=== PATIENT | male | born 1945 | race Caucasian/White ===

== ENCOUNTER 2020-02-19 07:39 | Outpatient (REF) | payer OTHER, SELFPAY ==
[2020-02-19 09:57] LABS: Estimated Average Glucose 146 mg/dL; Hemoglobin A1c % 6.7 %
[2020-02-19 10:22] LABS: Cholesterol 200 mg/dL; Glucose Fasting 146 mg/dL (60-99); HDL Cholesterol 46 mg/dL; LDL Cholesterol Calculated 115 mg/dl; Triglycerides 199 mg/dL
== END 2020-02-19 07:40 | disposition home or self-care (01) ==
LOC: HO.LAB 07:39
PROVIDERS: PCP Internal Medicine; Visit Provider Internal Medicine
DX: E11.9 Type 2 diabetes mellitus without complications (principal)
CPT/HCPCS: 80061; 82947; 83036

== ENCOUNTER 2020-05-10 13:40 | Outpatient (REF) | payer OTHER, SELFPAY ==
--- NOTE | 2020-05-10 | US_ITS ---
EXAMINATION: US EXTRACRANIAL CAROTID DUPLEX, BILATERAL CLINICAL INFORMATION: Carotid artery stenosis. COMPARISON: April 26, 2019, 04/20/2018 and 05/28/2016 TECHNIQUE: Real-time ultrasound and Doppler techniques (integrating B-mode 2-D vascular images, Doppler spectral analysis and color-flow Doppler imaging) were utilized to interrogate the extracranial carotid arteries, the vertebral arteries and proximal subclavian arteries bilaterally. The degree of stenosis is determined by criteria similar to NASCET. FINDINGS: Right Side: 1. There is mild atherosclerotic plaque seen in the bifurcation/proximal ICA region. 2. The common carotid artery PSV proximally is 78.6 cm/s and distally 80.1 cm/s. 3. The proximal internal carotid artery velocities are 117 cm/s systolic and 37 cm/s diastolic. 4. The proximal external carotid artery PSV is 150 cm/s. 5. The vertebral artery shows antegrade flow. 6. The subclavian artery waveforms are normal. Left Side: 1. There is mild atherosclerotic plaque seen in the bifurcation/proximal ICA region. 2. The common carotid artery PSV proximally is 85 cm/s and distally 103 cm/s. 3. The proximal internal carotid artery velocities are 92 cm/s systolic and 25 cm/s diastolic. 4. The proximal external carotid artery PSV is 145 cm/s. 5. The vertebral artery shows antegrade flow. 6. The subclavian artery waveforms are normal. US/US carotid duplex BI IMPRESSION: 1. RIGHT: Minimal, non-hemodynamically significant stenosis of the proximal right internal carotid artery corresponding to a 0-49% stenosis by velocity criteria. 2. LEFT: Minimal, non-hemodynamically significant stenosis of the proximal left internal carotid artery corresponding to a 0-49% stenosis by velocity criteria. 3. There is no change in the category severity of disease when compared to the previous study dated 04/26/2019.
== END 2020-05-10 13:41 | disposition home or self-care (01) ==
LOC: HO.US 13:40
PROVIDERS: Visit Provider Surgery Vascular Surgery
DX: I63.233 Cerebral infarction due to unspecified occlusion or stenosis of bilateral carotid arteries (principal)
CPT/HCPCS: 93880

== ENCOUNTER 2020-05-18 07:38 | Outpatient (REF) | payer OTHER, SELFPAY ==
[2020-05-18 11:58] LABS: Cholesterol 240 mg/dL; HDL Cholesterol 49 mg/dL; LDL Cholesterol Calculated 149 mg/dl; Triglycerides 214 mg/dL
[2020-05-18 12:15] LABS: Estimated Average Glucose 148 mg/dL; Hemoglobin A1c % 6.8 %
== END 2020-05-18 07:39 | disposition home or self-care (01) ==
LOC: HO.WFDLDS 07:38
PROVIDERS: Visit Provider Internal Medicine
DX: E11.9 Type 2 diabetes mellitus without complications (principal)
CPT/HCPCS: 36415; 80061; 83036

== ENCOUNTER → 2020-05-25 13:24 | Outpatient (BNVA) | payer OTHER, SELFPAY | PROVIDERS: PCP Internal Medicine; Visit Provider Surgery Vascular Surgery ==

== ENCOUNTER 2020-07-13 08:30 | Outpatient (REF) | payer OTHER, SELFPAY ==
[2020-07-13 11:31] LABS: MANUAL DIFF FLAG NO
[2020-07-13 11:42] LABS: Basophils Percent Auto 0.5 % (0-2); Eosinophils Absolute Auto 0.3 X10*3/uL (0.0-0.4); Eosinophils Percent Auto 5.1 % (0-4); Hematocrit 43.1 % (42-52); Hemoglobin 13.7 g/dl (14.0-18.0); Imm Gran Abs Auto 0.03 X10*3/uL (0.00-0.03); Imm Gran Pct Auto 0.5 % (0.0-0.4); Lymphocytes Percent Auto 15.9 % (20-40); Mean Corpuscular HGB Conc 31.8 g/dl (31.0-36.0); Mean Corpuscular Hemoglobin 29.5 pg (27.0-33.0); Mean Corpuscular Volume 92.9 fL (80-98); Mean Platelet Volume 10.2 fL (9.4-12.4); Monocytes Absolute Auto 0.7 X10*3/uL (0.1-1.2); Monocytes Percent Auto 11.5 % (2-11); Neutrophils Percent Auto 66.5 % (45-73); Platelet Count 229 X10*3/uL (160-400); Red Blood Count 4.64 X10*6/uL (4.60-5.80); Red Cell Distribution Width 14.5 % (11.0-16.0)
[2020-07-13 11:44] LABS: Estimated Average Glucose 146 mg/dL; Hemoglobin A1c % 6.7 %
[2020-07-13 12:18] LABS: Vitamin D 25-OH Total 35.1 ng/mL (>30)
[2020-07-13 12:22] LABS: Albumin Level 4.4 g/dL (3.5-5.0); Anion Gap 12 (12-20); Blood Urea Nitrogen 53 mg/dL (9-16); Calcium 8.9 mg/dL (8.4-10.2); Carbon Dioxide 28 mmol/L (22-29); Chloride 106 mmol/L (96-108); Estimated Glomerular Filt Rate 23; Magnesium 2.7 mg/dL (1.6-2.6); Potassium 5.1 mmol/L (3.3-5.1); Sodium 141 mmol/L (135-145)
[2020-07-13 12:25] LABS: Cholesterol 258 mg/dL; HDL Cholesterol 44 mg/dL; LDL Cholesterol Calculated 177 mg/dl; Triglycerides 187 mg/dL
[2020-07-13 14:26] LABS: Renal w Reflex Lab Use Only Order verified
[2020-07-15 15:01] LABS: Calcium (PTHI) 9.1 mg/dL (8.6-10.3); PTHI 69 pg/mL (14-64)
== END 2020-07-13 08:31 | disposition home or self-care (01) ==
LOC: HO.WFDLDS 08:30
PROVIDERS: Internal Medicine; Visit Provider Internal Medicine Nephrology
DX: E11.22 Type 2 diabetes mellitus with diabetic chronic kidney disease (principal); E11.21 Type 2 diabetes mellitus with diabetic nephropathy; I12.9 Hypertensive chronic kidney disease with stage 1 through stage 4 chronic kidney disease, or unspecified chronic kidney disease; N18.4 Chronic kidney disease, stage 4 (severe); I70.1 Atherosclerosis of renal artery
CPT/HCPCS: 36415; 80051; 80061; 82040; 82306; 82310; 82565; 83036; 83735; 83970; 84100; 84520; 85025

== ENCOUNTER 2020-09-18 12:35 | Outpatient (REF) | payer OTHER, SELFPAY ==
--- NOTE | ~2020-09-18 | XR_ITS ---
EXAMINATION: XR HIP, RIGHT CLINICAL INFORMATION: Right hip pain COMPARISON: There are no prior studies for comparison. TECHNIQUE: An AP view of the pelvis and AP and frog lateral views of the right hip. FINDINGS: Mineralization is normal. There is no fracture or dislocation. The joint space is preserved. There is subchondral sclerosis in the superior acetabulum with irregularity of the acetabular margin with a small adjacent ossicle. No other findings of significance are seen. XR/XR hip RT w PEL1V IMPRESSION: Irregularity of the lateral margin of the acetabulum with small adjacent ossicle suggested possible posttraumatic changes to the labrum. The hip appears otherwise unremarkable.
== END 2020-09-18 12:36 | disposition home or self-care (01) ==
LOC: HO.XRAY 12:35
PROVIDERS: PCP Internal Medicine; Visit Provider Family Medicine
DX: M25.551 Pain in right hip (principal)
CPT/HCPCS: 73502

== ENCOUNTER 2020-10-10 10:46 | Outpatient (REF) | payer OTHER, SELFPAY ==
--- NOTE | ~2020-10-10 | XR_ITS ---
EXAMINATION: XR FOOT, RIGHT XR FOOT, LEFT CLINICAL INFORMATION: Pain in feet. COMPARISON: None pertinent. TECHNIQUE: 3 views of the right foot. 3 views of the left foot. FINDINGS: RIGHT FOOT: There is no evidence of fracture or focal osseous lesion. Alignment is anatomic. The joint spaces are relatively well maintained. There is a prominent bony spur at the medial aspect of the distal phalanx of the great toe. There is also a small bony spur at the dorsal aspect of the navicular, and small calcaneal Achilles insertion and plantar enthesophytes. The soft tissues are unremarkable. LEFT FOOT: There is no evidence of fracture or focal osseous lesion. Alignment is anatomic. There is some irregularity at the 5th MTP joint with mild osteophyte formation and irregularity of the 5th metatarsal head. Joint spaces are otherwise relatively well maintained. Also noted is a bony spur at the medial aspect of the great toe distal phalanx, and small calcaneal Achilles insertion and plantar enthesophytes. The soft tissues are unremarkable. XR/XR foot LT 2V IMPRESSION: Right Foot: No acute osseous abnormality. Mild osseous spurring as noted above. Left Foot: No acute osseous abnormality. Degenerative change at the 5th MTP joint. Mild osseous spurring.
--- NOTE | ~2020-10-10 | XR_ITS ---
EXAMINATION: XR FOOT, RIGHT XR FOOT, LEFT CLINICAL INFORMATION: Pain in feet. COMPARISON: None pertinent. TECHNIQUE: 3 views of the right foot. 3 views of the left foot. FINDINGS: RIGHT FOOT: There is no evidence of fracture or focal osseous lesion. Alignment is anatomic. The joint spaces are relatively well maintained. There is a prominent bony spur at the medial aspect of the distal phalanx of the great toe. There is also a small bony spur at the dorsal aspect of the navicular, and small calcaneal Achilles insertion and plantar enthesophytes. The soft tissues are unremarkable. LEFT FOOT: There is no evidence of fracture or focal osseous lesion. Alignment is anatomic. There is some irregularity at the 5th MTP joint with mild osteophyte formation and irregularity of the 5th metatarsal head. Joint spaces are otherwise relatively well maintained. Also noted is a bony spur at the medial aspect of the great toe distal phalanx, and small calcaneal Achilles insertion and plantar enthesophytes. The soft tissues are unremarkable. XR/XR foot RT 2V IMPRESSION: Right Foot: No acute osseous abnormality. Mild osseous spurring as noted above. Left Foot: No acute osseous abnormality. Degenerative change at the 5th MTP joint. Mild osseous spurring.
--- NOTE | ~2020-10-10 | XR_ITS ---
EXAMINATION: XR PELVIS CLINICAL INFORMATION: Pain in right hip. COMPARISON: Right hip radiographs 09/18/2020. TECHNIQUE: AP view of the pelvis. FINDINGS: Unchanged appearance of the right hip with irregularity of the superior acetabulum and adjacent small ossicle. There is slight asymmetric prominence of the right femoral head-neck junction which can be seen with femoral acetabular impingement. The hip joint spaces are relatively well maintained. Both femoral heads appropriately project over the acetabula. The bony pelvis is intact. There are no acute osseous findings. XR/XR pelvis 1-2V IMPRESSION: Again noted is irregularity of the superior right acetabulum and adjacent small ossicle. There is slight asymmetric prominence of the right femoral head-neck junction which can be seen with femoral acetabular impingement. No significant interval change.
[2020-10-10 11:22] LABS: MANUAL DIFF FLAG NO
[2020-10-10 11:51] LABS: Basophils Percent Auto 0.2 % (0-2); Eosinophils Absolute Auto 0.1 X10*3/uL (0.0-0.4); Eosinophils Percent Auto 0.5 % (0-4); Hematocrit 38.8 % (42-52); Hemoglobin 12.4 g/dl (14.0-18.0); Imm Gran Abs Auto 0.05 X10*3/uL (0.00-0.03); Imm Gran Pct Auto 0.5 % (0.0-0.4); Lymphocytes Absolute Auto 0.6 X10*3/uL (1.2-4.9); Lymphocytes Percent Auto 5.3 % (20-40); Mean Corpuscular Hemoglobin 29.9 pg (27.0-33.0); Mean Corpuscular Volume 93.5 fL (80-98); Mean Platelet Volume 10.9 fL (9.4-12.4); Monocytes Absolute Auto 0.9 X10*3/uL (0.1-1.2); Monocytes Percent Auto 8.3 % (2-11); Neutrophils Absolute Auto 8.9 X10*3/uL (2.0-8.3); Neutrophils Percent Auto 85.2 % (45-73); Platelet Count 232 X10*3/uL (160-400); Red Blood Count 4.15 X10*6/uL (4.60-5.80); Red Cell Distribution Width 15.4 % (11.0-16.0); White Blood Count 10.5 X10*3/uL (4.8-10.8)
[2020-10-10 12:07] LABS: Alanine Aminotransferase 12 U/L (0-40); Albumin Level 3.8 g/dL (3.5-5.0); Alkaline Phosphatase 129 U/L (39-117); Anion Gap 17 (12-20); Aspartate Amino Transferase 14 U/L (5-37); Bilirubin Total 0.5 mg/dL (0.0-1.0); Blood Urea Nitrogen 84 mg/dL (9-16); Calcium 8.7 mg/dL (8.4-10.2); Carbon Dioxide 16 mmol/L (22-29); Chloride 110 mmol/L (96-108); Cholesterol 185 mg/dL; Estimated Glomerular Filt Rate 20; Glucose Fasting 185 mg/dL (60-99); HDL Cholesterol 53 mg/dL; LDL Cholesterol Calculated 116 mg/dl; Sodium 139 mmol/L (135-145); Thyroid Stimulating Hormone 1.66 uIU/mL (0.32-4.0); Total Protein 6.6 g/dL (6.5-8.0); Triglycerides 82 mg/dL
[2020-10-10 14:31] LABS: Creatinine Urine 114.95 mg/dL; Microalbum/Creatinine Ratio Ur 97.4 ug/mg cr
== END 2020-10-10 10:47 | disposition home or self-care (01) ==
LOC: HO.XRAY 10:46
PROVIDERS: PCP Internal Medicine; Visit Provider Internal Medicine
DX: Z00.00 Encounter for general adult medical examination without abnormal findings (principal); E11.9 Type 2 diabetes mellitus without complications; E03.9 Hypothyroidism, unspecified; R51.9 Headache, unspecified; M10.9 Gout, unspecified; M79.672 Pain in left foot; M25.551 Pain in right hip; M79.671 Pain in right foot
CPT/HCPCS: 36415; 72170; 73620; 80048; 80053; 80061; 82043; 84443; 84550; 85025

== ENCOUNTER 2020-10-25 11:35 | Outpatient (REF) | payer OTHER, SELFPAY ==
[2020-10-25 14:26] LABS: Anion Gap 17 (12-20); Blood Urea Nitrogen 55 mg/dL (9-16); Calcium 8.8 mg/dL (8.4-10.2); Carbon Dioxide 21 mmol/L (22-29); Chloride 106 mmol/L (96-108); Estimated Glomerular Filt Rate 29; Glucose Random 113 mg/dL (60-115); Potassium 5.3 mmol/L (3.3-5.1); Sodium 139 mmol/L (135-145)
== END 2020-10-25 11:36 | disposition home or self-care (01) ==
LOC: HO.LAB 11:35
PROVIDERS: PCP Internal Medicine; Visit Provider Internal Medicine
DX: R51.9 Headache, unspecified (principal)
CPT/HCPCS: 36415; 80048

== ENCOUNTER 2020-11-28 15:15 | Outpatient (REF) | payer OTHER, SELFPAY ==
[2020-11-28 15:47] LABS: MANUAL DIFF FLAG NO
[2020-11-28 15:51] LABS: Basophils Percent Auto 0.2 % (0-2); Eosinophils Percent Auto 0.2 % (0-4); Hematocrit 42.6 % (42-52); Hemoglobin 13.6 g/dl (14.0-18.0); Imm Gran Abs Auto 0.25 X10*3/uL (0.00-0.03); Imm Gran Pct Auto 1.9 % (0.0-0.4); Lymphocytes Absolute Auto 0.7 X10*3/uL (1.2-4.9); Mean Corpuscular HGB Conc 31.9 g/dl (31.0-36.0); Mean Corpuscular Hemoglobin 29.8 pg (27.0-33.0); Mean Corpuscular Volume 93.4 fL (80-98); Mean Platelet Volume 11.1 fL (9.4-12.4); Monocytes Absolute Auto 1.2 X10*3/uL (0.1-1.2); Monocytes Percent Auto 9.1 % (2-11); Neutrophils Absolute Auto 11.1 X10*3/uL (2.0-8.3); Neutrophils Percent Auto 83.6 % (45-73); Platelet Count 218 X10*3/uL (160-400); Red Blood Count 4.56 X10*6/uL (4.60-5.80); Red Cell Distribution Width 16.1 % (11.0-16.0); White Blood Count 13.2 X10*3/uL (4.8-10.8)
[2020-11-28 16:18] LABS: Anion Gap 16 (12-20); Blood Urea Nitrogen 73 mg/dL (9-16); Carbon Dioxide 21 mmol/L (22-29); Chloride 107 mmol/L (96-108); Estimated Glomerular Filt Rate 22; Glucose Random 127 mg/dL (60-115); Potassium 4.8 mmol/L (3.3-5.1); Sodium 139 mmol/L (135-145)
== END 2020-11-28 15:16 | disposition home or self-care (01) ==
LOC: HO.LAB 15:15
PROVIDERS: PCP Internal Medicine; Visit Provider Internal Medicine
DX: Z00.00 Encounter for general adult medical examination without abnormal findings (principal); R51.9 Headache, unspecified
CPT/HCPCS: 36415; 80048; 85025

== ENCOUNTER 2020-11-29 09:48 | Inpatient (IN) | payer OTHER, SELFPAY ==
[2020-11-29] VITALS (12 sets, daily range): BP systolic 136–160; BP diastolic 62–75; PULSE 61–76; RESP 12–19; TEMP 36.2–37.1; O2SAT 96–99; BMI 31.5
--- NOTE | 2020-11-29 | ECG_ITS ---
Test Reason : ABDOMINAL PAIN Blood Pressure : / mmHG Vent. Rate : 065 BPM Atrial Rate : 065 BPM P-R Int : 162 ms QRS Dur : 098 ms QT Int : 406 ms P-R-T Axes : 046 060 051 degrees QTc Int : 422 ms Normal sinus rhythm Normal ECG When compared with ECG of 29-NOV-2015 10:05, No significant change was found Referred By: Rohan Ambrosio Electronically Signed By:Tomas Morales
--- NOTE | ~2020-11-29 | XR_ITS ---
EXAMINATION: XR CHEST CLINICAL INFORMATION: Rule out mass COMPARISON: Previous chest x-ray September 2016 TECHNIQUE: 2 views of the chest were obtained. FINDINGS: The cardiac and mediastinal contours are normal. There is slight elevation of the right hemidiaphragm. The lungs are clear. There is no pleural effusion or thorax. There may be an 8 anterior rib fracture. Bony structures are otherwise unremarkable. XR/XR chest 2V IMPRESSION: No mass seen. Slight elevation of the right hemidiaphragm. Question right anterior eighth fracture.
--- NOTE | ~2020-11-29 | CT_ITS ---
EXAMINATION: CT ABDOMEN AND PELVIS WITHOUT CONTRAST CLINICAL INFORMATION: Status post right colectomy. Increased pain and nausea. COMPARISON: 11/29/2020 TECHNIQUE: Multidetector volumetric imaging was performed from the superior aspect of the liver through the pubic symphysis. Sagittal and coronal reformatted images were obtained on the technologist's workstation. This CT examination was performed using dose optimization techniques as appropriate, variously including the following: *Automated exposure control *Adjustment of mA and/or kV according to patient size (this includes techniques or standardized protocols for targeted exams where dose is matched to indication/reason for exam; i.e. extremities or head) *Use of iterative reconstruction technique DLP: 785 mGy-cm FINDINGS: LUNG BASES: There is bibasilar dependent prominent coronary artery calcifications seen. Atelectasis is present. LIVER, GALLBLADDER, AND BILIARY TREE: The liver is enlarged at 23 cm in vertical span. There are numerous low-density lesions present suspicious for metastases. One mass in segment 7 measures approximately 4 cm diameter and another low-density lesion bridging segments 2 and 4 measures approximately 5 cm in diameter. No intrahepatic bile duct dilatation. The gallbladder is unremarkable with no evidence of radiopaque gallstones, gallbladder wall thickening, or obvious pericholecystic inflammatory changes. There is layering of some increased density material likely related to vicarious excretion of contrast versus echogenic bile. PANCREAS: Unremarkable. There are a few calculi seen within the tail which may be related to previous inflammatory change of the pancreas. SPLEEN: Unremarkable. ADRENAL GLANDS: Unremarkable. KIDNEYS AND URETERS: The kidneys are normal in size, shape, and attenuation. No hydronephrosis or hydroureter. There is bilateral perinephric stranding present. There is a 2 mm nonobstructing calculus seen within the interpolar region of the left kidney. BLADDER: Unremarkable. GASTROINTESTINAL TRACT: There is a small amount of free intra-abdominal gas present. There is a moderate amount of ascites seen. Both may be postoperative in nature. There are numerous dilated loops of small bowel measuring up to 5.5 cm in diameter. Patient is status post right colectomy with the distal ileum not being dilated. Transition appears to lie within the right lower abdomen in a region of narrowed small bowel in the appearance of a V which may be related to internal hernia or band. This can be seen on image 559 [id number] in series #6 and sagittal view of 147 of 231 in series #5. I do not definitely see an intussusception. The above finding may be related to postoperative ileus. ABDOMINAL WALL: No significant hernia is appreciated. LYMPH NODES: Periportal lymphadenopathy is present. VASCULAR: There is moderate aortoiliac calcified plaque present. There is a 4.1 cm infrarenal abdominal aortic aneurysm which extends to the bifurcation. PELVIC VISCERA: The prostate gland is enlarged measuring approximately 5.9 x 5.8 x 6.2 cm in size. OSSEOUS STRUCTURES: No destructive bony lesion identified. There is multilevel degenerative disc disease seen. CT/CT abdomen pelvis wo con IMPRESSION: Small bowel dilatation down to level in the ileum, as described. This appears to be a region of transition, however, the small bowel dilatation could also be related to ileus. There remains some free air and moderate free fluid which may be postoperative in nature. Numerous hepatic lesions with the appearance of metastatic disease. Hepatomegaly. Periportal lymphadenopathy. 4.1 cm infrarenal abdominal aortic aneurysm.
--- NOTE | ~2020-11-29 | CT_ITS ---
EXAMINATION: CT ABDOMEN AND PELVIS WITHOUT CONTRAST CLINICAL INFORMATION: Right lower quadrant pain. Diarrhea. COMPARISON: Previous renal ultrasound December [address] of the abdomen October 2006 TECHNIQUE: Multidetector volumetric imaging was performed from the superior aspect of the liver through the pubic symphysis. Sagittal and coronal reformatted images were obtained on the technologist's workstation. This CT examination was performed using dose optimization techniques as appropriate, variously including the following: *Automated exposure control *Adjustment of mA and/or kV according to patient size (this includes techniques or standardized protocols for targeted exams where dose is matched to indication/reason for exam; i.e. extremities or head) *Use of iterative reconstruction technique DLP: 8-9 mGy-cm FINDINGS: LUNG BASES: The visualized lung bases are unremarkable. LIVER, GALLBLADDER, AND BILIARY TREE: The liver is enlarged. There are multiple low-attenuation liver lesions seen suggestive of metastatic disease. The largest measures 5 cm and the left lobe of liver. Gallbladder appears contracted. There is no biliary duct dilatation. PANCREAS: There are small calcifications in the pancreas suggestive of chronic pancreatitis. SPLEEN: Unremarkable. ADRENAL GLANDS: Unremarkable. KIDNEYS AND URETERS: There are tiny 1 mm stones in the lower pole of each kidney. BLADDER: Unremarkable. GASTROINTESTINAL TRACT: There is a mass in the cecum strongly suspicious for neoplasm. This measures 5.5 x 7 cm. There is infiltration of the fat and adjacent enlarged pericolic lymph nodes. There is mild diverticulosis of the colon. There is no evidence of diverticulitis. Small and large bowel is otherwise unremarkable. The appendix is unremarkable. ABDOMINAL WALL: No significant hernia is appreciated. LYMPH NODES: There are enlarged right lower quadrant pericolic lymph nodes. Largest lymph node measures 1 x 1.3 cm. There are prominent periportal lymph nodes as well. VASCULAR: There is an aneurysm of the lower abdominal aorta measuring 3 x 4.2 cm in transverse and AP dimension. PELVIC VISCERA: Prostate gland is enlarged and protrudes into the base of the bladder. The prostate gland measures 5.7 x 6 cm in AP and transverse dimension. OSSEOUS STRUCTURES: There are degenerative changes of the spine and hip joints. CT/CT abdomen pelvis wo con IMPRESSION: Large mass in the cecum strongly suspicious for neoplasm. Infiltration of the adjacent fat and enlarged pericolic lymph nodes. Enlarged liver with multiple low-attenuation liver lesions suggestive of metastatic disease. Enlarged prostate gland. Small bilateral renal stones. Evidence of chronic pancreatitis. 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
[2020-11-29 11:42] LABS: MANUAL DIFF FLAG NO
[2020-11-29] MEDS: 0.9 % Sodium Chloride 1,000 ML 999 ML IVCONT (11:44)
--- NOTE | 2020-11-29 11:45 | PC.NURSE ---
patient a&ox3, vss, pt c/o rt groin pain 01/05- pt refusing morphine/zofran- pt states he can tolerate it and doesnt want pain meds- will notify provider, iv inserted, labs drawn, urine obtained, pt had ct scan, will continue to monitor.
[2020-11-29 11:46] LABS: Glucose Urine UA NEG (NEG); Leukocyte Esterase Urine NEG (NEG); Nitrite Urine NEG (NEG); Urine Blood NEG (NEG); Urine Ketones NEG (NEG); Urine Protein TRACE MG/DL (NEG-TRACE)
[2020-11-29 11:47] LABS: Appearance Urine CLEAR; Basophils Percent Auto 0.2 % (0-2); Color Urine YELLOW; Eosinophils Absolute Auto 0.1 X10*3/uL (0.0-0.4); Eosinophils Percent Auto 0.4 % (0-4); Hematocrit 40.7 % (42-52); Hemoglobin 13.1 g/dl (14.0-18.0); Imm Gran Abs Auto 0.21 X10*3/uL (0.00-0.03); Imm Gran Pct Auto 1.6 % (0.0-0.4); Lymphocytes Absolute Auto 0.7 X10*3/uL (1.2-4.9); Lymphocytes Percent Auto 5.1 % (20-40); Mean Corpuscular HGB Conc 32.2 g/dl (31.0-36.0); Mean Corpuscular Volume 93.1 fL (80-98); Mean Platelet Volume 11.3 fL (9.4-12.4); Monocytes Absolute Auto 1.1 X10*3/uL (0.1-1.2); Monocytes Percent Auto 8.7 % (2-11); Neutrophils Absolute Auto 10.9 X10*3/uL (2.0-8.3); Platelet Count 199 X10*3/uL (160-400); Red Blood Count 4.37 X10*6/uL (4.60-5.80)
[2020-11-29 12:07] LABS: Lactic Acid 1.9 mmol/L (0.5-2.0)
--- NOTE | 2020-11-29 12:37 | ED_ITS ---
HPI - Abdominal Pain General Chief Complaint: Abdominal Pain Stated Complaint: abnormal labs Time Seen by Provider: 11/29/20 10:45 Source: patient Mode of arrival: ambulatory History of Present Illness HPI narrative: 75-year-old male with a past medical history of diabetes, gout, hypertension, presenting to the ED sent in by PCP for abnormal labs. Reports lower abdominal pain, loose/watery nonbloody diarrhea, & urinary frequency worsening x days. Also reports fatigue and 60lb weight loss over the past few months. Denies fever, chills, CP/SOB, vomiting, constipation, bloody BM/melena MD elicited complaint: abdominal pain Related Data Home Medications Medication Instructions Recorded Confirmed eplerenone 25 mg tablet 25 mg PO DAILY 02/23/20 11/28/20 losartan 50 mg tablet 50 mg PO DAILY 02/23/20 11/28/20 Previous Rx's Medication Instructions Recorded pioglitazone 30 mg tablet 30 mg PO DAILY #90 tab 02/16/20 amlodipine 10 mg tablet 10 mg PO DAILY #90 tab 03/13/20 furosemide 20 mg tablet 40 mg PO DAILY #90 tab 03/13/20 simvastatin 20 mg tablet 20 mg PO BEDTIME #90 tab 03/13/20 ibuprofen 800 mg tablet 800 mg PO Q8H 30 Days #90 tab 09/18/20 allopurinol 300 mg tablet 300 mg PO DAILY #90 tab 10/25/20 famotidine 40 mg tablet (Pepcid) 40 mg PO BEDTIME #30 tab 11/16/20 omeprazole 40 mg capsule,delayed 40 mg PO DAILY #30 cap 11/16/20 release Allergies Allergy/AdvReac Type Severity Reaction Status Date / Time atenolol Allergy Unknown dizziness Verified 11/29/20 09:51 penicillin V Allergy Unknown Unknown Verified 11/29/20 09:51 Review of Systems Review of Systems Constitutional: No Fever, No Chills, + Fatigue, No Malaise, +weight loss Cardiovascular: No Chest Pain, No SOB, No Edema, No Palpitations Respiratory: No Cough, No Dyspnea Gastrointestinal: No Nausea, No Vomiting, + Diarrhea, No Constipation, + Abdominal pain, No Hematochezia, No Melena Genitourinary: + Dysuria, + Urinary Frequency, No Hematuria, No Flank Pain Musculoskeletal: No joint pain, No Myalgias, No Joint Swelling Skin: No Skin Lesions, No rash Neuro: + Weakness, No Numbness, No Headache Yes all other systems are reviewed and are negative Physical Exam Vital Signs: Vital Signs: Last Vital Signs Temp 98.0 F 11/29/20 14:15 Pulse 66 11/29/20 14:15 Resp 18 11/29/20 14:15 BP 144/72 H 11/29/20 14:15 Pulse Ox 98 11/29/20 14:15 Body Mass Index 31.5 Const: General: cooperative and no acute distress Orientation/consciousness: patient oriented x3 Limitations: no limitations HENMT: Head: Yes normal to inspection Ears: hearing grossly normal bilatera lly General nose exam: Normal external nose present Face and sinus: Yes normal facial exam Eyes: General: appearance normal, both eyes and all related structures EOM: EOMs intact bilaterally Neck: Neck: Yes normal visual inspection Resp: Effort & Inspection: normal respiratory effort Auscultation: clear to auscultation bilaterally, no rales and no wheezes Cardio: Rate: regular rate Heart sounds: S1 normal heart sound present and S2 normal heart sound present GI: Inspection: Yes normal to inspection Palpation (GI): Soft to palpation, Tenderness to palpation present (GI) in the RLQ, no guarding and not rigid : General: Yes no CVA tenderness Scrotum: scrotum normal Testes: Testes normal Back/Spine/Pelvis: Back: no CVA tenderness Skin: Rashes: no rashes Wounds: no wounds Neuro: General: patient oriented x3, tone normal and moves all extremities Gait exam (Neuro): Normal gait present Extrem: General: Yes normal to inspection and Yes no pedal edema Course Course Course Narrative: -mild leukocytosis of 13, H&H at patient's baseline 1245-- CT abdomen pelvis wo con IMPRESSION: Large mass in the cecum strongly suspicious for neoplasm. Infiltration of the adjacent fat and enlarged pericolic lymph nodes. Enlarged liver with multiple low-attenuation liver lesions suggestive of metastatic disease. Enlarged prostate gland. Small bilateral renal stones. Evidence of chronic pancreatitis. 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 >> Heme-Onc consulted -lactic acid 1.9 -Dr. Franklin recommended admission with GI and Surgical consult XR chest 2V IMPRESSION: No mass seen. Slight elevation of the right hemidiaphragm. Question right anterior eighth fracture. -case discussed with surgery, patient will be admitted to surgical service MDM - Abdominal Pain MDM Narrative Medical decision making narrative: 75-year-old male with a past medical history of diabetes, gout, hypertension, presenting to the ED sent in by PCP for abnormal labs. Reports lower abdominal pain, loose/watery nonbloody diarrhea, & urinary frequency worsening x days. On exam VSS, NAD, abdomen soft with RLQ ttp, no rebound, no CVAT, exam WNL. Concern for appendicitis vs colitis vs diverticulitis vs neoplasm. Rule out metabolic abnormalities Plan: Labs, UA, CT AP, IVF, reassess Medical Records Attestation: I reviewed the patient's medical records. Lab Data Attestation: I reviewed the patient's lab results. Result diagrams: 11/29/20 11:38 11/29/20 12:40 Labs: Lab Results 11/29/20 11/29/20 11/29/20 Range/Units 11:38 11:38 11:38 WBC 13.0 H (4.8-10.8) X10*3/uL RBC 4.37 L (4.60-5.80) X10*6/uL Hgb 13.1 L (14.0-18.0) g/dl Hct 40.7 L (42-52) % MCV 93.1 (80-98) fL MCH 30.0 (27.0-33.0) pg MCHC 32.2 (31.0-36.0) g/dl RDW 16.0 (11.0-16.0) % Plt Count 199 (160-400) X10*3/uL MPV 11.3 (9.4-12.4) fL Immature Gran % (Auto) 1.6 H (0.0-0.4) % Neut % (Auto) 84.0 H (45-73) % Lymph % (Auto) 5.1 L (20-40) % [place] % (Auto) 8.7 (2-11) % Eos % (Auto) 0.4 (0-4) % Baso % (Auto) 0.2 (0-2) % Lymph # (Auto) 0.7 L (1.2-4.9) X10*3/uL [place] # (Auto) 1.1 (0.1-1.2) X10*3/uL Eos # (Auto) 0.1 (0.0-0.4) X10*3/uL Baso # (Auto) 0.0 (0.0-0.2) X10*3/uL Abs Immat Gran (auto) 0.21 H (0.00-0.03) X10*3/uL Absolute Neuts (auto) 10.9 H (2.0-8.3) X10*3/uL Absolute Nucleated RBC 0.000 (0.0-0.012) X10*3/uL Nucleated RBC % (auto) 0.0 (0.0-0.2) /100WBC Sodium (135-145) mmol/L Potassium (3.3-5.1) mmol/L Chloride (96-108) mmol/L Carbon Dioxide (22-29) mmol/L Anion Gap (12-20) BUN (9-16) mg/dL Creatinine (0.5-1.4) mg/dL Estim Creat Clear Calc Estimated GFR Random Glucose (60-115) mg/dL Lactic Acid 1.9 (0.5-2.0) mmol/L Calcium (8.4-10.2) mg/dL Magnesium (1.6-2.6) mg/dL Total Bilirubin (0.0-1.0) mg/dL Direct Bilirubin (0.0-0.5) mg/dL AST (5-37) U/L ALT (0-40) U/L Alkaline Phosphatase (39-117) U/L Total Protein (6.5-8.0) g/dL Albumin (3.5-5.0) g/dL Lipase (8-78) U/L Urine Color YELLOW Urine Appearance CLEAR Urine pH 6.0 (5.0-8.0) Ur Specific [place] 1.020 (1.005-1.025) Urine Protein TRACE (NEG-TRACE) MG/DL Urine Glucose (UA) NEG (NEG) MG/DL Urine Ketones NEG (NEG) MG/DL Urine Blood NEG (NEG) Urine Nitrite NEG (NEG) Ur Leukocyte Esterase NEG (NEG) 11/29/20 Range/Units 12:40 WBC (4.8-10.8) X10*3/uL RBC (4.60-5.80) X10*6/uL Hgb (14.0-18.0) g/dl Hct (42-52) % MCV (80-98) fL MCH (27.0-33.0) pg MCHC (31.0-36.0) g/dl RDW (11.0-16.0) % Plt Count (160-400) X10*3/uL MPV (9.4-12.4) fL Immature Gran % (Auto) (0.0-0.4) % Neut % (Auto) (45-73) % Lymph % (Auto) (20-40) % [place] % (Auto) (2-11) % Eos % (Auto) (0-4) % Baso % (Auto) (0-2) % Lymph # (Auto) (1.2-4.9) X10*3/uL [place] # (Auto) (0.1-1.2) X10*3/uL Eos # (Auto) (0.0-0.4) X10*3/uL Baso # (Auto) (0.0-0.2) X10*3/uL Abs Immat Gran (auto) (0.00-0.03) X10*3/uL Absolute Neuts (auto) (2.0-8.3) X10*3/uL Absolute Nucleated RBC (0.0-0.012) X10*3/uL Nucleated RBC % (auto) (0.0-0.2) /100WBC Sodium 139 (135-145) mmol/L Potassium 5.0 (3.3-5.1) mmol/L Chloride 109 H (96-108) mmol/L Carbon Dioxide 22 (22-29) mmol/L Anion Gap 13 (12-20) BUN 66 H (9-16) mg/dL Creatinine 2.39 H (0.5-1.4) mg/dL Estim Creat Clear Calc 33.0 Estimated GFR 27 Random Glucose 160 H (60-115) mg/dL Lactic Acid (0.5-2.0) mmol/L Calcium 8.1 L D (8.4-10.2) mg/dL Magnesium 2.4 (1.6-2.6) mg/dL Total Bilirubin 0.5 (0.0-1.0) mg/dL Direct Bilirubin 0.3 (0.0-0.5) mg/dL AST 28 D (5-37) U/L ALT 23 (0-40) U/L Alkaline Phosphatase 200 H D (39-117) U/L Total Protein 6.0 L (6.5-8.0) g/dL Albumin 3.6 (3.5-5.0) g/dL Lipase 36 (8-78) U/L Urine Color Urine Appearance Urine pH (5.0-8.0) Ur Specific [place] (1.005-1.025) Urine Protein (NEG-TRACE) MG/DL Urine Glucose (UA) (NEG) MG/DL Urine Ketones (NEG) MG/DL Urine Blood (NEG) Urine Nitrite (NEG) Ur Leukocyte Esterase (NEG) Discharge Plan Discharge Clinical Impression: Cecum mass, Liver lesion Patient Disposition: Admitted As Inpatient Prescriptions: No Action pioglitazone 30 mg tablet 30 mg PO DAILY Qty: 90 RF: 8 simvastatin 20 mg tablet 20 mg PO BEDTIME Qty: 90 RF: 8 furosemide 20 mg tablet 40 mg PO DAILY Qty: 90 RF: 8 amlodipine 10 mg tablet 10 mg PO DAILY Qty: 90 RF: 8 famotidine [Pepcid] 40 mg tablet 40 mg PO BEDTIME Qty: 30 RF: 2 omeprazole 40 mg capsule,delayed release(DR/EC) 40 mg PO DAILY Qty: 30 RF: 2 eplerenone 25 mg tablet 25 mg PO DAILY RF: 0 losartan 50 mg tablet 50 mg PO DAILY RF: 0 ibuprofen 800 mg tablet 800 mg PO Q8H 30 Days Qty: 90 RF: 0 allopurinol 300 mg tablet 300 mg PO DAILY Qty: 90 RF: 8 PMFSH Past Medical History Attestation statement: The following information was validated with the patient. Medical History (Updated 11/29/20 @ 15:22 by SILVIA Cat) Diabetes mellitus Gout Hypertension Surgical History History of removal of cyst Family History Family History Father Past heart attack Mother Past heart attack Social History Social History Housing: House Alcohol intake: current Alcohol intake frequency: holidays/special occasions only Patient Tobacco Use Status: Current everyday Tobacco user Tobacco use type: Cigarette Cigarettes Per Day: 10 e-Cigarette/Vaping Use: Never Used Second Hand Smoke Exposure: No Use of substances other than those prescribed or required for medical reasons: No Advance Directives: No Advance Directives Information Provided: No service: No Current occupational status: employed and retired
[2020-11-29 13:15] LABS: Alanine Aminotransferase 23 U/L (0-40); Albumin Level 3.6 g/dL (3.5-5.0); Alkaline Phosphatase 200 U/L (39-117); Anion Gap 13 (12-20); Aspartate Amino Transferase 28 U/L (5-37); Bilirubin Direct 0.3 mg/dL (0.0-0.5); Bilirubin Total 0.5 mg/dL (0.0-1.0); Blood Urea Nitrogen 66 mg/dL (9-16); Calcium 8.1 mg/dL (8.4-10.2); Carbon Dioxide 22 mmol/L (22-29); Chloride 109 mmol/L (96-108); Estimated Glomerular Filt Rate 27; Glucose Random 160 mg/dL (60-115); Lipase 36 U/L (8-78); Magnesium 2.4 mg/dL (1.6-2.6); Sodium 139 mmol/L (135-145)
--- NOTE | 2020-11-29 14:16 | PC.NURSE ---
pt oob with 2 assist stand/pivot to commode to urinate, pt back to bed, vitals obtained, pt states pain 4/10, pt has + csm/pulse felt under cast, pt states hes unable to moves his toes well on the left, will continue to monitor.
--- NOTE | 2020-11-29 15:37 | P.HPGS_ITS ---
History of Present Illness History of Present Illness Date of Service: 11/29/20 Chief complaint: Obstructing Cecal Cancer Narrative: Cade Sanchez is a 75 year old male presenting with complaints of right lower quadrant extending into the right flank and right hip pain which has progressed over the past year. Patient reports frequent loose/watery bowels, 60 lb weight loss despite normal appetite. He denies fever, chills, nausea, or vomiting. He denies a previous history of abdominal surgeries. The pain appears to be increasing in severity and he was evaluated by his medical doctor today, and was subsequently sent to the emergency department for further evaluation. He was found to be slightly anemic in the emergency department. A CT of the abdomen and pelvis revealed: Large mass in the cecum strongly suspicious for neoplasm. Infiltration of the adjacent fat and enlarged pericolic lymph nodes. Enlarged liver with multiple low-attenuation liver lesions suggestive of metastatic disease. Enlarged prostate gland. Small bilateral renal stones. Evidence of chronic pancreatitis. 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 He is admitted to the surgical service for further management of this obstructing cecal lesion with apparent liver metastases. Review of Systems Review of Systems: Yes all other systems are reviewed and are negative Constitutional: Constitutional: Denies chills, Reports fatigue, Denies fever(s), Denies poor appetite and Reports weight loss Cardiovascular: Cardiovascular: Denies chest pain, Denies rapid heart rate and Denies irregular heart rhythm Respiratory: Respiratory: Denies chest congestion, Denies cough and Denies pain with cough Gastrointestinal: Gastrointestinal: Reports as per HPI Endocrine: Endocrine: Reports fatigue PMFSH Past Medical History Medical History Diabetes mellitus Gout Hypertension Family History Family History Father Past heart attack Mother Past heart attack Surgical History Surgical History History of removal of cyst Social History Social History Housing: House Alcohol intake: current Alcohol intake frequency: holidays/special occasions only Patient Tobacco Use Status: Current everyday Tobacco user Tobacco use type: Cigarette Cigarettes Per Day: 10 e-Cigarette/Vaping Use: Never Used Second Hand Smoke Exposure: No Use of substances other than those prescribed or required for medical reasons: No Advance Directives: No Advance Directives Information Provided: No service: No Current occupational status: employed and retired Meds Allergies Allergy/AdvReac Type Severity Reaction Status Date / Time atenolol Allergy Unknown dizziness Verified 11/29/20 09:51 penicillin V Allergy Unknown Unknown Verified 11/29/20 09:51 Active Medications: Current Medications Generic Name Dose Route Start Last Admin Trade Name Shahbaz PRN Reason Stop Dose Admin Pharmacy Consult 1 each 11/29/20 15:04 Consult Rx Perform Med Rec MISCELLANE ONCE PRN Consult order Home Medications Medication Instructions Recorded Confirmed Last Taken Type eplerenone 25 mg tablet 25 mg PO DAILY 02/23/20 11/28/20 Unknown History losartan 50 mg tablet 50 mg PO DAILY 02/23/20 11/28/20 Unknown History amlodipine 10 mg tablet 10 mg PO BEDTIME 11/29/20 11/29/20 11/28/20 History furosemide 20 mg tablet 20 mg PO DAILY 11/29/20 11/29/20 11/28/20 History Physical Exam Vital Signs: Vital Signs: Last Vital Signs Temp 98.0 F 11/29/20 14:15 Pulse 66 11/29/20 14:15 Resp 18 11/29/20 14:15 BP 144/72 H 11/29/20 14:15 Pulse Ox 98 11/29/20 14:15 Body Mass Index 31.5 Const: Other: Well-nourished, well-developed male no acute distress HENMT: Other: Normocephalic, atraumatic, extraocular muscles intact, no scleral icterus Neck: Other: Supple midline trachea, no JVD Resp: Other: No short of breath, breathing comfortably on room air GI: Other: Soft, nondistended, nontender to deep palpation, no rebound, no guarding, no rigidity, no scars, no hernias. Skin: General skin exam: no rashes or lesions noted Extrem: General: Yes normal to inspection and Yes no clubbing, cyanosis or edema Results Results Labs: Short CBC 11/29/20 Range/Units 11:38 WBC 13.0 H (4.8-10.8) X10*3/uL Hgb 13.1 L (14.0-18.0) g/dl Hct 40.7 L (42-52) % Plt Count 199 (160-400) X10*3/uL BMP 11/29/20 12:40 Sodium 139 Potassium 5.0 Chloride 109 H Carbon Dioxide 22 BUN 66 H Creatinine 2.39 H Calcium 8.1 L D Liver Function 11/29/20 Range/Units 12:40 Total Bilirubin 0.5 (0.0-1.0) mg/dL Direct Bilirubin 0.3 (0.0-0.5) mg/dL AST 28 D (5-37) U/L ALT 23 (0-40) U/L Alkaline Phosphatase 200 H D (39-117) U/L Albumin 3.6 (3.5-5.0) g/dL Urine 11/29/20 Range/Units 11:38 Urine Color YELLOW Urine Appearance CLEAR Urine pH 6.0 (5.0-8.0) Ur Specific [place] 1.020 (1.005-1.025) Urine Protein TRACE (NEG-TRACE) MG/DL Urine Glucose (UA) NEG (NEG) MG/DL Abdomen CT scan report/results: image reviewed Assessment and Plan (1) Cecum mass: Status: Acute (2) Liver lesion: Status: Acute 75-year-old male patient with history of diabetes, gout, hypercholesterol, hypertension with complaints of abdominal pain on the right side extending into the right flank and hip, with frequent diarrhea and 60 lb weight loss found on CT today to have a large cecal mass, enlarged mesenteric lymph nodes and multiple bilateral liver lesions suggestive of metastatic disease. Patient appears to have nearly obstructing disease in the cecum although there is no evidence of obstruction at this time. We discussed the management of obstructing metastatic colon cancer which primarily would be chemotherapy. Unfortunately with a nearly obstructing lesion, the options are limited. I recommended a hand assisted laparoscopic right colectomy with ileostomy. He understands that this is not a curative procedure but a palliative procedure due to the multiple liver metastases. An attempt will be made to biopsy the liver lesions intraoperatively. After discussion of the procedure, risks, and alterna tives, he consents to a hand assisted laparoscopic right hemicolectomy with ileostomy, liver biopsy. Hospitalist consultation for management of medical issues Quality Stroke Does the patient have a stroke diagnosis?: No VTE Prior VTE?: No VTE Risk Level:: Surgical - high VTE Device Contraindication: N/A - Device Ordered VTE Drug Contraindication: N/A - Med Ordered Procedures Date of Service Date of Service: 11/29/20
[2020-11-29 15:51] LABS: IDNOW Serial# 9DD0AD1C
--- NOTE | 2020-11-29 15:51 | PHA.MEDREC ---
Pharmacy Consult ? Medication Reconciliation Pharmacy has completed the medication reconciliation based on list obtained from patient portal.
[2020-11-29 15:52] LABS: COVID-19 Test Negative (Negative)
--- NOTE | 2020-11-29 16:21 | PC.NURSE ---
patient a&ox3, pt aware he is being admitted and that he is npo except ice chips/clear liquids until tomm am. vitals remain stable, pt continues to refused pain meds, will continue to monitor.
--- NOTE | 2020-11-29 16:29 | P.CONIM_ITS ---
History of Present Illness Data of Consult Service Date: 11/29/20 Primary Care Provider: Armin Zaragoza MD HPI Reason for consult: dm, ckd 75M has been complaining of right sided pain and weight loss for several months. in ED found to have cecal mass with liver masses suspicious for metastatic colon ca. at risk for obstruction, therefore, plan for surgery. patient has history of DM, controlled with actos, htn well controlled on amlodipnie, losartan, eplerenone. hld on zocor, CKD IV, creatinine around 2.5. at baseline prior to last couple of months, patient is very active, able to tolerate 4 mets. Review of Systems Review of Systems: Constitutional: Denies fever, denies Chills, positive weight loss Eyes: denies blurry vision ENT: denies sore throat CVS: denies chest pain Respiratory: Denies dyspnea GI: abdominal pain : denies dysuria MSK: denies neck pain Skin: denies rash Neuro: denies specific motor weakness Psych: denies suicidal ideation Endocrine: denies heat/cold intolerance Hematologic: denies easy bleeding Allergy: denies hives PMFSH Medical History CKD (chronic kidney disease), stage IV Diabetes mellitus Gout HLD (hyperlipidemia) Hypertension Family History Father Past heart attack Mother Past heart attack Family history: reviewed and not pertinent Surgical History History of removal of cyst Social History Housing: House Alcohol intake: current Alcohol intake frequency: holidays/special occasions only Patient Tobacco Use Status: Current everyday Tobacco user Tobacco use type: Cigarette Cigarettes Per Day: 10 e-Cigarette/Vaping Use: Never Used Second Hand Smoke Exposure: No Use of substances other than those prescribed or required for medical reasons: No Advance Directives: No Advance Directives Information Provided: No service: No Current occupational status: employed and retired Meds Allergies Allergy/AdvReac Type Severity Reaction Status Date / Time atenolol Allergy Unknown dizziness Verified 11/29/20 09:51 penicillin V Allergy Unknown Unknown Verified 11/29/20 09:51 Active Medications: Current Medications Generic Name Dose Route Start Last Admin Trade Name Freq PRN Reason Stop Dose Admin Acetaminophen 650 mg 11/29/20 15:37 Acetaminophen 325 Mg Tablet PO Q6H PRN Pain, Mild (Pain Scale 1-3) Allopurinol 300 mg 11/30/20 09:00 Allopurinol 300 Mg Tablet PO DAILY [facility] Amlodipine Besylate 10 mg 11/29/20 21:00 Amlodipine Besylate 10 Mg Tablet PO BEDTIME [facility] Protocol Atorvastatin Calcium 10 mg 11/29/20 21:00 Atorvastatin Calcium 10 Mg Tablet PO BEDTIME [facility] Dextrose 25 gm 11/29/20 16:25 Dextrose 50 % 25 Gm/50 Ml Vial IVPUSH Q15M PRN per Hypoglycemia Standing Ord. Protocol Famotidine 40 mg 11/29/20 21:00 Famotidine 20 Mg Tablet PO BEDTIME [facility] Glucose 15 gm 11/29/20 16:25 Glucose Gel 15 Gm Gel..Gram. PO Q15M PRN per Hypoglycemia Standing Ord. Protocol Heparin Sodium (Porcine) 5,000 unit 11/29/20 18:00 Heparin Sodium,Porcine 5,000 Unit/Ml Vial SUBCUT Q12H [facility] Dextrose/Lactated Ringer's 1,000 mls @ 125 mls/hr 11/29/20 15:45 D5lr IVCONT .Q8H [facility] Gentamicin Sulfate 460 mg/ 111.5 mls @ 100 mls/hr 11/30/20 07:00 Sodium Chloride IV 11/30/20 08:06 PREOP ONE Metronidazole 500 mg in 100 mls @ 100 mls/hr 11/30/20 07:00 Flagyl IV 11/30/20 07:59 PREOP ONE Insulin Human Lispro 0 unit 11/29/20 16:30 Insulin Lispro 100 Unit/Ml 3 Ml Vial SUBCUT QIDACHS [facility] Protocol Losartan Potassium 50 mg 11/30/20 09:00 Losartan Potassium 50 Mg Tablet PO DAILY [facility] Protocol Morphine Sulfate 4 mg 11/29/20 15:37 Morphine Sulfate 4 Mg/Ml Cartridge IVPUSH Q3H PRN Pain, Severe (Pain Scale 7-10) Non-Formulary Medication 25 mg 11/30/20 09:00 Eplerenone PO DAILY [facility] Ondansetron HCl 4 mg 11/29/20 15:37 Ondansetron Hcl 4 Mg/2 Ml Vial IVPUSH Q8H PRN Nausea and Vomiting Pharmacy Consult 1 each 11/29/20 15:04 Consult Rx Perform Med Rec MISCELLANE ONCE PRN Consult order Sodium Chloride 3 ml 11/29/20 16:00 0.9 % Sodium Chloride Flush 3 Ml Syringe [facility] Temazepam 15 mg 11/29/20 15:37 Temazepam 15 Mg Capsule PO BEDTIME PRN Insomnia Home Medications Medication Instructions Recorded Confirmed Last Taken Type eplerenone 25 mg tablet 25 mg PO DAILY 02/23/20 11/29/20 11/28/20 History losartan 50 mg tablet 50 mg PO DAILY 02/23/20 11/29/20 11/28/20 History amlodipine 10 mg tablet 10 mg PO BEDTIME 11/29/20 11/29/20 11/28/20 History furosemide 20 mg tablet 20 mg PO DAILY 11/29/20 11/29/20 11/28/20 History Physical Exam Vital Signs and Narrative: Vital Signs: Last Vital Signs Temp 97.9 F 11/29/20 15:51 Pulse 68 11/29/20 15:51 Resp 18 11/29/20 15:51 BP 136/68 11/29/20 15:51 Pulse Ox 99 11/29/20 15:51 Body Mass Index 31.5 General: no acute distress HEENT: atraumatic Neck: normal to visual inspection CVS: S1, S2, RRR Resp: CTA bilateral Chest: non tender GI: soft, non tender, non distended : no CVA tenderness Skin: no rashes Extremities: no edema Neuro: Oriented X3, grossly intact Psych: cooperative Results Labs CBC and Chem 7: 11/29/20 11:38 11/29/20 12:40 Labs: Laboratory Results - last 24 hr 11/29/20 11/29/20 11/29/20 11:38 11:38 11:38 MCV 93.1 MCH 30.0 MCHC 32.2 RDW 16.0 Plt Count 199 MPV 11.3 Immature Gran % (Auto) 1.6 H Neut % (Auto) 84.0 H Lymph % (Auto) 5.1 L [place] % (Auto) 8.7 Eos % (Auto) 0.4 Baso % (Auto) 0.2 Lymph # (Auto) 0.7 L [place] # (Auto) 1.1 Eos # (Auto) 0.1 Baso # (Auto) 0.0 Abs Immat Gran (auto) 0.21 H Absolute Neuts (auto) 10.9 H Absolute Nucleated RBC 0.000 Nucleated RBC % (auto) 0.0 Anion Gap Estim Creat Clear Calc Estimated GFR Random Glucose Lactic Acid 1.9 Calcium Magnesium Total Bilirubin Direct Bilirubin AST ALT Alkaline Phosphatase Total Protein Albumin Lipase Urine Color YELLOW Urine Appearance CLEAR Urine pH 6.0 Ur Specific [place] 1.020 Urine Protein TRACE Urine Glucose (UA) NEG Urine Ketones NEG Urine Blood NEG Urine Nitrite NEG Ur Leukocyte Esterase NEG COVID-19 ([facility]) COVID-19 Clin Com 11/29/20 11/29/20 12:40 15:26 MCV MCH MCHC RDW Plt Count MPV Immature Gran % (Auto) Neut % (Auto) Lymph % (Auto) [place] % (Auto) Eos % (Auto) Baso % (Auto) Lymph # (Auto) [place] # (Auto) Eos # (Auto) Baso # (Auto) Abs Immat Gran (auto) Absolute Neuts (auto) Absolute Nucleated RBC Nucleated RBC % (auto) Anion Gap 13 Estim Creat Clear Calc 33.0 Estimated GFR 27 Random Glucose 160 H Lactic Acid Calcium 8.1 L D Magnesium 2.4 Total Bilirubin 0.5 Direct Bilirubin 0.3 AST 28 D ALT 23 Alkaline Phosphatase 200 H D Total Protein 6.0 L Albumin 3.6 Lipase 36 Urine Color Urine Appearance Urine pH Ur Specific [place] Urine Protein Urine Glucose (UA) Urine Ketones Urine Blood Urine Nitrite Ur Leukocyte Esterase COVID-19 ([place]) Negative COVID-19 Clin Com See Note Imaging Radiologist's Impressions: Impressions Abdomen/Pelvis CT 11/29/20 11:03 IMPRESSION: Large mass in the cecum strongly suspicious for neoplasm. Infiltration of the adjacent fat and enlarged pericolic lymph nodes. Enlarged liver with multiple low-attenuation liver lesions suggestive of metastatic disease. Enlarged prostate gland. Small bilateral renal stones. Evidence of chronic pancreatitis. 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 Chest X-Ray 11/29/20 12:47 IMPRESSION: No mass seen. Slight elevation of the right hemidiaphragm. Question right anterior eighth fracture. Assessment and Plan (1) Diabetes mellitus: Status: Acute 75M found to have cecal mass. cecal mass with suspected liver mets moderate risk for moderate risk surgery, benefits outweight risks. HTN losartan, eplerenone, amlodinpine CKD IV at baseline, monitor closely perioperatively DM hold actos insulin hld statin
[2020-11-29] MEDS: Dextrose 5 % and Lactated Ring 1,000 ML 125 ML IVCONT (16:31)
[2020-11-29] MEDS: 0.9 % Sodium Chloride Flush 3 ML SYRINGE IVFLUSH (16:32)
--- NOTE | 2020-11-29 16:32 | PC.NURSE ---
ivf started per order
[2020-11-29 16:40] LABS: Glucose, Whole Blood 191 mg/dL (60-115)
[2020-11-29] MEDS: Insulin Lispro 100 UNIT/ML 3 ML VIAL SUBCUT (16:46)
--- NOTE | 2020-11-29 18:01 | PC.NURSE ---
nurse on [facility] will call the ed back to get report
--- NOTE | 2020-11-29 18:31 | PC.NURSE ---
report called to floor
[2020-11-29] MEDS: amLODIPine Besylate 10 MG TABLET PO (20:00)
[2020-11-29] MEDS: Famotidine 20 MG TABLET 40 MG PO (20:03)
[2020-11-29] MEDS: Atorvastatin Calcium 10 MG TABLET PO (20:03)
[2020-11-29 20:04] LABS: Glucose, Whole Blood 102 mg/dL (60-115)
[2020-11-29] MEDS: Heparin Sodium,Porcine 5,000 UNIT/ML VIAL 5000 UNIT SUBCUT (20:11)
[2020-11-30] VITALS (17 sets, daily range): BP systolic 93–154; BP diastolic 45–82; PULSE 65–81; RESP 12–20; TEMP 36.1–37.3; O2SAT 94–99; BMI 31.5
[2020-11-30] MEDS: Dextrose 5 % and Lactated Ring 1,000 ML 125 ML IVCONT ×3 (00:04→22:40)
[2020-11-30 07:26] LABS: Glucose, Whole Blood 93 mg/dL (60-115)
--- NOTE | 2020-11-30 07:27 | HO.ANESPROP2 ---
[facility] Active Problems Active Problems: All Active Problems (Updated 11/29/20 @ 16:29 by Rohan Ambrosio MD) HLD (hyperlipidemia) (Acute) CKD (chronic kidney disease), stage IV (Acute) Cecum mass (Acute) Liver lesion (Acute) Gout (Acute) Hypertension (Acute) Diabetes mellitus (Acute) Past Medical History Medical History CKD (chronic kidney disease), stage IV Diabetes mellitus Gout HLD (hyperlipidemia) Hypertension Functional capacity: independent ambulation Family History Family History Father Past heart attack Mother Past heart attack Family history of problems with anesthesia: No Surgical History Surgical History History of removal of cyst History of Problems with Anesthesia: No Social History Social History Household Members: Family Housing: House Do you presently have visiting nurse or other home services: No Alcohol intake: current Alcohol intake frequency: holidays/special occasions only Patient Tobacco Use Status: Current everyday Tobacco user Tobacco use type: Cigarette Cigarette Packs Per Day: 0.5 Cigarettes Per Day: 10.0 Years Smoked: 42 e-Cigarette/Vaping Use: Never Used Second Hand Smoke Exposure: Yes service: No Current occupational status: employed and retired Meds Allergies Allergy/AdvReac Type Severity Reaction Status Date / Time atenolol Allergy Unknown dizziness Verified 11/29/20 09:51 penicillin V Allergy Unknown Unknown Verified 11/29/20 09:51 Active Medications: Current Medications Generic Name Dose Route Start Last Admin Trade Name Freq PRN Reason Stop Dose Admin Acetaminophen 650 mg 11/29/20 15:37 Acetaminophen 325 Mg Tablet PO Q6H PRN Pain, Mild (Pain Scale 1-3) Allopurinol 300 mg 11/30/20 09:00 Allopurinol 300 Mg Tablet PO DAILY [facility] Amlodipine Besylate 10 mg 11/29/20 21:00 11/29/20 20:00 Amlodipine Besylate 10 Mg Tablet PO 10 mg BEDTIME [facility] Administration Protocol Atorvastatin Calcium 10 mg 11/29/20 21:00 11/29/20 20:03 Atorvastatin Calcium 10 Mg Tablet PO 10 mg BEDTIME [facility] Administration Dextrose 25 gm 08/04/21 16:25 Dextrose 50 % 25 Gm/50 Ml Vial IVPUSH Q15M PRN per Hypoglycemia Standing Ord. Protocol Famotidine 40 mg 11/29/20 21:00 11/29/20 20:03 Famotidine 20 Mg Tablet PO 40 mg BEDTIME [facility] Administration Glucose 15 gm 11/29/20 16:25 Glucose Gel 15 Gm Gel..Gram. PO Q15M PRN per Hypoglycemia Standing Ord. Protocol Heparin Sodium (Porcine) 5,000 unit 11/29/20 18:00 11/30/20 05:37 Heparin Sodium,Porcine 5,000 Unit/Ml Vial SUBCUT Not Given Q12H [facility] Dextrose/Lactated Ringer's 1,000 mls @ 125 mls/hr 11/29/20 15:45 11/30/20 00:04 D5lr IVCONT 125 mls/hr .Q8H [facility] Administration Gentamicin Sulfate 460 mg/ 111.5 mls @ 100 mls/hr 11/30/20 07:00 Sodium Chloride IV 11/30/20 08:06 PREOP ONE Metronidazole 500 mg in 100 mls @ 100 mls/hr 11/30/20 07:00 Flagyl IV 11/30/20 07:59 PREOP ONE Insulin Human Lispro 0 unit 11/29/20 16:30 11/29/20 20:12 Insulin Lispro 100 Unit/Ml 3 Ml Vial SUBCUT Not Given QIDACHS [facility] Protocol Losartan Potassium 50 mg 11/30/20 09:00 Losartan Potassium 50 Mg Tablet PO DAILY [facility] Protocol Morphine Sulfate 4 mg 11/29/20 15:37 Morphine Sulfate 4 Mg/Ml Cartridge IVPUSH Q3H PRN Pain, Severe (Pain Scale 7-10) Non-Formulary Medication 25 mg 11/30/20 09:00 Eplerenone PO DAILY [facility] Ondansetron HCl 4 mg 11/29/20 15:37 Ondansetron Hcl 4 Mg/2 Ml Vial IVPUSH Q8H PRN Nausea and Vomiting Pharmacy Consult 1 each 11/29/20 15:04 Consult Rx Perform Med Rec MISCELLANE ONCE PRN Consult order Sodium Chloride 3 ml 11/29/20 16:00 11/30/20 00:27 0.9 % Sodium Chloride Flush 3 Ml Syringe IVFLUSH Not Given QSHIFT [facility] Temazepam 15 mg 11/29/20 15:37 Temazepam 15 Mg Capsule PO BEDTIME PRN Insomnia Home Medications Medication Instructions Recorded Confirmed Last Taken Type eplerenone 25 mg tablet 25 mg PO DAILY 02/23/20 11/29/20 11/28/20 History losartan 50 mg tablet 50 mg PO DAILY 02/23/20 11/29/20 11/28/20 History amlodipine 10 mg tablet 10 mg PO BEDTIME 11/29/20 11/29/20 11/28/20 History furosemide 20 mg tablet 20 mg PO DAILY 11/29/20 11/29/20 11/28/20 History Exam Exam Date and Time: November 30, 2020 0727 Height,Weight and Vital Signs: Height 5 ft 11 in Weight 102.512 kg Last Vital Signs Temp 98.6 F 11/30/20 03:24 Pulse 65 11/30/20 03:24 Resp 20 11/30/20 03:24 BP 146/69 H 11/30/20 03:24 Pulse Ox 97 11/30/20 03:24 Pertinent Lab Results Pertinent Lab Results: Laboratory Tests 11/29/20 11/29/20 11/29/20 11:38 11:38 11:38 WBC 13.0 H RBC 4.37 L Hgb 13.1 L Hct 40.7 L MCV 93.1 MCH 30.0 MCHC 32.2 RDW 16.0 Plt Count 199 MPV 11.3 Immature Gran % (Auto) 1.6 H Neut % (Auto) 84.0 H Lymph % (Auto) 5.1 L [place] % (Auto) 8.7 Eos % (Auto) 0.4 Baso % (Auto) 0.2 Lymph # (Auto) 0.7 L [place] # (Auto) 1.1 Eos # (Auto) 0.1 Baso # (Auto) 0.0 Abs Immat Gran (auto) 0.21 H Absolute Neuts (auto) 10.9 H Absolute Nucleated RBC 0.000 Nucleated RBC % (auto) 0.0 Sodium Potassium Chloride Carbon Dioxide Anion Gap BUN Creatinine Estim Creat Clear Calc Estimated GFR POC Glucose Random Glucose Lactic Acid 1.9 Calcium Magnesium Total Bilirubin Direct Bilirubin AST ALT Alkaline Phosphatase Total Protein Albumin Lipase Urine Color YELLOW Urine Appearance CLEAR Urine pH 6.0 Ur Specific [place] 1.020 Urine Protein TRACE Urine Glucose (UA) NEG Urine Ketones NEG Urine Blood NEG Urine Nitrite NEG Ur Leukocyte Esterase NEG COVID-19 ([facility]) COVID-19 Clin Com 11/29/20 11/29/20 11/29/20 12:40 15:26 16:37 WBC RBC Hgb Hct MCV MCH MCHC RDW Plt Count MPV Immature Gran % (Auto) Neut % (Auto) Lymph % (Auto) [place] % (Auto) Eos % (Auto) Baso % (Auto) Lymph # (Auto) [place] # (Auto) Eos # (Auto) Baso # (Auto) Abs Immat Gran (auto) Absolute Neuts (auto) Absolute Nucleated RBC Nucleated RBC % (auto) Sodium 139 Potassium 5.0 Chloride 109 H Carbon Dioxide 22 Anion Gap 13 BUN 66 H Creatinine 2.39 H Estim Creat Clear Calc 33.0 Estimated GFR 27 POC Glucose 191 H Random Glucose 160 H Lactic Acid Calcium 8.1 L D Magnesium 2.4 Total Bilirubin 0.5 Direct Bilirubin 0.3 AST 28 D ALT 23 Alkaline Phosphatase 200 H D Total Protein 6.0 L Albumin 3.6 Lipase 36 Urine Color Urine Appearance Urine pH Ur Specific [place] Urine Protein Urine Glucose (UA) Urine Ketones Urine Blood Urine Nitrite Ur Leukocyte Esterase COVID-19 ([facility]) Negative COVID-19 Clin Com See Note 11/29/20 11/30/20 19:58 07:19 WBC RBC Hgb Hct MCV MCH MCHC RDW Plt Count MPV Immature Gran % (Auto) Neut % (Auto) Lymph % (Auto) [place] % (Auto) Eos % (Auto) Baso % (Auto) Lymph # (Auto) [place] # (Auto) Eos # (Auto) Baso # (Auto) Abs Immat Gran (auto) Absolute Neuts (auto) Absolute Nucleated RBC Nucleated RBC % (auto) Sodium Potassium Chloride Carbon Dioxide Anion Gap BUN Creatinine Estim Creat Clear Calc Estimated GFR POC Glucose 102 93 Random Glucose Lactic Acid Calcium Magnesium Total Bilirubin Direct Bilirubin AST ALT Alkaline Phosphatase Total Protein Albumin Lipase Urine Color Urine Appearance Urine pH Ur Specific [place] Urine Protein Urine Glucose (UA) Urine Ketones Urine Blood Urine Nitrite Ur Leukocyte Esterase COVID-19 ([facility]) COVID-19 Clin Com Assessment and Plan Final Anesthetic Review Family History of Problems with Anesthesia: No History of Problems with Anesthesia: No
[2020-11-30] MEDS: Losartan Potassium 50 MG TABLET PO (07:33)
[2020-11-30] MEDS: allopurinoL 300 MG TABLET PO (07:33)
[2020-11-30] MEDS: 0.9 % Sodium Chloride Flush 3 ML SYRINGE IVFLUSH ×2 (07:35→21:29)
--- NOTE | 2020-11-30 08:29 | MHC.SHP ---
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 No changes have occurred unless specified.
--- NOTE | 2020-11-30 08:30 | PC.NURSE ---
Gentamicin IV and Flagyl IV both ordered to be administered in Preop. Gentamicin currently running via IV pump. Flagyl not started yet. Dr. Wilson okay with patient going into OR with Gentamicin still running and Flagyl to run after that. Tammie pulled from [facility] for anesthesiologist Dr. Garcia.
--- NOTE | 2020-11-30 11:42 | W.PM.OPN ---
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 Patient reports persistent diarrhea but denies nausea, vomiting, bleeding per rectum, fever or chills. 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 Findings are suggestive of metastatic colon cancer. Patient presents today for a palliative resection with possible liver biopsy Operative findings: Large cecal mass without evidence of local invasion grossly. Numerous bilateral liver lobe lesions throughout the liver. Specimen: Right colon Estimated blood loss: 30 mL Complications: None Procedure details: Patient was brought to the OR and placed in a supine position. After administering general anesthesia the patient's abdomen was prepped with ChloraPrep and draped in a sterile fashion. A surgical time-out was called the consent confirmed. Patient received preoperative antibiotics and Venodyne boots were in place. Local anesthesia consisting of 0 point 2 5% Sensorcaine was infiltrated in the infraumbilical skin. A 5 mm incision was then made below the umbilicus in a midline fashion. A Veress needle was then inserted while elevating abdominal cavity with towel clips. After a positive drop test the abdomen was insufflated to a pressure of 15 mm of mercury. The Veress needle was removed and a 5 mm trocar inserted. Camera was then inserted in the abdomen explored. 212 mm trocars were placed in the epigastrium and lower abdomen in the midline. The patient was then placed in a Trendelenburg position rotated to left. The cecal mass was identified. The right colon was then mobilized along the white line of Toldt beginning proximally and extending up towards the hepatic flexure. Dissection was then continued from the mid transverse colon mobilizing the omentum off the transverse colon and entering into the lesser sac. This was dissected from distal to proximal towards the hepatic flexure. When the hepatic flexure was completely mobilized a hand port was placed adjacent to the umbilicus. The right colon was then further mobilized hepatic flexure. When the right colon was completely mobilized the colon terminal ileum and transverse colon was brought up through the midline incision. A MATT stapler was then used to divide the distal terminal ileum. The LigaSure was then used to divide mesentery up to the ileocolonic vessel. Ileocolic artery and vein were then individually ligated using 2-0 silk ties. Dissection was continued along the mesentery of the right colon. The proximal vessel of the transverse mesocolon was then divided again using 2 0 silk ties. The transverse colon was then divided again using the MATT stapler. Specimen was removed and sent to pathology for further examination. Gross examination confirmed tumor within the cecum. The distal ileum and transverse colon were brought together using 3-0 Nurolon sutures. Is is enterotomies were made at the staple line at the ileum and transverse colon and a MATT stapler fired between the 2 to create a functional end-to-end anastomosis. TA stapler was then used to close the enterotomy. The staple line was then reinforced using Lembert interrupted 3-0 Nurolon sutures. The anastomosis was checked for patency. Mesentery was closed using interrupted 3-0 Nurolon sutures. The crotch of the anastomosis was also closed using interrupted 3-0 Nurolon sutures. This was then returned to the abdominal cavity. A attention was then directed to the liver. An attempt at a needle core biopsy was made however the positioning of the tumor made core biopsy difficult. A single attempt at a core biopsy was unsuccessful and some bleeding developed from the needle stick. Pressure was held to maintain hemostasis. This was assisted using a small piece of Surgicel. Liver biopsy was aborted following this. The abdomen was again checked for hemostasis. The wounds were irrigated and suctioned dry. All ports and trocars were removed. Fascia was closed at the midline using a running 1 Maxon suture. Skin was then closed with skin tawanna. Sterile dressings were applied. The patient tolerated the procedure well. Sponge, instrument, needle counts were reported as correct. Patient was transferred to PACU in stable condition. Colon Resection Tumor location: Right colon Extent of lymphovascular resection Right colon (cecum and ascending colon): Terminal ileum, right colon and proximal 3rd of transverse colon mesentery If anatomic guidance other than listed, document why: Not applicable If patient is excluded, please document why: Palliative resection; Patient with a near obstructing lesion General Surg. - Synoptic Notes Colon Resection Tumor location: Right colon Extent of Lymphovascular Resection: Right colon (cecum and ascending colon): Terminal ileum, right colon and proximal 3rd of transverse colon mesentery If anatomic guidance other than listed, document why: Not applicable If patient is excluded, please document why: Palliative resection; Patient with a near obstructing lesion
[2020-11-30] MEDS: HYDROmorphone HCl 0.5 MG/0.5 ML SYRINGE 0.25 MG IVPUSH ×4 (11:49→12:18)
[2020-11-30] MEDS: Morphine Sulfate 4 MG/ML CARTRIDGE IVPUSH ×2 (14:25→22:43)
--- NOTE | 2020-11-30 14:39 | P.PNIM_ITS ---
Subjective Subjective Date of Service: 11/30/20 Interval History: comfortably sleeping after morphine Constitutional Constitutional: Reports no additional constitutional complaints Eyes Eyes: Reports no additional eye complaints Physical Exam Vital Signs: Vital Signs: Last Vital Signs Temp 97.6 F 11/30/20 14:00 Pulse 68 11/30/20 14:00 Resp 20 11/30/20 14:00 BP 133/52 L 11/30/20 14:00 Pulse Ox 94 11/30/20 14:00 Body Mass Index 31.5 General: sleeping comforatbly Resp: CTA bilateral CVS: S1,S2,RRR GI: deferred Neuro: motor grossly intact Psych: appropriate affect Objective Data Current Medications Generic Name Dose Route Start Last Admin Trade Name Freq PRN Reason Stop Dose Admin Acetaminophen 650 mg 11/29/20 15:37 Acetaminophen 325 Mg Tablet PO Q6H PRN Pain, Mild (Pain Scale 1-3) Allopurinol 300 mg 11/30/20 09:00 11/30/20 07:33 Allopurinol 300 Mg Tablet PO 300 mg DAILY [facility] Administration Amlodipine Besylate 10 mg 11/29/20 21:00 11/29/20 20:00 Amlodipine Besylate 10 Mg Tablet PO 10 mg BEDTIME [facility] Administration Protocol Atorvastatin Calcium 10 mg 11/29/20 21:00 11/29/20 20:03 Atorvastatin Calcium 10 Mg Tablet PO 10 mg BEDTIME [facility] Administration Dextrose 25 gm 11/29/20 16:25 Dextrose 50 % 25 Gm/50 Ml Vial IVPUSH Q15M PRN per Hypoglycemia Standing Ord. Protocol Famotidine 40 mg 11/29/20 21:00 11/29/20 20:03 Famotidine 20 Mg Tablet PO 40 mg BEDTIME [facility] Administration Glucose 15 gm 11/29/20 16:25 Glucose Gel 15 Gm Gel..Gram. PO Q15M PRN per Hypoglycemia Standing Ord. Protocol Heparin Sodium (Porcine) 5,000 unit 11/29/20 18:00 11/30/20 05:37 Heparin Sodium,Porcine 5,000 Unit/Ml Vial SUBCUT Not Given Q12H [facility] Dextrose/Lactated Ringer's 1,000 mls @ 125 mls/hr 11/29/20 15:45 11/30/20 14:33 D5lr IVCONT 125 mls/hr .Q8H [facility] Administration Sodium Chloride 500 mls @ 20 mls/hr 11/30/20 08:00 Ns IVCONT .Q24H [facility] Insulin Human Lispro 0 unit 11/29/20 16:30 11/30/20 14:09 Insulin Lispro 100 Unit/Ml 3 Ml Vial SUBCUT Not Given QIDACHS [facility] Protocol Losartan Potassium 50 mg 11/30/20 09:00 11/30/20 07:33 Losartan Potassium 50 Mg Tablet PO 50 mg DAILY [facility] Administration Protocol Morphine Sulfate 4 mg 11/29/20 15:37 11/30/20 14:25 Morphine Sulfate 4 Mg/Ml Cartridge IVPUSH 4 mg Q3H PRN Administration Pain, Severe (Pain Scale 7-10) Non-Formulary Medication 25 mg 11/30/20 09:00 Eplerenone PO DAILY [facility] Ondansetron HCl 4 mg 11/29/20 15:37 Ondansetron Hcl 4 Mg/2 Ml Vial IVPUSH Q8H PRN Nausea and Vomiting Pharmacy Consult 1 each 11/29/20 15:04 Consult Rx Perform Med Rec MISCELLANE ONCE PRN Consult order Sodium Chloride 3 ml 11/29/20 16:00 11/30/20 07:35 0.9 % Sodium Chloride Flush 3 Ml Syringe IVFLUSH 3 ml QSHIFT [facility] Administration Temazepam 15 mg 11/29/20 15:37 Temazepam 15 Mg Capsule PO BEDTIME PRN Insomnia Labs CBC & Chem 7: 11/29/20 11:38 11/29/20 12:40 Labs: Laboratory Results - last 24 hr 11/29/20 11/29/20 11/29/20 15:26 16:37 19:58 POC Glucose 191 H 102 COVID-19 ([facility]) Negative COVID-19 Clin Com See Note 11/30/20 07:19 POC Glucose 93 COVID-19 ([facility]) COVID-19 Clin Com Microbiology Microbiology Results: Microbiology 11/29/20 12:11 Blood Culture - Preliminary Blood - Venous No growth after 24 hours. 11/29/20 11:38 Blood Culture - Preliminary Blood - Venous No growth after 24 hours. Assessment and Plan (1) Cecum mass: Status: Acute Assessment and Plan: ?75M found to have cecal mass. 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
[2020-11-30 16:14] LABS: Glucose, Whole Blood 150 mg/dL (60-115)
[2020-11-30 20:17] LABS: Glucose, Whole Blood 177 mg/dL (60-115)
[2020-11-30] MEDS: Famotidine 20 MG TABLET 40 MG PO (21:29)
[2020-11-30] MEDS: Atorvastatin Calcium 10 MG TABLET PO (21:29)
[2020-11-30] MEDS: amLODIPine Besylate 10 MG TABLET PO (21:29)
[2020-12-01] VITALS (9 sets, daily range): BP systolic 125–194; BP diastolic 64–87; PULSE 73–81; RESP 18–20; TEMP 36.2–37; O2SAT 94–96
[2020-12-01] MEDS: Morphine Sulfate 4 MG/ML CARTRIDGE IVPUSH (05:00)
[2020-12-01] MEDS: Heparin Sodium,Porcine 5,000 UNIT/ML VIAL 5000 UNIT SUBCUT ×2 (05:00→17:32)
[2020-12-01] MEDS: Dextrose 5 % and Lactated Ring 1,000 ML 125 ML IVCONT (06:41)
[2020-12-01 07:04] LABS: Hematocrit 39.8 % (42-52); Hemoglobin 12.5 g/dl (14.0-18.0); Mean Corpuscular HGB Conc 31.4 g/dl (31.0-36.0); Mean Corpuscular Hemoglobin 29.7 pg (27.0-33.0); Mean Corpuscular Volume 94.5 fL (80-98); Mean Platelet Volume 11.7 fL (9.4-12.4); Platelet Count 185 X10*3/uL (160-400); Red Blood Count 4.21 X10*6/uL (4.60-5.80); Red Cell Distribution Width 15.9 % (11.0-16.0); White Blood Count 13.7 X10*3/uL (4.8-10.8)
[2020-12-01 07:33] LABS: Glucose, Whole Blood 137 mg/dL (60-115)
[2020-12-01 07:38] LABS: Anion Gap 15 (12-20); Blood Urea Nitrogen 39 mg/dL (9-16); Calcium 8.5 mg/dL (8.4-10.2); Carbon Dioxide 21 mmol/L (22-29); Chloride 109 mmol/L (96-108); Creatinine Clr Calc Pharmacy 41.1; Estimated Glomerular Filt Rate 34; Glucose Fasting 135 mg/dL (60-99); Potassium 4.9 mmol/L (3.3-5.1); Sodium 140 mmol/L (135-145)
--- NOTE | 2020-12-01 08:11 | P.PNGS_ITS ---
Subjective Subjective Date of Service: 12/01/20 <Oxana Zheng PA-C - Last Filed: 12/01/20 08:15> 12/01/20 <Je Wilson MD - Last Filed: 12/01/20 08:34> Interval history: Feels sore this morning. Has only had sips of water. Denies flatus but is belching. Denies nausea. Has not been OOB. <Oxana Zheng PA-C - Last Filed: 12/01/20 08:15> Physical Exam Vital Signs: Vital Signs: Last Vital Signs Temp 97.4 F 12/01/20 07:16 Pulse 73 12/01/20 07:16 Resp 20 12/01/20 07:16 BP 174/87 H 12/01/20 07:16 Pulse Ox 96 12/01/20 07:16 Body Mass Index 31.5 <Oxana Zheng PA-C - Last Filed: 12/01/20 08:15> Const: General: comfortable, no acute distress and alert <Oxana Zheng PA-C - Last Filed: 12/01/20 08:15> Orientation/consciousness: patient oriented x3 <ROXANA Bowen Last Filed: 12/01/20 08:15> Resp: Effort & Inspection: normal respiratory effort <ROXANA Bowen Last Filed: 12/01/20 08:15> Cardio: Rate: regular rate <Oxana Zheng PA-C - Last Filed: 12/01/20 08:15> GI: Inspection: Yes incision (dressing clean) <Oxana Zheng PA-C - Last Filed: 12/01/20 08:15> Palpation (GI): Soft to palpation, Tenderness to palpation present (GI) (mild, incisional), no guarding and not rigid <ROXANA Bowen Last Filed: 12/01/20 08:15> Percussion: Yes normal to percussion <ROXANA Bowen Last Filed: 12/01/20 08:15> Skin: General skin exam: no rashes or lesions noted <ROXANA Bowen Last Filed: 12/01/20 08:15> Neuro: General: patient oriented x3 <Oxana Zheng PA-C Freddy Last Filed: 12/01/20 08:15> Extrem: General: Yes no clubbing, cyanosis or edema <ROXANA Bowen Last Filed: 12/01/20 08:15> Procedures Date of Service Date of Service: 12/01/20 <Oxana Zheng PA-C Freddy Last Filed: 12/01/20 08:15> Progress Note: A&P Assessment and plan (1) Cecum mass: Status: Acute <Oxana Zheng PA-C Freddy Last Filed: 12/01/20 08:15> (2) Liver lesion: Status: Acute <Oxana Zheng PA-C Freddy Last Filed: 12/01/20 08:15> (3) S/P right colectomy: Status: Acute <Oxana Zheng PA-C Freddy Last Filed: 12/01/20 08:15> Assessment and Plan: 75-year-old male presenting to the emergency department with complaints of right lower quadrant and right flank abdominal pain for approximately 1 year duration associated with approximately 60 [address] weight loss [address] of the abdomen and pelvis revealed a 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 He is now POD #1 s/p MICK right colectomy. He is doing fairly well post operatively. Will advance to clear liquids as tolerated. Continue pain control as needed. D/c salgado, decrease IVF. Strongly encouraged OOB, ambulation and IS use. Await return of GI fxn. Await pathology. 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 He is now POD #1 s/p MICK right colectomy. He is doing fairly well post operatively. Will advance to clear liquids as tolerated. Continue pain control as needed. D/c salgado, decrease IVF. Strongly encouraged OOB, ambulation and IS use. Await return of GI fxn. Await pathology. POD #1 s/p MICK Right colectomy. Passing some flatus, no BM. Reports incisional pain. Wounds clean and intact. Agree with the above assessment and plan. <Je Wilson MD - Last Filed: 12/01/20 08:34> Fall Risk Details Current Medications: Current Medications Generic Name Dose Route Start Last Admin Trade Name Freq PRN Reason Stop Dose Admin Acetaminophen 650 mg 11/29/20 15:37 Acetaminophen 325 Mg Tablet PO Q6H PRN Pain, Mild (Pain Scale 1-3) Allopurinol 300 mg 11/30/20 09:00 11/30/20 07:33 Allopurinol 300 Mg Tablet PO 300 mg DAILY [facility] Administration Amlodipine Besylate 10 mg 11/29/20 21:00 11/30/20 21:29 Amlodipine Besylate 10 Mg Tablet PO 10 mg BEDTIME [facility] Administration Protocol Atorvastatin Calcium 10 mg 11/29/20 21:00 11/30/20 21:29 Atorvastatin Calcium 10 Mg Tablet PO 10 mg BEDTIME [facility] Administration Dextrose 25 gm 11/29/20 16:25 Dextrose 50 % 25 Gm/50 Ml Vial IVPUSH Q15M PRN per Hypoglycemia Standing Ord. Protocol Famotidine 40 mg 11/29/20 21:00 11/30/20 21:29 Famotidine 20 Mg Tablet PO 40 mg BEDTIME [facility] Administration Glucose 15 gm 11/29/20 16:25 Glucose Gel 15 Gm Gel..Gram. PO Q15M PRN per Hypoglycemia Standing Ord. Protocol Heparin Sodium (Porcine) 5,000 unit 11/29/20 18:00 12/01/20 05:00 Heparin Sodium,Porcine 5,000 Unit/Ml Vial SUBCUT 5,000 unit Q12H [facility] Administration Dextrose/Lactated Ringer's 1,000 mls @ 125 mls/hr 11/29/20 15:45 12/01/20 06:41 D5lr IVCONT 125 mls/hr .Q8H [facility] Administration Sodium Chloride 500 mls @ 20 mls/hr 11/30/20 08:00 11/30/20 19:29 Ns IVCONT Not Given .Q24H [facility] Insulin Human Lispro 0 unit 11/29/20 16:30 12/01/20 07:42 Insulin Lispro 100 Unit/Ml 3 Ml Vial SUBCUT Not Given QIDACHS [facility] Protocol Losartan Potassium 50 mg 11/30/20 09:00 11/30/20 07:33 Losartan Potassium 50 Mg Tablet PO 50 mg DAILY [facility] Administration Protocol Morphine Sulfate 4 mg 11/29/20 15:37 12/01/20 05:00 Morphine Sulfate 4 Mg/Ml Cartridge IVPUSH 4 mg Q3H PRN Administration Pain, Severe (Pain Scale 7-10) Non-Formulary Medication 25 mg 11/30/20 09:00 Eplerenone PO DAILY [facility] Ondansetron HCl 4 mg 11/29/20 15:37 Ondansetron Hcl 4 Mg/2 Ml Vial IVPUSH Q8H PRN Nausea and Vomiting Oxycodone HCl 5 mg 12/01/20 08:09 Oxycodone Hcl Immed Release 5 Mg Tablet PO Q4H PRN Pain, Moderate (Pain Scale 4-6 Oxycodone HCl 10 mg 12/01/20 08:09 Oxycodone Hcl Immed Release 5 Mg Tablet PO Q4H PRN Pain, Severe (Pain Scale 7-10) Pharmacy Consult 1 each 11/29/20 15:04 Consult Rx Perform Med Rec MISCELLANE ONCE PRN Consult order Sodium Chloride 3 ml 11/29/20 16:00 11/30/20 21:29 0.9 % Sodium Chloride Flush 3 Ml Syringe IVFLUSH 3 ml QSHIFT [facility] Administration Temazepam 15 mg 11/29/20 15:37 Temazepam 15 Mg Capsule PO BEDTIME PRN Insomnia <Oxana Zheng PA-C - Last Filed: 12/01/20 08:15> Time Spent With Patient Time: Total time spent is greater than 50% in coordination of care (as documented) at patient's floor/unit and/or counseling patient: <ROXANA Bowen Last Filed: 12/01/20 08:15> Time with patient: 15 - 24 minutes <ROXANA Bowen Last Filed: 12/01/20 08:15> Quality Stroke Does the patient have a stroke diagnosis?: No <ROXANA Bowen Last Filed: 12/01/20 08:15> VTE Prior VTE?: No <Oxana Zheng PA-C - Last Filed: 12/01/20 08:15> VTE Risk Level:: Surgical - high <ROXANA Bowen Last Filed: 12/01/20 08:15> VTE Device Contraindication: N/A - Device Ordered <ROXANA Bowen Last Filed: 12/01/20 08:15> VTE Drug Contraindication: N/A - Med Ordered <Oxana Zheng PA-C - Last Filed: 12/01/20 08:15>
[2020-12-01] MEDS: Losartan Potassium 50 MG TABLET PO (08:48)
[2020-12-01] MEDS: allopurinoL 300 MG TABLET PO (08:48)
--- NOTE | 2020-12-01 09:39 | MHC.CM.PN ---
pt lives c his in their home. he reports that he is independent in his care. 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 pt's can help him if he has any needs, this will include a ride home at dc. pt denies the need for vna at dc. dc plan is home no svcs. cm to cont. to follow.
--- NOTE | 2020-12-01 10:08 | HO.POSTANES ---
Post Anesthesia Evaluation Post Anesthesia Evaluation Vital Signs: Vital Signs Temp Pulse Resp BP Pulse Ox 12/01/20 08:48 73 174/87 H 12/01/20 07:16 97.4 F 73 20 174/87 H 96 12/01/20 04:00 98.6 F 81 20 175/81 H 94 11/30/20 23:42 98.2 F 76 18 138/82 96 Anesthesia: General Endotracheal-GETA Mental Status: Awake Pain Control: Satisfactory Nausea/Vomiting: None Hydration: Adequate Anesthesia-Related Issues: No Anes. Related Issues
--- NOTE | 2020-12-01 11:08 | MHC.CLN ---
F/U PT WITH SIGNIFICANT UNINTENTIONAL WT LOSS WITH NO CHANGE IN APPETITE R/T NEWLY DX CECAL CA DIET RX: C/L-APPROPRIATE RECOMMEND ADDING ENSURE CLEAR TO INCREASE KCALS PT WITH INCREASED NUTRITION NEEDS R/T CA MONITOR PO INTAKE CLOSELY
[2020-12-01 11:09] LABS: Glucose, Whole Blood 113 mg/dL (60-115)
--- NOTE | 2020-12-01 11:40 | HO.PM.IMPN ---
Subjective Subjective Date of Service: 12/01/20 Interval History: abd pain Constitutional Constitutional: Reports no additional constitutional complaints Eyes Eyes: Reports no additional eye complaints Physical Exam Vital Signs: Vital Signs: Last Vital Signs Temp 97.9 F 12/01/20 11:15 Pulse 73 12/01/20 11:15 Resp 20 12/01/20 11:15 BP 188/82 H 12/01/20 11:15 Pulse Ox 95 12/01/20 11:15 Body Mass Index 31.5 General: sleeping comforatbly Resp:? CTA bilateral CVS: S1,S2,RRR GI: deferred Neuro:? motor grossly intact Psych: appropriate affect Objective Data Current Medications Generic Name Dose Route Start Last Admin Trade Name Freq PRN Reason Stop Dose Admin Allopurinol 300 mg 11/30/20 09:00 12/01/20 08:48 Allopurinol 300 Mg Tablet PO 300 mg DAILY [facility] Administration Amlodipine Besylate 10 mg 11/29/20 21:00 11/30/20 21:29 Amlodipine Besylate 10 Mg Tablet PO 10 mg BEDTIME [facility] Administration Protocol Atorvastatin Calcium 10 mg 11/29/20 21:00 11/30/20 21:29 Atorvastatin Calcium 10 Mg Tablet PO 10 mg BEDTIME [facility] Administration Dextrose 25 gm 11/29/20 16:25 Dextrose 50 % 25 Gm/50 Ml Vial IVPUSH Q15M PRN per Hypoglycemia Standing Ord. Protocol Famotidine 40 mg 11/29/20 21:00 11/30/20 21:29 Famotidine 20 Mg Tablet PO 40 mg BEDTIME [facility] Administration Glucose 15 gm 11/29/20 16:25 Glucose Gel 15 Gm Gel..Gram. PO Q15M PRN per Hypoglycemia Standing Ord. Protocol Heparin Sodium (Porcine) 5,000 unit 11/29/20 18:00 12/01/20 05:00 Heparin Sodium,Porcine 5,000 Unit/Ml Vial SUBCUT 5,000 unit Q12H [facility] Administration Dextrose/Lactated Ringer's 1,000 mls @ 80 mls/hr 11/29/20 15:45 12/01/20 08:49 D5lr IVCONT 80 mls/hr .[id number] [facility] Infusion Acetaminophen 1,000 mg in 100 mls @ 400 mls/hr 12/01/20 08:15 12/01/20 09:25 Ofirmev IV 12/02/20 02:29 Infused Q6H [facility] Infusion Insulin Human Lispro 0 unit 11/29/20 16:30 12/01/20 11:15 Insulin Lispro 100 Unit/Ml 3 Ml Vial SUBCUT Not Given QIDACHS [facility] Protocol Losartan Potassium 50 mg 11/30/20 09:00 12/01/20 08:48 Losartan Potassium 50 Mg Tablet PO 50 mg DAILY [facility] Administration Protocol Morphine Sulfate 4 mg 11/29/20 15:37 12/01/20 05:00 Morphine Sulfate 4 Mg/Ml Cartridge IVPUSH 4 mg Q3H PRN Administration Pain, Severe (Pain Scale 7-10) Non-Formulary Medication 25 mg 11/30/20 09:00 Eplerenone PO DAILY [facility] Ondansetron HCl 4 mg 11/29/20 15:37 Ondansetron Hcl 4 Mg/2 Ml Vial IVPUSH Q8H PRN Nausea and Vomiting Oxycodone HCl 5 mg 12/01/20 08:09 Oxycodone Hcl Immed Release 5 Mg Tablet PO Q4H PRN Pain, Moderate (Pain Scale 4-6 Oxycodone HCl 10 mg 12/01/20 08:09 Oxycodone Hcl Immed Release 5 Mg Tablet PO Q4H PRN Pain, Severe (Pain Scale 7-10) Pharmacy Consult 1 each 11/29/20 15:04 Consult Rx Perform Med Rec MISCELLANE ONCE PRN Consult order Sodium Chloride 3 ml 11/29/20 16:00 12/01/20 08:48 0.9 % Sodium Chloride Flush 3 Ml Syringe IVFLUSH Not Given QSHIFT [facility] Temazepam 15 mg 11/29/20 15:37 Temazepam 15 Mg Capsule PO BEDTIME PRN Insomnia Labs CBC & Chem 7: 12/01/20 05:38 12/01/20 05:38 Labs: Laboratory Results - last 24 hr 11/29/20 11/30/20 11/30/20 12:40 16:05 20:09 MCV MCH MCHC RDW Plt Count MPV Absolute Nucleated RBC Nucleated RBC % (auto) Anion Gap Creatinine 2.39 H Estim Creat Clear Calc Estimated GFR POC Glucose 150 H 177 H Fasting Glucose Calcium 12/01/20 12/01/20 12/01/20 05:38 05:38 07:13 MCV 94.5 MCH 29.7 MCHC 31.4 RDW 15.9 Plt Count 185 MPV 11.7 Absolute Nucleated RBC 0.000 Nucleated RBC % (auto) 0.0 Anion Gap 15 Creatinine 1.92 H Estim Creat Clear Calc 41.1 Estimated GFR 34 POC Glucose 137 H Fasting Glucose 135 H Calcium 8.5 12/01/20 10:58 MCV MCH MCHC RDW Plt Count MPV Absolute Nucleated RBC Nucleated RBC % (auto) Anion Gap Creatinine Estim Creat Clear Calc Estimated GFR POC Glucose 113 Fasting Glucose Calcium Microbiology Microbiology Results: Microbiology 11/29/20 12:11 Blood Culture - Preliminary Blood - Venous No growth after 24 hours. 11/29/20 11:38 Blood Culture - Preliminary Blood - Venous No growth after 24 hours. Assessment and Plan (1) Cecum mass: Status: Acute Assessment and Plan: ?75M found to have cecal mass. 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
--- NOTE | 2020-12-01 13:08 | PC.NURSE ---
Addendum entered by Susana Urbina RN 12/01/20 15:14: Patient voided 250cc of clear yellow urine at 1430 with no difficulty Original Note: Mendez Catheter removed per Surgical SILVIA Daigle verbal order at 1030am. Patient DTV at 1830.
[2020-12-01 15:57] LABS: Glucose, Whole Blood 133 mg/dL (60-115)
[2020-12-01] MEDS: Dextrose 5 % and Lactated Ring 1,000 ML 80 ML IVCONT (17:33)
[2020-12-01 20:27] LABS: Glucose, Whole Blood 152 mg/dL (60-115)
[2020-12-01] MEDS: Atorvastatin Calcium 10 MG TABLET PO (20:53)
[2020-12-01] MEDS: Famotidine 20 MG TABLET 40 MG PO (20:53)
[2020-12-01] MEDS: amLODIPine Besylate 10 MG TABLET PO (20:53)
[2020-12-01] MEDS: 0.9 % Sodium Chloride Flush 3 ML SYRINGE IVFLUSH (20:53)
[2020-12-02] VITALS (9 sets, daily range): BP systolic 144–185; BP diastolic 70–88; PULSE 72–86; RESP 15–20; TEMP 36.3–36.9; O2SAT 94–96
[2020-12-02] MEDS: Heparin Sodium,Porcine 5,000 UNIT/ML VIAL 5000 UNIT SUBCUT ×2 (06:21→17:52)
[2020-12-02] MEDS: Dextrose 5 % and Lactated Ring 1,000 ML 80 ML IVCONT (06:22)
[2020-12-02] MEDS: Morphine Sulfate 4 MG/ML CARTRIDGE IVPUSH (06:25)
[2020-12-02 07:26] LABS: Glucose, Whole Blood 111 mg/dL (60-115)
[2020-12-02] MEDS: Losartan Potassium 50 MG TABLET PO (08:01)
[2020-12-02] MEDS: allopurinoL 300 MG TABLET PO (08:01)
--- NOTE | 2020-12-02 10:19 | HO.PM.IMPN ---
Subjective Subjective Date of Service: 12/02/20 Interval History: no bm or gas Constitutional Constitutional: Reports no additional constitutional complaints Eyes Eyes: Reports no additional eye complaints Physical Exam Vital Signs: Vital Signs: Last Vital Signs Temp 98.4 F 12/02/20 08:00 Pulse 72 12/02/20 08:01 Resp 18 12/02/20 08:00 BP 162/78 H 12/02/20 08:01 Pulse Ox 95 12/02/20 08:00 Body Mass Index 31.5 General: AO times 3, in pain Resp:? CTA bilateral CVS: S1,S2,RRR GI: deferred Neuro:? motor grossly intact Psych: appropriate affect Objective Data Current Medications Generic Name Dose Route Start Last Admin Trade Name Freq PRN Reason Stop Dose Admin Allopurinol 300 mg 11/30/20 09:00 12/02/20 08:01 Allopurinol 300 Mg Tablet PO 300 mg DAILY [facility] Administration Amlodipine Besylate 10 mg 11/29/20 21:00 12/01/20 20:53 Amlodipine Besylate 10 Mg Tablet PO 10 mg BEDTIME [facility] Administration Protocol Atorvastatin Calcium 10 mg 11/29/20 21:00 12/01/20 20:53 Atorvastatin Calcium 10 Mg Tablet PO 10 mg BEDTIME [facility] Administration Dextrose 25 gm 11/29/20 16:25 Dextrose 50 % 25 Gm/50 Ml Vial IVPUSH Q15M PRN per Hypoglycemia Standing Ord. Protocol Famotidine 40 mg 11/29/20 21:00 12/01/20 20:53 Famotidine 20 Mg Tablet PO 40 mg BEDTIME [facility] Administration Glucose 15 gm 11/29/20 16:25 Glucose Gel 15 Gm Gel..Gram. PO Q15M PRN per Hypoglycemia Standing Ord. Protocol Heparin Sodium (Porcine) 5,000 unit 11/29/20 18:00 12/02/20 06:21 Heparin Sodium,Porcine 5,000 Unit/Ml Vial SUBCUT 5,000 unit Q12H [facility] Administration Dextrose/Lactated Ringer's 1,000 mls @ 80 mls/hr 11/29/20 15:45 12/02/20 08:01 D5lr IVCONT Not Given .[id number] [facility] Insulin Human Lispro 0 unit 11/29/20 16:30 12/02/20 07:27 Insulin Lispro 100 Unit/Ml 3 Ml Vial SUBCUT Not Given QIDACHS [facility] Protocol Losartan Potassium 50 mg 11/30/20 09:00 12/02/20 08:01 Losartan Potassium 50 Mg Tablet PO 50 mg DAILY [facility] Administration Protocol Morphine Sulfate 4 mg 11/29/20 15:37 12/02/20 06:25 Morphine Sulfate 4 Mg/Ml Cartridge IVPUSH 4 mg Q3H PRN Administration Pain, Severe (Pain Scale 7-10) Non-Formulary Medication 25 mg 11/30/20 09:00 Eplerenone PO DAILY [facility] Ondansetron HCl 4 mg 11/29/20 15:37 Ondansetron Hcl 4 Mg/2 Ml Vial IVPUSH Q8H PRN Nausea and Vomiting Oxycodone HCl 5 mg 12/01/20 08:09 Oxycodone Hcl Immed Release 5 Mg Tablet PO Q4H PRN Pain, Moderate (Pain Scale 4-6 Oxycodone HCl 10 mg 12/01/20 08:09 Oxycodone Hcl Immed Release 5 Mg Tablet PO Q4H PRN Pain, Severe (Pain Scale 7-10) Pharmacy Consult 1 each 11/29/20 15:04 Consult Rx Perform Med Rec MISCELLANE ONCE PRN Consult order Sodium Chloride 3 ml 11/29/20 16:00 12/02/20 07:27 0.9 % Sodium Chloride Flush 3 M[facility]ep[facility] 15 mg 11/29/20 15:37 Temazepam 15 Mg Capsule PO BEDTIME PRN Insomnia Labs CBC & Chem 7: 12/01/20 05:38 12/01/20 05:38 Labs: Laboratory Results - last 24 hr 12/01/20 12/01/20 12/01/20 10:58 15:54 20:24 POC Glucose 113 133 H 152 H 12/02/20 07:23 POC Glucose 111 Microbiology Microbiology Results: Microbiology 11/29/20 12:11 Blood Culture - Preliminary Blood - Venous No growth after 48 hours. 11/29/20 11:38 Blood Culture - Preliminary Blood - Venous No growth after 48 hours. Assessment and Plan (1) Cecum mass: Status: Acute Assessment and Plan: ?75M found to have cecal mass. 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
[2020-12-02 11:08] LABS: Glucose, Whole Blood 179 mg/dL (60-115)
[2020-12-02 16:33] LABS: Glucose, Whole Blood 120 mg/dL (60-115)
[2020-12-02] MEDS: Dextrose 5 % and Lactated Ring 1,000 ML 100 ML IVCONT (19:05)
[2020-12-02 20:42] LABS: Glucose, Whole Blood 131 mg/dL (60-115)
--- NOTE | 2020-12-02 20:49 | PM.PNGS ---
Subjective Subjective Date of Service: 12/02/20 Interval history: no flatus or bowel movement yet, not nauseated, drinking some liquids but limited, burping a bit, says painful to walk Physical Exam Vital Signs: Vital Signs: Last Vital Signs Temp 97.8 F 12/02/20 19:36 Pulse 82 12/02/20 19:36 Resp 18 12/02/20 19:36 BP 185/86 H 12/02/20 19:36 Pulse Ox 95 12/02/20 19:36 Body Mass Index 31.5 Resp: Other: cta Cardio: Other: rrr GI: Other: soft distended, quiet rare bowel sounds, nondistended, incisions ok Skin: Other: no rash Extrem: Other: lower extrem no edema Procedures Date of Service Date of Service: 12/02/20 Progress Note: A&P Assessment and plan (1) S/P right colectomy: Status: Acute Assessment and Plan: doing ok pod#2 - no passing gas as yet - cont with ivf, go slow with po diet liquids, ambulate tomorrow and po pain meds before walking. labs ok. pt with metastatic disease s/p right colectomy. he understands and agrees with the plan Fall Risk Details Current Medications: Current Medications Generic Name Dose Route Start Last Admin Trade Name Freq PRN Reason Stop Dose Admin Allopurinol 300 mg 11/30/20 09:00 12/02/20 08:01 Allopurinol 300 Mg Tablet PO 300 mg DAILY [facility] Administration Amlodipine Besylate 10 mg 11/29/20 21:00 12/01/20 20:53 Amlodipine Besylate 10 Mg Tablet PO 10 mg BEDTIME [facility] Administration Protocol Atorvastatin Calcium 10 mg 11/29/20 21:00 12/01/20 20:53 Atorvastatin Calcium 10 Mg Tablet PO 10 mg BEDTIME [facility] Administration Dextrose 25 gm 11/29/20 16:25 Dextrose 50 % 25 Gm/50 Ml Vial IVPUSH Q15M PRN per Hypoglycemia Standing Ord. Protocol Famotidine 40 mg 11/29/20 21:00 12/01/20 20:53 Famotidine 20 Mg Tablet PO 40 mg BEDTIME [facility] Administration Glucose 15 gm 11/29/20 16:25 Glucose Gel 15 Gm Gel..Gram. PO Q15M PRN per Hypoglycemia Standing Ord. Protocol Heparin Sodium (Porcine) 5,000 unit 11/29/20 18:00 12/02/20 17:52 Heparin Sodium,Porcine 5,000 Unit/Ml Vial SUBCUT 5,000 unit Q12H ON LICENSE OF [facility] Administration Dextrose/Lactated Ringer's 1,000 mls @ 100 mls/hr 12/02/20 19:00 12/02/20 19:05 D5lr IVCONT 100 mls/hr .Q10H [facility] Administration Insulin Human Lispro 0 unit 11/29/20 16:30 12/02/20 16:41 Insulin Lispro 100 Unit/Ml 3 Ml Vial SUBCUT Not Given QIDACHS ON LICENSE OF [facility] Protocol Losartan Potassium 50 mg 11/30/20 09:00 12/02/20 08:01 Losartan Potassium 50 Mg Tablet PO 50 mg DAILY ON LICENSE OF [facility] Administration Protocol Morphine Sulfate 4 mg 11/29/20 15:37 12/02/20 06:25 Morphine Sulfate 4 Mg/Ml Cartridge IVPUSH 4 mg Q3H PRN Administration Pain, Severe (Pain Scale 7-10) Non-Formulary Medication 25 mg 11/30/20 09:00 Eplerenone PO DAILY ON LICENSE OF [facility] Ondansetron HCl 4 mg 11/29/20 15:37 Ondansetron Hcl 4 Mg/2 Ml Vial IVPUSH Q8H PRN Nausea and Vomiting Oxycodone HCl 5 mg 12/01/20 08:09 Oxycodone Hcl Immed Release 5 Mg Tablet PO Q4H PRN Pain, Moderate (Pain Scale 4-6 Oxycodone HCl 10 mg 12/01/20 08:09 Oxycodone Hcl Immed Release 5 Mg Tablet PO Q4H PRN Pain, Severe (Pain Scale 7-10) Pharmacy Consult 1 each 11/29/20 15:04 Consult Rx Perform Med Rec MISCELLANE ONCE PRN Consult order Sodium Chloride 3 ml 11/29/20 16:00 12/02/20 16:08 0.9 % Sodium Chloride Flush 3 Ml Syringe IVFLUSH Not Given QSHIFT ON LICENSE OF [facility] Temazepam 15 mg 11/29/20 15:37 Temazepam 15 Mg Capsule PO BEDTIME PRN Insomnia Time Spent With Patient Time: Total time spent is greater than 50% in coordination of care (as documented) at patient's floor/unit and/or counseling patient: Time with patient: 25 - 35 minutes Quality Stroke Does the patient have a stroke diagnosis?: No VTE Prior VTE?: No VTE Risk Level:: Surgical - high VTE Device Contraindication: N/A - Device Ordered VTE Drug Contraindication: N/A - Med Ordered
[2020-12-02] MEDS: amLODIPine Besylate 10 MG TABLET PO (20:59)
[2020-12-02] MEDS: Atorvastatin Calcium 10 MG TABLET PO (20:59)
[2020-12-02] MEDS: 0.9 % Sodium Chloride Flush 3 ML SYRINGE IVFLUSH (21:00)
[2020-12-02] MEDS: Famotidine 20 MG TABLET 40 MG PO (21:00)
[2020-12-03] VITALS (7 sets, daily range): BP systolic 135–170; BP diastolic 60–83; PULSE 68–86; RESP 17–20; TEMP 36.3–37.1; O2SAT 95–96
[2020-12-03] MEDS: Heparin Sodium,Porcine 5,000 UNIT/ML VIAL 5000 UNIT SUBCUT ×2 (05:52→17:20)
[2020-12-03] MEDS: Dextrose 5 % and Lactated Ring 1,000 ML 100 ML IVCONT ×2 (05:52→15:32)
[2020-12-03 07:26] LABS: Glucose, Whole Blood 108 mg/dL (60-115)
[2020-12-03] MEDS: Losartan Potassium 50 MG TABLET PO (08:23)
[2020-12-03] MEDS: allopurinoL 300 MG TABLET PO (08:23)
[2020-12-03] MEDS: 0.9 % Sodium Chloride Flush 3 ML SYRINGE IVFLUSH ×2 (08:25→21:41)
--- NOTE | 2020-12-03 09:45 | P.PNIM_ITS ---
Subjective Subjective Date of Service: 12/03/20 Interval History: no bm abd pain is better Constitutional Constitutional: Reports no additional constitutional complaints Eyes Eyes: Reports no additional eye complaints Physical Exam Vital Signs: Vital Signs: Last Vital Signs Temp 98.3 F 12/03/20 08:00 Pulse 68 12/03/20 08:23 Resp 18 12/03/20 08:00 BP 150/77 H 12/03/20 08:23 Pulse Ox 96 12/03/20 08:00 Body Mass Index 31.5 General: AO X 3, no acute distress Resp: CTA bilateral CVS: S1,S2,RRR GI: soft, distended Neuro: motor grossly intact Psych: appropriate affect Objective Data Current Medications Generic Name Dose Route Start Last Admin Trade Name Freq PRN Reason Stop Dose Admin Allopurinol 300 mg 11/30/20 09:00 12/03/20 08:23 Allopurinol 300 Mg Tablet PO 300 mg DAILY [facility] Administration Amlodipine Besylate 10 mg 11/29/20 21:00 12/02/20 20:59 Amlodipine Besylate 10 Mg Tablet PO 10 mg BEDTIME [facility] Administration Protocol Atorvastatin Calcium 10 mg 11/29/20 21:00 12/02/20 20:59 Atorvastatin Calcium 10 Mg Tablet PO 10 mg BEDTIME [facility] Administration Dextrose 25 gm 11/29/20 16:25 Dextrose 50 % 25 Gm/50 Ml Vial IVPUSH Q15M PRN per Hypoglycemia Standing Ord. Protocol Famotidine 40 mg 11/29/20 21:00 12/02/20 21:00 Famotidine 20 Mg Tablet PO 40 mg BEDTIME [facility] Administration Glucose 15 gm 11/29/20 16:25 Glucose Gel 15 Gm Gel..Gram. PO Q15M PRN per Hypoglycemia Standing Ord. Protocol Heparin Sodium (Porcine) 5,000 unit 11/29/20 18:00 12/03/20 05:52 Heparin Sodium,Porcine 5,000 Unit/Ml Vial SUBCUT 5,000 unit Q12H [facility] Administration Dextrose/Lactated Ringer's 1,000 mls @ 100 mls/hr 12/02/20 19:00 12/03/20 05:52 D5lr IVCONT 100 mls/hr .Q10H [facility] Administration Insulin Human Lispro 0 unit 11/29/20 16:30 12/03/20 07:27 Insulin Lispro 100 Unit/Ml 3 Ml Vial SUBCUT Not Given QIDACHS [facility] Protocol Losartan Potassium 50 mg 11/30/20 09:00 12/03/20 08:23 Losartan Potassium 50 Mg Tablet PO 50 mg DAILY [facility] Administration Protocol Morphine Sulfate 4 mg 11/29/20 15:37 12/02/20 06:25 Morphine Sulfate 4 Mg/Ml Cartridge IVPUSH 4 mg Q3H PRN Administration Pain, Severe (Pain Scale 7-10) Non-Formulary Medication 25 mg 11/30/20 09:00 Eplerenone PO DAILY [facility] Ondansetron HCl 4 mg 11/29/20 15:37 Ondansetron Hcl 4 Mg/2 Ml Vial IVPUSH Q8H PRN Nausea and Vomiting Oxycodone HCl 5 mg 12/01/20 08:09 Oxycodone Hcl Immed Release 5 Mg Tablet PO Q4H PRN Pain, Moderate (Pain Scale 4-6 Oxycodone HCl 10 mg 12/01/20 08:09 Oxycodone Hcl Immed Release 5 Mg Tablet PO Q4H PRN Pain, Severe (Pain Scale 7-10) Pharmacy Consult 1 each 11/29/20 15:04 Consult Rx Perform Med Rec MISCELLANE ONCE PRN Consult order Sodium Chloride 3 ml 11/29/20 16:00 12/03/20 08:25 0.9 % Sodium Chloride Flush 3 Ml Syringe IVFLUSH 3 ml QSHIFT [facility] Administration Temazepam 15 mg 11/29/20 15:37 Temazepam 15 Mg Capsule PO BEDTIME PRN Insomnia Labs CBC & Chem 7: 12/01/20 05:38 12/01/20 05:38 Labs: Laboratory Results - last 24 hr 11/29/20 12/01/20 12/02/20 12:40 05:38 10:59 Creatinine 2.39 H 1.92 H POC Glucose 179 H 12/02/20 12/02/20 12/03/20 16:27 20:05 07:16 Creatinine POC Glucose 120 H 131 H 108 Assessment and Plan (1) Cecum mass: Status: Acute Assessment and Plan: ?75M found to have cecal mass. 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
[2020-12-03 11:23] LABS: Glucose, Whole Blood 140 mg/dL (60-115)
--- NOTE | 2020-12-03 12:23 | PM.PNGS ---
Subjective Subjective Date of Service: 12/03/20 Interval history: still no gas, pain better, some burping but no nausea Physical Exam Vital Signs: Vital Signs: Last Vital Signs Temp 98.3 F 12/03/20 08:00 Pulse 68 12/03/20 08:23 Resp 18 12/03/20 08:00 BP 150/77 H 12/03/20 08:23 Pulse Ox 96 12/03/20 08:00 Body Mass Index 31.5 Resp: Other: cta Cardio: Other: rrr GI: Other: soft, distended, rare hypo bowel sounds incision ok mild tenderness to palpation Extrem: Other: no significant edema Procedures Date of Service Date of Service: 12/03/20 Progress Note: A&P Assessment and plan (1) S/P right colectomy: Status: Acute Assessment and Plan: pod#3 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 - doing ok, ileus continues but pt stable decrease some po until passing gas, cont ivf, check lytes, ambulate with PT and in room with assist, incentive spirometer appreciate med team help pt and understand and agree with the plan Fall Risk Details Current Medications: Current Medications Generic Name Dose Route Start Last Admin Trade Name Freq PRN Reason Stop Dose Admin Allopurinol 300 mg 11/30/20 09:00 12/03/20 08:23 Allopurinol 300 Mg Tablet PO 300 mg DAILY [facility] Administration Amlodipine Besylate 10 mg 11/29/20 21:00 12/02/20 20:59 Amlodipine Besylate 10 Mg Tablet PO 10 mg BEDTIME [facility] Administration Protocol Atorvastatin Calcium 10 mg 11/29/20 21:00 12/02/20 20:59 Atorvastatin Calcium 10 Mg Tablet PO 10 mg BEDTIME [facility] Administration Dextrose 25 gm 11/29/20 16:25 Dextrose 50 % 25 Gm/50 Ml Vial IVPUSH Q15M PRN per Hypoglycemia Standing Ord. Protocol Famotidine 40 mg 11/29/20 21:00 12/02/20 21:00 Famotidine 20 Mg Tablet PO 40 mg BEDTIME [facility] Administration Glucose 15 gm 11/29/20 16:25 Glucose Gel 15 Gm Gel..Gram. PO Q15M PRN per Hypoglycemia Standing Ord. Protocol Heparin Sodium (Porcine) 5,000 unit 11/29/20 18:00 12/03/20 05:52 Heparin Sodium,Porcine 5,000 Unit/Ml Vial SUBCUT 5,000 unit Q12H [facility] Administration Dextrose/Lactated Ringer's 1,000 mls @ 100 mls/hr 12/02/20 19:00 12/03/20 05:52 D5lr IVCONT 100 mls/hr .Q10H [facility] Administration Insulin Human Lispro 0 unit 11/29/20 16:30 12/03/20 11:38 Insulin Lispro 100 Unit/Ml 3 Ml Vial SUBCUT Not Given QIDACHS [facility] Protocol Losartan Potassium 50 mg 11/30/20 09:00 12/03/20 08:23 Losartan Potassium 50 Mg Tablet PO 50 mg DAILY [facility] Administration Protocol Morphine Sulfate 4 mg 11/29/20 15:37 12/02/20 06:25 Morphine Sulfate 4 Mg/Ml Cartridge IVPUSH 4 mg Q3H PRN Administration Pain, Severe (Pain Scale 7-10) Non-Formulary Medication 25 mg 11/30/20 09:00 Eplerenone PO DAILY [facility] Ondansetron HCl 4 mg 11/29/20 15:37 Ondansetron Hcl 4 Mg/2 Ml Vial IVPUSH Q8H PRN Nausea and Vomiting Oxycodone HCl 5 mg 12/01/20 08:09 Oxycodone Hcl Immed Release 5 Mg Tablet PO Q4H PRN Pain, Moderate (Pain Scale 4-6 Oxycodone HCl 10 mg 12/01/20 08:09 Oxycodone Hcl Immed Release 5 Mg Tablet PO Q4H PRN Pain, Severe (Pain Scale 7-10) Pharmacy Consult 1 each 11/29/20 15:04 Consult Rx Perform Med Rec MISCELLANE ONCE PRN Consult order Sodium Chloride 3 ml 11/29/20 16:00 12/03/20 08:25 0.9 % Sodium Chloride Flush 3 Ml Syringe IVFLUSH 3 ml QSHIFT [facility] Administration Temazepam 15 mg 11/29/20 15:37 Temazepam 15 Mg Capsule PO BEDTIME PRN Insomnia Time Spent With Patient Time: Total time spent is greater than 50% in coordination of care (as documented) at patient's floor/unit and/or counseling patient: Time with patient: 15 - 24 minutes Quality Stroke Does the patient have a stroke diagnosis?: No VTE Prior VTE?: No VTE Risk Level:: Surgical - high VTE Device Contraindication: N/A - Device Ordered VTE Drug Contraindication: N/A - Med Ordered
[2020-12-03 13:55] LABS: Anion Gap 13 (12-20); Blood Urea Nitrogen 28 mg/dL (9-16); Calcium 8.4 mg/dL (8.4-10.2); Carbon Dioxide 23 mmol/L (22-29); Chloride 105 mmol/L (96-108); Creatinine Clr Calc Pharmacy 38.5; Estimated Glomerular Filt Rate 32; Glucose Random 121 mg/dL (60-115); Magnesium 1.7 mg/dL (1.6-2.6); Phosphorus 2.3 mg/dL (2.7-4.5); Potassium 5.1 mmol/L (3.3-5.1); Sodium 136 mmol/L (135-145)
[2020-12-03 16:23] LABS: Glucose, Whole Blood 133 mg/dL (60-115)
[2020-12-03 20:08] LABS: Glucose, Whole Blood 128 mg/dL (60-115)
[2020-12-03] MEDS: amLODIPine Besylate 10 MG TABLET PO (21:40)
[2020-12-03] MEDS: Famotidine 20 MG TABLET 40 MG PO (21:40)
[2020-12-03] MEDS: Atorvastatin Calcium 10 MG TABLET PO (21:40)
[2020-12-04] VITALS (8 sets, daily range): BP systolic 134–160; BP diastolic 60–82; PULSE 66–82; RESP 18–20; TEMP 36.2–37.1; O2SAT 95–98
[2020-12-04] MEDS: Dextrose 5 % and Lactated Ring 1,000 ML 100 ML IVCONT ×3 (01:39→21:54)
[2020-12-04] MEDS: Heparin Sodium,Porcine 5,000 UNIT/ML VIAL 5000 UNIT SUBCUT ×2 (05:54→18:40)
[2020-12-04 05:56] LABS: Hematocrit 37.7 % (42-52); Hemoglobin 12.1 g/dl (14.0-18.0); Mean Corpuscular HGB Conc 32.1 g/dl (31.0-36.0); Mean Corpuscular Hemoglobin 29.8 pg (27.0-33.0); Mean Corpuscular Volume 92.9 fL (80-98); Mean Platelet Volume 11.3 fL (9.4-12.4); Platelet Count 191 X10*3/uL (160-400); Red Blood Count 4.06 X10*6/uL (4.60-5.80); Red Cell Distribution Width 15.4 % (11.0-16.0); White Blood Count 10.3 X10*3/uL (4.8-10.8)
[2020-12-04 06:09] LABS: Anion Gap 17 (12-20); Blood Urea Nitrogen 27 mg/dL (9-16); Calcium 8.5 mg/dL (8.4-10.2); Carbon Dioxide 21 mmol/L (22-29); Chloride 103 mmol/L (96-108); Creatinine Clr Calc Pharmacy 39.3; Estimated Glomerular Filt Rate 33; Glucose Fasting 104 mg/dL (60-99); Potassium 4.9 mmol/L (3.3-5.1); Sodium 136 mmol/L (135-145)
[2020-12-04 07:30] LABS: Glucose, Whole Blood 110 mg/dL (60-115)
[2020-12-04] MEDS: Losartan Potassium 50 MG TABLET PO (08:07)
[2020-12-04] MEDS: allopurinoL 300 MG TABLET PO (08:07)
[2020-12-04] MEDS: 0.9 % Sodium Chloride Flush 3 ML SYRINGE IVFLUSH ×2 (08:07→19:52)
--- NOTE | 2020-12-04 08:29 | PM.PNGS ---
Subjective Subjective Date of Service: 12/04/20 <Oxana Zheng PA-C - Last Filed: 12/04/20 08:33> 12/04/20 <Jakub Mei MD - Last Filed: 12/04/20 09:44> Interval history: Some mild, crampy pains. Has not taken narcotics since Friday. Denies flatus since Friday morning. On clear liquids, reports some belching and nausea. Denies flatus or BM. OOB to chair over weekend. <Oxana Zheng PA-C - Last Filed: 12/04/20 08:33> Physical Exam Vital Signs: Vital Signs: Last Vital Signs Temp 98.2 F 12/04/20 07:28 Pulse 79 12/04/20 08:07 Resp 18 12/04/20 07:28 BP 150/79 H 12/04/20 08:07 Pulse Ox 95 12/04/20 07:28 Body Mass Index 31.5 <Oxana Zheng PA-C - Last Filed: 12/04/20 08:33> Const: General: comfortable, no acute distress and alert <Oxana Zheng PA-C - Last Filed: 12/04/20 08:33> Orientation/consciousness: patient oriented x3 <Oxana Zheng PA-C - Last Filed: 12/04/20 08:33> Resp: Effort & Inspection: normal respiratory effort <Oxana Zheng PA-C - Last Filed: 12/04/20 08:33> Cardio: Rate: regular rate <Oxana Zhegn PA-C - Last Filed: 12/04/20 08:33> GI: Inspection: Yes distended and Yes incision (clean, mild surrounding ecchymosis) <Oxana Zheng PA-C - Last Filed: 12/04/20 08:33> Palpation (GI): Soft to palpation, Tenderness to palpation present (GI) (incisional), no guarding and not rigid <ROXANA Bowen Last Filed: 12/04/20 08:33> Percussion: Yes tympanic to percussion (mild) <ROXANA Bowen Last Filed: 12/04/20 08:33> Skin: General skin exam: no rashes or lesions noted <Oxana Zheng PA-C - Last Filed: 12/04/20 08:33> Neuro: General: patient oriented x3 <Oxana Zheng PA-C - Last Filed: 12/04/20 08:33> Extrem: General: Yes no clubbing, cyanosis or edema <Oxana Zheng PA-C - Last Filed: 12/04/20 08:33> Procedures Date of Service Date of Service: 12/04/20 <ROXANA Bowen Last Filed: 12/04/20 08:33> Progress Note: A&P Assessment and plan (1) S/P right colectomy: Status: Acute <Oxana Zheng PA-C - Last Filed: 12/04/20 08:33> Assessment and Plan: Denies flatus Abdomen soft but mildly distended Clinically having some postop ileus Keep on clear liquids Ambulate, encouraged to get out of bed more Otherwise with benign exam Seen and examined - agree with SILVIA Zheng <Jakub Mei MD - Last Filed: 12/04/20 09:44> Assessment and Plan: 75-year-old male presenting to the emergency department with complaints of right lower quadrant and right flank abdominal pain for approximately 1 year duration associated with approximately 60 lb weight loss with [address] of the abdomen and pelvis revealed a 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 He is now POD #4 s/p MICK right colectomy. Developed ileus over weekend- no evidence of GI function yet. Strongly encouraged OOB, ambulation of alcantara and IS use. Await return of GI fxn. Continue clear liquids as tolerated, IVF. Await pathology. <ROXANA Bowen Last Filed: 12/04/20 08:33> Fall Risk Details Current Medications: Current Medications Generic Name Dose Route Start Last Admin Trade Name Freq PRN Reason Stop Dose Admin Allopurinol 300 mg 11/30/20 09:00 12/04/20 08:07 Allopurinol 300 Mg Tablet PO 300 mg DAILY [facility] Administration Amlodipine Besylate 10 mg 11/29/20 21:00 12/03/20 21:40 Amlodipine Besylate 10 Mg Tablet PO 10 mg BEDTIME [facility] Administration Protocol Atorvastatin Calcium 10 mg 11/29/20 21:00 12/03/20 21:40 Atorvastatin Calcium 10 Mg Tablet PO 10 mg BEDTIME [facility] Administration Dextrose 25 gm 11/29/20 16:25 Dextrose 50 % 25 Gm/50 Ml Vial IVPUSH Q15M PRN per Hypoglycemia Standing Ord. Protocol Famotidine 40 mg 11/29/20 21:00 12/03/20 21:40 Famotidine 20 Mg Tablet PO 40 mg BEDTIME [facility] Administration Glucose 15 gm 11/29/20 16:25 Glucose Gel 15 Gm Gel..Gram. PO Q15M PRN per Hypoglycemia Standing Ord. Protocol Heparin Sodium (Porcine) 5,000 unit 11/29/20 18:00 12/04/20 05:54 Heparin Sodium,Porcine 5,000 Unit/Ml Vial SUBCUT 5,000 unit Q12H [facility] Administration Dextrose/Lactated Ringer's 1,000 mls @ 100 mls/hr 12/02/20 19:00 12/04/20 01:39 D5lr IVCONT 100 mls/hr .Q10H [facility] Administration Insulin Human Lispro 0 unit 11/29/20 16:30 12/04/20 08:01 Insulin Lispro 100 Unit/Ml 3 Ml Vial SUBCUT Not Given QIDACHS [facility] Protocol Losartan Potassium 50 mg 11/30/20 09:00 12/04/20 08:07 Losartan Potassium 50 Mg Tablet PO 50 mg DAILY [facility] Administration Protocol Morphine Sulfate 4 mg 11/29/20 15:37 12/02/20 06:25 Morphine Sulfate 4 Mg/Ml Cartridge IVPUSH 4 mg Q3H PRN Administration Pain, Severe (Pain Scale 7-10) Patient Own 1 each 12/04/20 09:00 12/04/20 08:07 Medication ( PO 1 each Eplerenone 25 Mg DAILY [facility] Administration Tablet) Ondansetron HCl 4 mg 11/29/20 15:37 Ondansetron Hcl 4 Mg/2 Ml Vial IVPUSH Q8H PRN Nausea and Vomiting Oxycodone HCl 5 mg 12/01/20 08:09 Oxycodone Hcl Immed Release 5 Mg Tablet PO Q4H PRN Pain, Moderate (Pain Scale 4-6 Oxycodone HCl 10 mg 12/01/20 08:09 Oxycodone Hcl Immed Release 5 Mg Tablet PO Q4H PRN Pain, Severe (Pain Scale 7-10) Pharmacy Consult 1 each 11/29/20 15:04 Consult Rx Perform Med Rec MISCELLANE ONCE PRN Consult order Sodium Chloride 3 ml 11/29/20 16:00 12/04/20 08:07 0.9 % Sodium Chloride Flush 3 Ml Syringe IVFLUSH 3 ml QSHIFT [facility] Administration Temazepam 15 mg 11/29/20 15:37 Temazepam 15 Mg Capsule PO BEDTIME PRN Insomnia <Oxana Zheng PA-C - Last Filed: 12/04/20 08:33> Time Spent With Patient Time: Total time spent is greater than 50% in coordination of care (as documented) at patient's floor/unit and/or counseling patient: <Oxana Zheng PA-C - Last Filed: 12/04/20 08:33> Time with patient: 15 - 24 minutes <Oxana Zheng PA-C - Last Filed: 12/04/20 08:33> Quality Stroke Does the patient have a stroke diagnosis?: No <Oxana Zheng PA-C - Last Filed: 12/04/20 08:33> VTE Prior VTE?: No <Oxana Zheng PA-C - Last Filed: 12/04/20 08:33> VTE Risk Level:: Surgical - high <Oxana Zheng PA-C - Last Filed: 12/04/20 08:33> VTE Device Contraindication: N/A - Device Ordered <ROXANA Bowen Last Filed: 12/04/20 08:33> VTE Drug Contraindication: N/A - Med Ordered <ROXANA Bowen Last Filed: 12/04/20 08:33>
[2020-12-04] MEDS: oxyCODONE HCl Immed Release 5 MG TABLET 10 MG PO ×2 (09:39→18:42)
[2020-12-04 11:20] LABS: Glucose, Whole Blood 127 mg/dL (60-115)
--- NOTE | 2020-12-04 11:23 | MHC.CLN ---
F/U PT REMAINS ON CLEAR LIQUID DIET DAY 5 WITH POOR PO PT RECEIVING ENSURE CLEAR TO INCREASE KCALS PT WITH INCREASED NUTRITION NEEDS R/T CA MONITOR PO INTAKE CLOSELY CONSULT RD IF PPN NEEDED FOLLOWING
--- NOTE | 2020-12-04 11:41 | MHC.CM.PN ---
pts dc remains home no servceis
--- NOTE | 2020-12-04 13:02 | HO.PM.IMPN ---
Subjective Subjective Date of Service: 12/04/20 Interval History: still no bm or flatus Constitutional Constitutional: Reports no additional constitutional complaints Eyes Eyes: Reports no additional eye complaints Physical Exam Vital Signs: Vital Signs: Last Vital Signs Temp 98.7 F 12/04/20 11:27 Pulse 77 12/04/20 11:27 Resp 18 12/04/20 11:27 BP 160/72 H 12/04/20 11:27 Pulse Ox 96 12/04/20 11:27 Body Mass Index 31.5 General: AO X 3, no acute distress Resp:? CTA bilateral CVS: S1,S2,RRR GI: soft, ? distended Neuro:? motor grossly intact Psych: appropriate affect Objective Data Current Medications Generic Name Dose Route Start Last Admin Trade Name Freq PRN Reason Stop Dose Admin Allopurinol 300 mg 11/30/20 09:00 12/04/20 08:07 Allopurinol 300 Mg Tablet PO 300 mg DAILY [facility] Administration Amlodipine Besylate 10 mg 11/29/20 21:00 12/03/20 21:40 Amlodipine Besylate 10 Mg Tablet PO 10 mg BEDTIME [facility] Administration Protocol Atorvastatin Calcium 10 mg 11/29/20 21:00 12/03/20 21:40 Atorvastatin Calcium 10 Mg Tablet PO 10 mg BEDTIME [facility] Administration Dextrose 25 gm 11/29/20 16:25 Dextrose 50 % 25 Gm/50 Ml Vial IVPUSH Q15M PRN per Hypoglycemia Standing Ord. Protocol Famotidine 40 mg 11/29/20 21:00 12/03/20 21:40 Famotidine 20 Mg Tablet PO 40 mg BEDTIME [facility] Administration Glucose 15 gm 11/29/20 16:25 Glucose Gel 15 Gm Gel..Gram. PO Q15M PRN per Hypoglycemia Standing Ord. Protocol Heparin Sodium (Porcine) 5,000 unit 11/29/20 18:00 12/04/20 05:54 Heparin Sodium,Porcine 5,000 Unit/Ml Vial SUBCUT 5,000 unit Q12H [facility] Administration Dextrose/Lactated Ringer's 1,000 mls @ 100 mls/hr 12/02/20 19:00 12/04/20 12:22 D5lr IVCONT 100 mls/hr .Q10H [facility] Administration Insulin Human Lispro 0 unit 11/29/20 16:30 12/04/20 12:19 Insulin Lispro 100 Unit/Ml 3 Ml Vial SUBCUT Not Given QIDACHS [facility] Protocol Losartan Potassium 50 mg 11/30/20 09:00 12/04/20 08:07 Losartan Potassium 50 Mg Tablet PO 50 mg DAILY [facility] Administration Protocol Morphine Sulfate 4 mg 11/29/20 15:37 12/02/20 06:25 Morphine Sulfate 4 Mg/Ml Cartridge IVPUSH 4 mg Q3H PRN Administration Pain, Severe (Pain Scale 7-10) Patient Own 1 each 12/04/20 09:00 12/04/20 08:07 Medication ( PO 1 each Eplerenone 25 Mg DAILY [facility] Administration Tablet) Ondansetron HCl 4 mg 11/29/20 15:37 Ondansetron Hcl 4 Mg/2 Ml Vial IVPUSH Q8H PRN Nausea and Vomiting Oxycodone HCl 5 mg 12/01/20 08:09 Oxycodone Hcl Immed Release 5 Mg Tablet PO Q4H PRN Pain, Moderate (Pain Scale 4-6 Oxycodone HCl 10 mg 12/01/20 08:09 12/04/20 09:39 Oxycodone Hcl Immed Release 5 Mg Tablet PO 10 mg Q4H PRN Administration Pain, Severe (Pain Scale 7-10) Pharmacy Consult 1 each 11/29/20 15:04 Consult Rx Perform Med Rec MISCELLANE ONCE PRN Consult order Sodium Chloride 3 ml 11/29/20 16:00 12/04/20 08:07 0.9 % Sodium Chloride Flush 3 Ml Syringe IVFLUSH 3 ml QSHIFT [facility] Administration Temazepam 15 mg 11/29/20 15:37 Temazepam 15 Mg Capsule PO BEDTIME PRN Insomnia Labs CBC & Chem 7: 12/04/20 05:05 12/04/20 05:05 Labs: Laboratory Results - last 24 hr 12/03/20 12/03/20 12/03/20 12:55 16:14 20:01 MCV MCH MCHC RDW Plt Count MPV Absolute Nucleated RBC Nucleated RBC % (auto) Anion Gap 13 Estim Creat Clear Calc 38.5 Estimated GFR 32 POC Glucose 133 H 128 H Random Glucose 121 H Fasting Glucose Calcium 8.4 Phosphorus 2.3 L Magnesium 1.7 12/04/20 12/04/20 12/04/20 05:05 05:05 07:26 MCV 92.9 MCH 29.8 MCHC 32.1 RDW 15.4 Plt Count 191 MPV 11.3 Absolute Nucleated RBC 0.000 Nucleated RBC % (auto) 0.0 Anion Gap 17 Estim Creat Clear Calc 39.3 Estimated GFR 33 POC Glucose 110 Random Glucose Fasting Glucose 104 H Calcium 8.5 Phosphorus Magnesium 12/04/20 11:09 MCV MCH MCHC RDW Plt Count MPV Absolute Nucleated RBC Nucleated RBC % (auto) Anion Gap Estim Creat Clear Calc Estimated GFR POC Glucose 127 H Random Glucose Fasting Glucose Calcium Phosphorus Magnesium Assessment and Plan (1) Cecum mass: Status: Acute Assessment and Plan: ?75M found to have cecal mass. 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
[2020-12-04 16:08] LABS: Glucose, Whole Blood 112 mg/dL (60-115)
[2020-12-04] MEDS: Famotidine 20 MG TABLET 40 MG PO (19:51)
[2020-12-04] MEDS: Atorvastatin Calcium 10 MG TABLET PO (19:51)
[2020-12-04] MEDS: amLODIPine Besylate 10 MG TABLET PO (19:51)
[2020-12-04 19:53] LABS: Glucose, Whole Blood 127 mg/dL (60-115)
[2020-12-05] VITALS (9 sets, daily range): BP systolic 113–159; BP diastolic 58–81; PULSE 68–88; RESP 14–20; TEMP 36–36.9; O2SAT 95–98
[2020-12-05] MEDS: Heparin Sodium,Porcine 5,000 UNIT/ML VIAL 5000 UNIT SUBCUT ×2 (04:06→17:28)
[2020-12-05 07:23] LABS: Glucose, Whole Blood 128 mg/dL (60-115)
[2020-12-05] MEDS: allopurinoL 300 MG TABLET PO (08:43)
[2020-12-05] MEDS: Losartan Potassium 50 MG TABLET PO (08:43)
[2020-12-05] MEDS: 0.9 % Sodium Chloride Flush 3 ML SYRINGE IVFLUSH (08:44)
[2020-12-05] MEDS: Dextrose 5 % and Lactated Ring 1,000 ML 100 ML IVCONT ×2 (08:44→17:29)
--- NOTE | 2020-12-05 10:07 | HO.PM.IMPN ---
Subjective Subjective Date of Service: 12/05/20 Interval History: stil no BM or flatulence Review of Systems cardiac: no chest pain respiratory: no sob Physical Exam Vital Signs: Vital Signs: Last Vital Signs Temp 97.0 F 12/05/20 08:00 Pulse 68 12/05/20 08:43 Resp 18 12/05/20 08:00 BP 113/58 L 12/05/20 08:43 Pulse Ox 97 12/05/20 08:00 Body Mass Index 31.5 General: AO X 3, no acute distress Resp:? CTA bilateral CVS: S1,S2,RRR GI: soft, ? distended Neuro:? motor grossly intact Psych: appropriate affect Objective Data Current Medications Generic Name Dose Route Start Last Admin Trade Name Freq PRN Reason Stop Dose Admin Allopurinol 300 mg 11/30/20 09:00 12/05/20 08:43 Allopurinol 300 Mg Tablet PO 300 mg DAILY [facility] Administration Amlodipine Besylate 10 mg 11/29/20 21:00 12/04/20 19:51 Amlodipine Besylate 10 Mg Tablet PO 10 mg BEDTIME [facility] Administration Protocol Atorvastatin Calcium 10 mg 11/29/20 21:00 12/04/20 19:51 Atorvastatin Calcium 10 Mg Tablet PO 10 mg BEDTIME [facility] Administration Dextrose 25 gm 11/29/20 16:25 Dextrose 50 % 25 Gm/50 Ml Vial IVPUSH Q15M PRN per Hypoglycemia Standing Ord. Protocol Famotidine 40 mg 11/29/20 21:00 12/04/20 19:51 Famotidine 20 Mg Tablet PO 40 mg BEDTIME [facility] Administration Glucose 15 gm 11/29/20 16:25 Glucose Gel 15 Gm Gel..Gram. PO Q15M PRN per Hypoglycemia Standing Ord. Protocol Heparin Sodium (Porcine) 5,000 unit 11/29/20 18:00 12/05/20 04:06 Heparin Sodium,Porcine 5,000 Unit/Ml Vial SUBCUT 5,000 unit Q12H [facility] Administration Dextrose/Lactated Ringer's 1,000 mls @ 100 mls/hr 12/02/20 19:00 12/05/20 08:44 D5lr IVCONT 100 mls/hr .Q10H [facility] Administration Insulin Human Lispro 0 unit 11/29/20 16:30 12/05/20 07:42 Insulin Lispro 100 Unit/Ml 3 Ml Vial SUBCUT Not Given QIDACHS [facility] Protocol Losartan Potassium 50 mg 11/30/20 09:00 12/05/20 08:43 Losartan Potassium 50 Mg Tablet PO 50 mg DAILY [facility] Administration Protocol Patient Own 1 each 12/04/20 09:00 12/05/20 08:43 Medication ( PO 1 each Eplerenone 25 Mg DAILY [facility] Administration Tablet) Ondansetron HCl 4 mg 11/29/20 15:37 Ondansetron Hcl 4 Mg/2 Ml Vial IVPUSH Q8H PRN Nausea and Vomiting Oxycodone HCl 5 mg 12/01/20 08:09 Oxycodone Hcl Immed Release 5 Mg Tablet PO Q4H PRN Pain, Moderate (Pain Scale 4-6 Oxycodone HCl 10 mg 12/01/20 08:09 12/04/20 18:42 Oxycodone Hcl Immed Release 5 Mg Tablet PO 10 mg Q4H PRN Administration Pain, Severe (Pain Scale 7-10) Pharmacy Consult 1 each 11/29/20 15:04 Consult Rx Perform Med Rec MISCELLANE ONCE PRN Consult order Sodium Chloride 3 ml 11/29/20 16:00 12/05/20 08:44 0.9 % Sodium Chloride Flush 3 Ml Syringe IVFLUSH 3 ml QSHIFT [facility] Administration Labs CBC & Chem 7: 12/04/20 05:05 12/04/20 05:05 Labs: Laboratory Results - last 24 hr 12/04/20 12/04/20 12/04/20 11:09 16:03 19:43 POC Glucose 127 H 112 127 H 12/05/20 07:16 POC Glucose 128 H Microbiology Microbiology Results: Microbiology 11/29/20 12:11 Blood Culture - Final Blood - Venous No growth after 5 days. 11/29/20 11:38 Blood Culture - Final Blood - Venous No growth after 5 days. Assessment and Plan (1) Cecum mass: Status: Acute Assessment and Plan: ?75M found to have cecal mass. 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
[2020-12-05 11:23] LABS: Glucose, Whole Blood 123 mg/dL (60-115)
--- NOTE | 2020-12-05 13:41 | P.PNGS_ITS ---
Subjective Subjective Date of Service: 12/05/20 Interval history: States he feels better than yesterday Denies flatus however No nausea or vomiting Tolerating clear liquids Says he has been ambulating a little more Physical Exam Vital Signs: Vital Signs: Last Vital Signs Temp 98.2 F 12/05/20 11:18 Pulse 68 12/05/20 11:47 Resp 18 12/05/20 11:18 BP 158/81 H 12/05/20 11:47 Pulse Ox 97 12/05/20 11:47 Body Mass Index 31.5 Const: Other: Actually looks well, sitting on chair General: comfortable and no acute distress Resp: Effort & Inspection: normal respiratory effort Cardio: Rate: regular rate GI: Inspection: No distended Palpation (GI): Soft to palpation, not firm, nontender and no guarding Procedures Date of Service Date of Service: 12/05/20 Progress Note: A&P Assessment and plan (1) S/P right colectomy: Status: Acute Assessment and Plan: Actually looks well but has postop ileus Abdomen very benign, soft Incisions clean dry Await return of GI function Clear liquids Patient encouraged to ambulate more Overall, appears to be doing well Fall Risk Details Current Medications: Current Medications Generic Name Dose Route Start Last Admin Trade Name Freq PRN Reason Stop Dose Admin Allopurinol 300 mg 11/30/20 09:00 12/05/20 08:43 Allopurinol 300 Mg Tablet PO 300 mg DAILY [facility] Administration Amlodipine Besylate 10 mg 11/29/20 21:00 12/04/20 19:51 Amlodipine Besylate 10 Mg Tablet PO 10 mg BEDTIME [facility] Administration Protocol Atorvastatin Calcium 10 mg 11/29/20 21:00 12/04/20 19:51 Atorvastatin Calcium 10 Mg Tablet PO 10 mg BEDTIME [facility] Administration Dextrose 25 gm 11/29/20 16:25 Dextrose 50 % 25 Gm/50 Ml Vial IVPUSH Q15M PRN per Hypoglycemia Standing Ord. Protocol Famotidine 40 mg 11/29/20 21:00 12/04/20 19:51 Famotidine 20 Mg Tablet PO 40 mg BEDTIME [facility] Administration Glucose 15 gm 11/29/20 16:25 Glucose Gel 15 Gm Gel..Gram. PO Q15M PRN per Hypoglycemia Standing Ord. Protocol Heparin Sodium (Porcine) 5,000 unit 11/29/20 18:00 12/05/20 04:06 Heparin Sodium,Porcine 5,000 Unit/Ml Vial SUBCUT 5,000 unit Q12H [facility] Administration Dextrose/Lactated Ringer's 1,000 mls @ 100 mls/hr 12/02/20 19:00 12/05/20 08:44 D5lr IVCONT 100 mls/hr .Q10H [facility] Administration Insulin Human Lispro 0 unit 11/29/20 16:30 12/05/20 12:44 Insulin Lispro 100 Unit/Ml 3 Ml Vial SUBCUT Not Given QIDACHS [facility] Protocol Losartan Potassium 50 mg 11/30/20 09:00 12/05/20 08:43 Losartan Potassium 50 Mg Tablet PO 50 mg DAILY [facility] Administration Protocol Patient Own 1 each 12/04/20 09:00 12/05/20 08:43 Medication ( PO 1 each Eplerenone 25 Mg DAILY [facility] Administration Tablet) Ondansetron HCl 4 mg 11/29/20 15:37 Ondansetron Hcl 4 Mg/2 Ml Vial IVPUSH Q8H PRN Nausea and Vomiting Oxycodone HCl 5 mg 12/01/20 08:09 Oxycodone Hcl Immed Release 5 Mg Tablet PO Q4H PRN Pain, Moderate (Pain Scale 4-6 Oxycodone HCl 10 mg 12/01/20 08:09 12/04/20 18:42 Oxycodone Hcl Immed Release 5 Mg Tablet PO 10 mg Q4H PRN Administration Pain, Severe (Pain Scale 7-10) Pharmacy Consult 1 each 11/29/20 15:04 Consult Rx Perform Med Rec MISCELLANE ONCE PRN Consult order Sodium Chloride 3 ml 11/29/20 16:00 12/05/20 08:44 0.9 % Sodium Chloride Flush 3 Ml Syringe IVFLUSH 3 ml QSHIFT [facility] Administration Time Spent With Patient Time: Total time spent is greater than 50% in coordination of care (as documented) at patient's floor/unit and/or counseling patient: Time with patient: 15 - 24 minutes Quality Stroke Does the patient have a stroke diagnosis?: No VTE Prior VTE?: No VTE Risk Level:: Surgical - high VTE Device Contraindication: N/A - Device Ordered VTE Drug Contraindication: N/A - Med Ordered
[2020-12-05 16:14] LABS: Glucose, Whole Blood 114 mg/dL (60-115)
[2020-12-05 20:04] LABS: Glucose, Whole Blood 153 mg/dL (60-115)
[2020-12-05] MEDS: Famotidine 20 MG TABLET 40 MG PO (20:52)
[2020-12-05] MEDS: Atorvastatin Calcium 10 MG TABLET PO (20:52)
[2020-12-05] MEDS: amLODIPine Besylate 10 MG TABLET PO (20:52)
[2020-12-05] MEDS: Insulin Lispro 100 UNIT/ML 3 ML VIAL SUBCUT (20:52)
[2020-12-05] MEDS: oxyCODONE HCl Immed Release 5 MG TABLET PO (20:53)
[2020-12-06] VITALS (8 sets, daily range): BP systolic 124–146; BP diastolic 57–94; PULSE 62–80; RESP 12–20; TEMP 36.7–37.2; O2SAT 91–95
[2020-12-06] MEDS: Heparin Sodium,Porcine 5,000 UNIT/ML VIAL 5000 UNIT SUBCUT (06:44)
[2020-12-06 07:18] LABS: Glucose, Whole Blood 87 mg/dL (60-115)
--- NOTE | 2020-12-06 08:43 | P.PNGS_ITS ---
Subjective Subjective Date of Service: 12/06/20 <Oxana Zheng PA-C - Last Filed: 12/06/20 08:47> 12/06/20 <Jakub Mei MD - Last Filed: 12/06/20 09:13> Interval history: Had a bowel movement last night and was feeling better but developed nausea this morning and increasing pain at left side. Passing flatus yesterday but not this morning. <Oxana Zheng PA-C - Last Filed: 12/06/20 08:47> Physical Exam Vital Signs: Vital Signs: Last Vital Signs Temp 98.4 F 12/06/20 07:29 Pulse 80 12/06/20 07:29 Resp 20 12/06/20 07:29 BP 139/88 12/06/20 07:29 Pulse Ox 94 12/06/20 07:29 Body Mass Index 31.5 <Oxana Zheng PA-C - Last Filed: 12/06/20 08:47> Const: General: no acute distress and alert <Oxana Zheng PA-C - Last Filed: 12/06/20 08:47> Orientation/consciousness: patient oriented x3 <Oxana Zheng PA-C - Last Filed: 12/06/20 08:47> Resp: Effort & Inspection: normal respiratory effort <ROXANA Bowen Last Filed: 12/06/20 08:47> GI: Inspection: Yes distended and Yes incision (clean) <Oxana Zheng PA-C - Last Filed: 12/06/20 08:47> Palpation (GI): Soft to palpation, Tenderness to palpation present (GI) (incisional, mild left side) Negative for with no rebound tenderness, no guarding and not rigid <Oxana Zheng PA-C - Last Filed: 12/06/20 08:47> Percussion: Yes tympanic to percussion <ROXANA Bowen Last Filed: 12/06/20 08:47> Skin: General skin exam: no rashes or lesions noted <ROXANA Bowen Last Filed: 12/06/20 08:47> Neuro: General: patient oriented x3 <Oxana Zheng PA-C - Last Filed: 12/06/20 08:47> Extrem: General: Yes no clubbing, cyanosis or edema <Oxana Zheng PA-C - Last Filed: 12/06/20 08:47> Procedures Date of Service Date of Service: 12/06/20 <Oxana Zheng PA-C - Last Filed: 12/06/20 08:47> Progress Note: A&P Assessment and plan (1) S/P right colectomy: Status: Acute <Oxana Zheng PA-C - Last Filed: 12/06/20 08:47> Assessment and Plan: Started to pass flatus last night However says he vomited last night, Has pain this morning Will check CT scan NPO Stable vital signs Seen and examined - agree with SILVIA Zheng <Jakub Mei MD - Last Filed: 12/06/20 09:13> Assessment and Plan: 75-year-old male presenting to the emergency department with complaints of right lower quadrant and right flank abdominal pain for approximately 1 year duration associated with approximately 60 lb weight loss with [address] of the abdomen and pelvis revealed a 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 He is now POD #6 s/p IMCK right colectomy. Developed ileus with return of GI function yesterday. This morning reports increased pain and nausea with episode of vomiting. Will continue clear liquids as tolerated, IVF. Obtain f/u CT scan abd/pelvis. Further plan dependent on imaging. Encouraged ambulation. Await pathology. <Oxana Zheng PA-C - Last Filed: 12/06/20 08:47> Fall Risk Details Current Medications: Current Medications Generic Name Dose Route Start Last Admin Trade Name Freq PRN Reason Stop Dose Admin Allopurinol 300 mg 11/30/20 09:00 12/05/20 08:43 Allopurinol 300 Mg Tablet PO 300 mg DAILY [facility] Administration Amlodipine Besylate 10 mg 11/29/20 21:00 12/05/20 20:52 Amlodipine Besylate 10 Mg Tablet PO 10 mg BEDTIME [facility] Administration Protocol Atorvastatin Calcium 10 mg 11/29/20 21:00 12/05/20 20:52 Atorvastatin Calcium 10 Mg Tablet PO 10 mg BEDTIME [facility] Administration Dextrose 25 gm 11/29/20 16:25 Dextrose 50 % 25 Gm/50 Ml Vial IVPUSH Q15M PRN per Hypoglycemia Standing Ord. Protocol Famotidine 40 mg 11/29/20 21:00 12/05/20 20:52 Famotidine 20 Mg Tablet PO 40 mg BEDTIME [facility] Administration Glucose 15 gm 11/29/20 16:25 Glucose Gel 15 Gm Gel..Gram. PO Q15M PRN per Hypoglycemia Standing Ord. Protocol Heparin Sodium (Porcine) 5,000 unit 11/29/20 18:00 12/06/20 06:44 Heparin Sodium,Porcine 5,000 Unit/Ml Vial SUBCUT 5,000 unit Q12H [facility] Administration Insulin Human Lispro 0 unit 11/29/20 16:30 12/06/20 07:35 Insulin Lispro 100 Unit/Ml 3 Ml Vial SUBCUT Not Given QIDACHS [facility] Protocol Losartan Potassium 50 mg 11/30/20 09:00 12/05/20 08:43 Losartan Potassium 50 Mg Tablet PO 50 mg DAILY [facility] Administration Protocol Patient Own 1 each 12/04/20 09:00 12/05/20 08:43 Medication ( PO 1 each Eplerenone 25 Mg DAILY [facility] Administration Tablet) Ondansetron HCl 4 mg 11/29/20 15:37 Ondansetron Hcl 4 Mg/2 Ml Vial IVPUSH Q8H PRN Nausea and Vomiting Pharmacy Consult 1 each 11/29/20 15:04 Consult Rx Perform Med Rec MISCELLANE ONCE PRN Consult order Sodium Chloride 3 ml 11/29/20 16:00 12/06/20 01:07 0.9 % Sodium Chloride Flush 3 Ml Syringe IVFLUSH [facility] <Oxana Zheng PA-C - Last Filed: 12/06/20 08:47> Time Spent With Patient Time: Total time spent is greater than 50% in coordination of care (as documented) at patient's floor/unit and/or counseling patient: <ROXANA Bowen Last Filed: 12/06/20 08:47> Time with patient: less than 15 minutes <ROXANA Bowen Last Filed: 12/06/20 08:47> Quality Stroke Does the patient have a stroke diagnosis?: No <ROXANA Bowen Last Filed: 12/06/20 08:47> VTE Prior VTE?: No <Oxana Zheng PA-C - Last Filed: 12/06/20 08:47> VTE Risk Level:: Surgical - high <Oxana Zheng PA-C - Last Filed: 12/06/20 08:47> VTE Device Contraindication: N/A - Device Ordered <ROXANA Bowen Last Filed: 12/06/20 08:47> VTE Drug Contraindication: N/A - Med Ordered <Oxana Zheng PA-C - Last Filed: 12/06/20 08:47>
[2020-12-06] MEDS: Losartan Potassium 50 MG TABLET PO (08:51)
[2020-12-06] MEDS: allopurinoL 300 MG TABLET PO (08:51)
[2020-12-06] MEDS: 0.9 % Sodium Chloride Flush 3 ML SYRINGE IVFLUSH ×3 (08:51→20:11)
[2020-12-06] MEDS: oxyCODONE HCl Immed Release 5 MG TABLET 10 MG PO (10:38)
[2020-12-06 11:10] LABS: Glucose, Whole Blood 137 mg/dL (60-115)
--- NOTE | 2020-12-06 11:54 | MHC.CLN ---
Addendum entered by Praveena Grady RD 12/06/20 14:07: DISCUSSED CASE WITH TYE CARREON-PT TO RECEIVE PICC AND START TPN RECOMMEND DAY 1 D15 AA5% AT 55ML /HR TO PROVIDE [id number], 66G PROTEIN DISCUSSED WITH PHARMACY; REPLETE LYTES NEEDED Original Note: F/U PT CONTINUES ON CLEAR LIQUID DIET-PT C/O OF MANY FOOD ITEMS I.E. BROTH AND JELLO DAY 7 WITH POOR PO-NOTED MOVED BOWELS 12/05 BUT THEN EPISODE OF VOMITING 12/05 AND NAUSEA 12/06 PT WITH INCREASED RISK FOR MALNUTRITION R/T CA PT RECEIVING ENSURE CLEAR TO INCREASE KCALS MONITOR PO INTAKE CLOSELY CONSULT RD IF PPN NEEDED FOLLOWING
[2020-12-06] MEDS: Morphine Sulfate 4 MG/ML CARTRIDGE IVPUSH (13:39)
--- NOTE | 2020-12-06 14:15 | PC.NURSE ---
Charge nurse attempted NG tube insertion. Pt asking for a break and to return and attempt NG tube insertion later this afternoon.
--- NOTE | 2020-12-06 15:06 | PC.NURSE ---
Pt is refusing insertion of NG tube at this time.
--- NOTE | 2020-12-06 15:23 | PM.EVENT ---
Event Note Date of Service: 12/06/20 Event Note: Describes some pain on the abdomen No further vomiting today Says he has passed flatus this morning Abdomen soft distended CT scan reviewed with radiologist Dr. Saravia- diffuse small bowel dilatation, good amount of air all the way to the transverse colon, anastomosis intact, no evidence of anastomotic leak, question of partial obstruction in the small bowel? Overall clinical picture suggest more of an ileus pattern Explained to the patient that it would be best to insert an NG tube in view of the diffuse small bowel dilatation NPO Will arrange for PICC line and likely TPN as he has had no significant oral intake for over a week.
--- NOTE | 2020-12-06 16:21 | PM.EVENT ---
Event Note Date of Service: 12/06/20 Event Note: Patient has been refusing NG tube insertion Actually says that he feels much better this afternoon Abdomen is less distended, softer No tenderness except below incisions Patient denies significant pain Again encouraged to ambulate was in the room during discussion
[2020-12-06 16:34] LABS: Glucose, Whole Blood 137 mg/dL (60-115)
[2020-12-06] MEDS: amLODIPine Besylate 10 MG TABLET PO (20:10)
[2020-12-06] MEDS: Atorvastatin Calcium 10 MG TABLET PO (20:10)
[2020-12-06] MEDS: Famotidine 20 MG TABLET 40 MG PO (20:10)
[2020-12-06 20:44] LABS: Glucose, Whole Blood 116 mg/dL (60-115)
[2020-12-07 03:07] VITALS: BP 129/65; PULSE 71; RESP 18; TEMP 36.8; O2SAT 92
[2020-12-07] MEDS: Heparin Sodium,Porcine 5,000 UNIT/ML VIAL 5000 UNIT SUBCUT ×2 (06:38→18:37)
[2020-12-07 07:19] VITALS: BP 127/61; PULSE 74; RESP 18; TEMP 36.8; O2SAT 92
[2020-12-07 07:24] LABS: Glucose, Whole Blood 88 mg/dL (60-115)
[2020-12-07 08:00] VITALS: BMI 32.5
--- NOTE | 2020-12-07 08:25 | PM.PNGS ---
Subjective Subjective Date of Service: 12/07/20 <Oxana Zehng PA-C - Last Filed: 12/07/20 08:31> 12/07/20 <Jakub Mei MD - Last Filed: 12/07/20 13:50> Interval history: CT scan yesterday showed dilated SB loops. NGT ordered and attempted but patient refused. He reports passing large amount of flatus and BM since. He denies pain but reports gas movement. Wants to eat. <Oxana Zheng PA-C - Last Filed: 12/07/20 08:31> Physical Exam Vital Signs: Vital Signs: Last Vital Signs Temp 98.2 F 12/07/20 07:19 Pulse 74 12/07/20 07:19 Resp 18 12/07/20 07:19 BP 127/61 12/07/20 07:19 Pulse Ox 92 12/07/20 07:19 Body Mass Index 31.5 <Oxana Zheng PA-C - Last Filed: 12/07/20 08:31> Const: General: comfortable, no acute distress and alert <Oxana Zheng PA-C - Last Filed: 12/07/20 08:31> Orientation/consciousness: patient oriented x3 <Oxana Zheng PA-C - Last Filed: 12/07/20 08:31> Resp: Effort & Inspection: normal respiratory effort <Oxana Zheng PA-C - Last Filed: 12/07/20 08:31> Cardio: Rate: regular rate <Oxana Zheng PA-C - Last Filed: 12/07/20 08:31> GI: Inspection: Yes distended (decreasing) and Yes incision (clean) <ROXANA Bowen Last Filed: 12/07/20 08:31> Palpation (GI): Soft to palpation, Tenderness to palpation present (GI) (mild, incisional) Negative for with no rebound tenderness, no guarding and not rigid <ROXANA Bowen Last Filed: 12/07/20 08:31> Skin: General skin exam: no rashes or lesions noted <ROXANA Bowen Last Filed: 12/07/20 08:31> Neuro: General: patient oriented x3 <Oxana Zheng PA-C - Last Filed: 12/07/20 08:31> Extrem: General: Yes no clubbing, cyanosis or edema <Oxana Zheng PA-C - Last Filed: 12/07/20 08:31> Procedures Date of Service Date of Service: 12/07/20 <Oxana Zheng PA-C - Last Filed: 12/07/20 08:31> Progress Note: A&P Assessment and plan (1) S/P right colectomy: Status: Acute <Oxana Zheng PA-C - Last Filed: 12/07/20 08:31> Assessment and Plan: Now much improved Passing flatus and had BMs Looks comfortable No vomiting Abdomen soft, much less distended Okay to advance diet Hold off on TPN Encourage ambulation Seen and examined - agree with SILVIA Zheng <Jakub Mei MD - Last Filed: 12/07/20 13:50> (2) Cecum mass: Status: Acute <Oxana Zheng PA-C - Last Filed: 12/07/20 08:31> (3) Liver lesion: Status: Acute <ROXANA Bowen Last Filed: 12/07/20 08:31> Assessment and Plan: ?75-year-old male presenting to the emergency department with complaints of right lower quadrant and right flank abdominal pain for approximately 1 year duration associated with approximately 60 lb weight loss with CT of the abdomen and pelvis revealed a 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 He is now POD #7 s/p MICK right colectomy. Ileus appears to have resolved. Will hold off on NGT insertion, continue clear liquids and advance to solids tomorrow if tolerating. Hold off on parenteral nutrition. Encouraged ambulation. Pathology- invasive adenoCA. Consult heme/onc. <Oxana Zheng PA-C - Last Filed: 12/07/20 08:31> Fall Risk Details Current Medications: Current Medications Generic Name Dose Route Start Last Admin Trade Name Freq PRN Reason Stop Dose Admin Allopurinol 300 mg 11/30/20 09:00 12/06/20 08:51 Allopurinol 300 Mg Tablet PO 300 mg DAILY CRISTIAN Administration Amlodipine Besylate 10 mg 11/29/20 21:00 12/06/20 20:10 Amlodipine Besylate 10 Mg Tablet PO 10 mg BEDTIME CRISTIAN Administration Protocol Atorvastatin Calcium 10 mg 11/29/20 21:00 12/06/20 20:10 Atorvastatin Calcium 10 Mg Tablet PO 10 mg BEDTIME CRISTIAN Administration Dextrose 25 gm 11/29/20 16:25 Dextrose 50 % 25 Gm/50 Ml Vial IVPUSH Q15M PRN per Hypoglycemia Standing Ord. Protocol Famotidine 40 mg 11/29/20 21:00 12/06/20 20:10 Famotidine 20 Mg Tablet PO 40 mg BEDTIME CRISTIAN Administration Glucose 15 gm 11/29/20 16:25 Glucose Gel 15 Gm Gel..Gram. PO Q15M PRN per Hypoglycemia Standing Ord. Protocol Heparin Sodium (Porcine) 5,000 unit 11/29/20 18:00 12/07/20 06:38 Heparin Sodium,Porcine 5,000 Unit/Ml Vial SUBCUT 5,000 unit Q12H CRISTIAN Administration Insulin Human Lispro 0 unit 11/29/20 16:30 12/07/20 07:48 Insulin Lispro 100 Unit/Ml 3 Ml Vial SUBCUT Not Given QIDACHS [facility] Protocol Losartan Potassium 50 mg 11/30/20 09:00 12/06/20 08:51 Losartan Potassium 50 Mg Tablet PO 50 mg DAILY CRISTIAN Administration Protocol Morphine Sulfate 4 mg 12/06/20 08:59 12/06/20 13:39 Morphine Sulfate 4 Mg/Ml Cartridge IVPUSH 4 mg Q4H PRN Administration Pain, Severe (Pain Scale 7-10) Protocol Patient Own 1 each 12/04/20 09:00 12/06/20 08:51 Medication ( PO 1 each Eplerenone 25 Mg DAILY CRISTIAN Administration Tablet) Ondansetron HCl 4 mg 11/29/20 15:37 Ondansetron Hcl 4 Mg/2 Ml Vial IVPUSH Q8H PRN Nausea and Vomiting Oxycodone HCl 5 mg 12/06/20 08:59 Oxycodone Hcl Immed Release 5 Mg Tablet PO Q4H PRN Pain, Moderate (Pain Scale 4-6 Oxycodone HCl 10 mg 12/06/20 08:59 12/06/20 10:38 Oxycodone Hcl Immed Release 5 Mg Tablet PO 10 mg Q4H PRN Administration Pain, Severe (Pain Scale 7-10) Pharmacy Consult 1 each 11/29/20 15:04 Consult Rx Perform Med Rec MISCELLANE ONCE PRN Consult order Sodium Chloride 3 ml 11/29/20 16:00 12/06/20 20:11 0.9 % Sodium Chloride Flush 3 Ml Syringe IVFLUSH 3 ml QSHIFT CRISTIAN Administration <Oxana Zheng PA-C - Last Filed: 12/07/20 08:31> Time Spent With Patient Time: Total time spent is greater than 50% in coordination of care (as documented) at patient's floor/unit and/or counseling patient: <Oxana Zheng PA-C - Last Filed: 12/07/20 08:31> Time with patient: 15 - 24 minutes <Oxana Zheng PA-C - Last Filed: 12/07/20 08:31> Quality Stroke Does the patient have a stroke diagnosis?: No <Oxana Zheng PA-C - Last Filed: 12/07/20 08:31> VTE Prior VTE?: No <Oxana Zheng PA-C - Last Filed: 12/07/20 08:31> VTE Risk Level:: Surgical - high <Oxana Zheng PA-C - Last Filed: 12/07/20 08:31> VTE Device Contraindication: N/A - Device Ordered <Oxana Zheng PA-C - Last Filed: 12/07/20 08:31> VTE Drug Contraindication: N/A - Med Ordered <Oxana Zheng PA-C - Last Filed: 12/07/20 08:31>
[2020-12-07 08:54] LABS: Glucose, Whole Blood 90 mg/dL (60-115)
[2020-12-07 09:09] LABS: MANUAL DIFF FLAG NO
[2020-12-07 09:12] LABS: Basophils Percent Auto 0.2 % (0-2); Eosinophils Percent Auto 0.9 % (0-4); Hematocrit 33.9 % (42-52); Imm Gran Abs Auto 0.05 X10*3/uL (0.00-0.03); Imm Gran Pct Auto 1.2 % (0.0-0.4); Lymphocytes Absolute Auto 0.4 X10*3/uL (1.2-4.9); Lymphocytes Percent Auto 8.8 % (20-40); Mean Corpuscular HGB Conc 32.4 g/dl (31.0-36.0); Mean Corpuscular Hemoglobin 30.2 pg (27.0-33.0); Mean Corpuscular Volume 93.1 fL (80-98); Monocytes Absolute Auto 0.6 X10*3/uL (0.1-1.2); Monocytes Percent Auto 12.7 % (2-11); Neutrophils Absolute Auto 3.3 X10*3/uL (2.0-8.3); Neutrophils Percent Auto 76.2 % (45-73); Platelet Count 223 X10*3/uL (160-400); Red Blood Count 3.64 X10*6/uL (4.60-5.80); Red Cell Distribution Width 15.1 % (11.0-16.0); White Blood Count 4.3 X10*3/uL (4.8-10.8)
[2020-12-07 09:19] LABS: INTERNATIONAL NORM RATIO 1.1 (0.9-1.1); Prothrombin Time 12.7 SEC (9.9-13.0)
[2020-12-07] MEDS: Losartan Potassium 50 MG TABLET PO (09:29)
[2020-12-07] MEDS: 0.9 % Sodium Chloride Flush 3 ML SYRINGE IVFLUSH ×2 (09:29→20:55)
[2020-12-07] MEDS: allopurinoL 300 MG TABLET PO (09:29)
[2020-12-07 09:46] LABS: Anion Gap 16 (12-20); Blood Urea Nitrogen 46 mg/dL (9-16); Carbon Dioxide 20 mmol/L (22-29); Chloride 103 mmol/L (96-108); Creatinine Clr Calc Pharmacy 28.4; Estimated Glomerular Filt Rate 22; Magnesium 1.8 mg/dL (1.6-2.6); Phosphorus 3.4 mg/dL (2.7-4.5); Potassium 5.5 mmol/L (3.3-5.1); Sodium 133 mmol/L (135-145); Triglycerides 187 mg/dL
--- NOTE | 2020-12-07 10:35 | MHC.CLN ---
F/U PT REFUSED NG TUBE INSERTION PA NOTED Ileus appears to have resolved. Will hold off on NGT insertion, continue clear liquids and advance to solids tomorrow if tolerating. Hold off on parenteral nutrition. DIET RX: C/L -APPROPRIATE PT RECEIVING ENSURE CLEAR TID PROVIDES AN ADDITIONAL 720KCALS, 24G PROTEIN PT ENCOURAGED TO DRINK CONSULT RD IF TPN NEEDED FOLLOWING
[2020-12-07 10:51] LABS: Glucose, Whole Blood 91 mg/dL (60-115)
[2020-12-07 11:13] VITALS: BP 121/59; PULSE 85; RESP 18; TEMP 36.7; O2SAT 94
[2020-12-07 16:00] VITALS: BP 113/56; PULSE 73; RESP 18; TEMP 36.9; O2SAT 89
[2020-12-07 16:42] LABS: Glucose, Whole Blood 96 mg/dL (60-115)
--- NOTE | 2020-12-07 16:50 | PM.HEMONCCN ---
Subjective - Subjective Chief complaint: Consult for: Colon cancer. Patient: new to practice Consult date: 12/07/20 Requesting Physician: Sigifredo. Primary Care Provider: Armin Zaragoza MD Medical Summary: DIAGNOSIS: COLON CARCINOMA. HPI - Consult Narrative Reason for consult: Consult for: Colon carcinoma. Narrative: Cade Sanchez is a pleasant 75 year old gentleman, presented complaining of right sided pain and weight loss for several months. Found to have cecal mass with liver masses suspicious for metastatic colon ca. He was noted to be at risk for obstruction, therefore, plan for surgery. at baseline prior to last couple of months, patient is very active, able to tolerate [address] scan of the abdomen from 12/06: Small bowel dilatation down to level in the ileum, as described. This appears to be a region of transition, however, the small bowel dilatation could also be related to ileus. There remains some free air and moderate free fluid which may be postoperative in nature. Numerous hepatic lesions with the appearance of metastatic disease. Hepatomegaly. Periportal lymphadenopathy. 4.1 cm infrarenal abdominal aortic aneurysm. PAST MEDICAL HISTORY: History of DM, controlled with actos, Htn well controlled on amlodipnie, losartan, eplerenone. Hypercholesterolemia: hld on zocor, CKD IV, creatinine around 2.5. FAMILY HISTORY: Brother had chronic leukemia. Mom had coronary artery disease and stroke. Dad had a pacemaker placed and the next day. 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 He is . He has no children. He smokes. One packet last him 3 days. He used to drink quite heavily. Review of Systems - Constitutional Reports system reviewed and no additional complaints, except as documented, Reports weakness, Reports weight loss, Denies weight gain - Eyes Reports system reviewed and no additional complaints, except as documented, Denies blurry vision - ENT Reports system reviewed and no additional complaints, except as documented - Cardiovascular Reports system reviewed and no additional complaints, except as documented, Denies chest pain with activity - Respiratory Reports no additional respiratory complaints, Denies chest congestion - Gastrointestinal Reports system reviewed and no additional complaints, except as documented, Reports abdominal pain - Genitourinary Genitourinary: Reports no additional male genitourinary complaints - Musculoskeletal Reports system reviewed and no additional complaints, except as documented, Denies body aches - Integumentary/Breasts Skin/Breast: Reports no additional skin complaints, Denies breast swelling - Neurologic Reports system reviewed and no additional complaints, except as documented - Psychiatric Reports system reviewed and no additional complaints, except as documented, Denies behavioral changes - Endocrine Reports no additional endocrine complaints, Denies flushing - Hematologic/Lymphatic Reports system reviewed and no additional complaints, except as documented, Denies enlarged lymph nodes - Allergic/Immunologic Reports system reviewed and no additional complaints, except as documented, Reports GI upset with certain foods Oncology Screenings - ECOG Performance Status ECOG Performance Status: 1 [facility] Medical History: Medical History (Last Reviewed 12/14/20 @ 13:13 by Susan Marina) CKD (chronic kidney disease), stage IV Diabetes mellitus Gout HLD (hyperlipidemia) Hypertension Functional capacity: independent ambulation Patient : No Family History: Family History (Last Reviewed 12/14/20 @ 13:13 by Susan Marina) Father Past heart attack Mother Past heart attack Family history: reviewed and not pertinent Surgical History: Surgical History (Last Reviewed 12/14/20 @ 13:13 by Susan Marina) History of hernia surgery History of removal of cyst Social History: Social History (Last Reviewed 12/14/20 @ 13:13 by Susan Marina) Living Situation History: Household Members: Family Housing: House Do you presently have visiting nurse or other home services: No Alcohol History: Alcohol intake: current Alcohol History Details: Alcohol intake frequency: does not drink Tobacco History: Patient Tobacco Use Status: Current everyday Tobacco Tobacco use type: Cigarette Cigarette Packs Per Day: 0.5 Years Smoked: 62 e-Cigarette/Vaping Use: Never Used Second Hand Smoke Exposure: Yes Occupation Assessmet: service: No Current occupational status: employed Current occupational status: retired Home Medications and Allergies Current Medications: Current Medications Generic Name Dose Route Start Last Admin Trade Name Rupertoq PRN Reason Stop Dose Admin Allopurinol 300 mg 11/30/20 09:00 12/07/20 09:29 Allopurinol 300 Mg Tablet PO 300 mg DAILY CRISTIAN Administration Amlodipine Besylate 10 mg 11/29/20 21:00 12/06/20 20:10 Amlodipine Besylate 10 Mg Tablet PO 10 mg BEDTIME CRISTIAN Administration Protocol Atorvastatin Calcium 10 mg 11/29/20 21:00 12/06/20 20:10 Atorvastatin Calcium 10 Mg Tablet PO 10 mg BEDTIME CRISTIAN Administration Dextrose 25 gm 08/04/21 16:25 Dextrose 50 % 25 Gm/50 Ml Vial IVPUSH Q15M PRN per Hypoglycemia Standing Ord. Protocol Famotidine 40 mg 11/29/20 21:00 12/06/20 20:10 Famotidine 20 Mg Tablet PO 40 mg BEDTIME CRISTIAN Administration Glucose 15 gm 11/29/20 16:25 Glucose Gel 15 Gm Gel..Gram. PO Q15M PRN per Hypoglycemia Standing Ord. Protocol Heparin Sodium (Porcine) 5,000 unit 11/29/20 18:00 12/07/20 06:38 Heparin Sodium,Porcine 5,000 Unit/Ml Vial SUBCUT 5,000 unit Q12H CRISTIAN Administration Insulin Human Lispro 0 unit 11/29/20 16:30 12/07/20 16:47 Insulin Lispro 100 Unit/Ml 3 Ml Vial SUBCUT Not Given QIDACHS [facility] Protocol Losartan Potassium 50 mg 11/30/20 09:00 12/07/20 09:29 Losartan Potassium 50 Mg Tablet PO 50 mg DAILY CRISTIAN Administration Protocol Morphine Sulfate 4 mg 12/06/20 08:59 12/06/20 13:39 Morphine Sulfate 4 Mg/Ml Cartridge IVPUSH 4 mg Q4H PRN Administration Pain, Severe (Pain Scale 7-10) Protocol Patient Own 1 each 12/04/20 09:00 12/07/20 09:29 Medication ( PO 1 each Eplerenone 25 Mg DAILY CRISTIAN Administration Tablet) Ondansetron HCl 4 mg 11/29/20 15:37 Ondansetron Hcl 4 Mg/2 Ml Vial IVPUSH Q8H PRN Nausea and Vomiting Oxycodone HCl 5 mg 12/06/20 08:59 Oxycodone Hcl Immed Release 5 Mg Tablet PO Q4H PRN Pain, Moderate (Pain Scale 4-6 Oxycodone HCl 10 mg 12/06/20 08:59 12/06/20 10:38 Oxycodone Hcl Immed Release 5 Mg Tablet PO 10 mg Q4H PRN Administration Pain, Severe (Pain Scale 7-10) Pharmacy Consult 1 each 11/29/20 15:04 Consult Rx Perform Med Rec MISCELLANE ONCE PRN Consult order Sodium Chloride 3 ml 11/29/20 16:00 12/07/20 16:12 0.9 % Sodium Chloride Flush 3 Ml Syringe IVFLUSH Not Given QSHIFT [facility] Home Medications Medication Instructions Recorded Confirmed Type eplerenone 25 mg tablet 25 mg PO DAILY 02/23/20 12/15/20 History losartan 50 mg tablet 50 mg PO DAILY 02/23/20 12/15/20 History amlodipine 10 mg tablet 10 mg PO BEDTIME 11/29/20 12/15/20 History furosemide 20 mg tablet 20 mg PO DAILY 11/29/20 12/15/20 History cholecalciferol (vitamin D3) 25 25 mcg PO DAILY 12/14/20 12/15/20 History mcg (1,000 unit) capsule (Vitamin D3) cinnamon bark 500 mg capsule 500 mg PO DAILY 12/14/20 12/15/20 History (Cinnamon) coenzyme Q10 200 mg capsule (Co 200 mg PO DAILY 12/14/20 12/15/20 History Q-10) Allergies Allergy/AdvReac Type Severity Reaction Status Date / Time atenolol Allergy Unknown dizziness Verified 12/15/20 10:18 penicillin V Allergy Unknown Unknown Verified 12/15/20 10:18 Physical Exam Vital signs: Vital Signs Temp 98.5 F 12/07/20 16:00 Pulse 73 12/07/20 16:00 Resp 18 12/07/20 16:00 BP 113/56 L 12/07/20 16:00 Pulse Ox 89 L 12/07/20 16:00 Intake & Output 12/06/20 12/07/20 12/07/20 18:59 06:59 18:59 Intake Total 600 / 1640 1040 / 1640 Output Total 780 / 1380 600 / 1380 Balance -180 / 260 440 / 260 Urine Output (Average ml/kg/hr) 0.63 0.49 0.47 Intake: Intake, Oral Amount 600 / 1640 1040 / 1640 Output: Output, Urine Amount 780 / 1380 600 / 1380 Other: Meal Refused No No NPO No Breakfast % Eaten 50% Lunch % Eaten 50% Number of Unmeasured Voids 1 Urine Bathroom Urinal Urine Color Straw Concentrated Stool Bathroom Weight 105.8 kg [place] Weight in Grams [id number] Weight 105.8 kg - Constitutional Present: mild distress - Routine HEENT Exam Head: Present: normal inspection ENT: Present: mucous membranes moist - Routine Respiratory Exam Present: decreased breath sounds - Routine Cardiovascular Exam Cardiovascular: Present: RRR, S1, S2 - Routine Abdominal Exam Present: normal bowel sounds, tenderness - Routine Rectal Exam Patient deferred: digital exam - Routine Skin Exam Present: intact - Routine Neurological Exam Present: alert, oriented X3 Hem/Onc Consult Result - Labs CBC & Chem 7: 12/07/20 09:05 12/07/20 09:05 Labs: Short CBC 12/07/20 Range/Units 09:05 WBC 4.3 L (4.8-10.8) X10*3/uL Hgb 11.0 L (14.0-18.0) g/dl Hct 33.9 L (42-52) % Plt Count 223 (160-400) X10*3/uL BMP 12/07/20 09:05 Sodium 133 L Potassium 5.5 H Chloride 103 Carbon Dioxide 20 L BUN 46 H D Creatinine 2.82 H Calcium 8.0 L Assessment and Plan Patient Active problem list reviewed?: Yes (1) Colon carcinoma Status: Acute Assessment and plan: 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 Status post Right hemicolectomy on 11/30/2020. Pathology revealed: Invasive adenocarcinoma, moderately to poorly differentiated with neuroendocrine features measuring 14 cm. Tumor invades through muscularis propria into pericolonic soft tissue, LVI present, margins negative, 6 of 23 pericolonic lymph nodes involved by metastatic carcinoma. Staging [id number], AJCC stage IV. Neuroendocrine features are present focally with positive synaptophysin and chromogranin. MMR proficient. Further molecular studies have been ordered, as he has stage IV cancer. There is no family history of colorectal cancer. He does not have any children. IMPRESSION AND PLAN: Patient has advanced, metastatic disease. The plan is to complete staging workup. I would recommend CT-guided biopsy of 1 of the liver lesions. Will arrange for a PET-CT, as an outpatient. I have discussed with patient and that he has stage IV cancer which is incurable. Palliative chemotherapy/systemic therapy can be offered. FOLFOX with Avastin will be tried in the first-line setting. Because of his renal impairment, dose adjustments will be made accordingly. He will need to have a Portacath placed by IR. Thank you, CC: - Time Spent With Patient Time Spent with Patient (in minutes): 25
--- NOTE | 2020-12-07 17:40 | P.PNIM_ITS ---
Subjective Subjective Date of Service: 12/07/20 Interval History: Started diet, no pain Distension going down Physical Exam Vital Signs: Vital Signs: Last Vital Signs Temp 98.5 F 12/07/20 16:00 Pulse 73 12/07/20 16:00 Resp 18 12/07/20 16:00 BP 113/56 L 12/07/20 16:00 Pulse Ox 89 L 12/07/20 16:00 Body Mass Index 32.5 Const: Other: Constitutional : Alert, oriented, not in distress Neck : Normal inspection, Supple Cardiovascular : RRR, S1 S2, no lower extremity edema Respiratory : Good bilateral air entry, no crackles, Gastrointestinal: soft, lax, surgical signs covered with dressing Skin : Warm, Dry Neurological : Alert & oriented x3, No focal deficit Objective Data Current Medications Generic Name Dose Route Start Last Admin Trade Name Freq PRN Reason Stop Dose Admin Allopurinol 300 mg 11/30/20 09:00 12/07/20 09:29 Allopurinol 300 Mg Tablet PO 300 mg DAILY CRISTIAN Administration Amlodipine Besylate 10 mg 11/29/20 21:00 12/06/20 20:10 Amlodipine Besylate 10 Mg Tablet PO 10 mg BEDTIME CRISTIAN Administration Protocol Atorvastatin Calcium 10 mg 11/29/20 21:00 12/06/20 20:10 Atorvastatin Calcium 10 Mg Tablet PO 10 mg BEDTIME CRISTIAN Administration Dextrose 25 gm 11/29/20 16:25 Dextrose 50 % 25 Gm/50 Ml Vial IVPUSH Q15M PRN per Hypoglycemia Standing Ord. Protocol Famotidine 40 mg 11/29/20 21:00 12/06/20 20:10 Famotidine 20 Mg Tablet PO 40 mg BEDTIME CRISTIAN Administration Glucose 15 gm 11/29/20 16:25 Glucose Gel 15 Gm Gel..Gram. PO Q15M PRN per Hypoglycemia Standing Ord. Protocol Heparin Sodium (Porcine) 5,000 unit 11/29/20 18:00 12/07/20 06:38 Heparin Sodium,Porcine 5,000 Unit/Ml Vial SUBCUT 5,000 unit Q12H CRISTIAN Administration Insulin Human Lispro 0 unit 11/29/20 16:30 12/07/20 16:47 Insulin Lispro 100 Unit/Ml 3 Ml Vial SUBCUT Not Given QIDACHS [facility] Protocol Losartan Potassium 50 mg 11/30/20 09:00 12/07/20 09:29 Losartan Potassium 50 Mg Tablet PO 50 mg DAILY CRSITIAN Administration Protocol Morphine Sulfate 4 mg 12/06/20 08:59 12/06/20 13:39 Morphine Sulfate 4 Mg/Ml Cartridge IVPUSH 4 mg Q4H PRN Administration Pain, Severe (Pain Scale 7-10) Protocol Patient Own 1 each 12/04/20 09:00 12/07/20 09:29 Medication ( PO 1 each Eplerenone 25 Mg DAILY CRISTIAN Administration Tablet) Ondansetron HCl 4 mg 11/29/20 15:37 Ondansetron Hcl 4 Mg/2 Ml Vial IVPUSH Q8H PRN Nausea and Vomiting Oxycodone HCl 5 mg 12/06/20 08:59 Oxycodone Hcl Immed Release 5 Mg Tablet PO Q4H PRN Pain, Moderate (Pain Scale 4-6 Oxycodone HCl 10 mg 12/06/20 08:59 12/06/20 10:38 Oxycodone Hcl Immed Release 5 Mg Tablet PO 10 mg Q4H PRN Administration Pain, Severe (Pain Scale 7-10) Pharmacy Consult 1 each 11/29/20 15:04 Consult Rx Perform Med Rec MISCELLANE ONCE PRN Consult order Sodium Chloride 3 ml 11/29/20 16:00 12/07/20 16:12 0.9 % Sodium Chloride Flush 3 Ml Syringe IVFLUSH Not Given QSHIFT [facility] Labs CBC & Chem 7: 12/07/20 09:05 12/07/20 09:05 Labs: Laboratory Results - last 24 hr 12/06/20 12/07/20 12/07/20 20:31 07:09 08:51 MCV MCH MCHC RDW Plt Count MPV Immature Gran % (Auto) Neut % (Auto) Lymph % (Auto) [place] % (Auto) Eos % (Auto) Baso % (Auto) Lymph # (Auto) [place] # (Auto) Eos # (Auto) Baso # (Auto) Abs Immat Gran (auto) Absolute Neuts (auto) Absolute Nucleated RBC Nucleated RBC % (auto) PT INR Anion Gap Estim Creat Clear Calc Estimated GFR POC Glucose 116 H 88 90 Calcium Phosphorus Magnesium Triglycerides 12/07/20 12/07/20 12/07/20 09:05 09:05 09:05 MCV 93.1 MCH 30.2 MCHC 32.4 RDW 15.1 Plt Count 223 MPV 11.0 Immature Gran % (Auto) 1.2 H Neut % (Auto) 76.2 H Lymph % (Auto) 8.8 L [place] % (Auto) 12.7 H Eos % (Auto) 0.9 Baso % (Auto) 0.2 Lymph # (Auto) 0.4 L [place] # (Auto) 0.6 Eos # (Auto) 0.0 Baso # (Auto) 0.0 Abs Immat Gran (auto) 0.05 H Absolute Neuts (auto) 3.3 Absolute Nucleated RBC 0.000 Nucleated RBC % (auto) 0.0 PT 12.7 INR 1.1 Anion Gap 16 Estim Creat Clear Calc 28.4 Estimated GFR 22 POC Glucose Calcium 8.0 L Phosphorus 3.4 Magnesium 1.8 Triglycerides 187 12/07/20 12/07/20 10:46 16:29 MCV MCH MCHC RDW Plt Count MPV Immature Gran % (Auto) Neut % (Auto) Lymph % (Auto) [place] % (Auto) Eos % (Auto) Baso % (Auto) Lymph # (Auto) [place] # (Auto) Eos # (Auto) Baso # (Auto) Abs Immat Gran (auto) Absolute Neuts (auto) Absolute Nucleated RBC Nucleated RBC % (auto) PT INR Anion Gap Estim Creat Clear Calc Estimated GFR POC Glucose 91 96 Calcium Phosphorus Magnesium Triglycerides Assessment and Plan (1) Colon carcinoma: Status: Acute Assessment and Plan: ?75M found to have cecal mass. cecal mass with suspected liver mets POD 7 partial colectomy, 11/30/20 Pathology reported pain control Started diet Surgery following HTN losartan, eplerenone, amlodipine CKD IV stable at baseline DM insulin sliding scale POC glucose within goals Thank you for the consult, will continue to monitor the patient with you Quality Stroke Does the patient have a stroke diagnosis?: No VTE Prior VTE?: No VTE Risk Level:: Surgical - high VTE Device Contraindication: N/A - Device Ordered VTE Drug Contraindication: N/A - Med Ordered
[2020-12-07 19:48] VITALS: BP 144/77; PULSE 71; RESP 20; TEMP 37.1; O2SAT 90
[2020-12-07 20:35] LABS: Glucose, Whole Blood 92 mg/dL (60-115)
[2020-12-07 20:54] VITALS: BP 144/77; PULSE 71
[2020-12-07] MEDS: Atorvastatin Calcium 10 MG TABLET PO (20:54)
[2020-12-07] MEDS: amLODIPine Besylate 10 MG TABLET PO (20:54)
[2020-12-07] MEDS: Famotidine 20 MG TABLET 40 MG PO (20:54)
[2020-12-08] VITALS (8 sets, daily range): BP systolic 100–151; BP diastolic 57–67; PULSE 65–75; RESP 18–20; TEMP 36–37.6; O2SAT 90–95; BMI 32.5
--- NOTE | 2020-12-08 03:36 | PC.NURSE ---
0100: Patient complaining of nausea and pain. Appears uncomfortable, facial grimacing. Patient refusing to specify location of pain and severity of pain. Patient declining pain medication and nausea medication at this time. States, all the medication you all are pumping me with is making me worse . Patient refusing to allow me to assess him, including vital signs. This RN encouraged the patient to participate in his care. Assisted patient to the bedside commode, he had a large BM. 0330: Patient Appears uncomfortable, grimacing.
--- NOTE | 2020-12-08 03:52 | PC.NURSE ---
0100: Patient complaining of nausea and pain. Appears uncomfortable, facial grimacing. Patient refusing to specify location of pain and severity of pain. Patient declining pain medication and nausea medication at this time. States, all the medication im being pumped with is making me worse . Patient refusing to allow me to assess him, including vital signs. This RN encouraged the patient to participate in his care. Assisted patient to the bedside commode, he had a large BM. 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 States he feels better, declines any nausea or pain at this time.
[2020-12-08] MEDS: Heparin Sodium,Porcine 5,000 UNIT/ML VIAL 5000 UNIT SUBCUT (04:40)
[2020-12-08 07:36] LABS: Glucose, Whole Blood 91 mg/dL (60-115)
--- NOTE | 2020-12-08 08:19 | PM.PNGS ---
Subjective Subjective Date of Service: 12/08/20 <Oxana Zheng PA-C - Last Filed: 12/08/20 08:22> 12/08/20 <Jakub Mei MD - Last Filed: 12/08/20 16:00> Interval history: Had another large BM last night/this morning. Tolerating clear liquids and feels hungry. Wants to go home. <Oxana Zheng PA-C - Last Filed: 12/08/20 08:22> Physical Exam Vital Signs: Vital Signs: Last Vital Signs Temp 98.6 F 12/08/20 07:25 Pulse 70 12/08/20 07:25 Resp 18 12/08/20 07:25 BP 132/60 12/08/20 07:25 Pulse Ox 93 12/08/20 07:25 Body Mass Index 32.5 <ROXANA Bowen Last Filed: 12/08/20 08:22> Const: General: comfortable, no acute distress and alert <Oxana Zheng PA-C - Last Filed: 12/08/20 08:22> Orientation/consciousness: patient oriented x3 <Oxana Zheng PA-C - Last Filed: 12/08/20 08:22> Resp: Effort & Inspection: normal respiratory effort <ROXANA Bowen Last Filed: 12/08/20 08:22> GI: Inspection: Yes distended (decreasing) and Yes incision (clean) <Oxana Zheng PA-C - Last Filed: 12/08/20 08:22> Palpation (GI): Soft to palpation, Tenderness to palpation present (GI) (mild incisional), no guarding and not rigid <Oxana Zheng PA-C - Last Filed: 12/08/20 08:22> Skin: General skin exam: no rashes or lesions noted <ROXANA Bowen Last Filed: 12/08/20 08:22> Neuro: General: patient oriented x3 <ROXANA Bowen Last Filed: 12/08/20 08:22> Extrem: General: Yes no clubbing, cyanosis or edema <Oxana Zheng PA-C - Last Filed: 12/08/20 08:22> Procedures Date of Service Date of Service: 12/08/20 <Oxana Zheng PA-C - Last Filed: 12/08/20 08:22> Progress Note: A&P Assessment and plan (1) Colon carcinoma: Status: Acute <Oxana Zheng PA-C - Last Filed: 12/08/20 08:22> (2) S/P right colectomy: Status: Acute <Oxana Zheng PA-C - Last Filed: 12/08/20 08:22> Assessment and Plan: Has had consistent passage of flatus and BMs Feels much better Abdomen remained soft Looks well Likely home tomorrow Follow-up with Dr. 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 He is now POD #8 s/p MICK right colectomy. Ileus appears to have resolved, abdomen is much softer on exam. Will advance to diabetic/low residue diet. Encouraged ambulation of halls today. If continues to do well and tolerating solid food, likely discharge to home tomorrow. Patient comfortable with plan. Seen by heme/onc yesterday who will follow up with him as an outpatient. <Oxana Zheng PA-C - Last Filed: 12/08/20 08:22> Fall Risk Details Current Medications: Current Medications Generic Name Dose Route Start Last Admin Trade Name Freq PRN Reason Stop Dose Admin Allopurinol 300 mg 11/30/20 09:00 12/07/20 09:29 Allopurinol 300 Mg Tablet PO 300 mg DAILY CRISTIAN Administration Amlodipine Besylate 10 mg 11/29/20 21:00 12/07/20 20:54 Amlodipine Besylate 10 Mg Tablet PO 10 mg BEDTIME CRISTIAN Administration Protocol Atorvastatin Calcium 10 mg 11/29/20 21:00 12/07/20 20:54 Atorvastatin Calcium 10 Mg Tablet PO 10 mg BEDTIME CRISTIAN Administration Dextrose 25 gm 11/29/20 16:25 Dextrose 50 % 25 Gm/50 Ml Vial IVPUSH Q15M PRN per Hypoglycemia Standing Ord. Protocol Famotidine 40 mg 11/29/20 21:00 12/07/20 20:54 Famotidine 20 Mg Tablet PO 40 mg BEDTIME CRISTIAN Administration Glucose 15 gm 11/29/20 16:25 Glucose Gel 15 Gm Gel..Gram. PO Q15M PRN per Hypoglycemia Standing Ord. Protocol Heparin Sodium (Porcine) 5,000 unit 11/29/20 18:00 12/08/20 04:40 Heparin Sodium,Porcine 5,000 Unit/Ml Vial SUBCUT 5,000 unit Q12H CRISTIAN Administration Insulin Human Lispro 0 unit 11/29/20 16:30 12/07/20 20:55 Insulin Lispro 100 Unit/Ml 3 Ml Vial SUBCUT Not Given QIDACHS [facility] Protocol Losartan Potassium 50 mg 11/30/20 09:00 12/07/20 09:29 Losartan Potassium 50 Mg Tablet PO 50 mg DAILY CRISTIAN Administration Protocol Morphine Sulfate 4 mg 12/06/20 08:59 12/06/20 13:39 Morphine Sulfate 4 Mg/Ml Cartridge IVPUSH 4 mg Q4H PRN Administration Pain, Severe (Pain Scale 7-10) Protocol Patient Own 1 each 12/04/20 09:00 12/07/20 09:29 Medication ( PO 1 each Eplerenone 25 Mg DAILY CRISTIAN Administration Tablet) Ondansetron HCl 4 mg 11/29/20 15:37 Ondansetron Hcl 4 Mg/2 Ml Vial IVPUSH Q8H PRN Nausea and Vomiting Oxycodone HCl 5 mg 12/06/20 08:59 Oxycodone Hcl Immed Release 5 Mg Tablet PO Q4H PRN Pain, Moderate (Pain Scale 4-6 Oxycodone HCl 10 mg 12/06/20 08:59 12/06/20 10:38 Oxycodone Hcl Immed Release 5 Mg Tablet PO 10 mg Q4H PRN Administration Pain, Severe (Pain Scale 7-10) Pharmacy Consult 1 each 11/29/20 15:04 Consult Rx Perform Med Rec MISCELLANE ONCE PRN Consult order Sodium Chloride 3 ml 11/29/20 16:00 12/07/20 20:55 0.9 % Sodium Chloride Flush 3 Ml Syringe IVFLUSH 3 ml QSHIFT CRISTIAN Administration <Oxana Zheng PA-C - Last Filed: 12/08/20 08:22> Time Spent With Patient Time: Total time spent is greater than 50% in coordination of care (as documented) at patient's floor/unit and/or counseling patient: <Oxana Zheng PA-C - Last Filed: 12/08/20 08:22> Time with patient: 15 - 24 minutes <Oxana Zheng PA-C - Last Filed: 12/08/20 08:22> Quality Stroke Does the patient have a stroke diagnosis?: No <Oxana Zheng PA-C - Last Filed: 12/08/20 08:22> VTE Prior VTE?: No <Oxana Zheng PA-C - Last Filed: 12/08/20 08:22> VTE Risk Level:: Surgical - high <Oxana Zheng PA-C - Last Filed: 12/08/20 08:22> VTE Device Contraindication: N/A - Device Ordered <Oxana Zheng PA-C - Last Filed: 12/08/20 08:22> VTE Drug Contraindication: N/A - Med Ordered <Oxana Zheng PA-C - Last Filed: 12/08/20 08:22>
[2020-12-08] MEDS: Losartan Potassium 50 MG TABLET PO (09:10)
[2020-12-08] MEDS: 0.9 % Sodium Chloride Flush 3 ML SYRINGE IVFLUSH ×3 (09:11→21:41)
[2020-12-08] MEDS: allopurinoL 300 MG TABLET PO (09:11)
[2020-12-08 11:00] LABS: Glucose, Whole Blood 136 mg/dL (60-115)
--- NOTE | 2020-12-08 12:35 | HO.PM.IMPN ---
Subjective Subjective Date of Service: 12/08/20 Interval History: the patient was seen and evaluated this morning Sitting up, feeling much better today Tolerating diet well Denies any fever, chills or shortness of breath No reported other overnight events. Systemic review: No fever, chills or weakness No chest pain, palpitation No shortness of breath or coughing No abdominal pain, nausea or vomiting Physical Exam Vital Signs: Vital Signs: Last Vital Signs Temp 98.2 F 12/08/20 11:05 Pulse 65 12/08/20 11:05 Resp 18 12/08/20 11:05 BP 100/57 L 12/08/20 11:05 Pulse Ox 95 12/08/20 11:05 Body Mass Index 32.5 Const: Other: Constitutional : Alert, oriented, not in distress Neck : Normal inspection, Supple Cardiovascular : RRR, S1 S2, no lower extremity edema Respiratory : Good bilateral air entry, no crackles, Gastrointestinal: soft, lax, surgical signs covered with dressing Skin : Warm, Dry Neurological : Alert & oriented x3, No focal deficit Objective Data Current Medications Generic Name Dose Route Start Last Admin Trade Name Freq PRN Reason Stop Dose Admin Allopurinol 300 mg 11/30/20 09:00 12/08/20 09:11 Allopurinol 300 Mg Tablet PO 300 mg DAILY CRISTIAN Administration Amlodipine Besylate 10 mg 11/29/20 21:00 12/07/20 20:54 Amlodipine Besylate 10 Mg Tablet PO 10 mg BEDTIME CRISTIAN Administration Protocol Atorvastatin Calcium 10 mg 11/29/20 21:00 12/07/20 20:54 Atorvastatin Calcium 10 Mg Tablet PO 10 mg BEDTIME CRISTIAN Administration Dextrose 25 gm 11/29/20 16:25 Dextrose 50 % 25 Gm/50 Ml Vial IVPUSH Q15M PRN per Hypoglycemia Standing Ord. Protocol Famotidine 40 mg 11/29/20 21:00 12/07/20 20:54 Famotidine 20 Mg Tablet PO 40 mg BEDTIME CRISTIAN Administration Glucose 15 gm 11/29/20 16:25 Glucose Gel 15 Gm Gel..Gram. PO Q15M PRN per Hypoglycemia Standing Ord. Protocol Insulin Human Lispro 0 unit 11/29/20 16:30 12/08/20 09:06 Insulin Lispro 100 Unit/Ml 3 Ml Vial SUBCUT Not Given QIDACHS CRISTIAN Protocol Losartan Potassium 50 mg 11/30/20 09:00 12/08/20 09:10 Losartan Potassium 50 Mg Tablet PO 50 mg DAILY CRISTIAN Administration Protocol Morphine Sulfate 4 mg 12/06/20 08:59 12/06/20 13:39 Morphine Sulfate 4 Mg/Ml Cartridge IVPUSH 4 mg Q4H PRN Administration Pain, Severe (Pain Scale 7-10) Protocol Patient Own 1 each 12/04/20 09:00 12/08/20 09:11 Medication ( PO 1 each Eplerenone 25 Mg DAILY CRISTIAN Administration Tablet) Ondansetron HCl 4 mg 11/29/20 15:37 Ondansetron Hcl 4 Mg/2 Ml Vial IVPUSH Q8H PRN Nausea and Vomiting Oxycodone HCl 5 mg 12/06/20 08:59 Oxycodone Hcl Immed Release 5 Mg Tablet PO Q4H PRN Pain, Moderate (Pain Scale 4-6 Oxycodone HCl 10 mg 12/06/20 08:59 12/06/20 10:38 Oxycodone Hcl Immed Release 5 Mg Tablet PO 10 mg Q4H PRN Administration Pain, Severe (Pain Scale 7-10) Pharmacy Consult 1 each 11/29/20 15:04 Consult Rx Perform Med Rec MISCELLANE ONCE PRN Consult order Sodium Chloride 3 ml 11/29/20 16:00 12/08/20 09:11 0.9 % Sodium Chloride Flush 3 Ml Syringe IVFLUSH 3 ml QSHIFT CRISTIAN Administration Labs CBC & Chem 7: 12/07/20 09:05 12/07/20 09:05 Labs: Laboratory Results - last 24 hr 12/07/20 12/07/20 12/08/20 16:29 19:51 07:27 POC Glucose 96 92 91 12/08/20 10:56 POC Glucose 136 H Assessment and Plan (1) S/P right colectomy: Status: Acute Assessment and Plan: ?75M found to have cecal mass. 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
--- NOTE | 2020-12-08 13:22 | MHC.CLN ---
F/U PO INTAKE 50-75% DIET RX: 2000DM LOW RESIDUE/SOFT -APPROPRIATE WILL CHANGE SUPPLEMENT TO GLUCERNA BID SUPPLEMENT TO PROVIDE 474KCALS, 20G PROTEIN FOLLOWING
--- NOTE | 2020-12-08 16:19 | MHC.HEMONC ---
Pt scheduled for ONC consult with Dr Tracy on 12/25/20 0800. Pt is a current pt on [facility]-message left with staff to inform pt of appointment
[2020-12-08 16:45] LABS: Glucose, Whole Blood 109 mg/dL (60-115)
[2020-12-08 20:34] LABS: Glucose, Whole Blood 102 mg/dL (60-115)
[2020-12-08] MEDS: amLODIPine Besylate 10 MG TABLET PO (21:40)
[2020-12-08] MEDS: Famotidine 20 MG TABLET 40 MG PO (21:40)
[2020-12-08] MEDS: Atorvastatin Calcium 10 MG TABLET PO (21:41)
[2020-12-09] VITALS: BP 145/67; PULSE 85; RESP 20; TEMP 36.6; O2SAT 94
[2020-12-09 04:00] VITALS: BP 134/71; PULSE 72; RESP 18; TEMP 36.6; O2SAT 95
[2020-12-09 07:21] VITALS: BP 133/62; PULSE 69; RESP 20; TEMP 36.6; O2SAT 94
[2020-12-09 07:22] LABS: Glucose, Whole Blood 87 mg/dL (60-115)
--- NOTE | 2020-12-09 10:52 | PM.PNGS ---
Subjective Subjective Date of Service: 12/09/20 Interval history: Feels ready to go home. Tolerating diet. Moving bowels and passing flatus. Not having significant abdominal pain. I symptoms improved following discontinuation of subcu heparin. Physical Exam Vital Signs: Vital Signs: Last Vital Signs Temp 97.8 F 12/09/20 07:21 Pulse 69 12/09/20 07:21 Resp 20 12/09/20 07:21 BP 133/62 12/09/20 07:21 Pulse Ox 94 12/09/20 07:21 Body Mass Index 32.5 Const: Other: Alert, appears comfortable Resp: Effort & Inspection: normal respiratory effort Auscultation: clear to auscultation bilaterally Cardio: Rate: regular rate Rhythm: regular rhythm GI: Other: Soft, normoactive bowel sounds, incisions are clean, dry and intact. No significant tenderness. Skin: Other: Normal color, warm and dry Procedures Date of Service Date of Service: 12/09/20 Progress Note: A&P Assessment and plan (1) Colon carcinoma: Status: Acute (2) S/P right colectomy: Status: Acute Assessment and Plan: Doing well status post right colectomy for a bulky carcinoma of the cecum. He is ready for discharge today. He will follow up in the office with Dr. Wilson in about a week. Oncology follow-up is scheduled for later this month to discussed further therapy for colon carcinoma with liver metastases. 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 The subcu heparin was discontinued and symptoms have resolved. 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 Fall Risk Details Current Medications: Current Medications Generic Name Dose Route Start Last Admin Trade Name Freq PRN Reason Stop Dose Admin Allopurinol 300 mg 11/30/20 09:00 12/08/20 09:11 Allopurinol 300 Mg Tablet PO 300 mg DAILY CRISTIAN Administration Amlodipine Besylate 10 mg 11/29/20 21:00 12/08/20 21:40 Amlodipine Besylate 10 Mg Tablet PO 10 mg BEDTIME CRISTIAN Administration Protocol Atorvastatin Calcium 10 mg 11/29/20 21:00 12/08/20 21:41 Atorvastatin Calcium 10 Mg Tablet PO 10 mg BEDTIME CRISTIAN Administration Dextrose 25 gm 11/29/20 16:25 Dextrose 50 % 25 Gm/50 Ml Vial IVPUSH Q15M PRN per Hypoglycemia Standing Ord. Protocol Famotidine 40 mg 11/29/20 21:00 12/08/20 21:40 Famotidine 20 Mg Tablet PO 40 mg BEDTIME CRISTIAN Administration Glucose 15 gm 11/29/20 16:25 Glucose Gel 15 Gm Gel..Gram. PO Q15M PRN per Hypoglycemia Standing Ord. Protocol Insulin Human Lispro 0 unit 11/29/20 16:30 12/09/20 08:52 Insulin Lispro 100 Unit/Ml 3 Ml Vial SUBCUT Not Given QIDACHS [facility] Protocol Losartan Potassium 50 mg 11/30/20 09:00 12/08/20 09:10 Losartan Potassium 50 Mg Tablet PO 50 mg DAILY CRISTIAN Administration Protocol Morphine Sulfate 4 mg 12/06/20 08:59 12/06/20 13:39 Morphine Sulfate 4 Mg/Ml Cartridge IVPUSH 4 mg Q4H PRN Administration Pain, Severe (Pain Scale 7-10) Protocol Patient Own 1 each 12/04/20 09:00 12/08/20 09:11 Medication ( PO 1 each Eplerenone 25 Mg DAILY CRISTIAN Administration Tablet) Ondansetron HCl 4 mg 11/29/20 15:37 Ondansetron Hcl 4 Mg/2 Ml Vial IVPUSH Q8H PRN Nausea and Vomiting Oxycodone HCl 5 mg 12/06/20 08:59 Oxycodone Hcl Immed Release 5 Mg Tablet PO Q4H PRN Pain, Moderate (Pain Scale 4-6 Oxycodone HCl 10 mg 12/06/20 08:59 12/06/20 10:38 Oxycodone Hcl Immed Release 5 Mg Tablet PO 10 mg Q4H PRN Administration Pain, Severe (Pain Scale 7-10) Pharmacy Consult 1 each 11/29/20 15:04 Consult Rx Perform Med Rec MISCELLANE ONCE PRN Consult order Sodium Chloride 3 ml 11/29/20 16:00 12/08/20 21:41 0.9 % Sodium Chloride Flush 3 Ml Syringe IVFLUSH 3 ml QSHIFT CRISTIAN Administration Time Spent With Patient Time: Total time spent is greater than 50% in coordination of care (as documented) at patient's floor/unit and/or counseling patient: Time with patient: 15 - 24 minutes Quality Stroke Does the patient have a stroke diagnosis?: No VTE Prior VTE?: No VTE Risk Level:: Surgical - high VTE Device Contraindication: N/A - Device Ordered VTE Drug Contraindication: N/A - Med Ordered
[2020-12-09 11:07] VITALS: BP 133/62
[2020-12-09] MEDS: 0.9 % Sodium Chloride Flush 3 ML SYRINGE IVFLUSH (11:07)
[2020-12-09] MEDS: Losartan Potassium 50 MG TABLET PO (11:07)
--- NOTE | 2020-12-09 11:07 | MHC.CM.PN ---
Patient has been medically cleared for dc to home today, no services.
[2020-12-09] MEDS: allopurinoL 300 MG TABLET PO (11:08)
[2020-12-09 11:10] LABS: Glucose, Whole Blood 97 mg/dL (60-115)
--- NOTE | 2020-12-11 10:10 | P.DS_ITS ---
DS: Providers Provider Date of Service: 12/09/20 <ROXANA Bowen Last Filed: 12/13/20 10:33> Date of admission: 11/29/20 15:33 <ROXANA Bowen Last Filed: 12/13/20 10:33> Primary care physician: Armin Zaragoza MD <ROXANA Bowen Last Filed: 12/13/20 10:33> Consults: 11/29/20 15:36 Consult to Hospitalist Routine Consulting Provider: Hospitalist Reason For Exam: Obstructing cecal mass, preop evaluation, med melissa 12/07/20 08:27 Consult to Hematology / Oncology Routine Consulting Provider: Neli Franklin Reason for consultation: Invasive adenoCA of colon <ROXANA Bowen Last Filed: 12/13/20 10:33> DS: Diagnosis Discharge Diagnosis (1) Colon carcinoma: Status: Acute <ROXANA Bowen Last Filed: 12/13/20 10:33> (2) S/P right colectomy: Status: Acute <ROXANA Bowen Last Filed: 12/13/20 10:33> DS: Medications Discharge Medications Home Medications: Home Medications Medication Instructions Recorded Confirmed eplerenone 25 mg tablet 25 mg PO DAILY 02/23/20 11/29/20 losartan 50 mg tablet 50 mg PO DAILY 02/23/20 11/29/20 amlodipine 10 mg tablet 10 mg PO BEDTIME 11/29/20 11/29/20 furosemide 20 mg tablet 20 mg PO DAILY 11/29/20 11/29/20 Previous Rx's Medication Instructions Recorded pioglitazone 30 mg tablet 30 mg PO DAILY #90 tab 02/16/20 simvastatin 20 mg tablet 20 mg PO BEDTIME #90 tab 03/13/20 allopurinol 300 mg tablet 300 mg PO DAILY #90 tab 10/25/20 famotidine 40 mg tablet (Pepcid) 40 mg PO BEDTIME #30 tab 11/16/20 oxycodone-acetaminophen 5 mg-325 1 - 2 tab PO Q4-6H PRN #30 tab 12/08/20 mg tablet (Percocet) <ROXANA Bowen Last Filed: 12/13/20 10:33> DS: Summary Hospital Course Hospital Course: BRIEF HPI: Cade Sanchez is a 75 year old male presenting with complaints of right lower quadrant extending into the right flank and right hip pain Evie Sanchez is a 75 year old male presenting with complaints of right lower quadrant extending into the right flank and right hip pain which has progressed over the past year. Patient reports frequent loose/watery bowels, 60 lb weight loss despite normal appetite. He denies fever, chills, nausea, or vomiting. He denies a previous history of abdominal surgeries. The pain appears to be increasing in severity and he was evaluated by his medical doctor today, and was subsequently sent to the emergency department for further evaluation. He was found to be slightly anemic in the emergency department. A CT of the abdomen and pelvis revealed a large mass in the cecum strongly suspicious for neoplasm, infiltration of the adjacent fat and enlarged pericolic lymph nodes and enlarged liver with multiple low-attenuation liver lesions suggestive of metastatic disease. HOSPITAL COURSE: He is admitted to the surgical service for further management of this obstructing cecal lesion with apparent liver metastases. A hospitalist consult was obtained for management of his medical comorbidities which remained stable during his admission. Given the nearly obstructing lesion, it was recommended to proceed with a hand assisted laparoscopic right colectomy with possible ileostomy.? He understood and was added onto the schedule for the following day. On 11/30/20, a hand assisted right colectomy was performed by Dr. Wilson without complication. The patient tolerated the procedure well. Intraoperative findings included a large cecal mass without evidence of local invasion grossly and numerous bilateral liver lobe lesions throughout the liver. The patient had a slow recovery course with development of a post operative ileus. He was initially doing well post operatively and started on clear liquids. His salgado was removed on POD #1 and he was encouraged to ambulate. PT consult was also obtained to get him OOB. His GI function was slow to return and he developed nausea and vomiting in the post operative days. A CT scan was ordered which showed dilated small bowel loops consistent with an ileus. An NGT for decompression was recommended and attempted but after multiple unsuccessful attempts the patient refused. A PICC line for TPN was also planned but the patient reported significant improvement in his pain and began to pass flatus and move his bowels. His abdomen became much softer and less distended. It was therefore held and he was advanced back to liquids and then solids as tolerated. His pathology came back for invasive adenocarincoma of the colon and a heme/onc consult was obtained. On the day of discharge, he was tolerating a solid diet with good GI function. He was clinically appearing well with a benign abdominal exam and clean incision. He was stable and felt ready for discharge to home. He is to follow up with Dr. Wilson and Dr. Tracy in office. <Oxana Zheng PA-C - Last Filed: 12/13/20 10:33> Status at Discharge Functional status at discharge: independent ambulation <ROXANA Bowen Last Filed: 12/13/20 10:33> Overall status at discharge: patient is progressing back to baseline <ROXANA Bowen F iled: 12/13/20 10:33> Time Spent with Patient Time attestation: Total time spent providing and/or coordinating discharge services: <ROXANA Bowen Last Filed: 12/13/20 10:33> Discharge coordination time: Greater than 30 minutes <ROXANA Bowen Last Filed: 12/13/20 10:33> Quality: Stroke Does the patient have a stroke diagnosis?: No <Oxana Zheng PA-C Freddy Last Filed: 12/13/20 10:33> Physical Exam Vital Signs: Vital Signs: Last Vital Signs Temp 97.8 F 12/09/20 07:21 Pulse 69 12/09/20 07:21 Resp 20 12/09/20 07:21 BP 133/62 12/09/20 11:07 Pulse Ox 94 12/09/20 07:21 Body Mass Index 32.5 <ROXANA Bowen Last Filed: 12/13/20 10:33> Const: General: comfortable, no acute distress and alert <ROXANA Bowen Last Filed: 12/13/20 10:33> Orientation/consciousness: patient oriented x3 <ROXANA Bowen Last Filed: 12/13/20 10:33> Resp: Effort & Inspection: normal respiratory effort <Oxana Zheng PA-C - Last Filed: 12/13/20 10:33> GI: Inspection: Yes incision (clean) <Oaxna Zheng PA-C - Last Filed: 12/13/20 10:33> Palpation (GI): Soft to palpation, Tenderness to palpation present (GI) (mild incisional), no guarding and not rigid <Oxana Zheng PA-C - Last Filed: 12/13/20 10:33> Skin: General skin exam: no rashes or lesions noted <Oxana Zheng PA-C - Last Filed: 12/13/20 10:33> Neuro: General: patient oriented x3 <Oxana Zheng PA-C - Last Filed: 12/13/20 10:33> DS: Data Data Completed and Pending Completed studies during hospitalization [Text1]: 11/30/20 10:28 Surgical [PTH] Stat Terminal ileum, right colon appendix, right hemicolectomy: - Invasive adenocarcinoma, 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 - Tumor invades through muscularis propria into pericolonic soft tissue. - Lymphovascular invasion is present. - Incidental tubular adenoma, 3.0 cm. - Appendix with fibrous obliteration; terminal ileum is negative for tumor. - Surgical resection margins, negative for tumor (proximal ileal, distal colonic and mesenteric). - Six of twenty-three pericolonic lymph nodes involved by metastatic carcinoma (10/18). - AJCC staging (8th edition):? pT3N2a <Oxana Zheng PA-C - Last Filed: 12/13/20 10:33> Discharge Plan Discharge Patient Disposition: Home, Self-Care <Oxana Zheng PA-C - Last Filed: 12/13/20 10:33> Discharge Diagnosis: Right colon cancer <Oxana Zheng PA-C - Last Filed: 12/13/20 10:33> Right colon cancer <Je Wilson MD - Last Filed: 12/14/20 08:49> Referrals: Armin Zaragoza MD [Primary Care Provider] - 1 Week Je Wilson MD [Physician] - 1 Week <Oxana Zheng PA-C - Last Filed: 12/13/20 10:33> Discharge Medications: New oxycodone-acetaminophen [Percocet] 5-325 mg tablet 1 - 2 tab PO Q4-6H PRN (Reason: pain) Qty: 30 RF: 0 Continued pioglitazone 30 mg tablet 30 mg PO DAILY Qty: 90 RF: 8 simvastatin 20 mg tablet 20 mg PO BEDTIME Qty: 90 RF: 8 amlodipine 10 mg tablet 10 mg PO BEDTIME RF: 0 furosemide 20 mg tablet 20 mg PO DAILY RF: 0 famotidine [Pepcid] 40 mg tablet 40 mg PO BEDTIME Qty: 30 RF: 2 eplerenone 25 mg tablet 25 mg PO DAILY RF: 0 losartan 50 mg tablet 50 mg PO DAILY RF: 0 allopurinol 300 mg tablet 300 mg PO DAILY Qty: 90 RF: 8 No Action Proctofoam HC 1-1 % foam 1 appl GA QID PRN (Reason: hemorrhoids) Qty: 10 RF: 0 <Oxana Zheng PA-C - Last Filed: 12/13/20 10:33> Discharge Orders: Discharge Order (Routine); Ordered 12/09/20 Ordered By: [place] <Oxana Zheng PA-C - Last Filed: 12/13/20 10:33> Activity on Discharge: No heavy lifting <Oxana Zheng PA-C - Last Filed: 12/13/20 10:33> No heavy lifting <Je Wilson MD - Last Filed: 12/14/20 08:49> Stand Alone Forms: Patient Portal Discharge page <Oxana Zheng PA-C - Last Filed: 12/13/20 10:33> Activity Restrictions/Additional Instructions: If the incision area is tender, you may apply an ice pack for short intervals (No more than 20 minutes on, followed by at least 20 minutes off). Do not apply heat. Do not use creams, lotions, or topical antibiotics unless instructed to do so by your surgeon. These can cause infection or allergic reaction. OK to shower No need to apply dressings No lifting more than 20 lb No strenuous activities Call the office for follow-up in 2 weeks - with Dr. Mei Call Your Doctor If: -Your temperature exceeds 101.5? F -You experience excessive pain or swelling -You have an unexpected reaction to medication -You have excessive bleeding -You experience continued vomiting/nausea -Your incision begins to separate -Your incision shows signs of infection such as increased redness, swelling, excessive pain, drainage (light blood or clear fluid is normal) or heat <Oxana Zheng PA-C - Last Filed: 12/13/20 10:33> Care Plan Goals: Follow-up with Oncology for adjuvant treatment <ROXANA Bowen Last Filed: 12/13/20 10:33> Health Concerns: Colon cancer Diabetes <ROXANA Bowen Last Filed: 12/13/20 10:33> Plan of Treatment: Follow-up with Oncology for new diagnosis of colon cancer <Oxana Zheng PA-C - Last Filed: 12/13/20 10:33> Assessment: Doing well postop <ROXANA Bowen Last Filed: 12/13/20 10:33> Discharge Date/Time: 12/09/20 10:45 <ROXANA Bowen Last Filed: 12/13/20 10:33>
== END 2020-12-09 10:45 | disposition home or self-care (01) | DRG 231 ==
LOC: HO.ED 15:21 → HO.EDOVER 15:44 → HO.IMC 17:57
PROVIDERS: Internal Medicine; Physician Assistant; Physician Assistant Surgical; Surgery; Admitting Provider Surgery; Emergency Provider Emergency Medicine Emergency Medical Services; PCP Internal Medicine; Visit Provider Surgery
PROC: 0DTE4ZZ Resection of Large Intestine, Percutaneous Endoscopic Approach (ICD-10-PCS; principal; 2020-11-30 08:10)
DX: C18.0 Malignant neoplasm of cecum (principal); C78.7 Secondary malignant neoplasm of liver and intrahepatic bile duct; E11.22 Type 2 diabetes mellitus with diabetic chronic kidney disease; N18.4 Chronic kidney disease, stage 4 (severe); K56.7 Ileus, unspecified; I12.9 Hypertensive chronic kidney disease with stage 1 through stage 4 chronic kidney disease, or unspecified chronic kidney disease; E78.5 Hyperlipidemia, unspecified; M10.9 Gout, unspecified; F17.210 Nicotine dependence, cigarettes, uncomplicated; Z71.6 Tobacco abuse counseling; Z20.822 Contact with and (suspected) exposure to COVID-19; Z88.0 Allergy status to penicillin; Z79.899 Other long term (current) drug therapy
CPT/HCPCS: 36415; 71046; 74176; 80048; 80051; 80076; 81003; 81210; 81275; 81276; 81311; 81403; 82310; 82565; 82947; 83605; 83690; 83735; 84100; 84478; 84520; 85025; 85027; 85610; 87040; 87635; 88309; 88329; 88341; 88342; 93005; 96361; 96374; 96375; 97116; 97162; 99024; 99285; J0131; J1170; J1580; J2250; J2270; J2405; J3010

== ENCOUNTER → 2020-12-15 09:50 | Outpatient (BNVA) | payer OTHER, SELFPAY | PROVIDERS: PCP Internal Medicine; Referring Provider Internal Medicine; Visit Provider Surgery ==

== ENCOUNTER 2021-01-02 09:52 | Outpatient (REF) | payer OTHER, SELFPAY ==
--- NOTE | ~2021-01-02 | PE_ITS ---
EXAMINATION: Fluorine-18 FDG PET/CT Scan CLINICAL INDICATION: Initial treatment management. Colon cancer, initial staging. PROCEDURE: 73 minutes following the intravenous administration of 17.1 mCi of fluorine 18 FDG, images from the base of the skull to the mid thighs were obtained using a combined PET/CT scanner with CT scan based attenuation correction. No oral contrast was administered. No intravenous contrast was administered. Transverse, coronal, sagittal, and volume reconstruction projections were obtained. The patient's blood glucose as determined by a finger stick, was 114 mg/dl immediately prior to injection. Total CT exam dose-length product 1114.93 mGy-cm * These CT images were obtained using dose optimization techniques as appropriate, variously including the following: Automated exposure control * Adjustment of mA and/or kV according to patient size (this includes techniques or standardized protocols for targeted exams where dose is matched to indication/reason for exam; i.e. extremities or head) * Use of iterative reconstruction technique COMPARISON: No previous PET/CT scan is available for comparison. The diagnostic CT scan of the abdomen and pelvis, dated 12/06/2020, is available for comparison. FINDINGS: (Slice numbers described in this report are numbered superiorly to inferiorly with slice #1 in the head) NECK AND VISUALIZED HEAD: No foci of abnormal FDG activity are noted. The distribution of FDG activity is physiological. There is no cervical lymphadenopathy. THORAX: Other than osseous lesion subsequently described, no foci of abnormal FDG activity are present in the chest. There is some bibasilar atelectasis or scarring present without associated abnormal FDG activity. No pulmonary nodules are visualized on these nondiagnostic CT images. A subcentimeter anterior midline pericardial lymph node is FDG avid, SUVs Max 6.8, slice 129/311. There is no additional mediastinal, supraclavicular, or axillary lymphadenopathy. There is no pleural or pericardial fluid, or pneumothorax. ABDOMEN AND PELVIS: There are extensive intensely FDG avid hypodensities replacing more than 50% of the volume of both lobes of the liver. The most intense focus shows SUVmax 24.6, slice 138/311 in the left lobe of the liver. FDG avid periportal and portacaval lymphadenopathy is present with the most intense focus a parathyroid portal lymph node showing SUVmax 11.1, slice 160/311 an measuring 2.7 x 1.8 cm in largest transverse dimensions on the CT images. The gallbladder is not visualized and small metallic surgical clips are present in the gallbladder bed, and this evidence of cholecystectomy is new since the prior CT scan of the abdomen and pelvis dated 12/06/2020. The spleen is unremarkable. The adrenal glands, kidneys and pancreas are unremarkable. There is a small subcentimeter aortocaval retroperitoneal lymph node at the L3 level that shows mild FDG activity, SUVmax 3.8, slice 187/311, a significant abnormality in a lymph node this small. No additional retroperitoneal, mesenteric, pelvic or inguinal lymphadenopathy is present. There is mild FDG activity present throughout the gastrointestinal tract without a suspicious focal component. There is diverticulosis without evidence of diverticulitis. The patient appears to be status post right colectomy with a suture line present in the right side of the transverse colon without associated abnormal FDG activity. The hollow viscera are otherwise unremarkable. Some mild FDG activity in the midline anterior abdominal wall is likely due to recent postoperative changes. There are no additional foci of abnormal FDG activity in the abdomen or pelvis. The prostate gland is enlarged measuring 5.9 cm in largest transverse dimension. The pelvic organs are otherwise unremarkable. MUSCULOSKELETAL: An intensely FDG avid lytic lesion is present in the T5 vertebral body, SUVmax 19.2, slice 101/311c. There is an additional FDG avid lytic lesion in the midsternum, SUVmax 8.2, slice 94/311. An additional FDG avid lytic lesion is present in the T3 vertebral body. No definite additional osseous FDG avid lesions are visualized. There are degenerative changes in the spine but no additional suspicious sclerotic or lytic lesions are visualized. VASCULAR: Diffuse vascular calcifications including coronary are noted. 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 PET/PET CT fusion skull to thigh IMPRESSION: 1. Extensive intensely FDG avid hypodense liver metastases are present as described above. 2. Several FDG avid lytic osseous metastases are present as described above. 3. A few FDG avid lymph node metastases are present as described above, the largest and most intensely FDG avid in the periportal and portacaval regions. 4. Postsurgical changes from a right hemicolectomy and cholecystectomy are noted. 5. Diffuse vascular calcifications including coronary.
== END 2021-01-02 09:53 | disposition home or self-care (01) ==
LOC: HO.PET 09:52
PROVIDERS: PCP Internal Medicine; Visit Provider Internal Medicine
DX: Z13.89 Encounter for screening for other disorder (principal)

== ENCOUNTER 2021-01-08 07:04 | Day surgery (SDC) | payer OTHER, SELFPAY ==
[2021-01-08] VITALS (7 sets, daily range): BP systolic 94–122; BP diastolic 46–62; PULSE 59–74; RESP 16–19; TEMP 36.3; O2SAT 97–99; BMI 30.1
--- NOTE | ~2021-01-08 | IR_ITS ---
EXAMINATION: US AND FLUOROSCOPY-GUIDED TUNNELED CATHETER PLACEMENT CLINICAL INFORMATION: Colon cancer, for chemotherapy. COMPARISON: None. TECHNIQUE: Following explaining fluoroscopy and ultrasound-guided placement of tunneled catheter procedure, benefits and risks, a written consent was obtained. Patient was placed supine on fluoroscopy table and preliminary ultrasound imaging was obtained through the right jugular vein; single image was obtained. An optimal site was selected along the right anterolateral neck and marked. The marked site was cleaned and draped in the usual sterile manner. 1% lidocaine was injected at the puncture site. Under sterile ultrasound guidance, a singlewall needle was advanced and the right jugular vein was punctured above the clavicle. After obtaining venous return, a thin guidewire was advanced through the needle and needle withdrawn. A 3 [place] dilator was placed over the guidewire and the whole unit was anchored to the patient's drape. Approximately 1 gauze length inferior to the neck incision. 1% lidocaine was injected along the right anterior chest wall. A skin incision was performed approximately 4 to 5 cm wide. Blunt dissection was performed under the skin incision and a pocket was created. Port chamber was then inserted and anchored to the skin with two 3-0 nylon sutures. 1% lidocaine was injected subcutaneously from the anterior chest wall incision to the neck incision. A blunt tunneler attached to the catheter was advanced subcutaneously and extracted through the right anterior neck incision. The catheter was size 20 cm. The existent guidewire and the dilator in the right anterior neck incision was removed and a 0.035 J-wire was advanced under fluoroscopy and place in the IVC. An 8 [place] dilator with sheath was introduced over the guidewire. The dilator and the guidewire removed. Pre-sized catheter was then inserted through the peel-away sheath. The peel-away sheath was removed as the catheter was held in position. X-ray confirmation was obtained subsequently confirming position of the catheter tip in the proximal to mid SVC. The skin incisions were sutured with 3-0 and 2-0 anterior chest wall neck incisions with absorbable sutures. Steri-Strips were applied followed by a sterile drape. Initially the port chamber was accessed with a Aldridge needle and flushed with saline followed by 500 units of heparin. Conscious sedation was administered and patient monitored during the exam. FINDINGS: On preliminary ultrasound imaging, there is a widely patent right jugular vein. Approximately 20 cm long, 6.6 [place] tunneled port insertion under ultrasound and fluoroscopy guidance. FLUOROSCOPY TIME. 0.3 minutes. DOSE AREA PRODUCT: 113 cGy-cm2 IR/IR us guide venous access IMPRESSION: Successful ultrasound and fluoroscopy-guided placement of a right-sided tunneled catheter. The catheter is ready for use.
[2021-01-08 08:07] LABS: MANUAL DIFF FLAG NO
[2021-01-08 08:09] LABS: Basophils Absolute Auto 0.1 X10*3/uL (0.0-0.2); Basophils Percent Auto 0.4 % (0-2); Eosinophils Absolute Auto 0.2 X10*3/uL (0.0-0.4); Eosinophils Percent Auto 1.6 % (0-4); Hematocrit 36.6 % (42-52); Hemoglobin 11.7 g/dl (14.0-18.0); Imm Gran Abs Auto 0.17 X10*3/uL (0.00-0.03); Imm Gran Pct Auto 1.4 % (0.0-0.4); Lymphocytes Absolute Auto 0.9 X10*3/uL (1.2-4.9); Lymphocytes Percent Auto 7.8 % (20-40); Mean Corpuscular Volume 96.8 fL (80-98); Mean Platelet Volume 10.8 fL (9.4-12.4); Monocytes Absolute Auto 0.9 X10*3/uL (0.1-1.2); Monocytes Percent Auto 7.8 % (2-11); Neutrophils Absolute Auto 9.7 X10*3/uL (2.0-8.3); Platelet Count 242 X10*3/uL (160-400); Red Blood Count 3.78 X10*6/uL (4.60-5.80); Red Cell Distribution Width 19.3 % (11.0-16.0)
--- NOTE | 2021-01-08 08:38 | PC.NURSE ---
found another order from oncology deprtment with new orders on it. added labs to be drawn per order. calling lab for another blood draw.
[2021-01-08 08:55] LABS: Glucose, Whole Blood 93 mg/dL (60-115)
[2021-01-08 09:28] LABS: Prothrombin Time 11.6 SEC (9.9-13.0)
[2021-01-08 09:31] LABS: Partial Thromboplastin Time 28.3 SEC (24.1-38.0)
[2021-01-08 09:43] LABS: Alanine Aminotransferase 9 U/L (0-40); Albumin Level 3.5 g/dL (3.5-5.0); Alkaline Phosphatase 216 U/L (39-117); Anion Gap 14 (12-20); Aspartate Amino Transferase 22 U/L (5-37); Bilirubin Total 0.4 mg/dL (0.0-1.0); Blood Urea Nitrogen 65 mg/dL (9-16); Calcium 9.2 mg/dL (8.4-10.2); Carbon Dioxide 13 mmol/L (22-29); Chloride 118 mmol/L (96-108); Creatinine Clr Calc Pharmacy 21.5; Estimated Glomerular Filt Rate 17; Glucose Random 97 mg/dL (60-115); Potassium 4.8 mmol/L (3.3-5.1); Sodium 140 mmol/L (135-145); Total Protein 5.9 g/dL (6.5-8.0)
[2021-01-08 10:01] LABS: HBS Num1 2.26 mIU/mL (0-7.99); HBc Num1 0.05 S/CO (0.00-0.79); HBsAGNum1 0.23 S/CO (0.00-0.99); Hepatitis B Core Antibody Nonreactive (Nonreactive); Hepatitis B Surface Antigen Negative (Negative); ~HepC Num1 0.08 S/CO (0.00-0.79); ~Hepatitis B Surface Antibody NONREACTIVE (Nonreactive); ~Hepatitis C Antibody Nonreactive (Nonreactive)
[2021-01-08] MEDS: Lidocaine HCl 1 % MPF 5 ML VIAL INFILTRATI (13:53)
[2021-01-12 08:05] LABS: Hepatitis A Antibody IgM 0.12 Index (0-0.79); ~Hepatitis A Antibody IgM Nonreactive (Nonreactive)
== END 2021-01-08 13:25 | disposition home or self-care (01) ==
PROVIDERS: Internal Medicine; PCP Internal Medicine; Visit Provider Radiology Diagnostic Radiology
DX: C18.9 Malignant neoplasm of colon, unspecified (principal); Z45.2 Encounter for adjustment and management of vascular access device; E11.9 Type 2 diabetes mellitus without complications; E11.22 Type 2 diabetes mellitus with diabetic chronic kidney disease; I12.9 Hypertensive chronic kidney disease with stage 1 through stage 4 chronic kidney disease, or unspecified chronic kidney disease; F17.210 Nicotine dependence, cigarettes, uncomplicated; N18.4 Chronic kidney disease, stage 4 (severe); Z79.899 Other long term (current) drug therapy; Z88.0 Allergy status to penicillin; Z88.8 Allergy status to other drugs, medicaments and biological substances
CPT/HCPCS: 36415; 36561; 36597; 76937; 80053; 82947; 85025; 85610; 85730; 86704; 86706; 86709; 86803; 87340; 99152; 99153; C1769; C1788; J1642; J2250; J3010

== ENCOUNTER 2021-01-12 13:50 | Outpatient (REF) | payer OTHER, SELFPAY ==
--- NOTE | ~2021-01-12 | XR_ITS ---
EXAMINATION: XR THORACOLUMBAR SPINE CLINICAL INFORMATION: Abnormal activity T3 and T5 vertebra on PET exam 01/02/2021. History of colon cancer. COMPARISON: None TECHNIQUE: 3 views of dorsal spine. FINDINGS: The vertebral alignment is normal. No intrinsic bony abnormality. The disc heights and neural foramina are well maintained. The endplates and posterior elements are normal. No lytic or sclerotic process seen No acute fracture or subluxation. The surrounding prevertebral soft tissues are unremarkable. XR/XR thoracic spine 2V IMPRESSION: No lytic or sclerotic process seen in T3 and T5 vertebra to correspond to the PET abnormality. No acute fracture or dislocation.
== END 2021-01-12 13:51 | disposition home or self-care (01) ==
LOC: HO.XRAY 13:50
PROVIDERS: PCP Internal Medicine; Visit Provider Internal Medicine
DX: C79.51 Secondary malignant neoplasm of bone (principal)
CPT/HCPCS: 72070

== ENCOUNTER → 2021-01-16 09:39 | Outpatient (BNVA) | payer OTHER, SELFPAY | PROVIDERS: PCP Internal Medicine; Referring Provider Internal Medicine; Visit Provider Surgery ==

== ENCOUNTER 2021-03-05 06:26 | Emergency (ER) | payer OTHER, SELFPAY ==
--- NOTE | ~2021-03-05 | XR_ITS ---
EXAMINATION: XR CHEST CLINICAL INFORMATION: Shortness of breath COMPARISON: Chest x-ray 11/29/2020 TECHNIQUE: Frontal view of the chest was obtained. FINDINGS: Cardiac silhouette is at the upper limits of normal in size. Interval placement of right chest port with tip terminating within the mid SVC. The lungs are adequately aerated. Similar mild asymmetric elevation of the right hemidiaphragm. Mild degenerative changes of the spine. XR/XR chest 1V IMPRESSION: No acute pulmonary pathology.
[2021-03-05 06:52] VITALS: BP 100/50; BP 100/52; PULSE 82; PULSE 83; RESP 18; TEMP 37.6; O2SAT 95; O2SAT 97; BMI 30.1
--- NOTE | 2021-03-05 07:04 | ED.WEAKNESS ---
HPI - Weakness General Chief complaint: Weakness Stated complaint: WEAKNESS/FEVER Time Seen by Provider: 03/05/21 06:54 History of Present Illness HPI Narrative: Patient is a 75-year-old male with a history of colon cancer. Stage IV metastatic to the bones. Status post colon resection few months ago. Presented today with having generalized malaise. Fever. Last dose of chemotherapy was approximately 10 days ago. Patient denies any coughing that is new. No nausea no vomiting. No rashes that is new. No pain on urination. Patient from home. No chest pain. No diaphoresis. Positive generalized malaise. Patient received both his coronavirus vaccines. Related Data Home Medications Medication Instructions Recorded Confirmed eplerenone 25 mg tablet 25 mg PO DAILY 02/23/20 03/05/21 losartan 50 mg tablet 50 mg PO DAILY 02/23/20 03/05/21 amlodipine 10 mg tablet 10 mg PO BEDTIME 11/29/20 03/05/21 cholecalciferol (vitamin D3) 25 25 mcg PO DAILY 12/14/20 03/05/21 mcg (1,000 unit) capsule (Vitamin D3) coenzyme Q10 200 mg capsule (Co 200 mg PO DAILY 12/14/20 03/05/21 Q-10) calcium carbonate 600 mg calcium 2,400 mg PO DAILY 03/05/21 03/05/21 (1,500 mg) tablet (Calcium) Previous Rx's Medication Instructions Recorded pioglitazone 30 mg tablet 30 mg PO DAILY #90 tab 02/16/20 simvastatin 20 mg tablet 20 mg PO BEDTIME #90 tab 03/13/20 allopurinol 300 mg tablet 300 mg PO DAILY #90 tab 10/25/20 ondansetron HCl 4 mg tablet 4 mg PO Q6H PRN #30 tab 01/12/21 (Zofran) tramadol 50 mg tablet 50 mg PO BID #60 tab 02/06/21 famotidine 40 mg tablet (Pepcid) 40 mg PO BEDTIME #30 tab 03/01/21 levofloxacin 250 mg tablet 250 mg PO DAILY #7 tab 03/05/21 Allergies Allergy/AdvReac Type Severity Reaction Status Date / Time atenolol Allergy Unknown dizziness Verified 03/05/21 06:50 penicillin V Allergy Unknown Unknown Verified 03/05/21 06:50 Review of Systems Review of Systems: Positive low-grade fever Positive generalized malaise No new coughing or upper respiratory symptoms No diaphoresis Yes all other systems are reviewed and are negative [facility] Past Medical History Attestation statement: The following information was validated with the patient. Medical History CKD (chronic kidney disease), stage IV Diabetes mellitus Gout HLD (hyperlipidemia) Hypertension Surgical History History of hernia surgery History of removal of cyst Family History Family History Father Past heart attack Mother Past heart attack Social History Social History Household Members: Family Housing: House Do you presently have visiting nurse or other home services: No Alcohol intake: never Patient Tobacco Use Status: Former Tobacco user Tobacco use type: Cigarette Years Smoked: 62 e-Cigarette/Vaping Use: Never Used Second Hand Smoke Exposure: Yes Use of substances other than those prescribed or required for medical reasons: No Advance Directives: No Advance Directives Information Provided: No service: No Current occupational status: employed and retired Cognitive needs: No Hearing needs: No Vision needs: No Physical Exam Vital Signs: Vital Signs: Last Vital Signs Temp 97.9 F 03/05/21 11:24 Pulse 63 03/05/21 11:24 Resp 16 03/05/21 11:24 BP 119/69 03/05/21 11:24 Pulse Ox 99 03/05/21 11:24 Body Mass Index 30.1 Appearance: Alert. Oriented X3. No acute distress. Eyes: Pupils equal, round and reactive to light. ENT: Pharynx normal. Neck: Normal inspection. Neck supple. No lymph nodes noted. No crepitus CVS: Normal heart rate and rhythm. Pulses normal. Normal S1 and S2 Respiratory: No respiratory distress. Breath sounds normal. No Wheezing. No rales Abdomen: Soft and nontender. No rigidity. No distention. good BS x4 Skin: Skin warm and dry. Normal skin color. Normal skin turgor. Extremities: No lower extremity edema. Neurovascular intact to all extremities. No Lacerations. No Rash Neuro: Oriented X 3. No motor deficit. No sensory deficit. Moving all extermities. No slurred speech MDM - Weakness MDM Narrative Medical decision making narrative: No fever here in the emergency department. Fever was 100.0 at home. Ten days out from the nail. Patient white count was 1.4. However patient has 88% neutrophil no neutropenia. Creatinine is baseline. Questionable infection in the urine. Will start patient on Levaquin for 5 days. Patient was given cefepime in the emergency department. Patient is in stable condition. Will discharge patient home. Case discussed with oncology agree with plan. Differential Diagnosis Differential diagnosis: Likely UTI Medical Records Attestation: I reviewed the patient's medical records. Lab Data Attestation: I reviewed the patient's lab results. Result diagrams: 03/05/21 07:39 03/05/21 07:39 Labs: Lab Results 03/05/21 03/05/21 03/05/21 Range/Units 07:39 07:39 07:39 WBC 1.4 L (4.8-10.8) X10*3/uL RBC 2.52 L (4.60-5.80) X10*6/uL Hgb 8.4 L (14.0-18.0) g/dl Hct 25.5 L (42.0-52.0) % MCV 101.2 H (80.0-98.0) fL MCH 33.3 H (27.0-33.0) pg MCHC 32.9 (31.0-36.0) g/dl RDW 20.5 H (11.0-16.0) % Plt Count 57 L (160-400) X10*3/uL MPV 11.8 (9.4-12.4) fL Immature Gran % (Auto) 1.5 H (0.0-0.4) % Neut % (Auto) 88.2 H (45-73) % Lymph % (Auto) 8.1 L (20-40) % [place] % (Auto) 2.2 (2-11) % Eos % (Auto) 0.0 (0-4) % Baso % (Auto) 0.0 (0-2) % Lymph # (Auto) 0.1 L (1.2-4.9) X10*3/uL [place] # (Auto) 0.0 L (0.1-1.2) X10*3/uL Eos # (Auto) 0.0 (0.0-0.4) X10*3/uL Baso # (Auto) 0.0 (0.0-0.2) X10*3/uL Abs Immat Gran (auto) 0.02 (0.00-0.03) X10*3/uL Absolute Neuts (auto) 1.2 L (2.0-8.3) x10*3/uL Absolute Nucleated RBC 0.040 H (0.0-0.012) X10*3/uL Nucleated RBC % (auto) 3.0 H (0.0-0.2) /100WBC Smear Tech's Comments VERIFIED PT 17.8 H (9.9-13.0) SEC INR 1.6 H (0.9-1.1) Sodium 141 (135-145) mmol/L Potassium 3.0 L (3.3-5.1) mmol/L Chloride 117 H (96-108) mmol/L Carbon Dioxide 13 L (22-29) mmol/L Anion Gap 14 (12-20) BUN 32 H (9-16) mg/dL Creatinine 2.54 H (0.5-1.4) mg/dL Estim Creat Clear Calc 29.5 Estimated GFR 25 Random Glucose 137 H (60-115) mg/dL Lactic Acid (0.5-2.0) mmol/L Calcium 7.0 L D (8.4-10.2) mg/dL Total Bilirubin 0.7 (0.0-1.0) mg/dL Direct Bilirubin 0.4 (0.0-0.5) mg/dL AST 18 D (5-37) U/L ALT 12 (0-40) U/L Alkaline Phosphatase 130 H (39-117) U/L Total Protein 4.7 L (6.5-8.0) g/dL Albumin 2.8 L (3.5-5.0) g/dL Lipase 9 (8-78) U/L Urine Color Urine Appearance Urine pH (5.0-8.0) Ur Specific [place] (1.005-1.025) Urine Protein (NEG-TRACE) MG/DL Urine Glucose (UA) (NEG) MG/DL Urine Ketones (NEG) MG/DL Urine Blood (NEG) Urine Nitrite (NEG) Ur Leukocyte Esterase (NEG) Urine RBC (0) /HPF Urine WBC (0-4) /HPF Ur Squamous Epith Cells /LPF Amorphous Sediment /LPF Urine Bacteria /LPF Influenza Type A (PCR) (Negative) Influenza Type B (PCR) (Negative) RSV RNA Qual (PCR) (Negative) SARS-CoV-2 RNA (RT-PCR) (Negative) 03/05/21 03/05/21 03/05/21 Range/Units 07:39 07:39 11:46 WBC (4.8-10.8) X10*3/uL RBC (4.60-5.80) X10*6/uL Hgb (14.0-18.0) g/dl Hct (42.0-52.0) % MCV (80.0-98.0) fL MCH (27.0-33.0) pg MCHC (31.0-36.0) g/dl RDW (11.0-16.0) % Plt Count (160-400) X10*3/uL MPV (9.4-12.4) fL Immature Gran % (Auto) (0.0-0.4) % Neut % (Auto) (45-73) % Lymph % (Auto) (20-40) % [place] % (Auto) (2-11) % Eos % (Auto) (0-4) % Baso % (Auto) (0-2) % Lymph # (Auto) (1.2-4.9) X10*3/uL [place] # (Auto) (0.1-1.2) X10*3/uL Eos # (Auto) (0.0-0.4) X10*3/uL Baso # (Auto) (0.0-0.2) X10*3/uL Abs Immat Gran (auto) (0.00-0.03) X10*3/uL Absolute Neuts (auto) (2.0-8.3) x10*3/uL Absolute Nucleated RBC (0.0-0.012) X10*3/uL Nucleated RBC % (auto) (0.0-0.2) /100WBC Smear Tech's Comments PT (9.9-13.0) SEC INR (0.9-1.1) Sodium (135-145) mmol/L Potassium (3.3-5.1) mmol/L Chloride (96-108) mmol/L Carbon Dioxide (22-29) mmol/L Anion Gap (12-20) BUN (9-16) mg/dL Creatinine (0.5-1.4) mg/dL Estim Creat Clear Calc Estimated GFR Random Glucose (60-115) mg/dL Lactic Acid 1.9 (0.5-2.0) mmol/L Calcium (8.4-10.2) mg/dL Total Bilirubin (0.0-1.0) mg/dL Direct Bilirubin (0.0-0.5) mg/dL AST (5-37) U/L ALT (0-40) U/L Alkaline Phosphatase (39-117) U/L Total Protein (6.5-8.0) g/dL Albumin (3.5-5.0) g/dL Lipase (8-78) U/L Urine Color YELLOW Urine Appearance CLEAR Urine pH 5.5 (5.0-8.0) Ur Specific [place] 1.015 (1.005-1.025) Urine Protein 1+ H (NEG-TRACE) MG/DL Urine Glucose (UA) NEG (NEG) MG/DL Urine Ketones NEG (NEG) MG/DL Urine Blood 1+ H (NEG) Urine Nitrite POS H (NEG) Ur Leukocyte Esterase 1+ H (NEG) Urine RBC 0-2 (0) /HPF Urine WBC 5-9 H (0-4) /HPF Ur Squamous Epith Cells 1+ /LPF Amorphous Sediment TRACE /LPF Urine Bacteria 1+ /LPF Influenza Type A (PCR) NEGATIVE (Negative) Influenza Type B (PCR) NEGATIVE (Negative) RSV RNA Qual (PCR) NEGATIVE (Negative) SARS-CoV-2 RNA (RT-PCR) NEGATIVE (Negative) Discharge Plan Discharge Clinical Impression: Acute UTI Patient Disposition: Home, Self-Care Instructions: Urinary Tract Infection in Men (ED) Prescriptions: New levofloxacin 250 mg tablet 250 mg PO DAILY Qty: 7 RF: 0 No Action pioglitazone 30 mg tablet 30 mg PO DAILY Qty: 90 RF: 8 simvastatin 20 mg tablet 20 mg PO BEDTIME Qty: 90 RF: 8 amlodipine 10 mg tablet 10 mg PO BEDTIME RF: 0 cholecalciferol (vitamin D3) [Vitamin D3] 25 mcg (1,000 unit) Capsule 25 mcg PO DAILY RF: 0 coenzyme Q10 [Co Q-10] 200 mg Capsule 200 mg PO DAILY RF: 0 ondansetron HCl [Zofran] 4 mg Tablet 4 mg PO Q6H PRN (Reason: Nausea) Qty: 30 RF: 3 tramadol 50 mg Tablet 50 mg PO BID Qty: 60 RF: 0 calcium carbonate [Calcium 600] 600 mg calcium (1,500 mg) Tablet 2,400 mg PO DAILY RF: 0 famotidine [Pepcid] 40 mg tablet 40 mg PO BEDTIME Qty: 30 RF: 2 eplerenone 25 mg tablet 25 mg PO DAILY RF: 0 losartan 50 mg tablet 50 mg PO DAILY RF: 0 allopurinol 300 mg tablet 300 mg PO DAILY Qty: 90 RF: 8 Referrals: Neli Franklin MD [Physician] - 2 days
--- NOTE | 2021-03-05 07:17 | PHA.MEDREC ---
Pharmacy Consult ? Medication Reconciliation Pharmacy has completed the medication reconciliation. There are no remarkable issues for prvoider's attention. Patient's reports that patient is no longer taking Lasix. Sangeetha Pringle, PharmD
[2021-03-05 07:46] LABS: MANUAL DIFF FLAG SCAN; PLT CLUMP 1; SCAN SMEAR FLAG 1
[2021-03-05 07:48] LABS: Hematocrit 25.5 % (42.0-52.0); Hemoglobin 8.4 g/dl (14.0-18.0); Imm Gran Abs Auto 0.02 X10*3/uL (0.00-0.03); Imm Gran Pct Auto 1.5 % (0.0-0.4); Lymphocytes Absolute Auto 0.1 X10*3/uL (1.2-4.9); Lymphocytes Percent Auto 8.1 % (20-40); Mean Corpuscular HGB Conc 32.9 g/dl (31.0-36.0); Mean Corpuscular Hemoglobin 33.3 pg (27.0-33.0); Mean Corpuscular Volume 101.2 fL (80.0-98.0); Mean Platelet Volume 11.8 fL (9.4-12.4); Monocytes Percent Auto 2.2 % (2-11); Neutrophils Absolute Auto 1.2 x10*3/uL (2.0-8.3); Neutrophils Percent Auto 88.2 % (45-73); Red Blood Count 2.52 X10*6/uL (4.60-5.80); Red Cell Distribution Width 20.5 % (11.0-16.0)
[2021-03-05 07:52] LABS: INTERNATIONAL NORM RATIO 1.6 (0.9-1.1); Prothrombin Time 17.8 SEC (9.9-13.0)
[2021-03-05 07:53] LABS: Platelet Count 57 X10*3/uL (160-400); White Blood Count 1.4 X10*3/uL (4.8-10.8)
[2021-03-05 07:55] VITALS: BP 101/45; PULSE 71; RESP 16; TEMP 36.8; O2SAT 97
[2021-03-05 07:59] LABS: Lactic Acid 1.9 mmol/L (0.5-2.0)
[2021-03-05 08:16] LABS: Alanine Aminotransferase 12 U/L (0-40); Albumin Level 2.8 g/dL (3.5-5.0); Alkaline Phosphatase 130 U/L (39-117); Aspartate Amino Transferase 18 U/L (5-37); Bilirubin Direct 0.4 mg/dL (0.0-0.5); Bilirubin Total 0.7 mg/dL (0.0-1.0); Blood Urea Nitrogen 32 mg/dL (9-16); Creatinine Clr Calc Pharmacy 29.5; Estimated Glomerular Filt Rate 25; Glucose Random 137 mg/dL (60-115); Lipase 9 U/L (8-78); Total Protein 4.7 g/dL (6.5-8.0)
[2021-03-05 08:17] LABS: SLIDE REVIEW VERIFIED
[2021-03-05] MEDS: cefEPime HCl 2 GM in 0.9 % Sodium Chloride 50 ML IV (08:19)
[2021-03-05 08:23] LABS: Anion Gap 14 (12-20); Carbon Dioxide 13 mmol/L (22-29); Chloride 117 mmol/L (96-108); Sodium 141 mmol/L (135-145)
[2021-03-05 08:37] LABS: Influenza A PCR NEGATIVE (Negative); Influenza B PCR NEGATIVE (Negative); Resp Syncy Virus RNA Qual PCR NEGATIVE (Negative); SARS COV2 PCR INHOUSE NEGATIVE (Negative)
[2021-03-05 09:51] VITALS: BP 106/50; PULSE 67; RESP 16; O2SAT 99
[2021-03-05] MEDS: 0.9 % Sodium Chloride 1,000 ML 999 ML IV (10:04)
--- NOTE | 2021-03-05 10:21 | PM.IMHP ---
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 PET-CT performed 01/02/2021 revealed extensive intensely hypodense liver metastases, Several FDG avid lytic osseous metastases and a few FDG avid lymph node metastases in the abdomen, and most intensely FDG avid in the periportal and portacaval regions.1. He has been on chemo, last chemo about 10 days ago and here with weakness, subjective fever, labs show pancytopenia, H/H is lower, low potassium, CXR negative for acute finding. There is no documented fever here. Review of Systems Review of Systems: Gen: no fever Resp: no sob, no cough CV: no chest, no LARIOS, no leg edema GI: No n/v, no abd pain Neuro: No confusion Yes all other systems are reviewed and are negative [facility] Medical History CKD (chronic kidney disease), stage IV Diabetes mellitus Gout HLD (hyperlipidemia) Hypertension Family History Father Past heart attack Mother Past heart attack Surgical History History of hernia surgery History of removal of cyst Social History Household Members: Family Housing: House Do you presently have visiting nurse or other home services: No Alcohol intake: never Patient Tobacco Use Status: Former Tobacco user Tobacco use type: Cigarette Years Smoked: 62 e-Cigarette/Vaping Use: Never Used Second Hand Smoke Exposure: Yes Use of substances other than those prescribed or required for medical reasons: No Advance Directives: No Advance Directives Information Provided: No service: No Current occupational status: employed and retired Cognitive needs: No Hearing needs: No Vision needs: No Meds Allergies Allergy/AdvReac Type Severity Reaction Status Date / Time atenolol Allergy Unknown dizziness Verified 03/05/21 06:50 penicillin V Allergy Unknown Unknown Verified 03/05/21 06:50 Active Medications: Current Medications Sodium Chloride (Ns) 1,000 mls @ 999 mls/hr IV .Q1H1M CRISTIAN Stop: 03/05/21 11:00 Last Admin: 03/05/21 10:04 Dose: 999 mls/hr Documented by: Pharmacy Consult (Consult Rx Perform Med Rec) 1 each MISCELLANE ONCE PRN PRN Reason: Consult order Home Medications Medication Instructions Recorded Confirmed Last Taken Type eplerenone 25 mg tablet 25 mg PO DAILY 02/23/20 03/05/21 03/04/21 History losartan 50 mg tablet 50 mg PO DAILY 02/23/20 03/05/21 03/04/21 History amlodipine 10 mg tablet 10 mg PO BEDTIME 11/29/20 03/05/21 03/04/21 History cholecalciferol (vitamin D3) 25 25 mcg PO DAILY 12/14/20 03/05/21 03/04/21 History mcg (1,000 unit) capsule (Vitamin D3) coenzyme Q10 200 mg capsule (Co 200 mg PO DAILY 12/14/20 03/05/21 03/04/21 History Q-10) calcium carbonate 600 mg calcium 2,400 mg PO DAILY 03/05/21 03/05/21 03/04/21 History (1,500 mg) tablet (Calcium) Physical Exam Vital Signs and Narrative: Vital Signs: Last Vital Signs Temp 98.2 F 03/05/21 07:55 Pulse 67 03/05/21 09:51 Resp 16 03/05/21 09:51 BP 106/50 L 03/05/21 09:51 Pulse Ox 99 03/05/21 09:51 Body Mass Index 30.1 Const: Other: Constitutional: Alert, in no distress, overweight. Mental Status: Oriented to person, place and time. Eyes: Pupils are equal, round and reactive to light. Ear, Nose and Throat: Oropharynx clear, mucous membranes moist. Ears and nose without eformities. Trachea midline. Respiratory: Clear to auscultation. No wheezing, rales or rhonchi. Cardiovascular: S1 S2 regular. No murmurs, rubs or gallops. Gastrointestinal: Abdomen soft, non-tender, non-distended. Normal bowel sounds.? Neurologic: Cranial nerves II-XII grossly intact. No focal neurological deficits. Moves all extremities spontaneously.? Skin: No rashes or lesions.? Musculoskeletal: No cyanosis or clubbing. Psychiatric: Normal mood and affect? Results Labs CBC and Chem 7: 03/05/21 07:39 03/05/21 07:39 Labs: Laboratory Results - last 24 hr 03/05/21 03/05/21 03/05/21 07:39 07:39 07:39 RBC 2.52 L Hgb 8.4 L MCV 101.2 H MCH 33.3 H MCHC 32.9 RDW 20.5 H Plt Count 57 L MPV 11.8 Immature Gran % (Auto) 1.5 H Neut % (Auto) 88.2 H Lymph % (Auto) 8.1 L [place] % (Auto) 2.2 Eos % (Auto) 0.0 Baso % (Auto) 0.0 Lymph # (Auto) 0.1 L [place] # (Auto) 0.0 L Eos # (Auto) 0.0 Baso # (Auto) 0.0 Abs Immat Gran (auto) 0.02 Absolute Neuts (auto) 1.2 L Absolute Nucleated RBC 0.040 H Nucleated RBC % (auto) 3.0 H Smear Tech's Comments VERIFIED PT 17.8 H INR 1.6 H Anion Gap 14 Estim Creat Clear Calc 29.5 Estimated GFR 25 Random Glucose 137 H Lactic Acid Calcium 7.0 L D Total Bilirubin 0.7 Direct Bilirubin 0.4 AST 18 D ALT 12 Alkaline Phosphatase 130 H Total Protein 4.7 L Albumin 2.8 L Lipase 9 Influenza Type A (PCR) Influenza Type B (PCR) RSV RNA Qual (PCR) SARS-CoV-2 RNA (RT-PCR) 03/05/21 03/05/21 07:39 07:39 RBC Hgb MCV MCH MCHC RDW Plt Count MPV Immature Gran % (Auto) Neut % (Auto) Lymph % (Auto) [place] % (Auto) Eos % (Auto) Baso % (Auto) Lymph # (Auto) [place] # (Auto) Eos # (Auto) Baso # (Auto) Abs Immat Gran (auto) Absolute Neuts (auto) Absolute Nucleated RBC Nucleated RBC % (auto) Smear Tech's Comments PT INR Anion Gap Estim Creat Clear Calc Estimated GFR Random Glucose Lactic Acid 1.9 Calcium Total Bilirubin Direct Bilirubin AST ALT Alkaline Phosphatase Total Protein Albumin Lipase Influenza Type A (PCR) NEGATIVE Influenza Type B (PCR) NEGATIVE RSV RNA Qual (PCR) NEGATIVE SARS-CoV-2 RNA (RT-PCR) NEGATIVE Imaging Radiologist's Impressions: Impressions Chest X-Ray 03/05/21 06:54 IMPRESSION: No acute pulmonary pathology. Assessment and Plan (1) Weakness: Status: Acute (2) Pancytopenia: Status: Acute
[2021-03-05 11:24] VITALS: BP 119/69; PULSE 63; RESP 16; TEMP 36.6; O2SAT 99
[2021-03-05 11:57] LABS: Appearance Urine CLEAR; Color Urine YELLOW; Glucose Urine UA NEG (NEG); Leukocyte Esterase Urine 1+ (NEG); Nitrite Urine POS (NEG); PH 5.5 (5.0-8.0); Specific Gravity - Urine 1.015 (1.005-1.025); UACC Culture Trigger YES; Urine Blood 1+ (NEG); Urine Ketones NEG (NEG); Urine Protein 1+ MG/DL (NEG-TRACE)
[2021-03-05 12:22] LABS: Amorphous Sediment Urine TRACE /LPF; Bacteria Urine 1+ /LPF; RBC Urine 0-2 /HPF (0); Squamous Epithelial Cell Urine 1+ /LPF; UACC CULT YES
== END 2021-03-05 13:32 | disposition home or self-care (01) ==
PROVIDERS: Emergency Provider Emergency Medicine Emergency Medical Services; PCP Internal Medicine
DX: N39.0 Urinary tract infection, site not specified (principal); M79.10 Myalgia, unspecified site; R50.9 Fever, unspecified; Z20.822 Contact with and (suspected) exposure to COVID-19; Z79.899 Other long term (current) drug therapy; Z87.891 Personal history of nicotine dependence
CPT/HCPCS: 0241U; 36415; 71045; 80048; 80076; 81001; 83605; 83690; 85025; 85610; 87040; 87077; 87086; 87186; 87205; 96360; 96372; 99284; J0692

== ENCOUNTER 2021-03-06 00:33 | Inpatient (IN) | payer OTHER, SELFPAY ==
[2021-03-06] VITALS (8 sets, daily range): BP systolic 133–157; BP diastolic 68–86; PULSE 60–74; RESP 14–18; TEMP 36.6–36.9; O2SAT 97–100; BMI 30.1
--- NOTE | ~2021-03-06 | US_ITS ---
EXAMINATION: US PELVIS LIMITED (BLADDER) CLINICAL INFORMATION: History of bacteremia and prostate carcinoma.. COMPARISON: CT abdomen and pelvis from 12/06/2020. TECHNIQUE: Real-time imaging of the bladder. FINDINGS: The urinary bladder is distended to an estimated volume of 228 mL. The bladder wall has a thickness in the range of 0.3-0.5 cm. There is no significant wall thickening. No focal mass, calculus or diverticulum. No evidence of echogenic debris in the bladder lumen. Both ureteral jets are visualized. After voiding, there is a bladder residual of 80 mL. The large prostate gland measures approximately 5.7 x 4.8 x 6 cm. No pelvic free fluid. US/US bladder IMPRESSION: * No sonographic evidence of acute cystitis. No bladder calculi. * Large prostate gland is noted. * Postvoid bladder residual of 80 mL.
--- NOTE | 2021-03-06 00:38 | ED_ITS ---
HPI - Recheck/Abnormal Lab/Rx General Chief Complaint: General Medical Stated Complaint: Blood infection Time Seen by Provider: 03/06/21 00:34 Source: patient and old records reviewed Mode of arrival: ambulatory Limitations: no limitations History of Present Illness MD complaint: abnormal lab Initial visit (ago): day(s) (on 04/04/21) Initial visit for: other (fever 10 days post chemotherapy treatment - + UTI, sent home on levofloxacin 250mg daily took a dose at 9pm ) Returns today for: called because of abnormal lab/test (2/2 GNR blood cultures from today) Symptoms since prior visit: no new symptoms Context: called for abnormal lab result Associated symptoms: fever, chills and malaise Treatments prior to arrival: given antibiotics on (04/04 PO levofloxacin, received 2G of IV cefepime on 04/04 at 9am) Related Data Home Medications Medication Instructions Recorded Confirmed eplerenone 25 mg tablet 25 mg PO DAILY 02/23/20 03/05/21 losartan 50 mg tablet 50 mg PO DAILY 02/23/20 03/05/21 amlodipine 10 mg tablet 10 mg PO BEDTIME 11/29/20 03/05/21 cholecalciferol (vitamin D3) 25 25 mcg PO DAILY 12/14/20 03/05/21 mcg (1,000 unit) capsule (Vitamin D3) coenzyme Q10 200 mg capsule (Co 200 mg PO DAILY 12/14/20 03/05/21 Q-10) calcium carbonate 600 mg calcium 2,400 mg PO DAILY 03/05/21 03/05/21 (1,500 mg) tablet (Calcium) Previous Rx's Medication Instructions Recorded pioglitazone 30 mg tablet 30 mg PO DAILY #90 tab 02/16/20 simvastatin 20 mg tablet 20 mg PO BEDTIME #90 tab 03/13/20 allopurinol 300 mg tablet 300 mg PO DAILY #90 tab 10/25/20 ondansetron HCl 4 mg tablet 4 mg PO Q6H PRN #30 tab 01/12/21 (Zofran) tramadol 50 mg tablet 50 mg PO BID #60 tab 02/06/21 famotidine 40 mg tablet (Pepcid) 40 mg PO BEDTIME #30 tab 03/01/21 levofloxacin 250 mg tablet 250 mg PO DAILY #7 tab 03/05/21 Allergies Allergy/AdvReac Type Severity Reaction Status Date / Time atenolol Allergy Unknown dizziness Verified 03/05/21 06:50 penicillin V Allergy Unknown Unknown Verified 03/05/21 06:50 Review of Systems Review of Systems: Constitutional : No Weight loss, pos Fever, No Chills,pos Fatigue, pos Malaise ENT/Mouth : No sore throat, No Rhinorrhea Eyes: No Eye Pain, No Swelling, No Redness Cardiovascular : No Chest Pain, No SOB, No Dyspnea on Exertion, No Orthopnea, No Edema, No Palpitations Respiratory : No Cough, No Sputum, No Wheezing Gastrointestinal : No Nausea, No Vomiting, No Diarrhea, No Constipation, No abdominal Pain, No Hematochezia, No Melena Genitourinary : No Dysuria, pos Urinary Frequency, No Hematuria, Musculoskeletal : No joint pain, No Myalgias, No Joint Swelling Skin : No Skin Lesions, No rash Neuro : pos Weakness, No Numbness, No Dizziness, No Headache Psych : No Anxiety/Panic, No Depression Heme/Lymph: No Bruising, No Bleeding,No Lymphadenopathy Endocrine : No Polyuria, No Polydipsia All other systems reviewed and are negative [facility] Past Medical History Attestation statement: The following information was validated with the patient. Medical History (Updated 03/06/21 @ 02:13 by Lindsey Agustin DO) Bone metastases CKD (chronic kidney disease), stage IV Colon carcinoma Diabetes mellitus Gout HLD (hyperlipidemia) Hypertension Surgical History History of hernia surgery History of removal of cyst Family History Family History Father Past heart attack Mother Past heart attack Social History Social History Household Members: Family Housing: House Do you presently have visiting nurse or other home services: No Alcohol intake: never Patient Tobacco Use Status: Former Tobacco user Tobacco use type: Cigarette Years Smoked: 62 e-Cigarette/Vaping Use: Never Used Second Hand Smoke Exposure: Yes Advance Directives: No service: No Current occupational status: employed and retired Cognitive needs: No Hearing needs: No Vision needs: No Physical Exam Vital Signs: Vital Signs: Last Vital Signs Temp 97.9 F 03/06/21 00:43 Pulse 74 03/06/21 01:41 Resp 15 03/06/21 01:41 BP 137/72 03/06/21 01:41 Pulse Ox 97 03/06/21 01:41 Body Mass Index 30.1 Appearance: Alert. Oriented X3. No acute distress. Eyes: Pupils equal, round and reactive to light. ENT: Pharynx mild dry MM Neck: Normal inspection. Neck supple. CVS: Normal heart rate and rhythm. Pulses normal. Respiratory: No respiratory distress. Breath sounds normal. Abdomen: Soft and non-tender. Skin: Skin feels hot to touch and dry. Normal skin color. Normal skin turgor. Extremities: No lower extremity edema. No calf ttp Neuro: Oriented X 3. No motor deficit. No sensory deficit. MDM - Recheck/Abnormal Lab/Rx MDM Narrative Medical decision making narrative: 75 yo male with hx of HTN, DM, gout, being treated for cecal mass reportedly underwent treatment 10 days ago seen AM on 04/04 for fevers found to have UTI given empiric 2G of IV cefepime around 9am yesterday. He was sent home with PO levofloxacin ANC 1200 - called by lab 2/2 GNR blood cultures, at this time will repeat labs, dose 1G cefepime based of his CKD and admit to hospital Lab Data Result diagrams: 03/06/21 01:15 03/06/21 01:15 Labs: Lab Results 03/06/21 03/06/21 03/06/21 Range/Units 01:14 01:15 01:15 WBC 3.1 L (4.8-10.8) X10*3/uL RBC 2.57 L (4.60-5.80) X10*6/uL Hgb 8.4 L (14.0-18.0) g/dl Hct 25.6 L (42.0-52.0) % MCV 99.6 H (80.0-98.0) fL MCH 32.7 (27.0-33.0) pg MCHC 32.8 (31.0-36.0) g/dl RDW 20.3 H (11.0-16.0) % Plt Count 71 L (160-400) X10*3/uL MPV 12.5 H (9.4-12.4) fL Immature Gran % (Auto) Cancelled Neut % (Auto) Cancelled Lymph % (Auto) Cancelled [place] % (Auto) Cancelled Eos % (Auto) Cancelled Baso % (Auto) Cancelled Lymph # (Auto) Cancelled [place] # (Auto) Cancelled Eos # (Auto) Cancelled Baso # (Auto) Cancelled Abs Immat Gran (auto) Cancelled Absolute Neuts (auto) Cancelled Absolute Nucleated RBC 0.000 (0.0-0.012) X10*3/uL Nucleated RBC % (auto) 0.0 (0.0-0.2) /100WBC Neutrophils % (Manual) 79 H (45-73) % Band Neutrophils % 15 H (3-5) % Lymphocytes % (Manual) 4 L (20-40) % Monocytes % (Manual) 2 (2-11) % Abs Neuts (Manual) 2.9 (2.0-8.3) X10*3/uL Lymphocytes # (Manual) 0.1 L (1.2-4.9) X10*3/uL Monocytes # (Manual) 0.1 (0.1-1.2) X10*3/uL Toxic Granulation PRESENT Toxic Vacuolation PRESENT Dohle Bodies PRESENT Platelet Estimate DECREASED (NORMAL) Large Platelets PRESENT Plt Morphology Comment NOTED RBC Morphology NOTED Polychromasia 1+ (0-2) /OIF Microcytosis 1+ (5-14) /OIF Macrocytosis 1+ (5-14) /OIF Spherocytes 1+ (0-2) /OIF Tear Drop Cells 1+ (0-2) /OIF Ovalocytes 1+ (5-14) /OIF Acanthocytes (Spur) 1+ (0-2) /OIF Schistocytes 1+ (0-2) /OIF Sodium 138 (135-145) mmol/L Potassium 3.5 (3.3-5.1) mmol/L Chloride 112 H (96-108) mmol/L Carbon Dioxide 15 L (22-29) mmol/L Anion Gap 15 (12-20) BUN 36 H (9-16) mg/dL Creatinine 2.37 H (0.5-1.4) mg/dL Estim Creat Clear Calc 31.6 Estimated GFR 27 Random Glucose 150 H (60-115) mg/dL Lactic Acid (0.5-2.0) mmol/L Calcium 7.0 L (8.4-10.2) mg/dL Magnesium 1.1 L* (1.6-2.6) mg/dL Total Bilirubin 0.9 (0.0-1.0) mg/dL Direct Bilirubin 0.6 H (0.0-0.5) mg/dL AST 18 (5-37) U/L ALT 15 (0-40) U/L Alkaline Phosphatase 97 D (39-117) U/L Total Protein 5.2 L (6.5-8.0) g/dL Albumin 3.0 L (3.5-5.0) g/dL Lipase 5 L (8-78) U/L COVID-19 (PEDRO) Negative (Negative) COVID-19 Clin Com See Note 03/06/21 Range/Units 01:15 WBC (4.8-10.8) X10*3/uL RBC (4.60-5.80) X10*6/uL Hgb (14.0-18.0) g/dl Hct (42.0-52.0) % MCV (80.0-98.0) fL MCH (27.0-33.0) pg MCHC (31.0-36.0) g/dl RDW (11.0-16.0) % Plt Count (160-400) X10*3/uL MPV (9.4-12.4) fL Immature Gran % (Auto) Neut % (Auto) Lymph % (Auto) [place] % (Auto) Eos % (Auto) Baso % (Auto) Lymph # (Auto) [place] # (Auto) Eos # (Auto) Baso # (Auto) Abs Immat Gran (auto) Absolute Neuts (auto) Absolute Nucleated RBC (0.0-0.012) X10*3/uL Nucleated RBC % (auto) (0.0-0.2) /100WBC Neutrophils % (Manual) (45-73) % Band Neutrophils % (3-5) % Lymphocytes % (Manual) (20-40) % Monocytes % (Manual) (2-11) % Abs Neuts (Manual) (2.0-8.3) X10*3/uL Lymphocytes # (Manual) (1.2-4.9) X10*3/uL Monocytes # (Manual) (0.1-1.2) X10*3/uL Toxic Granulation Toxic Vacuolation Dohle Bodies Platelet Estimate (NORMAL) Large Platelets Plt Morphology Comment RBC Morphology Polychromasia /OIF Microcytosis /OIF Macrocytosis /OIF Spherocytes /OIF Tear Drop Cells /OIF Ovalocytes /OIF Acanthocytes (Spur) /OIF Schistocytes /OIF Sodium (135-145) mmol/L Potassium (3.3-5.1) mmol/L Chloride (96-108) mmol/L Carbon Dioxide (22-29) mmol/L Anion Gap (12-20) BUN (9-16) mg/dL Creatinine (0.5-1.4) mg/dL Estim Creat Clear Calc Estimated GFR Random Glucose (60-115) mg/dL Lactic Acid 2.5 H* (0.5-2.0) mmol/L Calcium (8.4-10.2) mg/dL Magnesium (1.6-2.6) mg/dL Total Bilirubin (0.0-1.0) mg/dL Direct Bilirubin (0.0-0.5) mg/dL AST (5-37) U/L ALT (0-40) U/L Alkaline Phosphatase (39-117) U/L Total Protein (6.5-8.0) g/dL Albumin (3.5-5.0) g/dL Lipase (8-78) U/L COVID-19 (PEDRO) (Negative) COVID-19 Clin Com ECG Data Attestation: I personally reviewed and interpreted this ECG as follows: ECG interpretation date: 03/06/21 ECG interpretation time: 02:30 Interpretation: Rate: 66 Rhythm: NSR [place]: normal Normal P waves. Normal JACKY. Normal QRS complex. ST T wave : normal no MADELINE qTC: normal prior studies: no acute ischemia The study has been interpreted contemporaneously by me. . Discharge Plan Discharge Clinical Impression: Bacteremia, Acidosis, lactic, Hypomagnesemia, Pancytopenia Patient Disposition: Admitted As Inpatient
[2021-03-06 01:22] LABS: Hemoglobin 8.4 g/dl (14.0-18.0); PLT CLUMP 1
[2021-03-06 01:24] LABS: Hematocrit 25.6 % (42.0-52.0); Mean Corpuscular HGB Conc 32.8 g/dl (31.0-36.0); Mean Corpuscular Hemoglobin 32.7 pg (27.0-33.0); Mean Corpuscular Volume 99.6 fL (80.0-98.0); Mean Platelet Volume 12.5 fL (9.4-12.4); Red Blood Count 2.57 X10*6/uL (4.60-5.80); Red Cell Distribution Width 20.3 % (11.0-16.0); White Blood Count 3.1 X10*3/uL (4.8-10.8)
[2021-03-06 01:25] LABS: Platelet Count 71 X10*3/uL (160-400)
[2021-03-06] MEDS: Acetaminophen 325 MG TABLET 650 MG PO (01:33)
[2021-03-06] MEDS: 0.9 % Sodium Chloride 1,000 ML 999 ML IVCONT (01:34)
[2021-03-06] MEDS: cefEPime HCl 1 GM in 0.9 % Sodium Chloride 50 ML IV ×2 (01:34→21:56)
[2021-03-06 01:38] LABS: COVID-19 Test Negative (Negative)
[2021-03-06 01:41] LABS: Lactic Acid 2.5 mmol/L (0.5-2.0)
--- NOTE | 2021-03-06 01:42 | PC.NURSE ---
Pt and stating intermittent confusion at home. Pt denies pain. Pt vitals remain stable. Right chest port accessed, 20 gauge, non-powered accessed. Pt tolerated well. Pt resting in stretcher, will continue to monitor.
[2021-03-06 01:47] LABS: Band Neutrophils Percent 15 % (3-5); Lymphocytes Absolute Manual 0.1 X10*3/uL (1.2-4.9); Lymphocytes Percent Manual 4 % (20-40); Monocytes Absolute Manual 0.1 X10*3/uL (0.1-1.2); Monocytes Percent Manual 2 % (2-11); Neutrophils Absolute Manual 2.9 X10*3/uL (2.0-8.3); Neutrophils Percent Manual 79 % (45-73)
[2021-03-06 01:48] LABS: Acanthocytes 1+ (0-2) /OIF; Large Platelet PRESENT; Macrocytosis 1+ (5-14) /OIF; Microcytosis 1+ (5-14) /OIF; Platelet Estimate DECREASED (NORMAL); Platelet Morphology Comment NOTED; RBC Morphology NOTED
[2021-03-06 01:49] LABS: Ovalocytes 1+ (5-14) /OIF; Polychromasia 1+ (0-2) /OIF; Schistocytes 1+ (0-2) /OIF; Spherocytes 1+ (0-2) /OIF; Tear Drop Cells 1+ (0-2) /OIF
[2021-03-06 01:50] LABS: Dohle Bodies PRESENT; Toxic Granulation PRESENT; Toxic Vacuolation PRESENT
[2021-03-06 01:56] LABS: Alanine Aminotransferase 15 U/L (0-40); Alkaline Phosphatase 97 U/L (39-117); Anion Gap 15 (12-20); Aspartate Amino Transferase 18 U/L (5-37); Bilirubin Direct 0.6 mg/dL (0.0-0.5); Bilirubin Total 0.9 mg/dL (0.0-1.0); Blood Urea Nitrogen 36 mg/dL (9-16); Carbon Dioxide 15 mmol/L (22-29); Chloride 112 mmol/L (96-108); Creatinine Clr Calc Pharmacy 31.6; Estimated Glomerular Filt Rate 27; Glucose Random 150 mg/dL (60-115); Lipase 5 U/L (8-78); Magnesium 1.1 mg/dL (1.6-2.6); Potassium 3.5 mmol/L (3.3-5.1); Sodium 138 mmol/L (135-145); Total Protein 5.2 g/dL (6.5-8.0)
--- NOTE | 2021-03-06 02:06 | ECG_ITS ---
Test Reason : WEAKNESS Blood Pressure : / mmHG Vent. Rate : 066 BPM Atrial Rate : 066 BPM P-R Int : 170 ms QRS Dur : 100 ms QT Int : 440 ms P-R-T Axes : 049 057 043 degrees QTc Int : 461 ms Normal sinus rhythm Normal ECG When compared with ECG of 29-NOV-2020 16:05, No significant change was found Referred By: Lindsey Agustin Electronically Signed By:PERCY LI MD
[2021-03-06] MEDS: Magnesium Sulfate/H2O 2 GM/50 ML PIGGYBACK IV (02:30)
--- NOTE | 2021-03-06 02:32 | PC.NURSE ---
EKG was completed at 228 by this PCT
--- NOTE | 2021-03-06 02:49 | PM.IMHP ---
History of Present Illness Date of Service: 03/06/21 Chief Complaint: Positive blood culture 75-year-old male with a past medical history of hypertension, hyperlipidemia, diabetes, chronic kidney disease, recent diagnosis of colon cancer status post colectomy, was on chemotherapy recently; initially presented to the hospital on 03/05/21 the chief complaint of fevers; noted to have urinary tract infection; discussed with Oncology who suggested Levaquin and subsequently discharged home. Today patient was called in as the patient's blood cultures resulted positive growing Gram-negative rods. Patient denies any chest pain palpitations lightheadedness or dizziness. Denies any fever chills cough. Denies any GI or symptoms. Review of all other systems is negative except mentioned above ER course: Per ER team patient's vitals are stable; labs noted to have hypomagnesemia-repleted; lactic acidosis and low bicarb; patient was given IV fluids; patient was started on IV cefepime. Admitted to the hospital for further management [facility] Medical History (Updated 03/06/21 @ 02:51 by Roman Germain MD) Bone metastases CKD (chronic kidney disease), stage IV Colon carcinoma Diabetes mellitus Gout HLD (hyperlipidemia) Hypertension Family History Father Past heart attack Mother Past heart attack Pertinent family history: as mentioned above Surgical History History of hernia surgery History of removal of cyst Social History Household Members: Family Housing: House Do you presently have visiting nurse or other home services: No Alcohol intake: never Patient Tobacco Use Status: Former Tobacco user Tobacco use type: Cigarette Years Smoked: 62 e-Cigarette/Vaping Use: Never Used Second Hand Smoke Exposure: Yes Advance Directives: No service: No Current occupational status: employed and retired Cognitive needs: No Hearing needs: No Vision needs: No Meds Allergies Allergy/AdvReac Type Severity Reaction Status Date / Time atenolol Allergy Unknown dizziness Verified 03/05/21 06:50 penicillin V Allergy Unknown Unknown Verified 03/05/21 06:50 Active Medications: Current Medications Magnesium Sulfate (Magnesium Sulfate/H2o) 2 gm in 50 mls @ 25 mls/hr IV ONCE ONE Stop: 03/06/21 04:05 Last Admin: 03/06/21 02:30 Dose: 25 mls/hr Documented by: Pharmacy Consult (Consult Rx Perform Med Rec) 1 each MISCELLANE ONCE PRN PRN Reason: Consult order Home Medications Medication Instructions Recorded Confirmed Last Taken Type eplerenone 25 mg tablet 25 mg PO DAILY 02/23/20 03/05/21 03/04/21 History losartan 50 mg tablet 50 mg PO DAILY 02/23/20 03/05/21 03/04/21 History amlodipine 10 mg tablet 10 mg PO BEDTIME 11/29/20 03/05/21 03/04/21 History cholecalciferol (vitamin D3) 25 25 mcg PO DAILY 12/14/20 03/05/21 03/04/21 History mcg (1,000 unit) capsule (Vitamin D3) coenzyme Q10 200 mg capsule (Co 200 mg PO DAILY 12/14/20 03/05/21 03/04/21 History Q-10) calcium carbonate 600 mg calcium 2,400 mg PO DAILY 03/05/21 03/05/21 03/04/21 History (1,500 mg) tablet (Calcium) Physical Exam Vital Signs and Narrative: Vital Signs: Last Vital Signs Temp 97.9 F 03/06/21 00:43 Pulse 65 03/06/21 02:30 Resp 15 03/06/21 02:30 BP 148/82 H 03/06/21 02:30 Pulse Ox 100 03/06/21 02:30 Body Mass Index 30.1 Results Labs CBC and Chem 7: 03/06/21 01:15 03/06/21 01:15 Labs: Laboratory Results - last 24 hr 03/06/21 03/06/21 03/06/21 01:14 01:15 01:15 MCV 99.6 H MCH 32.7 MCHC 32.8 RDW 20.3 H Plt Count 71 L MPV 12.5 H Immature Gran % (Auto) Cancelled Neut % (Auto) Cancelled Lymph % (Auto) Cancelled [place] % (Auto) Cancelled Eos % (Auto) Cancelled Baso % (Auto) Cancelled Lymph # (Auto) Cancelled [place] # (Auto) Cancelled Eos # (Auto) Cancelled Baso # (Auto) Cancelled Abs Immat Gran (auto) Cancelled Absolute Neuts (auto) Cancelled Absolute Nucleated RBC 0.000 Nucleated RBC % (auto) 0.0 Neutrophils % (Manual) 79 H Band Neutrophils % 15 H Lymphocytes % (Manual) 4 L Monocytes % (Manual) 2 Abs Neuts (Manual) 2.9 Lymphocytes # (Manual) 0.1 L Monocytes # (Manual) 0.1 Toxic Granulation PRESENT Toxic Vacuolation PRESENT Dohle Bodies PRESENT Platelet Estimate DECREASED Large Platelets PRESENT Plt Morphology Comment NOTED RBC Morphology NOTED Polychromasia 1+ (0-2) Microcytosis 1+ (5-14) Macrocytosis 1+ (5-14) Spherocytes 1+ (0-2) Tear Drop Cells 1+ (0-2) Ovalocytes 1+ (5-14) Acanthocytes (Spur) 1+ (0-2) Schistocytes 1+ (0-2) Anion Gap 15 Estim Creat Clear Calc 31.6 Estimated GFR 27 Random Glucose 150 H Lactic Acid Calcium 7.0 L Magnesium 1.1 L* Total Bilirubin 0.9 Direct Bilirubin 0.6 H AST 18 ALT 15 Alkaline Phosphatase 97 D Total Protein 5.2 L Albumin 3.0 L Lipase 5 L COVID-19 (PEDRO) Negative COVID-19 Clin Com See Note 03/06/21 01:15 MCV MCH MCHC RDW Plt Count MPV Immature Gran % (Auto) Neut % (Auto) Lymph % (Auto) [place] % (Auto) Eos % (Auto) Baso % (Auto) Lymph # (Auto) [place] # (Auto) Eos # (Auto) Baso # (Auto) Abs Immat Gran (auto) Absolute Neuts (auto) Absolute Nucleated RBC Nucleated RBC % (auto) Neutrophils % (Manual) Band Neutrophils % Lymphocytes % (Manual) Monocytes % (Manual) Abs Neuts (Manual) Lymphocytes # (Manual) Monocytes # (Manual) Toxic Granulation Toxic Vacuolation Dohle Bodies Platelet Estimate Large Platelets Plt Morphology Comment RBC Morphology Polychromasia Microcytosis Macrocytosis Spherocytes Tear Drop Cells Ovalocytes Acanthocytes (Spur) Schistocytes Anion Gap Estim Creat Clear Calc Estimated GFR Random Glucose Lactic Acid 2.5 H* Calcium Magnesium Total Bilirubin Direct Bilirubin AST ALT Alkaline Phosphatase Total Protein Albumin Lipase COVID-19 (PEDRO) COVID-19 Clin Com Assessment and Plan (1) Bacteremia: Status: Acute (2) Pancytopenia: Status: Acute (3) CKD (chronic kidney disease), stage IV: Status: Acute (4) Diabetes mellitus: Status: Acute (5) S/P right colectomy: Status: Acute (6) Hypomagnesemia: Status: Acute (7) Lactic acidosis: Status: Acute 75-year-old male with a past medical history of hypertension, hyperlipidemia, diabetes, chronic kidney disease, recent diagnosis of colon cancer status post colectomy, was on chemotherapy recently; initially presented to the hospital on 03/05/21 the chief complaint of fevers; noted to have urinary tract infection; discussed with Oncology who suggested Levaquin and subsequently discharged home. Today patient was called in as the patient's blood cultures resulted positive growing Gram-negative rods. Bacteremia: Blood cultures growing Gram-negative rods. Continue cefepime (patient tolerated cefepime in the ER) Infectious disease consult Colon cancer status post colectomy/pancytopenia: Patient was recently on chemotherapy. Oncology consult for follow-up. ANC 1200. Platelets 20 on admission. Denies any signs of bleeding. Hypomagnesemia: Repleted Lactic acidosis: IV fluids Hypertension/hyperlipidemia: Continue home medications CKD: Creatinine baseline 2.3-2.4. Diabetes: Hold home regimen. Insulin sliding scale. DVT prophylaxis: SCD boots Code status: Full code Quality Stroke Does the patient have a stroke diagnosis?: No VTE Prior VTE?: No VTE Risk Level:: Medical - moderate - high VTE Device Contraindication: N/A - Device Ordered VTE Drug Contraindication: Treatment Not Indicated
[2021-03-06 03:22] LABS: Reflex Lactate? Lactic Acid Added
[2021-03-06 03:49] LABS: Hematocrit 21.5 % (42.0-52.0); Hemoglobin 7.1 g/dl (14.0-18.0); Mean Platelet Volume 12.6 fL (9.4-12.4); Red Blood Count 2.15 X10*6/uL (4.60-5.80); Red Cell Distribution Width 20.2 % (11.0-16.0); White Blood Count 2.6 X10*3/uL (4.8-10.8)
[2021-03-06 03:51] LABS: Platelet Count 64 X10*3/uL (160-400)
[2021-03-06 04:04] LABS: ~Lactic Acid-LAB USE ONLY 1.3 mmol/L (0.5-2.0)
[2021-03-06 04:13] LABS: Anion Gap 9 (12-20); Atypical Lymph Absolute Manual 0.1 x10*3/uL; Atypical Lymphs Percent Manual 2 % (0-6); Band Neutrophils Percent 16 % (3-5); Blood Urea Nitrogen 35 mg/dL (9-16); Calcium 6.5 mg/dL (8.4-10.2); Carbon Dioxide 16 mmol/L (22-29); Chloride 115 mmol/L (96-108); Estimated Glomerular Filt Rate 30; Glucose Random 151 mg/dL (60-115); Lymphocytes Absolute Manual 0.2 X10*3/uL (1.2-4.9); Lymphocytes Percent Manual 7 % (20-40); Monocytes Absolute Manual 0.1 X10*3/uL (0.1-1.2); Monocytes Percent Manual 3 % (2-11); Neutrophils Absolute Manual 2.3 X10*3/uL (2.0-8.3); Neutrophils Percent Manual 72 % (45-73); Nucleated Red Blood Cells 1 /100WBC (0-0); Potassium 3.4 mmol/L (3.3-5.1); RBC Morphology NOTED; Sodium 137 mmol/L (135-145)
[2021-03-06 04:14] LABS: Acanthocytes 1+ (0-2) /OIF; Large Platelet PRESENT; Macrocytosis 1+ (5-14) /OIF; Microcytosis 1+ (5-14) /OIF; Ovalocytes 1+ (5-14) /OIF; Platelet Estimate DECREASED (NORMAL); Platelet Morphology Comment NOTED; Polychromasia 1+ (0-2) /OIF; Schistocytes 1+ (0-2) /OIF; Tear Drop Cells 1+ (0-2) /OIF
[2021-03-06 04:15] LABS: Dohle Bodies PRESENT; Spherocytes 1+ (0-2) /OIF; Toxic Granulation PRESENT; Toxic Vacuolation PRESENT
[2021-03-06] MEDS: 0.9 % Sodium Chloride 1,000 ML 75 ML IVCONT ×2 (04:38→17:21)
--- NOTE | 2021-03-06 06:12 | PC.NURSE ---
REPORT TAKEN FROM ZAMZAM RN, FIRST CONTACT WITH PT. RESTING IN BED SKIN PWD RESPIRATIONS EVEN UNLABORED. AWAITING BED ASSIGNMENT FOR ADMISSION, AWARE OF PLAN OF CARE.
--- NOTE | 2021-03-06 06:36 | PHA.MEDREC ---
Pharmacy Consult ? Medication Reconciliation Pharmacy has reviewed the medication reconciliation completed nurses. I completed the med rec yesterday and there were no changes. Sangeetha Pringle, PharmD
[2021-03-06] MEDS: 0.9 % Sodium Chloride Flush 3 ML SYRINGE IVFLUSH (08:00)
[2021-03-06 08:02] LABS: Glucose, Whole Blood 122 mg/dL (60-115)
--- NOTE | 2021-03-06 09:43 | P.CNHO_ITS ---
Subjective - Subjective Chief complaint: Fever/chills Patient: known to practice within the last 3 years Consult date: 03/06/21 Primary Care Provider: Armin Zaragoza MD Medical Summary: Diagnosis: Stage IV colorectal cancer diagnosed November 2020 Right hemicolectomy on 11/30/2020, pathology invasive adenocarcinoma, moderately to poorly differentiated with neuroendocrine features measuring 14 cm. Tumor invades through muscularis propria into pericolonic soft tissue, LVI present, margins negative, 6 of 23 pericolonic lymph nodes involved by metastatic carcinoma. Staging [id number], AJCC stage IV. Neuroendocrine features are present focally with positive synaptophysin and chromogranin. MMR proficient. PET-CT performed 01/02/2021 revealed extensive intensely FDG avid hypodense liver metastases, Several FDG avid lytic osseous metastases and a few FDG avid lymph node metastases in the abdomen,largest and most intensely FDG avid in the periportal and portacaval regions. Patient started 1st cycle of palliative chemotherapy with modified FOLFOX/Avastin regimen on 01/10/2021. HPI - Consult Narrative Reason for consult: Urosepsis/patient on chemotherapy Narrative: Cade Sanchez is a 75 year old male who is well known to oncology service because of his history of stage IV colorectal cancer. He has been receiving chemotherapy since January 10. He presented yesterday with complaints of fever, chills and an episode of urinary incontinence. Workup in the emergency room revealed probable UTI, he was prescribed Levaquin and sent home. Later blood cultures came back positive and he was recalled for admission. At this time patient denies any fever or chills. No flank pain. He has not had any dysuria or hematuria. He feels tired. No complaints of nausea or emesis. Review of Systems - Constitutional Reports as per HPI, Reports no additional constitutional complaints - Cardiovascular Reports no additional cardiovascular complaints - Respiratory Reports no additional respiratory complaints - Gastrointestinal Reports no additional gastrointestinal complaints - Genitourinary Genitourinary: Reports no additional male genitourinary complaints [facility] Medical History: Medical History (Last Updated 03/06/21 @ 02:51 by Roman Germain MD) Bone metastases CKD (chronic kidney disease), stage IV Colon carcinoma Diabetes mellitus Gout HLD (hyperlipidemia) Hypertension Family History: Family History (Last Reviewed 03/05/21 @ 10:33 by Tyler Hansen MD) Father Past heart attack Mother Past heart attack Surgical History: Surgical History (Last Reviewed 03/06/21 @ 00:53 by Lindsey Agustin DO) History of hernia surgery History of removal of cyst Social History: Social History (Last Reviewed 03/06/21 @ 00:53 by Lindsey Agustin DO) Living Situation History: Household Members: Family Housing: House Do you presently have visiting nurse or other home services: No Alcohol History: Alcohol intake: never Alcohol History Details: Alcohol intake frequency: does not drink Tobacco History: Patient Tobacco Use Status: Former Tobacco user Tobacco use type: Cigarette Years Smoked: 62 e-Cigarette/Vaping Use: Never Used Second Hand Smoke Exposure: Yes Advance Directives: Advance Directives: No Advance Directives Information Provided: Advance Directives Information Provided comment: declined Occupation Assessmet: [employer] service: No Current occupational status: employed Current occupational status: retired Home Medications and Allergies Current Medications: Current Medications Acetaminophen (Acetaminophen 325 Mg Tablet) 650 mg PO Q6H PRN PRN Reason: Pain, Mild (Pain Scale 1-3) Dextrose (Dextrose 50 % 25 Gm/50 Ml Vial) 25 gm IVPUSH Q15M PRN; Protocol PRN Reason: per Hypoglycemia Standing Ord. Glucose (Glucose Gel 15 Gm Gel..Gram.) 15 gm PO Q15M PRN; Protocol PRN Reason: per Hypoglycemia Standing Ord. Sodium Chloride (Ns) 1,000 mls @ 75 mls/hr IVCONT .[id number] [facility] Last Admin: 03/06/21 04:38 Dose: 75 mls/hr Documented by: Cefepime HCl 1 gm/ Sodium (Chloride) 50 mls @ 100 mls/hr IV Q24H [facility] Insulin Human Lispro (Insulin Lispro 100 Unit/Ml 3 Ml Vial) 0 unit SUBCUT QIDACHS [facility]; Protocol Last Admin: 03/06/21 08:50 Dose: Not Given Documented by: Melatonin (Melatonin 3 Mg Tablet) 6 mg PO BEDTIME PRN PRN Reason: Insomnia Pharmacy Consult (Consult Rx Perform Med Rec) 1 each MISCELLANE ONCE PRN PRN Reason: Consult order Senna (Sennosides 8.6 Mg Tablet) 17.2 mg PO BEDTIME PRN PRN Reason: Constipation Sodium Chloride (0.9 % Sodium Chloride Flush 3 Ml Syringe) 3 ml IVFLUSH QSHIFT [facility] Home Medications Medication Instructions Recorded Confirmed Type eplerenone 25 mg tablet 25 mg PO DAILY 02/23/20 03/06/21 History losartan 50 mg tablet 50 mg PO DAILY 02/23/20 03/06/21 History amlodipine 10 mg tablet 10 mg PO BEDTIME 11/29/20 03/06/21 History cholecalciferol (vitamin D3) 25 25 mcg PO DAILY 12/14/20 03/06/21 History mcg (1,000 unit) capsule (Vitamin D3) coenzyme Q10 200 mg capsule (Co 200 mg PO DAILY 12/14/20 03/06/21 History Q-10) calcium carbonate 600 mg calcium 2,400 mg PO DAILY 03/05/21 03/06/21 History (1,500 mg) tablet (Calcium) Allergies Allergy/AdvReac Type Severity Reaction Status Date / Time atenolol Allergy Unknown dizziness Verified 03/05/21 06:50 penicillin V Allergy Unknown Unknown Verified 03/05/21 06:50 Physical Exam Vital signs: Vital Signs Temp 97.9 F 03/06/21 00:43 Pulse 66 03/06/21 04:41 Resp 18 03/06/21 04:41 BP 138/68 03/06/21 04:41 Pulse Ox 99 03/06/21 04:41 Intake & Output 03/05/21 03/06/21 03/06/21 18:59 06:59 18:59 Intake Total 1100 / 1100 Balance 1100 / 1100 Intake: Intake, IV Amount 1100 / 1100 Magnesium Sulfate/H2O 2 gm In 50 / 50 50 ml @ 25 mls/hr IV ONCE ONE Rx#:[id number] cefEPime HCl 1 gm In 0.9 % 50 / 50 Sodium Chloride 50 ml @ 100 mls /hr IV ONCE ONE Rx#:[id number] 0.9 % Sodium Chloride 1,000 ml 1000 / 1000 @ 999 mls/hr IVCONT .Q1H1M [facility] Rx#:[id number] Other: Weight 95.254 kg Weight 95.254 kg - Constitutional Present: no acute distress, cooperative - Routine HEENT Exam Head: Present: normal inspection - Routine Neck Exam Present: supple. Absent: lymphadenopathy - Routine Respiratory Exam Present: CTAB. Absent: accessory muscle use - Routine Cardiovascular Exam Cardiovascular: Present: RRR, S1, S2 - Routine Abdominal Exam Present: soft. Absent: organomegaly - Routine Skin Exam Present: intact. Absent: cyanosis - Routine Neurological Exam Present: alert, oriented X3 Hem/Onc Consult Result - Labs CBC & Chem 7: 03/06/21 03:45 03/06/21 03:45 Labs: Short CBC 03/06/21 03/06/21 Range/Units 01:15 03:45 WBC 3.1 L 2.6 L (4.8-10.8) X10*3/uL Hgb 8.4 L 7.1 L (14.0-18.0) g/dl Hct 25.6 L 21.5 L (42.0-52.0) % Plt Count 71 L 64 L (160-400) X10*3/uL BMP 03/06/21 03/06/21 01:15 03:45 Sodium 138 137 Potassium 3.5 3.4 Chloride 112 H 115 H Carbon Dioxide 15 L 16 L BUN 36 H 35 H Creatinine 2.37 H 2.14 H Calcium 7.0 L 6.5 L D Liver Function 03/06/21 Range/Units 01:15 Total Bilirubin 0.9 (0.0-1.0) mg/dL Direct Bilirubin 0.6 H (0.0-0.5) mg/dL AST 18 (5-37) U/L ALT 15 (0-40) U/L Alkaline Phosphatase 97 D (39-117) U/L Albumin 3.0 L (3.5-5.0) g/dL Assessment and Plan Patient Active problem list reviewed?: Yes (1) Colon carcinoma Status: Chronic Assessment and plan: 1. This is a 75-year-old male with metastatic cecal cancer receiving palliative systemic/chemotherapy admitted for urosepsis. He presented with fever, mild neutropenia and 1+ bacteremia on urine analysis. Urine culture performed 03/05/2021 showed less than 10,000 CFU/mL with mixed bacterial derek, characteristic of urogenital contamination. However, blood culture was positive for gram-negative rods on Gram stain. Culture is pending. He has been admitted for IV antibiotics. He is no longer febrile but he is neutropenic/pancytopenic. He has chronic kidney disease and anemia secondary to that. Ongoing chemotherapy also contributing to myelosuppression. Agree with current IV antibiotics, await ID input. I thank you for this consultation. - Time Spent With Patient Time Spent with Patient (in minutes): 15
--- NOTE | 2021-03-06 11:42 | MHC.CM.PN ---
pt lives c his in their home. his currently undergoing chemotherapy for colon ca. he reports being independent c his care, but his is there to help him should he need it and will provide transportation at ne.. he does not use any AD c ambulation and still is driving a car. depending on the course of treatment dc plan could be home no svcs vs. home c iv abx's, picc and vna. hence, dc plan is uncertain at this time, but patient does plan to return home at ne. cm to cont. to follow.
[2021-03-06] MEDS: allopurinoL 100 MG TABLET 50 MG PO (13:52)
[2021-03-06] MEDS: traMADoL HCL 50 MG TABLET PO ×2 (13:52→21:53)
[2021-03-06] MEDS: Losartan Potassium 50 MG TABLET PO (13:52)
[2021-03-06] MEDS: Cholecalciferol (Vitamin D3) 25 MCG TABLET PO (13:52)
[2021-03-06] MEDS: Calcium Carbonate 750 MG TAB.CHEW 2250 MG PO (13:53)
[2021-03-06 14:06] LABS: Glucose, Whole Blood 117 mg/dL (60-115)
--- NOTE | 2021-03-06 14:06 | PM.EVENT ---
Event Note Date of Service: 03/06/21 Event Note: Pt see/examined, care discussed with patient and at bedside, here with gram negative samia sepsis/bacteremia on appropriate Abx, will get US of abdomen to further assess source of bacteremia. H/H is low will transfuse 1 unit
[2021-03-06] MEDS: Pioglitazone HCL 30 MG TABLET PO (14:08)
--- NOTE | 2021-03-06 15:43 | P.CNID_ITS ---
History of Present Illness Data of Consult Service Date: 03/06/21 Requesting physician: Tyler Peter Primary Care Provider: Armin Zaragoza MD [facility] Reason for consult: bacteremia He has fever and chills two days ago. He presented to ER and called back for bacteremia,gram negative rods He is 10 days out chemotherapy He has no specific complaints like dysuria or cough. He has had COVID vaccine. Review of Systems Review of Systems: Yes all other systems are reviewed and are negative PMFSH Past Medical History Medical History (Updated 03/15/21 @ 14:51 by Armin Zaragoza MD) Bone metastases CKD (chronic kidney disease), stage IV Colon carcinoma Diabetes mellitus Gout HLD (hyperlipidemia) Hypertension Pancytopenia Pancytopenia Family History Family History Father Past heart attack Mother Past heart attack Family history: reviewed and not pertinent Surgical History Surgical History History of hernia surgery History of removal of cyst S/P right colectomy Social History Social History Household Members: Spouse Housing: House Do you presently have visiting nurse or other home services: No Alcohol intake: never Patient Tobacco Use Status: Former Tobacco user Tobacco use type: Cigarette Years Smoked: 62 e-Cigarette/Vaping Use: Never Used Second Hand Smoke Exposure: Yes service: No Current occupational status: retired Cognitive needs: No Hearing needs: No Vision needs: No Meds Allergies Allergy/AdvReac Type Severity Reaction Status Date / Time atenolol Allergy Unknown dizziness Verified 03/15/21 14:26 penicillin V Allergy Unknown Unknown Verified 03/15/21 14:26 onion Allergy Diarrhea Verified 03/15/21 14:26 Peppers, Green Allergy Diarrhea Verified 03/15/21 14:26 Peppers, Jalapeno Allergy Diarrhea Verified 03/15/21 14:26 Peppers, Red Allergy Diarrhea Verified 03/15/21 14:26 Peppers, Yellow Allergy Diarrhea Verified 03/15/21 14:26 Active Medications: Current Medications Acetaminophen (Acetaminophen 325 Mg Tablet) 650 mg PO Q6H PRN PRN Reason: Pain, Mild (Pain Scale 1-3) Allopurinol (Allopurinol 100 Mg Tablet) 50 mg PO DAILY [facility] Last Admin: 03/06/21 13:52 Dose: 50 mg Documented by: Amlodipine Besylate (Amlodipine Besylate 10 Mg Tablet) 10 mg PO BEDTIME [facility]; Protocol Atorvastatin Calcium (Atorvastatin Calcium 10 Mg Tablet) 10 mg PO BEDTIME [facility] Calcium Carbonate (Calcium Carbonate 750 Mg Tab.Chew) 2,250 mg PO DAILY [facility] Last Admin: 03/06/21 13:53 Dose: 2,250 mg Documented by: Dextrose (Dextrose 50 % 25 Gm/50 Ml Vial) 25 gm IVPUSH Q15M PRN; Protocol PRN Reason: per Hypoglycemia Standing Ord. Famotidine (Famotidine 20 Mg Tablet) 40 mg PO BEDTIME [facility] Glucose (Glucose Gel 15 Gm Gel..Gram.) 15 gm PO Q15M PRN; Protocol PRN Reason: per Hypoglycemia Standing Ord. Sodium Chloride (Ns) 1,000 mls @ 75 mls/hr IVCONT .[id number] [facility] Last Admin: 03/06/21 04:38 Dose: 75 mls/hr Documented by: Cefepime HCl 1 gm/ Sodium (Chloride) 50 mls @ 100 mls/hr IV Q24H [facility] Insulin Human Lispro (Insulin Lispro 100 Unit/Ml 3 Ml Vial) 0 unit SUBCUT QIDACHS [facility]; Protocol Last Admin: 03/06/21 14:08 Dose: Not Given Documented by: Losartan Potassium (Losartan Potassium 50 Mg Tablet) 50 mg PO DAILY [facility]; Protocol Last Admin: 03/06/21 13:52 Dose: 50 mg Documented by: Melatonin (Melatonin 3 Mg Tablet) 6 mg PO BEDTIME PRN PRN Reason: Insomnia Non-Formulary Medication (Eplerenone) 25 mg PO DAILY [facility] Ondansetron HCl (Ondansetron Odt 4 Mg Tab.Rapdis) 4 mg TRANSLINGU Q6H PRN PRN Reason: Nausea Pharmacy Consult (Consult Rx Perform Med Rec) 1 each MISCELLANE ONCE PRN PRN Reason: Consult order Pioglitazone HCl (Pioglitazone Hcl 30 Mg Tablet) 30 mg PO DAILY [facility] Last Admin: 03/06/21 14:08 Dose: 30 mg Documented by: Senna (Sennosides 8.6 Mg Tablet) 17.2 mg PO BEDTIME PRN PRN Reason: Constipation Sodium Chloride (0.9 % Sodium Chloride Flush 3 Ml Syringe) 3 ml IVFLUSH QSHIFT [facility] Last Admin: 03/06/21 08:00 Dose: 3 ml Documented by: Tramadol HCl (Tramadol Hcl 50 Mg Tablet) 50 mg PO BID [facility] Last Admin: 03/06/21 13:52 Dose: 50 mg Documented by: Vitamin D (Cholecalciferol (Vitamin D3) 25 Mcg Tablet) 25 mcg PO DAILY [facility] Last Admin: 03/06/21 13:52 Dose: 25 mcg Documented by: Home Medications Medication Instructions Recorded Confirmed Last Taken Type eplerenone 25 mg tablet 25 mg PO DAILY 02/23/20 03/15/21 03/04/21 08:00 History losartan 50 mg tablet 50 mg PO DAILY 02/23/20 03/15/21 03/04/21 08:00 History amlodipine 10 mg tablet 10 mg PO BEDTIME 11/29/20 03/15/21 03/05/21 21:00 History cholecalciferol (vitamin D3) 25 25 mcg PO DAILY 12/14/20 03/15/21 03/04/21 08:00 History mcg (1,000 unit) capsule (Vitamin D3) coenzyme Q10 200 mg capsule (Co 200 mg PO DAILY 12/14/20 03/15/21 03/04/21 08:00 History Q-10) calcium carbonate 600 mg calcium 1,200 mg PO BID 03/05/21 03/15/21 03/05/21 21:00 History (1,500 mg) tablet (Calcium) Physical Exam Vital Signs: Vital Signs: Last Vital Signs Temp 97.9 F 03/06/21 00:43 Pulse 66 03/06/21 13:52 Resp 16 03/06/21 12:18 BP 134/86 03/06/21 13:52 Pulse Ox 99 03/06/21 04:41 Body Mass Index 30.1 Const: General: cooperative Eyes: General: appearance normal, both eyes and all related structures Resp: Effort & Inspection: normal respiratory effort Cardio: Rate: regular rate Rhythm: regular rhythm GI: Palpation (GI): Soft to palpation and nontender Skin: General skin exam: no rashes or lesions noted Extrem: General: Yes normal to inspection Results Labs CBC & Chem 7: 03/07/21 18:20 03/06/21 03:45 Labs: Short CBC 03/06/21 03/06/21 Range/Units 01:15 03:45 WBC 3.1 L 2.6 L (4.8-10.8) X10*3/uL Hgb 8.4 L 7.1 L (14.0-18.0) g/dl Hct 25.6 L 21.5 L (42.0-52.0) % Plt Count 71 L 64 L (160-400) X10*3/uL BMP 03/06/21 03/06/21 01:15 03:45 Sodium 138 137 Potassium 3.5 3.4 Chloride 112 H 115 H Carbon Dioxide 15 L 16 L BUN 36 H 35 H Creatinine 2.37 H 2.14 H Calcium 7.0 L 6.5 L D Liver Function 03/06/21 Range/Units 01:15 Total Bilirubin 0.9 (0.0-1.0) mg/dL Direct Bilirubin 0.6 H (0.0-0.5) mg/dL AST 18 (5-37) U/L ALT 15 (0-40) U/L Alkaline Phosphatase 97 D (39-117) U/L Albumin 3.0 L (3.5-5.0) g/dL Assessment and Plan (1) Lactic acidosis: Status: Resolved (2) Colon carcinoma: Status: Chronic (3) Bacteremia: Status: Acute He has possible Pseudomonas ,E coli Possible abdominal source He is at leo of chemotherapy (4) Pancytopenia: Continue Cefepime Await cultures U/S or CT abdomen if not done check obstruction
[2021-03-06 18:56] LABS: Glucose, Whole Blood 117 mg/dL (60-115)
[2021-03-06] MEDS: Famotidine 20 MG TABLET 40 MG PO (21:53)
[2021-03-06] MEDS: amLODIPine Besylate 10 MG TABLET PO (21:53)
[2021-03-06] MEDS: Atorvastatin Calcium 10 MG TABLET PO (21:53)
--- NOTE | 2021-03-06 23:22 | PC.NURSE ---
Since I arrived at 1900 the pt has been alert and oriented x 3, resting in bed with his at the bedside. He denies chest pain. Denies difficulty breathing. Speech clear and appropriate. is at the bedside,. he is taking PO food and fluids without difficulty.
[2021-03-07] VITALS (7 sets, daily range): BP systolic 138–160; BP diastolic 71–79; PULSE 61–79; RESP 14–20; TEMP 36.2–36.8; O2SAT 98–100
[2021-03-07] MEDS: 0.9 % Sodium Chloride Flush 3 ML SYRINGE IVFLUSH ×2 (00:04→09:07)
[2021-03-07] MEDS: 0.9 % Sodium Chloride 1,000 ML 75 ML IVCONT (06:11)
[2021-03-07 07:51] LABS: Glucose, Whole Blood 120 mg/dL (60-115)
[2021-03-07] MEDS: Losartan Potassium 50 MG TABLET PO (09:03)
[2021-03-07] MEDS: traMADoL HCL 50 MG TABLET PO (09:03)
[2021-03-07] MEDS: allopurinoL 100 MG TABLET 50 MG PO (09:03)
[2021-03-07] MEDS: Pioglitazone HCL 30 MG TABLET PO (09:04)
[2021-03-07] MEDS: Cholecalciferol (Vitamin D3) 25 MCG TABLET PO (09:04)
[2021-03-07] MEDS: Calcium Carbonate 750 MG TAB.CHEW 2250 MG PO (09:04)
[2021-03-07 12:35] LABS: Glucose, Whole Blood 148 mg/dL (60-115)
--- NOTE | 2021-03-07 13:02 | MHC.CM.PN ---
EMR REVIEWED, PER HOSPITALIST NELIA PT W/D/C TOMORROW 03/08/21 ON PO ABX, PLAN REMAINS HOME NO SERVICES W/ FOR TRANSPORT.
[2021-03-07 14:04] LABS: Hematocrit 21.4 % (42.0-52.0); Hemoglobin 7.1 g/dl (14.0-18.0); Mean Corpuscular HGB Conc 33.2 g/dl (31.0-36.0); Mean Corpuscular Volume 99.5 fL (80.0-98.0); Red Blood Count 2.15 X10*6/uL (4.60-5.80); Red Cell Distribution Width 21.1 % (11.0-16.0)
[2021-03-07 14:06] LABS: NRBC Pct Auto 1.3 /100WBC (0.0-0.2); Platelet Count 90 X10*3/uL (160-400); White Blood Count 2.3 X10*3/uL (4.8-10.8)
--- NOTE | 2021-03-07 14:18 | P.DS_ITS ---
DS: Providers Provider Date of Service: 03/07/21 Date of admission: 03/06/21 02:45 Primary care physician: Armin Zaragoza MD Consults: 03/06/21 02:45 Consult to Infectious Diseases Routine Consulting Provider: Anh Pena Reason for consultation: bacteremia; pt on chemo; ANC 1200; UTI 03/06/21 02:49 Consult to Hematology / Oncology Routine Consulting Provider: Neli Franklin Reason for consultation: pancytopenia; p/w bacteremia; hx caecal ca DS: Diagnosis Discharge Diagnosis (1) Lactic acidosis: Status: Resolved (2) Colon carcinoma: Status: Chronic (3) Bacteremia: Status: Acute (4) Pancytopenia: DS: Summary Hospital Course Hospital Course: Chief Complaint: Positive blood culture 75-year-old male with a past medical history of hypertension, hyperlipidemia, diabetes, chronic kidney disease, recent diagnosis of colon cancer status post colectomy, was on chemotherapy recently; initially presented to the hospital on 03/05/21 the chief complaint of fevers; noted to have urinary tract infection; discussed with Oncology who suggested Levaquin and subsequently discharged home.? Today patient was called in as the patient's blood cultures resulted positive growing Gram-negative rods. Patient denies any chest pain palpitations lightheadedness or dizziness.? Denies any fever chills cough.? Denies any GI or symptoms. Review of all other systems is negative except mentioned above ER course: Per ER team patient's vitals are stable; labs noted to have hypomagnesemia- repleted; lactic acidosis and low bicarb; patient was given IV fluids; patient was started on IV cefepime.? Admitted to the hospital for further management Hospital course: Patient was initially seen in ED and sent home with oral Levaquin for UTI and called to back when blood cultures were postive. He was admitted and given IV cefepime for gram negative sepsis and bacteremia. He improved, final culture showed Enterobacter Aerogenes with the following sensitivity profile. He will therefore be discharege and complete 14 day treatment per ID recommendation. E aerogene M.I.C. RX --------- --- Cefazolin >=64 R Ceftriaxone <=1 S Gentamicin <=1 S Levofloxacin <=0.12 S Trimethoprim/Sulfamethoxazole <=20 S He has pancytopenia with hemoglobin of 7 likely from chemo and is being transfused 1 units Metabolic encephalopathy with confusion d/t UTI, sepsis, bacteremia--this has resolved, Hypomagnesemia--replaced and recheck Time Spent with Patient Time attestation: Total time spent providing and/or coordinating discharge services: Discharge coordination time: Greater than 30 minutes Quality: Stroke Does the patient have a stroke diagnosis?: No Physical Exam Vital Signs: Vital Signs: Last Vital Signs Temp 97.4 F 03/07/21 12:00 Pulse 69 03/07/21 12:00 Resp 17 03/07/21 12:00 BP 154/74 H 03/07/21 12:00 Pulse Ox 98 03/07/21 12:00 Body Mass Index 30.1 DS: Data Data Completed and Pending Completed studies during hospitalization [Text1]: Procedures Resection of Right Large Intestine, Open Approach (11/29/20) Labs on day of discharge: Laboratory Results - last 24 hr 03/06/21 03/07/21 03/07/21 18:52 07:28 11:46 WBC RBC Hgb Hct MCV MCH MCHC RDW Plt Count MPV Absolute Nucleated RBC Nucleated RBC % (auto) POC Glucose 117 H 120 H 148 H Blood Type 03/07/21 03/07/21 13:47 13:53 WBC 2.3 L RBC 2.15 L Hgb 7.1 L Hct 21.4 L MCV 99.5 H MCH 33.0 MCHC 33.2 RDW 21.1 H Plt Count 90 L D MPV 13.0 H Absolute Nucleated RBC 0.030 H Nucleated RBC % (auto) 1.3 H POC Glucose Blood Type O Positive Preliminary micro results at discharge 03/06/21 01:17 Blood Culture - Preliminary Blood - Venous No growth after 24 hours. 03/06/21 01:15 Blood Culture - Preliminary Blood - Venous No growth after 24 hours. Discharge Plan Discharge Anticipated Discharge Date/Time: 03/07/21 14:08 Patient Disposition: Home, Self-Care Discharge Diagnosis: UTI, Sepsis, bacteremia Referrals: Armin Zaragoza MD [Primary Care Provider] - 1 Week Discharge Medications: Continued simvastatin 20 mg tablet 20 mg PO BEDTIME Qty: 90 RF: 8 amlodipine 10 mg tablet 10 mg PO BEDTIME RF: 0 cholecalciferol (vitamin D3) [Vitamin D3] 25 mcg (1,000 unit) Capsule 25 mcg PO DAILY RF: 0 coenzyme Q10 [Co Q-10] 200 mg Capsule 200 mg PO DAILY RF: 0 ondansetron HCl [Zofran] 4 mg Tablet 4 mg PO Q6H PRN (Reason: Nausea) Qty: 30 RF: 3 levofloxacin 250 mg tablet 250 mg PO DAILY Qty: 14 RF: 0 calcium carbonate [Calcium 600] 600 mg calcium (1,500 mg) Tablet 1,200 mg PO BID RF: 0 eplerenone 25 mg tablet 25 mg PO DAILY RF: 0 losartan 50 mg tablet 50 mg PO DAILY RF: 0 allopurinol 300 mg tablet 300 mg PO DAILY Qty: 90 RF: 8 No Action pioglitazone 30 mg tablet 30 mg PO DAILY Qty: 90 RF: 8 famotidine [Pepcid] 40 mg tablet 40 mg PO BEDTIME Qty: 30 RF: 2 methylprednisolone [Medrol (Raghav)] 4 mg tablets,dose pack See Rx Instructions PO PER PKG DIR Qty: 21 RF: 0 magnesium oxide 200 mg magnesium Tablet 400 mg PO DAILY Qty: 30 RF: 0 tramadol 50 mg Tablet 50 mg PO BID Qty: 60 RF: 0 Discharge Orders: Discharge Order (Routine); Ordered 03/07/21 Ordered By: Tyler Hansen Diet: advance to usual diet Activity on Discharge: As tolerated Stand Alone Forms: Patient Portal Discharge page Care Plan Goals: Full recovery from sepsis, UTI and bacteremia Health Concerns: UTI, bacteremia, sepsis, colon cancer Plan of Treatment: Take Levaquin and follow up with your Doctor in a week Assessment: as above Discharge Date/Time: 03/07/21 20:00
[2021-03-07 15:21] LABS: Magnesium 1.4 mg/dL (1.6-2.6)
[2021-03-07] MEDS: cefTRIAXone sodium 1 GM in 0.9 % Sodium Chloride 50 ML IV (15:48)
[2021-03-07] MEDS: Magnesium Sulfate/H2O 2 GM/50 ML PIGGYBACK IV (16:21)
[2021-03-07 16:36] LABS: Glucose, Whole Blood 131 mg/dL (60-115)
[2021-03-07 18:42] LABS: Hematocrit 26.2 % (42.0-52.0); Mean Corpuscular Volume 97.8 fL (80.0-98.0); Red Blood Count 2.68 X10*6/uL (4.60-5.80)
[2021-03-07 18:44] LABS: Hemoglobin 8.9 g/dl (14.0-18.0); Mean Corpuscular Hemoglobin 33.2 pg (27.0-33.0); Red Cell Distribution Width 19.4 % (11.0-16.0); White Blood Count 2.8 X10*3/uL (4.8-10.8)
[2021-03-07 18:50] LABS: NRBC Pct Auto 1.8 /100WBC (0.0-0.2); PLT ABN DIST 1
[2021-03-07 19:07] LABS: Platelet Count 88 X10*3/uL (160-400)
[2021-03-07] MEDS: Heparin Sodium,Porcine Flush 500 UNIT/5 ML SYRINGE IVFLUSH (19:41)
--- NOTE | 2021-03-27 02:16 | PC.NURSE ---
Late entry: Confirmed w/ Nery Fisher RN that full unit of RBC (unit ending 0891), transfused over 1 hour - patient then discharged. TAR edited to reflect transfusion ending at correct time.
== END 2021-03-07 20:00 | disposition home or self-care (01) | DRG 463 ==
LOC: HO.ED 00:57 → HO.EDOVER 02:53 → HO.S3 23:17
PROVIDERS: Admitting Provider Hospitalist; Emergency Provider Emergency Medicine; PCP Internal Medicine; Visit Provider Internal Medicine
DX: N39.0 Urinary tract infection, site not specified (principal); D61.810 Antineoplastic chemotherapy induced pancytopenia; C79.51 Secondary malignant neoplasm of bone; E87.2 Acidosis; R78.81 Bacteremia; C18.8 Malignant neoplasm of overlapping sites of colon; D63.1 Anemia in chronic kidney disease; E11.22 Type 2 diabetes mellitus with diabetic chronic kidney disease; N18.4 Chronic kidney disease, stage 4 (severe); E78.5 Hyperlipidemia, unspecified; E83.42 Hypomagnesemia; Z20.822 Contact with and (suspected) exposure to COVID-19; Z87.891 Personal history of nicotine dependence; Z88.0 Allergy status to penicillin; Z79.899 Other long term (current) drug therapy
CPT/HCPCS: 36415; 76857; 80048; 80076; 82947; 83605; 83690; 83735; 85007; 85027; 86850; 86900; 86901; 86923; 87040; 87635; 93005; 96361; 96365; 96366; 96375; 99285; J0692; J0696; J1642; J3475; P9016

== ENCOUNTER 2021-04-03 14:57 | Outpatient (REF) | payer OTHER, SELFPAY ==
--- NOTE | ~2021-04-03 | PE_ITS ---
EXAMINATION: Fluorine-18 FDG PET/CT Scan CLINICAL INDICATION: Subsequent treatment management. : Carcinoma, restaging. PROCEDURE: 69 minutes following the intravenous administration of 15.5 mCi of fluorine 18 FDG, images from the base of the skull to the mid thighs were obtained using a combined PET/CT scanner with CT scan based attenuation correction. No oral contrast was administered. No intravenous contrast was administered. Transverse, coronal, sagittal, and volume reconstruction projections were obtained. The patient's blood glucose as determined by a finger stick, was 116 mg/dl immediately prior to injection. Total CT exam dose-length product 1184.76 mGy-cm * These CT images were obtained using dose optimization techniques as appropriate, variously including the following: Automated exposure control * Adjustment of mA and/or kV according to patient size (this includes techniques or standardized protocols for targeted exams where dose is matched to indication/reason for exam; i.e. extremities or head) * Use of iterative reconstruction technique COMPARISON: The previous PET CT scan dated 01/02/2021 is available for comparison. FINDINGS: (Slice numbers described in this report are numbered superiorly to inferiorly with slice #1 in the head) NECK AND VISUALIZED HEAD: No foci of abnormal FDG activity are noted. The distribution of FDG activity is physiological. There is no cervical lymphadenopathy. THORAX: There are no foci of abnormal FDG activity present in the chest. Mild by basilar scarring or atelectasis is unchanged from the prior 01/02/[address] scan. There is no pleural or pericardial fluid, or pneumothorax. There is no mediastinal, supraclavicular, or axillary lymphadenopathy. A right-sided chest port with internal jugular catheter terminating in the superior vena cava is noted and is new since the 01/02/[address] scan. ABDOMEN AND PELVIS: There are diffuse FDG avid hypodensities present in both lobes of the liver, but there has been a significant decrease in the size and FDG avidity of many of these lesions. The most intense focus is in the dome of the right lobe, now showing SUVmax 19.9, slice 117/311 compared to the most intense focus previously present in the liver which showed SUVmax 24.6 on 01/02/2021. No new FDG avid hepatic lesions are present. Previously present FDG avid periportal lymphadenopathy is completely resolved, there was no definite extrahepatic FDG avid lymphadenopathy present. There is no suspicious retroperitoneal, mesenteric, pelvic or inguinal lymphadenopathy. A small retroperitoneal FDG avid prevertebral lymph node at the L3 level present on 01/02/2021 is no longer present. There is mild FDG activity throughout the gastrointestinal tract with no suspicious sclerotic focus. A suture line in the hepatic flexure of the large bowel is present, consistent with prior right colectomy, with no associated abnormal FDG activity. The prostate is enlarged measuring 5.9 cm in largest transverse dimension, unchanged from 01/02/2021. The pelvic organs are otherwise unremarkable. There is diverticulosis without evidence of diverticulitis. Hollow viscera are otherwise unremarkable. The kidneys, adrenal glands, and pancreas are unremarkable. There is minimal FDG activity associated with the midline anterior suture line, less intense than on 01/02/2021. MUSCULOSKELETAL: Intensely FDG avid lytic osseous lesions in the T3 and T5 vertebral bodies and sternum are now markedly improved, with only minimal FDG activity now present T5, SUVmax 4.5, slice 98/311 compared with SUVmax 19.2 -2020. There is now some sclerosis within the lytic lesion present at T5 on the prior study. An FDG avid lytic sternal lesion now shows no abnormal FDG activity. No new osseous lesions are visualized. VASCULAR: Diffuse vascular calcifications including coronary. PET/PET CT fusion skull to thigh IMPRESSION: 1. There has been a marked partial metabolic response to therapy of multiple intensely FDG avid liver lesions present on 01/02/2021. Diffuse FDG avid liver task disease persist, but there has been a very prominent decrease in the FDG avidity and size compared to 01/02/2021. 2. Previously present FDG avid periportal and retroperitoneal metastases have resolved. 3. Several FDG avid osseous lesions present on 01/02/2021 are almost completely resolved. Some mild residual FDG activity persists at T5 but this is markedly diminished compared to 01/02/2021. 4. No additional abnormalities suspicious for other metastatic or malignant lesions are noted. 5. Diffuse vascular calcifications including coronary.
== END 2021-04-03 14:58 | disposition home or self-care (01) ==
LOC: HO.PET 14:57
PROVIDERS: PCP Internal Medicine; Visit Provider Internal Medicine
DX: Z13.89 Encounter for screening for other disorder (principal)

== ENCOUNTER 2021-06-12 07:05 | Outpatient (REF) | payer OTHER, SELFPAY ==
--- NOTE | ~2021-06-12 | CT_ITS ---
EXAMINATION: CT ABDOMEN AND PELVIS WITHOUT CONTRAST CLINICAL INFORMATION: Abdominal aortic aneurysm. COMPARISON: Previous CT of the abdomen and pelvis, most recent November 2020. TECHNIQUE: Multidetector volumetric imaging was performed from the superior aspect of the liver through the pubic symphysis. Sagittal and coronal reformatted images were obtained on the technologist's workstation. This CT examination was performed using dose optimization techniques as appropriate, variously including the following: *Automated exposure control *Adjustment of mA and/or kV according to patient size (this includes techniques or standardized protocols for targeted exams where dose is matched to indication/reason for exam; i.e. extremities or head) *Use of iterative reconstruction technique DLP: 549 mGy-cm FINDINGS: LUNG BASES: There are increased peripheral interstitial markings at the lung bases questionable for mild interstitial lung disease. LIVER, GALLBLADDER, AND BILIARY TREE: The liver is enlarged. There are innumerable low-attenuation liver lesions suggestive of metastatic disease. This appears slightly decreased in size from most recent exam November 2020. Largest liver lesion is in the posterior segment of the right lobe and measures approximately 4.4 x 6.7 cm, axial image 21 series 3 compared to approximately 5 x 8.8 cm, axial image 26 series 3, 11/29/2019 exam. Largest lesion in the left lobe of the liver measures 2.5 cm, axial image 16 series 3 compared to 4.3 cm November 2020 exam. The gallbladder is not identified and may have been removed. There is no intrahepatic or extrahepatic biliary duct dilatation. PANCREAS: There are small calcifications in the pancreas. This appears unchanged. Pancreas is otherwise unremarkable. SPLEEN: Unremarkable. ADRENAL GLANDS: Unremarkable. KIDNEYS AND URETERS: There is a 2 mm stone in the left kidney. The kidneys are otherwise unremarkable. BLADDER: The prostate gland is enlarged and protrudes into the base of the bladder. The bladder is otherwise unremarkable. GASTROINTESTINAL TRACT: There are postsurgical changes following right colectomy. There is stool throughout the colon suggestive of constipation. Small and large bowel is otherwise unremarkable. There is question of wall thickening of the rectum. A discrete mass is not appreciated. The appendix is unremarkable. ABDOMINAL WALL: No significant hernia is appreciated. LYMPH NODES: Normal. VASCULAR: There is an aneurysm of the lower abdominal aorta. This measures maximum 3.5 x 4.5 cm in dimension axial image 54 series 3. This is increased in size from 3.2 x 3.8 cm November 2020 exam. PELVIC VISCERA: The prostate gland is enlarged and protrudes into the base of the bladder. Prostate gland measures 5.5 cm in AP and transverse dimension. OSSEOUS STRUCTURES: There are degenerative changes. No fracture or bone lesion is seen. CT/CT abdomen pelvis wo con IMPRESSION: Interval increase in size in the lower abdominal aortic aneurysm measuring 3.5 x 4.5 cm. Multiple liver lesions suggestive of metastatic disease. This appears slightly decreased compared to November 2020 exam. Postsurgical changes following right colectomy. Question rectal wall thickening. Small left renal stone. Enlarged prostate gland. Fleischner guidelines were followed.
== END 2021-06-12 07:06 | disposition home or self-care (01) ==
LOC: HO.CT 07:05
PROVIDERS: PCP Internal Medicine; Visit Provider Internal Medicine
DX: I71.4 Abdominal aortic aneurysm, without rupture (principal)
CPT/HCPCS: 74176

== ENCOUNTER 2021-08-06 11:14 | Outpatient (REF) | payer OTHER, SELFPAY ==
[2021-08-06 12:31] LABS: Total Volume 24 Hour Urine 2650 mL
[2021-08-06 12:46] LABS: Creatinine, 24Hr Urine 1.3 G/Day (1.0-2.0); Creatinine, mg/dL 48.06; Protein 24 Hr Urine 2173 mg/Day (<150); Protein mg/dL 82 mg/dL
== END 2021-08-06 11:15 | disposition home or self-care (01) ==
LOC: HO.LNP 11:14
PROVIDERS: Visit Provider Internal Medicine
DX: R80.9 Proteinuria, unspecified (principal)
CPT/HCPCS: 84156

== ENCOUNTER 2021-08-31 12:57 | Outpatient (REF) | payer OTHER, SELFPAY ==
--- NOTE | ~2021-08-31 | CT_ITS ---
EXAMINATION: CT ABDOMEN AND PELVIS WITHOUT CONTRAST CLINICAL INFORMATION: Carcinoma. Check response to treatment. COMPARISON: Previous CT of the abdomen and pelvis most recent May 2021 and PET/CT scan March 2021. TECHNIQUE: Multidetector volumetric imaging was performed from the superior aspect of the liver through the pubic symphysis. Sagittal and coronal reformatted images were obtained on the technologist's workstation. This CT examination was performed using dose optimization techniques as appropriate, variously including the following: *Automated exposure control *Adjustment of mA and/or kV according to patient size (this includes techniques or standardized protocols for targeted exams where dose is matched to indication/reason for exam; i.e. extremities or head) *Use of iterative reconstruction technique DLP: 787 mGy-cm FINDINGS: LUNG BASES: There are increased interstitial markings at the lung bases questionable for interstitial lung disease. There is question of small bilateral pulmonary nodules for example measuring 4 mm in the right lower lobe axial image 23 and 5 mm in the left lower lobe axial image 92 series 6. There is a small right cardiophrenic angle or anterior diaphragmatic lymph node that is stable. LIVER, GALLBLADDER, AND BILIARY TREE: The liver is enlarged. There are multiple low-attenuation liver lesions. These appear increased in size and number from most recent exam May 2011. For example there is a lesion or conglomerate lesion in the lateral segment of the left lobe of the liver that measures 4 x 6.5 cm axial image 18 series 3 compared to 3 x 3.7 cm and low-attenuation lesion in the posterior segment of the right lobe that measures 5.2 x 8 cm axial image 24 series 3 compared to 3.3 x 6 cm. The gallbladder is unremarkable with no evidence of radiopaque gallstones, gallbladder wall thickening, or obvious pericholecystic inflammatory changes. There is no biliary duct dilatation. There is a new small amount of ascites surrounding the liver. PANCREAS: There are small calcifications in the pancreas that appear unchanged. The pancreas is otherwise unremarkable. SPLEEN: Unremarkable. ADRENAL GLANDS: Unremarkable. KIDNEYS AND URETERS: There is a small nonobstructing stone in the left kidney. The left kidney is smaller than the right and there is left lower pole cortical thinning. The kidneys are otherwise unremarkable. BLADDER: Unremarkable. GASTROINTESTINAL TRACT: There are postsurgical changes from right colectomy. There is stool throughout the colon suggestive of constipation. Small and large bowel is otherwise normal. ABDOMINAL WALL: No significant hernia is appreciated. LYMPH NODES: Normal. VASCULAR: There is an aneurysm of the lower abdominal aorta. This measures 3.5 x 4.5 cm in transverse and AP dimension and does not appear appreciably changed in size from most recent CT May 2021. PELVIC VISCERA: The prostate gland is enlarged and protrudes into the base of the bladder. OSSEOUS STRUCTURES: There are degenerative changes of the spine. There is a small sclerotic lesion in the L5 vertebral body and right L4 pedicle that are stable. CT/CT abdomen pelvis wo con IMPRESSION: New pulmonary nodules. Enlarged liver. Interval increase in size and number of liver lesions. New small amount of ascites adjacent to the liver. Stable abdominal aortic aneurysm measuring 3.5 x 4.5 cm from May 2021. Again this is increased from older exam November 2020. Enlarged prostate gland that protrudes into the base of the bladder. Small left kidney. Small nonobstructing left renal stone. Small calcifications in the pancreas probably related to chronic pancreatitis. Fleischner guidelines were followed.
--- NOTE | ~2021-08-31 | CT_ITS ---
EXAMINATION: CT CHEST WITHOUT CONTRAST CLINICAL INFORMATION: Colon cancer. Treatment follow-up. COMPARISON: None. TECHNIQUE: Multidetector volumetric CT imaging of the chest was done. Axial MIP volume rendering provided. Sagittal and coronal reformatted images were obtained. This CT examination was performed using dose optimization techniques as appropriate, variously including the following: *Automated exposure control *Adjustment of mA and/or kV according to patient size (this includes techniques or standardized protocols for targeted exams where dose is matched to indication/reason for exam; i.e. extremities or head) *Use of iterative reconstruction technique DLP: 1107 mGy-cm. FINDINGS: OPERATOR TECHNICIAN: Unremarkable. LUNGS: The lungs are well expanded with dependent bibasilar minimal atelectatic changes. There is plate-like atelectasis right upper lobe anterior segment as well. There is a 4 mm nodule along the right major fissure axial image 290/7, likely intrafissural nodule. A subpleural 5 mm nodule is seen right lower lobe axial image 277/7, a 2 mm nodule seen in the right lower lobe axial image 280/7. Focal nodular thickening is seen in the left major fissure measuring 4 mm on axial image 321/7. MEDIASTINUM: The thyroid lobes are symmetric and normal. The central trachea and the bronchi are widely patent. There is a right central venous port with its tip in the proximal SVC. There are shotty lymph nodes in the left paratracheal space. There are coronary artery calcifications present. No pericardial effusion seen. PLEURA: There is no pleural effusion. No pleural mass or thickening. AXILLA: No lymphadenopathy. UPPER ABDOMEN: Visualized liver is heterogeneous with multiple liver lesions. Visualized spleen, pancreas and adrenal glands unremarkable. Post colonic surgical changes seen in the right upper quadrant. OSSEOUS STRUCTURES: No aggressive lytic or sclerotic process seen. There is a compression fracture deformity T5 vertebra, likely new. CT/CT chest wo con IMPRESSION: There are bilateral major fissure nodules likely intrafissural nodes. There are subpleural 5 mm and 2 mm nodules in the right lower lobe not previously described or seen on last PET study 04/03/2021. No abnormal mediastinal adenopathy. Heterogeneous liver with multiple liver lesions. These are known metastases as seen on previous PET/CT 04/06/2021. Fleischner guidelines were followed.
== END 2021-08-31 12:58 | disposition home or self-care (01) ==
LOC: HO.CT 12:57
PROVIDERS: Visit Provider Internal Medicine
DX: C18.9 Malignant neoplasm of colon, unspecified (principal)
CPT/HCPCS: 71250; 74176

== ENCOUNTER 2021-09-14 23:02 | Inpatient (IN) | payer OTHER, SELFPAY ==
--- NOTE | 2021-09-14 | ECG_ITS ---
Test Reason : WEAKNESS Blood Pressure : / mmHG Vent. Rate : 066 BPM Atrial Rate : 066 BPM P-R Int : 166 ms QRS Dur : 092 ms QT Int : 412 ms P-R-T Axes : 059 043 047 degrees QTc Int : 431 ms Normal sinus rhythm Normal ECG When compared with ECG of 06-MAR-2021 02:28, No significant change was found Referred By: Generic ED Physician Electronically Signed By:DARRIUS MCKEON
--- NOTE | ~2021-09-14 | CT_ITS ---
EXAMINATION: CT ABDOMEN AND PELVIS WITHOUT CONTRAST CLINICAL INFORMATION: Upper abdominal pain. GI bleed. COMPARISON: 08/31/2021 TECHNIQUE: Multidetector volumetric imaging was performed from the superior aspect of the liver through the pubic symphysis. Sagittal and coronal reformatted images were obtained on the technologist's workstation. This CT examination was performed using dose optimization techniques as appropriate, variously including the following: *Automated exposure control *Adjustment of mA and/or kV according to patient size (this includes techniques or standardized protocols for targeted exams where dose is matched to indication/reason for exam; i.e. extremities or head) *Use of iterative reconstruction technique DLP: 710 mGy-cm FINDINGS: LUNG BASES: Minimal basilar atelectasis. Coronary artery calcifications. LIVER, GALLBLADDER, AND BILIARY TREE: The liver is very abnormal with multiple hypoattenuating masses throughout. This is similar compared to the recent prior there is increased trace perihepatic ascites. The gallbladder is decompressed with no evidence of radiopaque gallstones, gallbladder wall thickening, or obvious pericholecystic inflammatory changes. PANCREAS: Unremarkable. SPLEEN: Unremarkable. ADRENAL GLANDS: Unremarkable. KIDNEYS AND URETERS: The kidneys are normal in size, shape, and attenuation. No hydronephrosis or hydroureter. 0.2 cm left midpole renal calculus is 7.5 cm from the posterior axillary line. There is symmetric perinephric stranding. BLADDER: Unremarkable. GASTROINTESTINAL TRACT: The stomach is unremarkable. Normal caliber small bowel. There is no obstruction. Much of the colon is decompressed. Scattered diverticulosis. No diverticulitis. Right hemicolectomy with right upper quadrant enterocolic anastomosis. No free air or free fluid. ABDOMINAL WALL: No significant hernia is appreciated. LYMPH NODES: Normal. VASCULAR: There is focal aneurysm no change from recent prior. Moderate atherosclerotic calcifications. Of the infrarenal abdominal aorta measuring 3.9 cm. PELVIC VISCERA: The prostate and seminal vesicles are unremarkable. OSSEOUS STRUCTURES: No acute or suspicious osseous abnormality. Mild degenerative change throughout the spine. CT/CT abdomen pelvis wo con IMPRESSION: No acute inflammatory changes of the colon. Hypoattenuating lesions throughout the liver again noted with increased small volume ascites. Fleischner guidelines were followed.
[2021-09-14 23:18] VITALS: BP 124/61; PULSE 65; RESP 18; TEMP 37.1; O2SAT 98; BMI 29.2
--- NOTE | 2021-09-14 23:40 | ED.GIBLEED ---
HPI - GI Bleed General Chief complaint: Abdominal Pain Stated complaint: Chemo, severe bleeding in stools Time Seen by Provider: 09/14/21 23:16 Source: patient, family and old records reviewed Mode of arrival: ambulatory Limitations: no limitations History of Present Illness HPI Narrative: 76 yo male with hx of stage IV colon cancer seen here s/p resection back in december with anastamosis, on chemo does infusion at home for 48 hours removed tonight developed abdominal pain upper and new onset brb pr x 2 with clots in toilets - does not take blood thinners and has nausea. MD complaint: gross hematochezia Onset (ago): hour(s) (in the last couple of hours) Pain Consistency: constant Severity: moderate Relieving factors: none Exacerbating factors: movement Context: other (on chemo for stage IV colon cancer) Associated symptoms: abdominal pain, nausea, loss of appetite, malaise and weakness Treatments Prior to Arrival: none Related Data Home Medications Medication Instructions Recorded Confirmed eplerenone 25 mg tablet 25 mg PO DAILY 02/23/20 09/06/21 amlodipine 10 mg tablet 5 mg PO BEDTIME 11/29/20 09/06/21 cholecalciferol (vitamin D3) 25 25 mcg PO DAILY 12/14/20 09/06/21 mcg (1,000 unit) capsule (Vitamin D3) coenzyme Q10 200 mg capsule (Co 200 mg PO DAILY 12/14/20 09/06/21 Q-10) calcium carbonate 600 mg calcium 1,200 mg PO BID 03/05/21 09/06/21 (1,500 mg) tablet (Calcium) docusate sodium 100 mg capsule 100 mg PO BID 06/04/21 09/06/21 (Stool Softener) Previous Rx's Medication Instructions Recorded allopurinol 300 mg tablet 300 mg PO DAILY #90 tab 10/25/20 ondansetron HCl 4 mg tablet 4 mg PO Q6H PRN #30 tab 01/12/21 (Zofran) pioglitazone 30 mg tablet 30 mg PO DAILY #90 tab 03/09/21 magnesium oxide 400 mg PO DAILY #30 tab 03/12/21 colchicine 0.6 mg tablet 0.6 mg PO DAILY #30 tab 03/28/21 simvastatin 20 mg tablet 20 mg PO BEDTIME #90 tab 06/07/21 famotidine 40 mg tablet 40 mg PO BEDTIME #30 tab 09/05/21 doxycycline hyclate 100 mg tablet 100 mg PO BID 10 Days #20 tab 09/06/21 tramadol 50 mg tablet 50 mg PO Q6H PRN #90 tab 09/13/21 Allergies Allergy/AdvReac Type Severity Reaction Status Date / Time atenolol Allergy Unknown dizziness Verified 09/14/21 23:21 penicillin V Allergy Unknown Unknown Verified 09/14/21 23:21 onion Allergy Diarrhea Verified 09/14/21 23:21 Peppers, Green Allergy Diarrhea Verified 09/14/21 23:21 Peppers, Jalapeno Allergy Diarrhea Verified 09/14/21 23:21 Peppers, Red Allergy Diarrhea Verified 09/14/21 23:21 Peppers, Yellow Allergy Diarrhea Verified 09/14/21 23:21 Review of Systems Review of Systems: Constitutional : No Weight loss, No Fever, No Chills ENT/Mouth : No sore throat, No Rhinorrhea Eyes: No Swelling, No Redness Cardiovascular : No Chest Pain, No SOB, NoEdema Respiratory : No Cough, No Sputum, No Wheezing Gastrointestinal : Positive Nausea, Positive Vomiting, positive Diarrhea, positive abdominal Pain, pos Hematochezia, No Melena Genitourinary : No Dysuria, No Urinary Frequency, No Hematuria, No Urgency Musculoskeletal : No joint pain, No Myalgias, No Joint Swelling Skin : No Skin Lesions, No rash Neuro : No Weakness, No Numbness, No Dizziness, No Headache Psych : No Anxiety/Panic, No Depression Heme/Lymph: No Bruising, No Lymphadenopathy Endocrine : No Polyuria, No Polydipsia All other systems reviewed and are negative. [facility] Past Medical History Attestation statement: The following information was validated with the patient. Medical History Abdominal aortic aneurysm Bone metastases CKD (chronic kidney disease), stage IV Colon carcinoma Diabetes mellitus Gout HLD (hyperlipidemia) Hypertension Pancytopenia Pancytopenia Surgical History History of hernia surgery History of removal of cyst S/P right colectomy Family History Family History Father Past heart attack Mother Past heart attack Social History Social History Household Members: Spouse Housing: House Do you presently have visiting nurse or other home services: No Alcohol intake: never Patient Tobacco Use Status: Former Tobacco user Tobacco use type: Cigarette Years Smoked: 62 e-Cigarette/Vaping Use: Never Used Second Hand Smoke Exposure: Yes Advance Directives: Yes Advance Directives on File: Yes Advance Directives Date on File: 07/11/21 service: No Current occupational status: retired Cognitive needs: No Hearing needs: No Vision needs: No Physical Exam Vital Signs: Vital Signs: Last Vital Signs Temp 98.0 F 09/15/21 00:35 Pulse 61 09/15/21 00:35 Resp 18 09/15/21 00:35 BP 160/65 H 09/15/21 00:35 Pulse Ox 99 09/15/21 00:35 BMI result Body Mass Index 29.2 Appearance: Alert. Oriented X3. No acute distress. Eyes: Pupils equal, round and reactive to light. ENT: Pharynx normal. Neck: Normal inspection. Neck supple. CVS: Normal heart rate and rhythm. Pulses normal. Respiratory: No respiratory distress. Breath sounds normal. Abdomen: Soft and ttp in upper abdomen no mass felt Rectal: dried blood noted outside rectum, digit on exam brown reddish noted Skin: Skin warm and dry. pale skin color. Normal skin turgor. Extremities: No lower extremity edema. No calf ttp Neuro: Oriented X 3. No motor deficit. No sensory deficit. Course Course Course Narrative: K 5.8 will give insulin dextrose and calcium given GIB symptoms and pain will hold lokelma BP and H/H stable no bleeding here will admit for observatio of GIB and pain control MDM - GI Bleed MDM Narrative Medical decision making narrative: 76 yo male with hx of stage IV colon cancer undergoing chemo s/p resection with anastomosis, HLD, gout, aortic aneurysm here with c/o abdominal pain and 2 bouts of brbpr with clots not on blood thinners after finishing chemo at home. At this time will need labs, lactic acid, IVF, IV fentanyl, CT scan for GIB protocol, dispo per results and findings. Anticipate admission for GIB monitoring. Lab Data Result diagrams: 09/15/21 00:05 09/15/21 00:05 Labs: Lab Results 09/15/21 09/15/21 09/15/21 Range/Units 00:05 00:05 00:05 WBC 12.2 H (4.8-10.8) X10*3/uL RBC 2.89 L (4.60-5.80) X10*6/uL Hgb 10.3 L (14.0-18.0) g/dl Hct 30.8 L (42.0-52.0) % MCV 106.6 H (80.0-98.0) fL MCH 35.6 H (27.0-33.0) pg MCHC 33.4 (31.0-36.0) g/dl RDW 16.6 H (11.0-16.0) % Plt Count 144 L (160-400) X10*3/uL MPV 11.5 (9.4-12.4) fL Immature Gran % (Auto) 1.6 H (0.0-0.4) % Neut % (Auto) 94.4 H (45-73) % Lymph % (Auto) 2.0 L (20-40) % [place] % (Auto) 1.9 L (2-11) % Eos % (Auto) 0.0 (0-4) % Baso % (Auto) 0.1 (0-2) % Lymph # (Auto) 0.2 L (1.2-4.9) X10*3/uL [place] # (Auto) 0.2 (0.1-1.2) X10*3/uL Eos # (Auto) 0.0 (0.0-0.4) X10*3/uL Baso # (Auto) 0.0 (0.0-0.2) X10*3/uL Abs Immat Gran (auto) 0.20 H (0.00-0.03) X10*3/uL Absolute Neuts (auto) 11.5 H (2.0-8.3) x10*3/uL Absolute Nucleated RBC 0.000 (0.0-0.012) X10*3/uL Nucleated RBC % (auto) 0.0 (0.0-0.2) /100WBC Smear Tech's Comments VERIFIED Sodium 138 (135-145) mmol/L Potassium 5.8 H D (3.3-5.1) mmol/L Chloride 113 H (96-108) mmol/L Carbon Dioxide 17 L (22-29) mmol/L Anion Gap 14 (12-20) BUN 58 H D (9-16) mg/dL Creatinine 1.74 H (0.5-1.4) mg/dL Estim Creat Clear Calc 41.9 Estimated GFR 38 POC Glucose (60-115) mg/dL Random Glucose 112 D (60-115) mg/dL Lactic Acid (0.5-2.0) mmol/L Calcium 6.1 L D (8.4-10.2) mg/dL Total Bilirubin 1.3 H (0.0-1.0) mg/dL AST 78 H (5-37) U/L ALT 31 (0-40) U/L Alkaline Phosphatase 325 H D (39-117) U/L Troponin I High Sens 4.9 (<3.5-35.0) ng/L Total Protein 4.9 L (6.5-8.0) g/dL Albumin 2.9 L (3.5-5.0) g/dL Lipase 67 (8-78) U/L Stool Occult Blood (NEGATIVE) COVID-19 (PEDRO) (Negative) COVID-19 Clin Com Blood Type Antibody Screen 09/15/21 09/15/21 09/15/21 Range/Units 00:05 00:05 00:27 WBC (4.8-10.8) X10*3/uL RBC (4.60-5.80) X10*6/uL Hgb (14.0-18.0) g/dl Hct (42.0-52.0) % MCV (80.0-98.0) fL MCH (27.0-33.0) pg MCHC (31.0-36.0) g/dl RDW (11.0-16.0) % Plt Count (160-400) X10*3/uL MPV (9.4-12.4) fL Immature Gran % (Auto) (0.0-0.4) % Neut % (Auto) (45-73) % Lymph % (Auto) (20-40) % [place] % (Auto) (2-11) % Eos % (Auto) (0-4) % Baso % (Auto) (0-2) % Lymph # (Auto) (1.2-4.9) X10*3/uL [place] # (Auto) (0.1-1.2) X10*3/uL Eos # (Auto) (0.0-0.4) X10*3/uL Baso # (Auto) (0.0-0.2) X10*3/uL Abs Immat Gran (auto) (0.00-0.03) X10*3/uL Absolute Neuts (auto) (2.0-8.3) x10*3/uL Absolute Nucleated RBC (0.0-0.012) X10*3/uL Nucleated RBC % (auto) (0.0-0.2) /100WBC Smear Tech's Comments Sodium (135-145) mmol/L Potassium (3.3-5.1) mmol/L Chloride (96-108) mmol/L Carbon Dioxide (22-29) mmol/L Anion Gap (12-20) BUN (9-16) mg/dL Creatinine (0.5-1.4) mg/dL Estim Creat Clear Calc Estimated GFR POC Glucose (60-115) mg/dL Random Glucose (60-115) mg/dL Lactic Acid 1.1 (0.5-2.0) mmol/L Calcium (8.4-10.2) mg/dL Total Bilirubin (0.0-1.0) mg/dL AST (5-37) U/L ALT (0-40) U/L Alkaline Phosphatase (39-117) U/L Troponin I High Sens (<3.5-35.0) ng/L Total Protein (6.5-8.0) g/dL Albumin (3.5-5.0) g/dL Lipase (8-78) U/L Stool Occult Blood POSITIVE (NEGATIVE) COVID-19 (PEDRO) Negative (Negative) COVID-19 Clin Com See Note Blood Type Antibody Screen 09/15/21 09/15/21 Range/Units 00:27 01:27 WBC (4.8-10.8) X10*3/uL RBC (4.60-5.80) X10*6/uL Hgb (14.0-18.0) g/dl Hct (42.0-52.0) % MCV (80.0-98.0) fL MCH (27.0-33.0) pg MCHC (31.0-36.0) g/dl RDW (11.0-16.0) % Plt Count (160-400) X10*3/uL MPV (9.4-12.4) fL Immature Gran % (Auto) (0.0-0.4) % Neut % (Auto) (45-73) % Lymph % (Auto) (20-40) % [place] % (Auto) (2-11) % Eos % (Auto) (0-4) % Baso % (Auto) (0-2) % Lymph # (Auto) (1.2-4.9) X10*3/uL [place] # (Auto) (0.1-1.2) X10*3/uL Eos # (Auto) (0.0-0.4) X10*3/uL Baso # (Auto) (0.0-0.2) X10*3/uL Abs Immat Gran (auto) (0.00-0.03) X10*3/uL Absolute Neuts (auto) (2.0-8.3) x10*3/uL Absolute Nucleated RBC (0.0-0.012) X10*3/uL Nucleated RBC % (auto) (0.0-0.2) /100WBC Smear Tech's Comments Sodium (135-145) mmol/L Potassium (3.3-5.1) mmol/L Chloride (96-108) mmol/L Carbon Dioxide (22-29) mmol/L Anion Gap (12-20) BUN (9-16) mg/dL Creatinine (0.5-1.4) mg/dL Estim Creat Clear Calc Estimated GFR POC Glucose 144 H (60-115) mg/dL Random Glucose (60-115) mg/dL Lactic Acid (0.5-2.0) mmol/L Calcium (8.4-10.2) mg/dL Total Bilirubin (0.0-1.0) mg/dL AST (5-37) U/L ALT (0-40) U/L Alkaline Phosphatase (39-117) U/L Troponin I High Sens (<3.5-35.0) ng/L Total Protein (6.5-8.0) g/dL Albumin (3.5-5.0) g/dL Lipase (8-78) U/L Stool Occult Blood (NEGATIVE) COVID-19 (PEDRO) (Negative) COVID-19 Clin Com Blood Type O Positive Antibody Screen NEGATIVE ECG Data Attestation: I personally reviewed and interpreted this ECG as follows: ECG interpretation date: 09/15/21 ECG interpretation time: 00:42 Interpretation: Rate: 66 Rhythm: NSR [place]: normal Normal P waves. Normal JACKY. Normal QRS complex. ST T wave : slightly peaked no MADELINE qTC: normal prior studies: no sig ischemia The study has been interpreted contemporaneously by me. . Discharge Plan Discharge Clinical Impression: Abdominal pain, Acute hyperkalemia, Hematochezia Patient Disposition: Admitted As Inpatient Prescriptions: No Action pioglitazone 30 mg tablet 30 mg PO DAILY Qty: 90 8RF colchicine 0.6 mg tablet 0.6 mg PO DAILY Qty: 30 8RF simvastatin 20 mg tablet 20 mg PO BEDTIME Qty: 90 8RF famotidine 40 mg tablet 40 mg PO BEDTIME Qty: 30 1RF amlodipine 10 mg tablet 5 mg PO BEDTIME 0RF cholecalciferol (vitamin D3) [Vitamin D3] 25 mcg (1,000 unit) Capsule 25 mcg PO DAILY 0RF coenzyme Q10 [Co Q-10] 200 mg Capsule 200 mg PO DAILY 0RF ondansetron HCl [Zofran] 4 mg Tablet 4 mg PO Q6H PRN (Reason: Nausea) Qty: 30 3RF magnesium oxide 200 mg magnesium Tablet 400 mg PO DAILY Qty: 30 0RF tramadol 50 mg Tablet 50 mg PO Q6H PRN (Reason: Pain) Qty: 90 0RF Rx Instructions: As needed for pain calcium carbonate [Calcium 600] 600 mg calcium (1,500 mg) Tablet 1,200 mg PO BID 0RF eplerenone 25 mg tablet 25 mg PO DAILY 0RF allopurinol 300 mg tablet 300 mg PO DAILY Qty: 90 8RF docusate sodium [Stool Softener] 100 mg capsule 100 mg PO BID 0RF doxycycline hyclate 100 mg tablet 100 mg PO BID 10 Days Qty: 20 0RF
[2021-09-15] VITALS (9 sets, daily range): BP systolic 122–160; BP diastolic 60–73; PULSE 54–65; RESP 16–20; TEMP 36.4–36.7; O2SAT 95–100
[2021-09-15 00:20] LABS: Basophils Percent Auto 0.1 % (0-2); Hematocrit 30.8 % (42.0-52.0); Hemoglobin 10.3 g/dl (14.0-18.0); Imm Gran Pct Auto 1.6 % (0.0-0.4); Lymphocytes Absolute Auto 0.2 X10*3/uL (1.2-4.9); MANUAL DIFF FLAG SCAN; Mean Corpuscular HGB Conc 33.4 g/dl (31.0-36.0); Mean Corpuscular Hemoglobin 35.6 pg (27.0-33.0); Mean Corpuscular Volume 106.6 fL (80.0-98.0); Mean Platelet Volume 11.5 fL (9.4-12.4); Monocytes Absolute Auto 0.2 X10*3/uL (0.1-1.2); Monocytes Percent Auto 1.9 % (2-11); Neutrophils Absolute Auto 11.5 x10*3/uL (2.0-8.3); Neutrophils Percent Auto 94.4 % (45-73); Platelet Count 144 X10*3/uL (160-400); Red Blood Count 2.89 X10*6/uL (4.60-5.80); Red Cell Distribution Width 16.6 % (11.0-16.0); SCAN SMEAR FLAG 1; White Blood Count 12.2 X10*3/uL (4.8-10.8)
[2021-09-15 00:30] LABS: Lactic Acid 1.1 mmol/L (0.5-2.0)
[2021-09-15 00:36] LABS: Alanine Aminotransferase 31 U/L (0-40); Albumin Level 2.9 g/dL (3.5-5.0); Alkaline Phosphatase 325 U/L (39-117); Anion Gap 14 (12-20); Aspartate Amino Transferase 78 U/L (5-37); Bilirubin Total 1.3 mg/dL (0.0-1.0); Blood Urea Nitrogen 58 mg/dL (9-16); Calcium 6.1 mg/dL (8.4-10.2); Carbon Dioxide 17 mmol/L (22-29); Chloride 113 mmol/L (96-108); Creatinine Clr Calc Pharmacy 41.9; Estimated Glomerular Filt Rate 38; Glucose Random 112 mg/dL (60-115); Lipase 67 U/L (8-78); Potassium 5.8 mmol/L (3.3-5.1); Sodium 138 mmol/L (135-145); Total Protein 4.9 g/dL (6.5-8.0)
[2021-09-15 00:38] LABS: Troponin-I High Sensitivity 4.9 ng/L (<3.5-35.0)
[2021-09-15 00:41] LABS: OBS Int Ctl Valid YES; OBS1 POSITIVE (NEGATIVE)
[2021-09-15 00:50] LABS: COVID-19 Test Negative (Negative)
[2021-09-15 00:54] LABS: SLIDE REVIEW VERIFIED
[2021-09-15] MEDS: Calcium Gluconate/NaCl,Iso-Osm 2 GM/100 ML PLAST..BAG IV (01:05)
[2021-09-15] MEDS: 0.9 % Sodium Chloride 1,000 ML 999 ML IV ×2 (01:06→02:08)
[2021-09-15] MEDS: Insulin Regular, Human 100 UNIT/ML 3 ML VIAL IVPUSH (01:08)
[2021-09-15] MEDS: Dextrose 50 % 25 GM/50 ML SYRINGE IVPUSH (01:09)
[2021-09-15] MEDS: ondansetron HCL 4 MG/2 ML VIAL IVPUSH (01:12)
[2021-09-15] MEDS: fentaNYL citrate/PF 100 MCG/2 ML VIAL 50 MCG IVPUSH (01:13)
[2021-09-15 01:31] LABS: Glucose, Whole Blood 144 mg/dL (60-115)
--- NOTE | 2021-09-15 03:12 | PM.IMHP ---
History of Present Illness Date of Service: 09/15/21 Chief Complaint: bright red blood per rectum 76-year-old male with a past medical history of hypertension, hyperlipidemia, abdominal aortic aneurysm, history of colon cancer status post colectomy, liver metastasis from colon cancer -on chemotherapy actively; CKD,history of UTI/bacteremia; presented to the hospital today with a chief complaint of bright red blood per rectum. Patient reported that around 21:00 he started to develop bright red blood per rectum; had 2 episodes; 2nd episode was large in point; denies any associated lightheadedness dizziness. Reports mild abdominal discomfort. Denies any chest pain or palpitations. Denies any fever chills cough. Denies any urinary symptoms. Review of all other systems is negative except mentioned above ER course: Per ER team patient on presentation noted to have hemoglobin of 10.3; benign abdominal examination; CT abdomen showed no acute findings; on labs noted to have creatinine at baseline; potassium 5.8; no EKG changes; given insulin plus dextrose; admitted to the hospital for further management [facility] Medical History (Updated 11/30/21 @ 23:40 by Roman Germain MD) Abdominal aortic aneurysm Bone metastases CKD (chronic kidney disease), stage IV Colon carcinoma Diabetes mellitus Gout HLD (hyperlipidemia) Hypertension Pancytopenia Pancytopenia Family History Father Past heart attack Mother Past heart attack Surgical History (Updated 10/03/21 @ 08:31 by Neli Franklin MD) History of colonoscopy History of hernia surgery History of removal of cyst S/P right colectomy Social History Household Members: Spouse Housing: House Do you presently have visiting nurse or other home services: No Alcohol intake: never Patient Tobacco Use Status: Former Tobacco user Tobacco use type: Cigarette Years Smoked: 62 e-Cigarette/Vaping Use: Never Used Second Hand Smoke Exposure: Yes Advance Directives Date on File: 07/11/21 service: No Current occupational status: retired Cognitive needs: No Hearing needs: No Vision needs: No Meds Allergies Allergy/AdvReac Type Severity Reaction Status Date / Time atenolol Allergy Unknown dizziness Verified 09/28/21 10:50 penicillin V Allergy Unknown Unknown Verified 09/28/21 10:50 onion Allergy Diarrhea Verified 09/28/21 10:50 Peppers, Green Allergy Diarrhea Verified 09/28/21 10:50 Peppers, Jalapeno Allergy Diarrhea Verified 09/28/21 10:50 Peppers, Red Allergy Diarrhea Verified 09/28/21 10:50 Peppers, Yellow Allergy Diarrhea Verified 09/28/21 10:50 Active Medications: Current Medications Acetaminophen (Acetaminophen 325 Mg Tablet) 650 mg PO Q6H PRN PRN Reason: Pain, Mild (Pain Scale 1-3) Dextrose (Dextrose 50 % 25 Gm/50 Ml Syringe) 25 gm IVPUSH Q15M PRN; Protocol PRN Reason: per Hypoglycemia Standing Ord. Glucose (Glucose Gel 15 Gm Gel..Gram.) 15 gm PO Q15M PRN; Protocol PRN Reason: per Hypoglycemia Standing Ord. Sodium Chloride (Ns) 1,000 mls @ 50 mls/hr IVCONT .Q20H [facility] Insulin Human Lispro (Insulin Lispro 100 Unit/Ml 3 Ml Vial) 0 unit SUBCUT QIDACHS [facility]; Protocol Melatonin (Melatonin 3 Mg Tablet) 6 mg PO BEDTIME PRN PRN Reason: Insomnia Pantoprazole Sodium (Pantoprazole Sodium 40 Mg/10 Ml Vial) 40 mg IVPUSH DAILY@0630 [facility] Senna (Sennosides 8.6 Mg Tablet) 17.2 mg PO BEDTIME PRN PRN Reason: Constipation Sodium Chloride (0.9 % Sodium Chloride Flush 3 Ml Syringe) 3 ml IVFLUSH QSHIFT [facility] Home Medications Medication Instructions Recorded Confirmed Last Taken Type eplerenone 25 mg tablet 25 mg PO DAILY 02/23/20 10/03/21 09/14/21 History coenzyme Q10 200 mg capsule (Co 200 mg PO DAILY 12/14/20 10/03/21 09/14/21 History Q-10) calcium carbonate 600 mg calcium 600 mg PO BID 03/05/21 10/03/21 09/14/21 History (1,500 mg) tablet (Calcium) docusate sodium 100 mg capsule 100 mg PO BID 06/04/21 10/03/21 09/14/21 History (Stool Softener) amlodipine 5 mg tablet 1 tab PO BEDTIME 09/15/21 10/03/21 09/14/21 History bismuth subsalicylate 262 mg 2 tab PO Q1H PRN Indigestion 09/15/21 10/03/21 Unknown History tablet (Pepto-Bismol) cholecalciferol (vitamin D3) 125 125 mcg PO DAILY 09/15/21 10/03/21 09/14/21 History mcg (5,000 unit) tablet (Vitamin D3) loperamide 2 mg capsule 2 mg PO Q4H PRN Diarrhea 09/15/21 10/03/21 Unknown History magnesium 500 mg tablet 500 mg PO BID 09/15/21 10/03/21 09/14/21 History ondansetron HCl 4 mg tablet 1 tab PO Q6H PRN nausea 09/15/21 10/03/21 Unknown History simvastatin 20 mg tablet 20 mg PO BEDTIME 09/15/21 10/03/21 09/14/21 History tramadol 50 mg tablet 50 mg PO BID 09/15/21 10/03/21 09/14/21 History sertraline 50 mg tablet (Zoloft) 50 mg PO DAILY 10/03/21 10/03/21 Unknown History Physical Exam Vital Signs and Narrative: Vital Signs: Last Vital Signs Temp 98.0 F 09/15/21 00:35 Pulse 64 09/15/21 02:00 Resp 16 09/15/21 02:00 BP 131/65 09/15/21 02:00 Pulse Ox 100 09/15/21 02:00 BMI result Body Mass Index 29.2 Gen: Appears be in no acute distress HEENT: NCAT, Moist mucosa. Pulmonary: Vesicular breath sounds, fair air entry CVS: Normal S1-S2 Abdomen: BS+, Soft, Nontender Extremities: Warm well perfused Neuro: Alert and awake. Results Labs CBC and Chem 7: 09/17/21 05:34 09/17/21 05:34 Labs: Laboratory Results - last 24 hr 09/15/21 09/15/21 09/15/21 00:05 00:05 00:05 MCV 106.6 H MCH 35.6 H MCHC 33.4 RDW 16.6 H Plt Count 144 L MPV 11.5 Immature Gran % (Auto) 1.6 H Neut % (Auto) 94.4 H Lymph % (Auto) 2.0 L [place] % (Auto) 1.9 L Eos % (Auto) 0.0 Baso % (Auto) 0.1 Lymph # (Auto) 0.2 L [place] # (Auto) 0.2 Eos # (Auto) 0.0 Baso # (Auto) 0.0 Abs Immat Gran (auto) 0.20 H Absolute Neuts (auto) 11.5 H Absolute Nucleated RBC 0.000 Nucleated RBC % (auto) 0.0 Smear Tech's Comments VERIFIED Anion Gap 14 Estim Creat Clear Calc 41.9 Estimated GFR 38 POC Glucose Random Glucose 112 D Lactic Acid Calcium 6.1 L D Total Bilirubin 1.3 H AST 78 H ALT 31 Alkaline Phosphatase 325 H D Troponin I High Sens 4.9 Total Protein 4.9 L Albumin 2.9 L Lipase 67 Stool Occult Blood COVID-19 (PEDRO) COVID-19 Clin Com Blood Type Antibody Screen 09/15/21 09/15/21 09/15/21 00:05 00:05 00:27 MCV MCH MCHC RDW Plt Count MPV Immature Gran % (Auto) Neut % (Auto) Lymph % (Auto) [place] % (Auto) Eos % (Auto) Baso % (Auto) Lymph # (Auto) [place] # (Auto) Eos # (Auto) Baso # (Auto) Abs Immat Gran (auto) Absolute Neuts (auto) Absolute Nucleated RBC Nucleated RBC % (auto) Smear Tech's Comments Anion Gap Estim Creat Clear Calc Estimated GFR POC Glucose Random Glucose Lactic Acid 1.1 Calcium Total Bilirubin AST ALT Alkaline Phosphatase Troponin I High Sens Total Protein Albumin Lipase Stool Occult Blood POSITIVE COVID-19 (PEDRO) Negative COVID-[employer] Clin Com See Note Blood Type Antibody Screen 09/15/21 09/15/21 00:27 01:27 MCV MCH MCHC RDW Plt Count MPV Immature Gran % (Auto) Neut % (Auto) Lymph % (Auto) [place] % (Auto) Eos % (Auto) Baso % (Auto) Lymph # (Auto) [place] # (Auto) Eos # (Auto) Baso # (Auto) Abs Immat Gran (auto) Absolute Neuts (auto) Absolute Nucleated RBC Nucleated RBC % (auto) Smear Tech's Comments Anion Gap Estim Creat Clear Calc Estimated GFR POC Glucose 144 H Random Glucose Lactic Acid Calcium Total Bilirubin AST ALT Alkaline Phosphatase Troponin I High Sens Total Protein Albumin Lipase Stool Occult Blood COVID-19 (PEDRO) COVID-19 Clin Com Blood Type O Positive Antibody Screen NEGATIVE Imaging Radiologist's Impressions: Impressions Abdomen/Pelvis CT 09/15/21 01:00 IMPRESSION: No acute inflammatory changes of the colon. Hypoattenuating lesions throughout the liver again noted with increased small volume ascites. Fleischner guidelines were followed. Assessment and Plan (1) GI bleed: Status: Acute Plan 76-year-old male with a past medical history of hypertension, hyperlipidemia, abdominal aortic aneurysm, history of colon cancer status post colectomy, liver metastasis from colon cancer -on chemotherapy actively; CKD,history of UTI/bacteremia; presented to the hospital today with a chief complaint of bright red blood per rectum. bright red blood per rectum: Hemoglobin currently 10.3 - close to his baseline values. Serial H&H NPO GI consult Patient platelet count is 126 - likely secondary to chemotherapy;will continue to monitor Hyperkalemia: received Insulin plus Dextrose. repeat levels. Hx CKD: creatinine at baseline. History of colon cancer status post colectomy/ liver metastasis- patient on chemotherapy. Follows Dr. Franklin. History of hypertension: continue home antihypertensives with holding parameters. DVT prophylaxis: SCD boots Code status: Full code. Spoke to the patient's healthcare proxy at bedside. Quality Stroke Does the patient have a stroke diagnosis?: No VTE Prior VTE?: No VTE Risk Level:: Medical - moderate - high VTE Device Contraindication: Treatment Not Indicated VTE Drug Contraindication: N/A - Med Ordered
[2021-09-15 03:33] LABS: Hematocrit 32.3 % (42.0-52.0); Hemoglobin 10.4 g/dl (14.0-18.0); Imm Gran Abs Auto 0.08 X10*3/uL (0.00-0.03); Imm Gran Pct Auto 0.7 % (0.0-0.4); Lymphocytes Absolute Auto 0.4 X10*3/uL (1.2-4.9); Lymphocytes Percent Auto 3.4 % (20-40); MANUAL DIFF FLAG SCAN; Mean Corpuscular HGB Conc 32.2 g/dl (31.0-36.0); Mean Corpuscular Volume 108.8 fL (80.0-98.0); Mean Platelet Volume 11.2 fL (9.4-12.4); Monocytes Absolute Auto 0.2 X10*3/uL (0.1-1.2); Neutrophils Absolute Auto 10.6 x10*3/uL (2.0-8.3); Neutrophils Percent Auto 93.9 % (45-73); Platelet Count 126 X10*3/uL (160-400); Red Blood Count 2.97 X10*6/uL (4.60-5.80); Red Cell Distribution Width 16.8 % (11.0-16.0); SCAN SMEAR FLAG 1; White Blood Count 11.3 X10*3/uL (4.8-10.8)
[2021-09-15] MEDS: 0.9 % Sodium Chloride 1,000 ML 50 ML IVCONT ×2 (03:46→17:06)
[2021-09-15 04:14] LABS: Anion Gap 15 (12-20); Blood Urea Nitrogen 56 mg/dL (9-16); Calcium 6.2 mg/dL (8.4-10.2); Carbon Dioxide 14 mmol/L (22-29); Chloride 115 mmol/L (96-108); Creatinine Clr Calc Pharmacy 45.5; Estimated Glomerular Filt Rate 42; Glucose Random 64 mg/dL (60-115); Potassium 5.7 mmol/L (3.3-5.1); Sodium 138 mmol/L (135-145)
--- NOTE | 2021-09-15 05:11 | PC.NURSE ---
Addendum entered by Malissa Martinez 09/15/21 07:06: Report given to MITCHELL Wagner Original Note: one episode of BW with bright red blood. Dr. Germain aware
[2021-09-15] MEDS: Pantoprazole Sodium 40 MG/10 ML VIAL IVPUSH (06:31)
[2021-09-15 07:42] LABS: Basophils Percent Auto 0.1 % (0-2); Eosinophils Percent Auto 0.1 % (0-4); Hematocrit 30.7 % (42.0-52.0); Imm Gran Abs Auto 0.05 X10*3/uL (0.00-0.03); Imm Gran Pct Auto 0.5 % (0.0-0.4); Lymphocytes Absolute Auto 0.3 X10*3/uL (1.2-4.9); Lymphocytes Percent Auto 3.4 % (20-40); MANUAL DIFF FLAG SCAN; Mean Corpuscular HGB Conc 32.6 g/dl (31.0-36.0); Mean Corpuscular Hemoglobin 35.5 pg (27.0-33.0); Mean Corpuscular Volume 108.9 fL (80.0-98.0); Monocytes Absolute Auto 0.2 X10*3/uL (0.1-1.2); Monocytes Percent Auto 1.5 % (2-11); Neutrophils Absolute Auto 9.3 x10*3/uL (2.0-8.3); Neutrophils Percent Auto 94.4 % (45-73); Platelet Count 134 X10*3/uL (160-400); Red Blood Count 2.82 X10*6/uL (4.60-5.80); Red Cell Distribution Width 16.9 % (11.0-16.0); SCAN SMEAR FLAG 1; White Blood Count 9.9 X10*3/uL (4.8-10.8)
--- NOTE | 2021-09-15 08:49 | PHA.MEDREC ---
Pharmacy Consult ? Medication Reconciliation Pharmacy has completed the medication reconciliation. Spoke with in ED who had a list of medications. patient last took medications yesterday.
[2021-09-15] MEDS: Magnesium Oxide 400 MG TABLET 500 MG PO (09:13)
[2021-09-15] MEDS: allopurinoL 300 MG TABLET PO (09:17)
[2021-09-15] MEDS: amLODIPine Besylate 5 MG TABLET PO ×2 (09:17→20:06)
[2021-09-15] MEDS: Sodium Zirconium Cyclosilicate 10 GM POWD.PACK PO (09:18)
[2021-09-15 11:28] LABS: Glucose, Whole Blood 85 mg/dL (60-115)
--- NOTE | 2021-09-15 12:08 | PM.EVENT ---
Event Note Date of Service: 09/15/21 Event Note: GI consult dictated LGIB most c/w diverticulosis colonoscopy planned for 09/17
--- NOTE | 2021-09-15 12:09 | MHC.SHP ---
Pre-Procedural Eval Section A Date of Service: 09/15/21 The patient is an INPATIENT: Yes Changes since office visit: No Cold of Flu in the past 2 weeks, No New Medical Problems, No Changes in Medication and No Patient answered all questions The History & Physical has been completed within 30 days and I have reviewed it.: Yes Section B Chief Complaint: GI Bleed Allergies: Allergies Allergy/AdvReac Type Severity Reaction Status Date / Time atenolol Allergy Unknown dizziness Verified 09/14/21 23:21 penicillin V Allergy Unknown Unknown Verified 09/14/21 23:21 onion Allergy Diarrhea Verified 09/14/21 23:21 Peppers, Green Allergy Diarrhea Verified 09/14/21 23:21 Peppers, Jalapeno Allergy Diarrhea Verified 09/14/21 23:21 Peppers, Red Allergy Diarrhea Verified 09/14/21 23:21 Peppers, Yellow Allergy Diarrhea Verified 09/14/21 23:21 Plan I have reviewed the history and physical and performed a pertinent physical examination on my patient. No changes have occurred unless specified.
--- NOTE | 2021-09-15 13:08 | CONS_ITS ---
DATE OF SERVICE: 09/15/2021 REFERRING PHYSICIAN: Roman Germain MD REASON FOR CONSULTATION: Rectal bleeding. HISTORY OF PRESENT ILLNESS: The patient is a pleasant 76-year-old man who was admitted to the hospital after presenting to the emergency department with rectal bleeding. This began about 7 o'clock last night and initially was associated with bright red blood and clots and he had 1 second episode, and presented to the emergency room. He has had some upper abdominal discomfort over the past several days following his recent chemotherapy for metastatic colon cancer. He denies any fevers or chills. He does not take blood thinners. He has not undergone colonoscopy. He did present with a nearly obstructive cecal lesion last summer and underwent ileocolonic resection. He has been treated with chemotherapy for metastatic disease to the liver. Laboratory studies in the emergency department showed a hematocrit on admission of 30.8, which was down from 34 four days earlier. His hematocrit has remained stable overnight. He states the bleeding has lessened. PAST MEDICAL HISTORY: 1. Metastatic colon cancer as above. 2. Hypertension. 3. Hyperlipidemia. 4. Abdominal aortic aneurysm. 5. Chronic kidney disease stage 4. 6. Urinary tract infection. 7. Diabetes. CURRENT MEDICATIONS: Current medication list is reviewed in the chart. ALLERGIES: THERE ARE MULTIPLE MEDICATION AND FOOD ALLERGIES. FAMILY HISTORY: This is reviewed and is noncontributory. SOCIAL HISTORY: There is no current tobacco, alcohol, or substance abuse. REVIEW OF SYSTEMS: SKIN: No pruritus. HEENT: Negative. CARDIOPULMONARY: No shortness of breath or chest pain. GASTROINTESTINAL: As above. GENITOURINARY: Negative. NEUROPSYCHIATRIC: Negative. PHYSICAL EXAMINATION: GENERAL: Shows a pleasant male, lying on the stretcher in the emergency department. VITAL SIGNS: Reviewed in the electronic medical record and are stable. SKIN: Anicteric. HEENT: Shows no scleral icterus. NECK: Without lymphadenopathy or thyromegaly. LUNGS: Clear. HEART: Shows regular rate and rhythm. S1, S2. No murmur. ABDOMEN: Soft without focal masses or tenderness. There is a well-healed midline incision from his surgery with other incisions from laparoscopic for port placement that are well healed. EXTREMITIES: Without edema. LABORATORY DATA: Reviewed. He did have imaging with CT scanning, which describes the previous metastatic disease to the liver. There is scattered diverticulosis and changes from his prior surgery. IMPRESSION: Lower gastrointestinal bleeding. This most likely is consistent with a diverticular source, although other possible causes will include bleeding from the mass lesion or AVM. Colitis seems unlikely based on his imaging and this sounds more significant than simple hemorrhoidal bleeding, which he has had in the past. I discussed colonoscopy with the patient and his . They understand risks and benefits and agreed to proceed. He will be started on clear liquids and have a bowel prep tomorrow. The procedure will be arranged for Friday. Thanks for asking me to see him. I will follow him in the hospital with you. MD MINERVA Martínez/ELEONORA / [phone]
--- NOTE | 2021-09-15 14:48 | MHC.CM.PN ---
Met with pt and spouse to discuss d/c planning: pt resides with spouse, has no services and uses a cane. He is actively receiving chemo tx at [facility]. Spouse assists with care needs as do neighbors and other relatives. HCP on file. Vax x2 :no booster d/t ongoing chemo: Pt will have a colonoscopy Friday and likely return to home if there are no concerning findings. Spouse to transport.
--- NOTE | 2021-09-15 15:39 | PM.EVENT ---
Event Note Date of Service: 09/15/21 Event Note: Chart reviewed patient examined; exam unchanged since admission. Review GI consultation. .. Clear liquids today bowel prep tomorrow with colonoscopy 09/17 am
[2021-09-15 16:06] LABS: Glucose, Whole Blood 120 mg/dL (60-115)
[2021-09-15] MEDS: 0.9 % Sodium Chloride Flush 3 ML SYRINGE IVFLUSH (17:07)
[2021-09-15] MEDS: Atorvastatin Calcium 10 MG TABLET PO (20:06)
[2021-09-15] MEDS: Famotidine 20 MG TABLET 40 MG PO (20:06)
[2021-09-15] MEDS: Colchicine 0.6 MG TABLET PO (20:06)
[2021-09-15 20:32] LABS: Glucose, Whole Blood 98 mg/dL (60-115)
[2021-09-16 04:00] VITALS: BP 139/63; PULSE 62; RESP 20; TEMP 37; O2SAT 97
[2021-09-16] MEDS: Pantoprazole Sodium 40 MG/10 ML VIAL IVPUSH (05:54)
[2021-09-16 07:28] LABS: Glucose, Whole Blood 80 mg/dL (60-115)
[2021-09-16 07:33] VITALS: BP 134/73; PULSE 59; RESP 20; TEMP 36.7; O2SAT 99
[2021-09-16] MEDS: Magnesium Oxide 400 MG TABLET 500 MG PO (09:27)
[2021-09-16] MEDS: allopurinoL 300 MG TABLET PO (09:32)
[2021-09-16 10:15] LABS: MANUAL DIFF FLAG NO
[2021-09-16 10:17] LABS: Basophils Percent Auto 0.2 % (0-2); Eosinophils Absolute Auto 0.1 X10*3/uL (0.0-0.4); Hematocrit 29.4 % (42.0-52.0); Hemoglobin 9.8 g/dl (14.0-18.0); Imm Gran Abs Auto 0.03 X10*3/uL (0.00-0.03); Imm Gran Pct Auto 0.5 % (0.0-0.4); Lymphocytes Absolute Auto 0.4 X10*3/uL (1.2-4.9); Lymphocytes Percent Auto 7.2 % (20-40); Mean Corpuscular HGB Conc 33.3 g/dl (31.0-36.0); Mean Corpuscular Hemoglobin 35.8 pg (27.0-33.0); Mean Corpuscular Volume 107.3 fL (80.0-98.0); Mean Platelet Volume 11.6 fL (9.4-12.4); Monocytes Absolute Auto 0.1 X10*3/uL (0.1-1.2); Monocytes Percent Auto 1.2 % (2-11); Neutrophils Absolute Auto 5.2 x10*3/uL (2.0-8.3); Neutrophils Percent Auto 89.9 % (45-73); Platelet Count 115 X10*3/uL (160-400); Red Blood Count 2.74 X10*6/uL (4.60-5.80); Red Cell Distribution Width 16.9 % (11.0-16.0); White Blood Count 5.8 X10*3/uL (4.8-10.8)
[2021-09-16 10:35] LABS: Alanine Aminotransferase 22 U/L (0-40); Albumin Level 2.7 g/dL (3.5-5.0); Alkaline Phosphatase 258 U/L (39-117); Anion Gap 10 (12-20); Aspartate Amino Transferase 51 U/L (5-37); Bilirubin Total 1.2 mg/dL (0.0-1.0); Blood Urea Nitrogen 44 mg/dL (9-16); Calcium 6.1 mg/dL (8.4-10.2); Carbon Dioxide 20 mmol/L (22-29); Chloride 112 mmol/L (96-108); Creatinine Clr Calc Pharmacy 49.2; Estimated Glomerular Filt Rate 46; Glucose Fasting 105 mg/dL (60-99); Potassium 5.2 mmol/L (3.3-5.1); Sodium 137 mmol/L (135-145); Total Protein 4.5 g/dL (6.5-8.0)
--- NOTE | 2021-09-16 11:47 | PM.GIPN ---
Subjective Subjective Date of Service: 09/16/21 Interval History: bleeding has pretty much stopped hungry Critical Care Time (minutes): 0 Physical Exam Vital Signs: Vital Signs: Last Vital Signs Temp 98.0 F 09/16/21 07:33 Pulse 59 09/16/21 07:33 Resp 20 09/16/21 07:33 BP 134/73 09/16/21 07:33 Pulse Ox 99 09/16/21 07:33 BMI result Body Mass Index 29.2 GI: Other: abdomen is soft and nontender Objective Data Labs CBC & Chem 7: 09/16/21 09:53 09/16/21 09:53 Microbiology Microbiology Results: Microbiology 09/15/21 03:29 Blood - Venous Blood Culture - Preliminary No growth after 24 hours. 09/15/21 03:29 Blood - Venous Blood Culture - Preliminary No growth after 24 hours. Procedures Date of Service Date of Service: 09/16/21 Progress Note: A&P Assessment and plan (1) Rectal bleeding: Status: Acute Assessment and Plan: hematocrit has stabilized colonoscopy tomorrow. Time Spent With Patient Time: Total time spent is greater than 50% in coordination of care (as documented) at patient's floor/unit and/or counseling patient: Quality Stroke Does the patient have a stroke diagnosis?: No VTE Prior VTE?: No VTE Risk Level:: Medical - moderate - high VTE Device Contraindication: Treatment Not Indicated VTE Drug Contraindication: N/A - Med Ordered
[2021-09-16 12:00] VITALS: BP 147/76; PULSE 58; RESP 16; TEMP 36.9; O2SAT 99
[2021-09-16] MEDS: Sodium Zirconium Cyclosilicate 10 GM POWD.PACK PO (12:07)
[2021-09-16] MEDS: 0.9 % Sodium Chloride 1,000 ML 50 ML IVCONT (12:15)
[2021-09-16 12:34] LABS: Glucose, Whole Blood 107 mg/dL (60-115)
--- NOTE | 2021-09-16 12:45 | HO.PM.IMPN ---
Subjective Subjective Date of Service: 09/16/21 Interval History: No acute issues overnight. Some scant blood in stool per patient Review of Systems Denies chest pain Denies shortness of breath Denies nausea vomiting diarrhea Denies fever chills Physical Exam Vital Signs: Vital Signs: Last Vital Signs Temp 98.5 F 09/16/21 12:00 Pulse 58 09/16/21 12:00 Resp 16 09/16/21 12:00 BP 147/76 H 09/16/21 12:00 Pulse Ox 99 09/16/21 12:00 BMI result Body Mass Index 29.2 Const: Other: Awake alert oriented x3 no acute distress Resp: Other: Clear to auscultation bilaterally no rales rhonchi wheezes Cardio: Other: No S4; positive S1-S2; no S3 murmurs rubs or gallops GI: Other: Soft minimally tender left lower quadrant without rebound. Bowel sounds active 4 quadrants Extrem: Other: No edema bilaterally Objective Data Active Medications Acetaminophen (Acetaminophen 325 Mg Tablet) 650 mg PO Q6H PRN PRN Reason: Pain, Mild (Pain Scale 1-3) Allopurinol (Allopurinol 300 Mg Tablet) 300 mg PO DAILY [facility] Last Admin: 09/16/21 09:32 Dose: 300 mg Documented by: LYNNETTE Amlodipine Besylate (Amlodipine Besylate 5 Mg Tablet) 5 mg PO BEDTIME [facility]; Protocol Last Admin: 09/15/21 20:06 Dose: 5 mg Documented by: ESTRELLA Atorvastatin Calcium (Atorvastatin Calcium 10 Mg Tablet) 10 mg PO BEDTIME [facility] Last Admin: 09/15/21 20:06 Dose: 10 mg Documented by: ESTRELLA Calcium Carbonate (Calcium Carbonate 500 Mg Tablet) 500 mg PO BID [facility] Last Admin: 09/16/21 09:27 Dose: 500 mg Documented by: LYNNETTE Colchicine (Colchicine 0.6 Mg Tablet) 0.6 mg PO BEDTIME [facility] Last Admin: 09/15/21 20:06 Dose: 0.6 mg Documented by: ESTRELLA Dextrose (Dextrose 50 % 25 Gm/50 Ml Syringe) 25 gm IVPUSH Q15M PRN; Protocol PRN Reason: per Hypoglycemia Standing Ord. Docusate Sodium (Docusate Sodium 100 Mg Capsule) 100 mg PO BID [facility] Last Admin: 09/16/21 09:31 Dose: Not Given Documented by: LYNNETTE Non-Admin Reason: Patient Condition Contraindication Famotidine (Famotidine 20 Mg Tablet) 40 mg PO BEDTIME [facility] Last Admin: 09/15/21 20:06 Dose: 40 mg Documented by: ESTRELLA Glucose (Glucose Gel 15 Gm Gel..Gram.) 15 gm PO Q15M PRN; Protocol PRN Reason: per Hypoglycemia Standing Ord. Sodium Chloride (Ns) 1,000 mls @ 50 mls/hr IVCONT .Q20H [facility] Last Admin: 09/16/21 12:15 Dose: 50 mls/hr Documented by: LYNNETTE Insulin Human Lispro (Insulin Lispro 100 Unit/Ml 3 Ml Vial) 0 unit SUBCUT QIDACHS [facility]; Protocol Last Admin: 09/16/21 12:11 Dose: Not Given Documented by: LYNNETTE Non-Admin Reason: No Insulin Coverage Magnesium Oxide (Magnesium Oxide 400 Mg Tablet) 500 mg PO BID [facility] Last Admin: 09/16/21 09:27 Dose: 500 mg Documented by: LYNNETTE Melatonin (Melatonin 3 Mg Tablet) 6 mg PO BEDTIME PRN PRN Reason: Insomnia Pt Own Med ( Eplerenone 25 Mg Tablet) 25 mg PO DAILY [facility] Last Admin: 09/16/21 09:37 Dose: 25 mg Documented by: LYNNETTE Ondansetron HCl (Ondansetron Odt 4 Mg Tab.Rapdis) 4 mg TRANSLINGU Q6H PRN PRN Reason: Nausea Pantoprazole Sodium (Pantoprazole Sodium 40 Mg/10 Ml Vial) 40 mg IVPUSH DAILY@0630 [facility] Last Admin: 09/16/21 05:54 Dose: 40 mg Documented by: COREY Pioglitazone HCl (Pioglitazone Hcl 30 Mg Tablet) 30 mg PO DAILY [facility] Last Admin: 09/16/21 09:32 Dose: Not Given Documented by: LYNNETTE Non-Admin Reason: cl liq diet Polyethylene Glycol/Electrolytes (Peg 3350/Na Sulf,Bicarb,Cl/Kcl 4,000 Ml Soln.Recon) 4,000 ml PO ONCE ONE Stop: 09/16/21 13:01 Senna (Sennosides 8.6 Mg Tablet) 17.2 mg PO BEDTIME PRN PRN Reason: Constipation Sodium Chloride (0.9 % Sodium Chloride Flush 3 Ml Syringe) 3 ml IVFLUSH QSHIFT [facility] Last Admin: 09/16/21 07:35 Dose: Not Given Documented by: LYNNETTE Non-Admin Reason: IV Running Labs CBC & Chem 7: 09/16/21 09:53 09/16/21 09:53 Labs: Laboratory Results - last 24 hr 09/15/21 09/15/21 09/15/21 00:05 00:05 03:29 Hgb 10.3 L 10.4 L MCV MCH MCHC RDW Plt Count MPV Immature Gran % (Auto) Neut % (Auto) Lymph % (Auto) [place] % (Auto) Eos % (Auto) Baso % (Auto) Lymph # (Auto) [place] # (Auto) Eos # (Auto) Baso # (Auto) Abs Immat Gran (auto) Absolute Neuts (auto) Absolute Nucleated RBC Nucleated RBC % (auto) Potassium 5.8 H D Anion Gap Creatinine 1.74 H Estim Creat Clear Calc Estimated GFR POC Glucose Fasting Glucose Calcium Total Bilirubin AST ALT Alkaline Phosphatase Total Protein Albumin 09/15/21 09/15/21 09/15/21 03:29 07:13 15:59 Hgb 10.0 L MCV MCH MCHC RDW Plt Count MPV Immature Gran % (Auto) Neut % (Auto) Lymph % (Auto) [place] % (Auto) Eos % (Auto) Baso % (Auto) Lymph # (Auto) [place] # (Auto) Eos # (Auto) Baso # (Auto) Abs Immat Gran (auto) Absolute Neuts (auto) Absolute Nucleated RBC Nucleated RBC % (auto) Potassium 5.7 H Anion Gap Creatinine 1.60 H Estim Creat Clear Calc Estimated GFR POC Glucose 120 H Fasting Glucose Calcium Total Bilirubin AST ALT Alkaline Phosphatase Total Protein Albumin 09/15/21 09/16/21 09/16/21 20:23 07:13 09:53 Hgb 9.8 L MCV 107.3 H MCH 35.8 H MCHC 33.3 RDW 16.9 H Plt Count 115 L MPV 11.6 Immature Gran % (Auto) 0.5 H Neut % (Auto) 89.9 H Lymph % (Auto) 7.2 L [place] % (Auto) 1.2 L Eos % (Auto) 1.0 Baso % (Auto) 0.2 Lymph # (Auto) 0.4 L [place] # (Auto) 0.1 Eos # (Auto) 0.1 Baso # (Auto) 0.0 Abs Immat Gran (auto) 0.03 Absolute Neuts (auto) 5.2 Absolute Nucleated RBC 0.000 Nucleated RBC % (auto) 0.0 Potassium Anion Gap Creatinine Estim Creat Clear Calc Estimated GFR POC Glucose 98 80 Fasting Glucose Calcium Total Bilirubin AST ALT Alkaline Phosphatase Total Protein Albumin 09/16/21 09/16/21 09:53 12:08 Hgb MCV MCH MCHC RDW Plt Count MPV Immature Gran % (Auto) Neut % (Auto) Lymph % (Auto) [place] % (Auto) Eos % (Auto) Baso % (Auto) Lymph # (Auto) [place] # (Auto) Eos # (Auto) Baso # (Auto) Abs Immat Gran (auto) Absolute Neuts (auto) Absolute Nucleated RBC Nucleated RBC % (auto) Potassium 5.2 H Anion Gap 10 L Creatinine 1.48 H Estim Creat Clear Calc 49.2 Estimated GFR 46 POC Glucose 107 Fasting Glucose 105 H D Calcium 6.1 L Total Bilirubin 1.2 H AST 51 H ALT 22 Alkaline Phosphatase 258 H D Total Protein 4.5 L Albumin 2.7 L Microbiology Microbiology Results: Microbiology 09/15/21 03:29 Blood Culture - Preliminary Blood - Venous No growth after 24 hours. 09/15/21 03:29 Blood Culture - Preliminary Blood - Venous No growth after 24 hours. Assessment and Plan (1) Rectal bleeding: Status: Acute (2) CKD (chronic kidney disease), stage IV: Status: Acute (3) Hypertension: Status: Acute Plan 76-year-old male with a past medical history of hypertension, hyperlipidemia, abdominal aortic aneurysm, history of colon cancer status post colectomy, liver metastasis from colon cancer -on chemotherapy actively; CKD,history of UTI/bacteremia; presented to the hospital today with a chief complaint of bright red blood per rectum. 1. Lower GI bleed -minimal if any bleeding overnight -hemoglobin stable -bowel prep today; colonoscopy in a.m. 2.CKD 4 -creatinine at baseline -add maintenance fluids with bowel prep -follow renals/divalents 3.Hypertension -Acceptable control on current therapies -adjust as indicated SCD boots Full code. Requires ongoing hospitalization to monitor rectal bleeding/blood counts prep for colonoscopy Quality Stroke Does the patient have a stroke diagnosis?: No VTE Prior VTE?: No VTE Risk Level:: Medical - moderate - high VTE Device Contraindication: Treatment Not Indicated VTE Drug Contraindication: N/A - Med Ordered
[2021-09-16] MEDS: Dextrose 5 % and 0.45 % NaCl 1,000 ML 100 ML IVCONT ×2 (13:57→22:07)
[2021-09-16] MEDS: PEG 3350/Na Sulf,Bicarb,Cl/KCL 4,000 ML SOLN.RECON 4000 ML PO (14:02)
[2021-09-16 16:17] VITALS: BP 159/83; PULSE 89; RESP 18; TEMP 36.7; O2SAT 100
[2021-09-16 16:18] LABS: Glucose, Whole Blood 110 mg/dL (60-115)
[2021-09-16 19:24] VITALS: BP 154/81; PULSE 58; RESP 18; TEMP 36.9; O2SAT 98
[2021-09-16 19:32] LABS: Glucose, Whole Blood 113 mg/dL (60-115)
[2021-09-16] MEDS: Atorvastatin Calcium 10 MG TABLET PO (21:57)
[2021-09-16] MEDS: amLODIPine Besylate 5 MG TABLET PO (21:58)
[2021-09-16] MEDS: Colchicine 0.6 MG TABLET PO (21:58)
[2021-09-16] MEDS: Famotidine 20 MG TABLET 40 MG PO (21:58)
--- NOTE | 2021-09-16 22:36 | PC.NURSE ---
patient tolerated 1/2 of the bowel prep with a lot of encouragement from nursing staff and his .Pt became angry at 10 pm when he was asked to take more of the bowel prep. At the beginnings of the bowel prep pt reported some abdominal cramping. Had few BM's with hard formed stools. He also passed few blood clots with his stools. No nausea no vomiting.
[2021-09-16 23:01] VITALS: BP 163/76; PULSE 60; RESP 18; TEMP 36.8; O2SAT 99
[2021-09-17] VITALS (9 sets, daily range): BP systolic 115–163; BP diastolic 52–82; PULSE 57–64; RESP 16–20; TEMP 36.3–37; O2SAT 96–100
[2021-09-17] MEDS: Pantoprazole Sodium 40 MG/10 ML VIAL IVPUSH (05:40)
[2021-09-17 05:56] LABS: Basophils Percent Auto 0.2 % (0-2); Eosinophils Absolute Auto 0.1 X10*3/uL (0.0-0.4); Eosinophils Percent Auto 1.8 % (0-4); Hemoglobin 9.4 g/dl (14.0-18.0); Imm Gran Abs Auto 0.02 X10*3/uL (0.00-0.03); Imm Gran Pct Auto 0.4 % (0.0-0.4); Lymphocytes Absolute Auto 0.6 X10*3/uL (1.2-4.9); Lymphocytes Percent Auto 12.4 % (20-40); MANUAL DIFF FLAG SCAN; Mean Corpuscular HGB Conc 32.4 g/dl (31.0-36.0); Mean Corpuscular Hemoglobin 34.4 pg (27.0-33.0); Mean Corpuscular Volume 106.2 fL (80.0-98.0); Mean Platelet Volume 11.3 fL (9.4-12.4); Monocytes Absolute Auto 0.1 X10*3/uL (0.1-1.2); Neutrophils Absolute Auto 4.2 x10*3/uL (2.0-8.3); Neutrophils Percent Auto 84.2 % (45-73); Platelet Count 100 X10*3/uL (160-400); Red Blood Count 2.73 X10*6/uL (4.60-5.80); Red Cell Distribution Width 16.7 % (11.0-16.0); SCAN SMEAR FLAG 1
[2021-09-17 06:24] LABS: SLIDE REVIEW VERIFIED
[2021-09-17 06:35] LABS: Alanine Aminotransferase 26 U/L (0-40); Albumin Level 2.6 g/dL (3.5-5.0); Alkaline Phosphatase 290 U/L (39-117); Anion Gap 10 (12-20); Aspartate Amino Transferase 50 U/L (5-37); Bilirubin Total 1.1 mg/dL (0.0-1.0); Blood Urea Nitrogen 36 mg/dL (9-16); Calcium 5.9 mg/dL (8.4-10.2); Carbon Dioxide 21 mmol/L (22-29); Chloride 109 mmol/L (96-108); Creatinine Clr Calc Pharmacy 38.6; Estimated Glomerular Filt Rate 35; Glucose Fasting 109 mg/dL (60-99); Potassium 5.2 mmol/L (3.3-5.1); Sodium 135 mmol/L (135-145); Total Protein 4.4 g/dL (6.5-8.0)
[2021-09-17 08:02] LABS: Glucose, Whole Blood 94 mg/dL (60-115)
[2021-09-17] MEDS: allopurinoL 300 MG TABLET PO (09:17)
[2021-09-17] MEDS: Magnesium Oxide 400 MG TABLET PO (09:19)
[2021-09-17] MEDS: Dextrose 5 % and 0.45 % NaCl 1,000 ML 100 ML IVCONT (09:33)
[2021-09-17 11:36] LABS: Glucose, Whole Blood 114 mg/dL (60-115)
--- NOTE | 2021-09-17 12:22 | HO.PM.IMPN ---
Subjective Subjective Date of Service: 09/17/21 Interval History: No acute issues overnight. Some scant blood in stool per patient Review of Systems Denies chest pain Denies shortness of breath Denies nausea vomiting diarrhea Denies fever chills Physical Exam Vital Signs: Vital Signs: Last Vital Signs Temp 97.8 F 09/17/21 10:47 Pulse 60 09/17/21 10:47 Resp 20 09/17/21 10:47 BP 163/82 H 09/17/21 10:47 Pulse Ox 100 09/17/21 10:47 BMI result Body Mass Index 29.2 Const: Other: Awake alert oriented x3 no acute distress Resp: Other: Clear to auscultation bilaterally no rales rhonchi wheezes Cardio: Other: No S4; positive S1-S2; no S3 murmurs rubs or gallops GI: Other: Soft minimally tender left lower quadrant without rebound. Bowel sounds active 4 quadrants Extrem: Other: No edema bilaterally Objective Data Active Medications Acetaminophen (Acetaminophen 325 Mg Tablet) 650 mg PO Q6H PRN PRN Reason: Pain, Mild (Pain Scale 1-3) Allopurinol (Allopurinol 300 Mg Tablet) 300 mg PO DAILY [facility] Last Admin: 09/17/21 09:17 Dose: 300 mg Documented by: YVETTE Amlodipine Besylate (Amlodipine Besylate 5 Mg Tablet) 5 mg PO BEDTIME [facility]; Protocol Last Admin: 09/16/21 21:58 Dose: 5 mg Documented by: ESTRELLA Atorvastatin Calcium (Atorvastatin Calcium 10 Mg Tablet) 10 mg PO BEDTIME [facility] Last Admin: 09/16/21 21:57 Dose: 10 mg Documented by: ESTRELLA Calcium Carbonate (Calcium Carbonate 500 Mg Tablet) 500 mg PO BID [facility] Last Admin: 09/17/21 09:17 Dose: 500 mg Documented by: YVETTE Colchicine (Colchicine 0.6 Mg Tablet) 0.6 mg PO BEDTIME [facility] Last Admin: 09/16/21 21:58 Dose: 0.6 mg Documented by: ESTRELLA Dextrose (Dextrose 50 % 25 Gm/50 Ml Syringe) 25 gm IVPUSH Q15M PRN; Protocol PRN Reason: per Hypoglycemia Standing Ord. Docusate Sodium (Docusate Sodium 100 Mg Capsule) 100 mg PO BID [facility] Last Admin: 09/17/21 07:30 Dose: Not Given Documented by: Famotidine (Famotidine 20 Mg Tablet) 40 mg PO BEDTIME [facility] Last Admin: 09/16/21 21:58 Dose: 40 mg Documented by: ESTRELLA Glucose (Glucose Gel 15 Gm Gel..Gram.) 15 gm PO Q15M PRN; Protocol PRN Reason: per Hypoglycemia Standing Ord. Dextrose/Sodium Chloride (D51/2ns) 1,000 mls @ 100 mls/hr IVCONT .Q10H [facility] Last Admin: 09/17/21 09:33 Dose: 100 mls/hr Documented by: YVETTE Insulin Human Lispro (Insulin Lispro 100 Unit/Ml 3 Ml Vial) 0 unit SUBCUT QIDACHS [facility]; Protocol Last Admin: 09/17/21 09:22 Dose: Not Given Documented by: YVETTE Non-Admin Reason: bs 95 Magnesium Oxide (Magnesium Oxide 400 Mg Tablet) 400 mg PO BID [facility] Last Admin: 09/17/21 09:19 Dose: 400 mg Documented by: YVETTE Melatonin (Melatonin 3 Mg Tablet) 6 mg PO BEDTIME PRN PRN Reason: Insomnia Pt Own Med ( Eplerenone 25 Mg Tablet) 25 mg PO DAILY [facility] Last Admin: 09/17/21 09:38 Dose: 25 mg Documented by: YVETTE Ondansetron HCl (Ondansetron Odt 4 Mg Tab.Rapdis) 4 mg TRANSLINGU Q6H PRN PRN Reason: Nausea Pantoprazole Sodium (Pantoprazole Sodium 40 Mg/10 Ml Vial) 40 mg IVPUSH DAILY@0630 [facility] Last Admin: 09/17/21 05:40 Dose: 40 mg Documented by: PRITESH Pioglitazone HCl (Pioglitazone Hcl 30 Mg Tablet) 30 mg PO DAILY [facility] Last Admin: 09/17/21 10:04 Dose: Not Given Documented by: YVETTE Non-Admin Reason: Held NPO Senna (Sennosides 8.6 Mg Tablet) 17.2 mg PO BEDTIME PRN PRN Reason: Constipation Sodium Chloride (0.9 % Sodium Chloride Flush 3 Ml Syringe) 3 ml IVFLUSH QSHIFT [facility] Last Admin: 09/17/21 09:26 Dose: Not Given Documented by: YVETTE Non-Admin Reason: IV running Labs CBC & Chem 7: 09/17/21 05:34 09/17/21 05:34 Labs: Laboratory Results - last 24 hr 09/16/21 09/16/21 09/16/21 12:08 16:15 19:26 MCV MCH MCHC RDW Plt Count MPV Immature Gran % (Auto) Neut % (Auto) Lymph % (Auto) [place] % (Auto) Eos % (Auto) Baso % (Auto) Lymph # (Auto) [place] # (Auto) Eos # (Auto) Baso # (Auto) Abs Immat Gran (auto) Absolute Neuts (auto) Absolute Nucleated RBC Nucleated RBC % (auto) Smear Tech's Comments Anion Gap Estim Creat Clear Calc Estimated GFR POC Glucose 107 110 113 Fasting Glucose Calcium Total Bilirubin AST ALT Alkaline Phosphatase Total Protein Albumin 09/17/21 09/17/21 09/17/21 05:34 05:34 07:58 MCV 106.2 H MCH 34.4 H MCHC 32.4 RDW 16.7 H Plt Count 100 L MPV 11.3 Immature Gran % (Auto) 0.4 Neut % (Auto) 84.2 H Lymph % (Auto) 12.4 L [place] % (Auto) 1.0 L Eos % (Auto) 1.8 Baso % (Auto) 0.2 Lymph # (Auto) 0.6 L [place] # (Auto) 0.1 Eos # (Auto) 0.1 Baso # (Auto) 0.0 Abs Immat Gran (auto) 0.02 Absolute Neuts (auto) 4.2 Absolute Nucleated RBC 0.000 Nucleated RBC % (auto) 0.0 Smear Tech's Comments VERIFIED Anion Gap 10 L Estim Creat Clear Calc 38.6 Estimated GFR 35 POC Glucose 94 Fasting Glucose 109 H Calcium 5.9 L* Total Bilirubin 1.1 H AST 50 H ALT 26 Alkaline Phosphatase 290 H Total Protein 4.4 L Albumin 2.6 L 09/17/21 10:49 MCV MCH MCHC RDW Plt Count MPV Immature Gran % (Auto) Neut % (Auto) Lymph % (Auto) [place] % (Auto) Eos % (Auto) Baso % (Auto) Lymph # (Auto) [place] # (Auto) Eos # (Auto) Baso # (Auto) Abs Immat Gran (auto) Absolute Neuts (auto) Absolute Nucleated RBC Nucleated RBC % (auto) Smear Tech's Comments Anion Gap Estim Creat Clear Calc Estimated GFR POC Glucose 114 Fasting Glucose Calcium Total Bilirubin AST ALT Alkaline Phosphatase Total Protein Albumin Microbiology Microbiology Results: Microbiology 09/15/21 03:29 Blood Culture - Preliminary Blood - Venous No growth after 48 hours. 09/15/21 03:29 Blood Culture - Preliminary Blood - Venous No growth after 48 hours. Assessment and Plan (1) Rectal bleeding: Status: Acute (2) CKD (chronic kidney disease), stage IV: Status: Acute (3) Hypertension: Status: Acute Plan 76-year-old male with a past medical history of hypertension, hyperlipidemia, abdominal aortic aneurysm, history of colon cancer status post colectomy, liver metastasis from colon cancer -on chemotherapy actively; CKD,history of UTI/bacteremia; presented to the hospital today with a chief complaint of bright red blood per rectum. 1. Lower GI bleed -persistant bleeding overnight -hemoglobin stable -colonoscopy today; further plans based on forthcoming data 2.CKD 4 -creatinine at baseline -add maintenance fluids with bowel prep -follow renals/divalents 3.Hypertension -Acceptable control on current therapies -adjust as indicated SCD boots Full code. Requires ongoing hospitalization to monitor rectal bleeding/blood counts prep for colonoscopy Quality Stroke Does the patient have a stroke diagnosis?: No VTE Prior VTE?: No VTE Risk Level:: Medical - moderate - high VTE Device Contraindication: Treatment Not Indicated VTE Drug Contraindication: N/A - Med Ordered
--- NOTE | 2021-09-17 12:56 | MHC.CM.PN ---
per rounds pt still bleeding colonoscopy to be done today no anticapted date at this time
--- NOTE | 2021-09-17 14:34 | P.CONAN_ITS ---
[facility] Active Problems Active Problems: All Active Problems (Updated 09/16/21 @ 12:54 by Clark Abreu DO) CKD (chronic kidney disease), stage IV (Acute) Rectal bleeding (Acute) Abdominal pain (Acute) Acute hyperkalemia (Acute) Hematochezia (Acute) Boil of buttock (Acute) Bone metastases (Acute) Abdominal aortic aneurysm (Acute) Sepsis (Acute) Cecum mass (Acute) Liver lesion (Acute) Weakness (Acute) Bacteremia (Acute) Colon carcinoma (Chronic) HLD (hyperlipidemia) (Acute) Gout (Acute) Hypertension (Acute) Past Medical History Medical History (Updated 09/16/21 @ 12:54 by Clark Abreu DO) Abdominal aortic aneurysm Bone metastases CKD (chronic kidney disease), stage IV Colon carcinoma Diabetes mellitus Gout HLD (hyperlipidemia) Hypertension Pancytopenia Pancytopenia Family History Family History Father Past heart attack Mother Past heart attack Family history of problems with anesthesia: No Surgical History Surgical History History of hernia surgery History of removal of cyst S/P right colectomy History of Problems with Anesthesia: No Social History Social History Household Members: Spouse Housing: House Do you presently have visiting nurse or other home services: No Alcohol intake: never Patient Tobacco Use Status: Former Tobacco user Tobacco use type: Cigarette Years Smoked: 62 e-Cigarette/Vaping Use: Never Used Second Hand Smoke Exposure: Yes Use of substances other than those prescribed or required for medical reasons: No Currently Displaying Signs/Symptoms of Drug Intoxication Withdrawal: No Have you been hit, kicked, punched, or otherwise hurt by someone within the past year? If so, by whom?: No Do you feel safe in your current relationship?: Yes Is there a partner from a previous relationship who is making you feel unsafe now?: No Are you made to feel afraid or neglected: No Are you DNR?: No Advance Directives: Yes Advance Directives on File: Yes Advance Directives Date on File: 07/11/21 Do you have thoughts of harming others: None Do you have a plan to hurt others: No Plan Recently lost weight without trying: Unsure Nutrition Risks: No Nutritional Risk service: No Current occupational status: retired Cognitive needs: No Hearing needs: No Vision needs: No Meds Allergies Allergy/AdvReac Type Severity Reaction Status Date / Time atenolol Allergy Unknown dizziness Verified 09/14/21 23:21 penicillin V Allergy Unknown Unknown Verified 09/14/21 23:21 onion Allergy Diarrhea Verified 09/14/21 23:21 Peppers, Green Allergy Diarrhea Verified 09/14/21 23:21 Peppers, Jalapeno Allergy Diarrhea Verified 09/14/21 23:21 Peppers, Red Allergy Diarrhea Verified 09/14/21 23:21 Peppers, Yellow Allergy Diarrhea Verified 09/14/21 23:21 Active Medications: Current Medications Acetaminophen (Acetaminophen 325 Mg Tablet) 650 mg PO Q6H PRN PRN Reason: Pain, Mild (Pain Scale 1-3) Allopurinol (Allopurinol 300 Mg Tablet) 300 mg PO DAILY [facility] Last Admin: 09/17/21 09:17 Dose: 300 mg Documented by: Amlodipine Besylate (Amlodipine Besylate 5 Mg Tablet) 5 mg PO BEDTIME [facility]; Protocol Last Admin: 09/16/21 21:58 Dose: 5 mg Documented by: Atorvastatin Calcium (Atorvastatin Calcium 10 Mg Tablet) 10 mg PO BEDTIME [facility] Last Admin: 09/16/21 21:57 Dose: 10 mg Documented by: Calcium Carbonate (Calcium Carbonate 500 Mg Tablet) 500 mg PO BID [facility] Last Admin: 09/17/21 09:17 Dose: 500 mg Documented by: Colchicine (Colchicine 0.6 Mg Tablet) 0.6 mg PO BEDTIME [facility] Last Admin: 09/16/21 21:58 Dose: 0.6 mg Documented by: Dextrose (Dextrose 50 % 25 Gm/50 Ml Syringe) 25 gm IVPUSH Q15M PRN; Protocol PRN Reason: per Hypoglycemia Standing Ord. Docusate Sodium (Docusate Sodium 100 Mg Capsule) 100 mg PO BID [facility] Last Admin: 09/17/21 07:30 Dose: Not Given Documented by: Famotidine (Famotidine 20 Mg Tablet) 40 mg PO BEDTIME [facility] Last Admin: 09/16/21 21:58 Dose: 40 mg Documented by: Glucose (Glucose Gel 15 Gm Gel..Gram.) 15 gm PO Q15M PRN; Protocol PRN Reason: per Hypoglycemia Standing Ord. Dextrose/Sodium Chloride (D51/2ns) 1,000 mls @ 100 mls/hr IVCONT .Q10H [facility] Last Admin: 09/17/21 09:33 Dose: 100 mls/hr Documented by: Insulin Human Lispro (Insulin Lispro 100 Unit/Ml 3 Ml Vial) 0 unit SUBCUT QIDACHS [facility]; Protocol Last Admin: 09/17/21 13:23 Dose: Not Given Documented by: Magnesium Oxide (Magnesium Oxide 400 Mg Tablet) 400 mg PO BID [facility] Last Admin: 09/17/21 09:19 Dose: 400 mg Documented by: Melatonin (Melatonin 3 Mg Tablet) 6 mg PO BEDTIME PRN PRN Reason: Insomnia Pt Own Med ( Eplerenone 25 Mg Tablet) 25 mg PO DAILY [facility] Last Admin: 09/17/21 09:38 Dose: 25 mg Documented by: Ondansetron HCl (Ondansetron Odt 4 Mg Tab.Rapdis) 4 mg TRANSLINGU Q6H PRN PRN Reason: Nausea Pantoprazole Sodium (Pantoprazole Sodium 40 Mg/10 Ml Vial) 40 mg IVPUSH DAILY@0630 [facility] Last Admin: 09/17/21 05:40 Dose: 40 mg Documented by: Pioglitazone HCl (Pioglitazone Hcl 30 Mg Tablet) 30 mg PO DAILY [facility] Last Admin: 09/17/21 10:04 Dose: Not Given Documented by: Senna (Sennosides 8.6 Mg Tablet) 17.2 mg PO BEDTIME PRN PRN Reason: Constipation Sodium Chloride (0.9 % Sodium Chloride Flush 3 Ml Syringe) 3 ml IVFLUSH QSHIFT [facility] Last Admin: 09/17/21 09:26 Dose: Not Given Documented by: Home Medications Medication Instructions Recorded Confirmed Last Taken Type eplerenone 25 mg tablet 25 mg PO DAILY 02/23/20 09/15/21 09/14/21 History coenzyme Q10 200 mg capsule (Co 200 mg PO DAILY 12/14/20 09/15/21 09/14/21 History Q-10) calcium carbonate 600 mg calcium 600 mg PO BID 03/05/21 09/15/21 09/14/21 History (1,500 mg) tablet (Calcium) docusate sodium 100 mg capsule 100 mg PO BID 06/04/21 09/15/21 09/14/21 History (Stool Softener) amlodipine 5 mg tablet 1 tab PO BEDTIME 09/15/21 09/15/21 09/14/21 History bismuth subsalicylate 262 mg 2 tab PO Q1H PRN 09/15/21 09/15/21 Unknown History tablet (Pepto-Bismol) cholecalciferol (vitamin D3) 125 125 mcg PO DAILY 09/15/21 09/15/21 09/14/21 History mcg (5,000 unit) tablet (Vitamin D3) colchicine 0.6 mg tablet 0.6 mg PO QPM 09/15/21 09/15/21 09/14/21 History loperamide 2 mg capsule 2 mg PO Q4H PRN 09/15/21 09/15/21 Unknown History magnesium 500 mg tablet 500 mg PO BID 09/15/21 09/15/21 09/14/21 History ondansetron HCl 4 mg tablet 1 tab PO Q6H PRN 09/15/21 09/15/21 Unknown History simvastatin 20 mg tablet 20 mg PO BEDTIME 09/15/21 09/15/21 09/14/21 History tramadol 50 mg tablet 50 mg PO BID 09/15/21 09/15/21 09/14/21 History Exam Exam Date and Time: September 17, 2021 1434 Height,Weight and Vital Signs: Height 5 ft 10 in Weight 92.533 kg Last Vital Signs Temp 98.4 F 09/17/21 14:17 Pulse 61 09/17/21 14:17 Resp 18 09/17/21 14:17 BP 135/79 09/17/21 14:17 Pulse Ox 96 09/17/21 14:17 Pertinent Lab Results Pertinent Lab Results: Laboratory Tests 09/15/21 09/15/21 09/15/21 00:05 00:05 00:05 WBC 12.2 H RBC 2.89 L Hgb 10.3 L Hct 30.8 L MCV 106.6 H MCH 35.6 H MCHC 33.4 RDW 16.6 H Plt Count 144 L MPV 11.5 Immature Gran % (Auto) 1.6 H Neut % (Auto) 94.4 H Lymph % (Auto) 2.0 L [place] % (Auto) 1.9 L Eos % (Auto) 0.0 Baso % (Auto) 0.1 Lymph # (Auto) 0.2 L [place] # (Auto) 0.2 Eos # (Auto) 0.0 Baso # (Auto) 0.0 Abs Immat Gran (auto) 0.20 H Absolute Neuts (auto) 11.5 H Absolute Nucleated RBC 0.000 Nucleated RBC % (auto) 0.0 Smear Tech's Comments VERIFIED Sodium 138 Potassium 5.8 H D Chloride 113 H Carbon Dioxide 17 L Anion Gap 14 BUN 58 H D Creatinine 1.74 H Estim Creat Clear Calc 41.9 Estimated GFR 38 POC Glucose Random Glucose 112 D Fasting Glucose Lactic Acid Calcium 6.1 L D Total Bilirubin 1.3 H AST 78 H ALT 31 Alkaline Phosphatase 325 H D Troponin I High Sens 4.9 Total Protein 4.9 L Albumin 2.9 L Lipase 67 Stool Occult Blood COVID-19 ([facility]) COVID-WDT Acquisition Blood Type Antibody Screen 09/15/21 09/15/21 09/15/21 00:05 00:05 00:27 WBC RBC Hgb Hct MCV MCH MCHC RDW Plt Count MPV Immature Gran % (Auto) Neut % (Auto) Lymph % (Auto) [place] % (Auto) Eos % (Auto) Baso % (Auto) Lymph # (Auto) [place] # (Auto) Eos # (Auto) Baso # (Auto) Abs Immat Gran (auto) Absolute Neuts (auto) Absolute Nucleated RBC Nucleated RBC % (auto) Smear Tech's Comments Sodium Potassium Chloride Carbon Dioxide Anion Gap BUN Creatinine Estim Creat Clear Calc Estimated GFR POC Glucose Random Glucose Fasting Glucose Lactic Acid 1.1 Calcium Total Bilirubin AST ALT Alkaline Phosphatase Troponin I High Sens Total Protein Albumin Lipase Stool Occult Blood POSITIVE COVID-19 ([facility]) Negative COVID-19 [employer] See Note Blood Type Antibody Screen 09/15/21 09/15/21 09/15/21 00:27 01:27 03:29 WBC 11.3 H RBC 2.97 L Hgb 10.4 L Hct 32.3 L MCV 108.8 H MCH 35.0 H MCHC 32.2 RDW 16.8 H Plt Count 126 L MPV 11.2 Immature Gran % (Auto) 0.7 H Neut % (Auto) 93.9 H Lymph % (Auto) 3.4 L [place] % (Auto) 2.0 Eos % (Auto) 0.0 Baso % (Auto) 0.0 Lymph # (Auto) 0.4 L [place] # (Auto) 0.2 Eos # (Auto) 0.0 Baso # (Auto) 0.0 Abs Immat Gran (auto) 0.08 H Absolute Neuts (auto) 10.6 H Absolute Nucleated RBC 0.000 Nucleated RBC % (auto) 0.0 Smear Tech's Comments Sodium Potassium Chloride Carbon Dioxide Anion Gap BUN Creatinine Estim Creat Clear Calc Estimated GFR POC Glucose 144 H Random Glucose Fasting Glucose Lactic Acid Calcium Total Bilirubin AST ALT Alkaline Phosphatase Troponin I High Sens Total Protein Albumin Lipase Stool Occult Blood COVID-19 ([facility]) COVID-19 [facility] Com Blood Type O Positive Antibody Screen NEGATIVE 09/15/21 09/15/21 09/15/21 03:29 07:13 11:23 WBC 9.9 RBC 2.82 L Hgb 10.0 L Hct 30.7 L MCV 108.9 H MCH 35.5 H MCHC 32.6 RDW 16.9 H Plt Count 134 L MPV 12.0 Immature Gran % (Auto) 0.5 H Neut % (Auto) 94.4 H Lymph % (Auto) 3.4 L [place] % (Auto) 1.5 L Eos % (Auto) 0.1 Baso % (Auto) 0.1 Lymph # (Auto) 0.3 L [place] # (Auto) 0.2 Eos # (Auto) 0.0 Baso # (Auto) 0.0 Abs Immat Gran (auto) 0.05 H Absolute Neuts (auto) 9.3 H Absolute Nucleated RBC 0.000 Nucleated RBC % (auto) 0.0 Smear Tech's Comments Sodium 138 Potassium 5.7 H Chloride 115 H Carbon Dioxide 14 L Anion Gap 15 BUN 56 H Creatinine 1.60 H Estim Creat Clear Calc 45.5 Estimated GFR 42 POC Glucose 85 Random Glucose 64 D Fasting Glucose Lactic Acid Calcium 6.2 L Total Bilirubin AST ALT Alkaline Phosphatase Troponin I High Sens Total Protein Albumin Lipase Stool Occult Blood COVID-19 ([facility]) COVID-19 Clin Com Blood Type Antibody Screen 09/15/21 09/15/21 09/16/21 15:59 20:23 07:13 WBC RBC Hgb Hct MCV MCH MCHC RDW Plt Count MPV Immature Gran % (Auto) Neut % (Auto) Lymph % (Auto) [place] % (Auto) Eos % (Auto) Baso % (Auto) Lymph # (Auto) [place] # (Auto) Eos # (Auto) Baso # (Auto) Abs Immat Gran (auto) Absolute Neuts (auto) Absolute Nucleated RBC Nucleated RBC % (auto) Smear Tech's Comments Sodium Potassium Chloride Carbon Dioxide Anion Gap BUN Creatinine Estim Creat Clear Calc Estimated GFR POC Glucose 120 H 98 80 Random Glucose Fasting Glucose Lactic Acid Calcium Total Bilirubin AST ALT Alkaline Phosphatase Troponin I High Sens Total Protein Albumin Lipase Stool Occult Blood COVID-19 ([facility]) COVID-19 [facility] Blood Type Antibody Screen 09/16/21 09/16/21 09/16/21 09:53 09:53 12:08 WBC 5.8 RBC 2.74 L Hgb 9.8 L Hct 29.4 L MCV 107.3 H MCH 35.8 H MCHC 33.3 RDW 16.9 H Plt Count 115 L MPV 11.6 Immature Gran % (Auto) 0.5 H Neut % (Auto) 89.9 H Lymph % (Auto) 7.2 L [place] % (Auto) 1.2 L Eos % (Auto) 1.0 Baso % (Auto) 0.2 Lymph # (Auto) 0.4 L [place] # (Auto) 0.1 Eos # (Auto) 0.1 Baso # (Auto) 0.0 Abs Immat Gran (auto) 0.03 Absolute Neuts (auto) 5.2 Absolute Nucleated RBC 0.000 Nucleated RBC % (auto) 0.0 Smear Tech's Comments Sodium 137 Potassium 5.2 H Chloride 112 H Carbon Dioxide 20 L Anion Gap 10 L BUN 44 H Creatinine 1.48 H Estim Creat Clear Calc 49.2 Estimated GFR 46 POC Glucose 107 Random Glucose Fasting Glucose 105 H D Lactic Acid Calcium 6.1 L Total Bilirubin 1.2 H AST 51 H ALT 22 Alkaline Phosphatase 258 H D Troponin I High Sens Total Protein 4.5 L Albumin 2.7 L Lipase Stool Occult Blood COVID-19 ([facility]) COVID-19 [facility] Blood Type Antibody Screen 09/16/21 09/16/21 09/17/21 16:15 19:26 05:34 WBC 5.0 RBC 2.73 L Hgb 9.4 L Hct 29.0 L MCV 106.2 H MCH 34.4 H MCHC 32.4 RDW 16.7 H Plt Count 100 L MPV 11.3 Immature Gran % (Auto) 0.4 Neut % (Auto) 84.2 H Lymph % (Auto) 12.4 L [place] % (Auto) 1.0 L Eos % (Auto) 1.8 Baso % (Auto) 0.2 Lymph # (Auto) 0.6 L [place] # (Auto) 0.1 Eos # (Auto) 0.1 Baso # (Auto) 0.0 Abs Immat Gran (auto) 0.02 Absolute Neuts (auto) 4.2 Absolute Nucleated RBC 0.000 Nucleated RBC % (auto) 0.0 Smear Tech's Comments VERIFIED Sodium Potassium Chloride Carbon Dioxide Anion Gap BUN Creatinine Estim Creat Clear Calc Estimated GFR POC Glucose 110 113 Random Glucose Fasting Glucose Lactic Acid Calcium Total Bilirubin AST ALT Alkaline Phosphatase Troponin I High Sens Total Protein Albumin Lipase Stool Occult Blood COVID-19 ([facility]) [facility] Blood Type Antibody Screen 09/17/21 09/17/21 09/17/21 05:34 07:58 10:49 WBC RBC Hgb Hct MCV MCH MCHC RDW Plt Count MPV Immature Gran % (Auto) Neut % (Auto) Lymph % (Auto) [place] % (Auto) Eos % (Auto) Baso % (Auto) Lymph # (Auto) [place] # (Auto) Eos # (Auto) Baso # (Auto) Abs Immat Gran (auto) Absolute Neuts (auto) Absolute Nucleated RBC Nucleated RBC % (auto) Smear Tech's Comments Sodium 135 Potassium 5.2 H Chloride 109 H Carbon Dioxide 21 L Anion Gap 10 L BUN 36 H Creatinine 1.89 H Estim Creat Clear Calc 38.6 Estimated GFR 35 POC Glucose 94 114 Random Glucose Fasting Glucose 109 H Lactic Acid Calcium 5.9 L* Total Bilirubin 1.1 H AST 50 H ALT 26 Alkaline Phosphatase 290 H Troponin I High Sens Total Protein 4.4 L Albumin 2.6 L Lipase Stool Occult Blood COVID-19 ([facility]) [facility] Blood Type Antibody Screen Airway Mallampati Class: II (7 teeth present denies any loose) TM Dist: >3cm Neck ROM: Full Heart: rrr Lungs: cta Assessment and Plan Assessment Anesthesia Assessment: Anesthesia Plan Discussed and Chart Reviewed Final Anesthetic Review Family History of Problems with Anesthesia: No History of Problems with Anesthesia: No NPO: Yes ASA Class: III Final Preanesthetic Review: No Changes in Pt Med Stat, Meds/Allgs Chart Reviewed and Consent Obtained/Reviewed Patient Risk: Intermediate Procedure Risk: Intermediate Anesthetic Plan Anesthetic Plan: MAC: Disposition: Standard PACU
--- NOTE | 2021-09-17 15:39 | PM.OP ---
Brief Operative Note Date of Service: 09/17/21 Pre-op diagnosis: rectal bleeding Post-op diagnosis: same (colon polyp) Procedure: colonoscopy Surgeon: Bryan Pollock Anesthesia: MAC Was an Design Coordinator used for this Procedure?: No Estimated blood loss (mL): 2 Pathology: other (rectal polyp) Condition: stable Disposition: PACU
--- NOTE | 2021-09-17 15:40 | PM.EVENT ---
Event Note Date of Service: 09/17/21 Event Note: colonoscopy 6mm rectal polyp, snared widely patent anastamosis large friable internal hemorrhoids advance diet d/c when stable f/u bx results
--- NOTE | 2021-09-17 16:11 | PM.DS ---
DS: Providers Provider Date of Service: 09/17/21 Date of admission: 09/15/21 02:39 Date of discharge: 09/17/21 Primary care physician: Armin Zaragoza MD Consults: 09/15/21 03:11 Consult to Gastroenterology Routine Consulting Provider: Alesha Angel Reason for consultation: GI bleed DS: Diagnosis Discharge Diagnosis (1) Rectal bleeding: Status: Acute (2) CKD (chronic kidney disease), stage IV: Status: Acute (3) Hypertension: Status: Acute DS: Summary Hospital Course Hospital Course: 76-year-old male with a past medical history of hypertension, hyperlipidemia, abdominal aortic aneurysm, history of colon cancer status post colectomy,? liver metastasis from colon cancer -on chemotherapy actively;? CKD,history of UTI/bacteremia; presented to the hospital today with a chief complaint of bright red blood per rectum.? Patient reported that around 21:00 he started to develop bright red blood per rectum; had 2 episodes; 2nd episode was large in point; denies any associated lightheadedness dizziness.? Reports mild abdominal discomfort.? ER course: Per ER team patient on presentation noted to have hemoglobin of 10.3; benign abdominal examination; CT abdomen showed no acute findings; on labs noted to have creatinine at baseline; potassium 5.8; no EKG changes; given insulin plus dextrose; admitted to the hospital for further management Hospital Course Admitted to the general medical floor and consult to GI placed. On 09/17/2021 patient underwent colonoscopy by Dr. Pollock. Per Dr. Pollock, no acute finding save mild hemorrhoids. Per Dr. Pollock, patient medically acceptable for discharge to home with follow-up as an outpatient. He will be discharged home with his to resume pre-hospital medication and follow up with PCP in 2 weeks Time Spent with Patient Time attestation: Total time spent providing and/or coordinating discharge services: Discharge coordination time: Greater than 30 minutes Quality: Safe Use of Opioids Does Pt have an Active Cancer Diagnosis on the Problem List?: No Quality: Stroke Does the patient have a stroke diagnosis?: No Physical Exam Vital Signs: Vital Signs: Last Vital Signs Temp 97.4 F 09/17/21 15:52 Pulse 60 09/17/21 15:52 Resp 16 09/17/21 15:52 BP 131/68 09/17/21 15:52 Pulse Ox 100 09/17/21 15:52 BMI result Body Mass Index 29.2 Const: Other: Awake alert oriented x3 no acute distress Resp: Other: Clear to auscultation bilaterally no rales rhonchi wheezes Cardio: Other: No S4; positive S1-S2; no S3 murmurs rubs or gallops GI: Other: Soft minimally tender left lower quadrant without rebound. Bowel sounds active 4 quadrants Extrem: Other: No edema bilaterally DS: Data Data Completed and Pending Completed studies during hospitalization [Text1]: Procedures Resection of Right Large Intestine, Open Approach (11/29/20) Pending studies at discharge: Pending at discharge 09/17/21 15:40 Surgical [PTH] Routine Labs on day of discharge: Laboratory Results - last 24 hr 09/16/21 09/16/21 09/17/21 16:15 19:26 05:34 WBC 5.0 RBC 2.73 L Hgb 9.4 L Hct 29.0 L MCV 106.2 H MCH 34.4 H MCHC 32.4 RDW 16.7 H Plt Count 100 L MPV 11.3 Immature Gran % (Auto) 0.4 Neut % (Auto) 84.2 H Lymph % (Auto) 12.4 L [place] % (Auto) 1.0 L Eos % (Auto) 1.8 Baso % (Auto) 0.2 Lymph # (Auto) 0.6 L [place] # (Auto) 0.1 Eos # (Auto) 0.1 Baso # (Auto) 0.0 Abs Immat Gran (auto) 0.02 Absolute Neuts (auto) 4.2 Absolute Nucleated RBC 0.000 Nucleated RBC % (auto) 0.0 Smear Tech's Comments VERIFIED Sodium Potassium Chloride Carbon Dioxide Anion Gap BUN Creatinine Estim Creat Clear Calc Estimated GFR POC Glucose 110 113 Fasting Glucose Calcium Total Bilirubin AST ALT Alkaline Phosphatase Total Protein Albumin 09/17/21 09/17/21 09/17/21 05:34 07:58 10:49 WBC RBC Hgb Hct MCV MCH MCHC RDW Plt Count MPV Immature Gran % (Auto) Neut % (Auto) Lymph % (Auto) [place] % (Auto) Eos % (Auto) Baso % (Auto) Lymph # (Auto) [place] # (Auto) Eos # (Auto) Baso # (Auto) Abs Immat Gran (auto) Absolute Neuts (auto) Absolute Nucleated RBC Nucleated RBC % (auto) Smear Tech's Comments Sodium 135 Potassium 5.2 H Chloride 109 H Carbon Dioxide 21 L Anion Gap 10 L BUN 36 H Creatinine 1.89 H Estim Creat Clear Calc 38.6 Estimated GFR 35 POC Glucose 94 114 Fasting Glucose 109 H Calcium 5.9 L* Total Bilirubin 1.1 H AST 50 H ALT 26 Alkaline Phosphatase 290 H Total Protein 4.4 L Albumin 2.6 L Preliminary micro results at discharge 09/15/21 03:29 Blood Culture - Preliminary Blood - Venous No growth after 48 hours. 09/15/21 03:29 Blood Culture - Preliminary Blood - Venous No growth after 48 hours. Discharge Plan Discharge Patient Disposition: Home, Self-Care Discharge Diagnosis: LGIB Referrals: Armin Zaragoza MD [Primary Care Provider] - 1 Week Discharge Medications: Continued pioglitazone 30 mg tablet 30 mg PO DAILY Qty: 90 8RF famotidine 40 mg tablet 40 mg PO BEDTIME Qty: 30 1RF coenzyme Q10 [Co Q-10] 200 mg Capsule 200 mg PO DAILY 0RF calcium carbonate [Calcium 600] 600 mg calcium (1,500 mg) Tablet 600 mg PO BID 0RF simvastatin 20 mg tablet 20 mg PO BEDTIME 0RF colchicine 0.6 mg tablet 0.6 mg PO QPM 0RF magnesium 500 mg Tablet 500 mg PO BID 0RF ondansetron HCl 4 mg tablet 1 tab PO Q6H PRN (Reason: nausea) 0RF tramadol 50 mg tablet 50 mg PO BID 0RF loperamide 2 mg Capsule 2 mg PO Q4H PRN (Reason: Diarrhea) 0RF Rx Instructions: administer after each loose stool until symptoms controlled; do not exceed 8 mg per 24 hrs Pepto-Bismol 262 mg Tablet 2 tab PO Q1H PRN (Reason: Indigestion) 0RF Rx Instructions: do not exceed 16 tabs per 24 hrs cholecalciferol (vitamin D3) [Vitamin D3] 125 mcg (5,000 unit) Tablet 125 mcg PO DAILY 0RF amlodipine 5 mg tablet 1 tab PO BEDTIME 0RF eplerenone 25 mg tablet 25 mg PO DAILY 0RF allopurinol 300 mg tablet 300 mg PO DAILY Qty: 90 8RF docusate sodium [Stool Softener] 100 mg capsule 100 mg PO BID 0RF Discharge Orders: Discharge Order (Routine); Ordered 05/23/22 Ordered By: Clark Abreu Diet: advance to usual diet Activity on Discharge: As tolerated Stand Alone Forms: Patient Portal Discharge page Care Plan Goals: Resume all pre-hospital medications Health Concerns: Follow-up PCP as scheduled Plan of Treatment: Advance diet t Assessment: See discharge she
[2021-09-17 17:26] LABS: Glucose, Whole Blood 167 mg/dL (60-115)
--- NOTE | 2021-09-18 03:06 | OP_ITS ---
SURGEON: Bryan Pollock MD INDICATIONS: Rectal bleeding. PREOPERATIVE DIAGNOSIS: POSTOPERATIVE DIAGNOSIS: PROCEDURE PERFORMED: Colonoscopy to the neoterminal ileum with snare polypectomy. ESTIMATED BLOOD LOSS: COMPLICATIONS: ANESTHESIA: ASSISTANTS: SPECIMENS: MEDICATIONS: Monitored anesthesia care. DESCRIPTION OF PROCEDURE: History and physical performed. The risks and benefits of the procedure were explained to the patient. Informed consent was obtained. The patient was placed in the left lateral decubitus position. A digital rectal exam was performed and showed external hemorrhoids. The Olympus pediatric video colonoscope was inserted in the rectum and advanced to the neoterminal ileum without difficulty. Examination was performed. The scope was removed. He tolerated the procedure well and was transferred to recovery area in stable condition. FINDINGS: The neoterminal ileum was normal. There was a widely patent ileocolonic anastomosis at approximately 75 cm with no evidence of recurrent tumor. There was some liquid stool coating the mucosa, mainly in the transverse and descending and sigmoid colon. This did limit the examination for detection of small polyps. This was washed and suctioned as best possible. In the rectum, was an 8 mm polyp, which was removed with a snare and recovered via suction. There were moderately large internal hemorrhoids, which were friable and oozed with instrumentation. The diverticulosis seen on CAT scan was not well identified on this procedure. There was no bleeding in the colon. IMPRESSION: 1. Colon polyp. 2. Diverticulosis. 3. Hemorrhoids. RECOMMENDATION: Follow up the biopsy results. MD MINERVA Martínez/ELEONORA / [id number]
== END 2021-09-17 19:22 | disposition home or self-care (01) | DRG 244 ==
LOC: HO.ED 09-15 01:46 → HO.EDOVER 09-15 02:43 → HO.IMC 09-15 14:25
PROVIDERS: Internal Medicine Gastroenterology; Admitting Provider Hospitalist; Emergency Provider Emergency Medicine; PCP Internal Medicine; Visit Provider Hospitalist
PROC: 0DJD8ZZ Inspection of Lower Intestinal Tract, Via Natural or Artificial Opening Endoscopic (ICD-10-PCS; CPT 45378; principal; 2021-09-17 15:00)
DX: K57.31 Diverticulosis of large intestine without perforation or abscess with bleeding (principal); C18.9 Malignant neoplasm of colon, unspecified; C78.7 Secondary malignant neoplasm of liver and intrahepatic bile duct; N18.4 Chronic kidney disease, stage 4 (severe); E11.22 Type 2 diabetes mellitus with diabetic chronic kidney disease; K62.1 Rectal polyp; M10.9 Gout, unspecified; I12.9 Hypertensive chronic kidney disease with stage 1 through stage 4 chronic kidney disease, or unspecified chronic kidney disease; E78.5 Hyperlipidemia, unspecified; K64.8 Other hemorrhoids; E87.5 Hyperkalemia; Z20.822 Contact with and (suspected) exposure to COVID-19; Z87.440 Personal history of urinary (tract) infections; Z79.891 Long term (current) use of opiate analgesic; Z87.891 Personal history of nicotine dependence; Z88.0 Allergy status to penicillin; Z88.8 Allergy status to other drugs, medicaments and biological substances; Z79.899 Other long term (current) drug therapy
CPT/HCPCS: 45385; 36415; 74176; 80048; 80053; 82272; 82947; 83605; 83690; 84484; 85025; 86850; 86900; 86901; 87040; 87635; 88305; 93005; 96360; 96365; 96366; 96375; 99219; 99285; J0610; J2405; J3010

== ENCOUNTER 2021-09-29 08:13 | Outpatient (REF) | payer OTHER, SELFPAY | END 2021-09-29 08:14 | disposition home or self-care (01) | LOC: HO.LNP 08:13 | PROVIDERS: Visit Provider Internal Medicine | DX: N39.0 Urinary tract infection, site not specified (principal) | CPT/HCPCS: 87086 ==

== ENCOUNTER 2021-12-09 17:51 | Inpatient (IN) | payer OTHER, SELFPAY ==
--- NOTE | ~2021-12-09 | XR_ITS ---
EXAMINATION: XR CHEST CLINICAL INFORMATION: Pneumonia COMPARISON: Chest x-ray 03/05/2021 TECHNIQUE: Frontal portable view of the chest was obtained. 11:22 PM FINDINGS: Right IJ catheter tip superior vena cava unchanged position since prior study 03/05/2021. No pneumothorax. Lung volume low. Asymmetric elevation of right diaphragm above the left. Linear scar and/or linear atelectasis right midlung which is similar to prior chest x-ray 2020. No acute airspace disease. No pulmonary vascular congestion. No pleural effusion. XR/XR chest 1V IMPRESSION: No acute airspace disease.
[2021-12-09 18:18] VITALS: BP 99/41; PULSE 64; RESP 18; TEMP 37.2; O2SAT 97; BMI 28.9
[2021-12-09 18:43] LABS: Mean Corpuscular HGB Conc 33.2 g/dl (31.0-36.0); Mean Corpuscular Hemoglobin 36.8 pg (27.0-33.0); Red Blood Count 1.71 X10*6/uL (4.60-5.80); Red Cell Distribution Width 20.8 % (11.0-16.0)
[2021-12-09 18:58] LABS: Mean Corpuscular Volume 111.1 fL (80.0-98.0); PLT ABN DIST 1; Platelet Count 30 X10*3/uL (160-400); WBC ABN SCTR FOR CBC 1
[2021-12-09 18:59] LABS: White Blood Count 1.1 X10*3/uL (4.8-10.8)
[2021-12-09 19:01] LABS: Hemoglobin 6.3 g/dl (14.0-18.0)
[2021-12-09 19:06] LABS: COVID-19 Test Negative (Negative)
[2021-12-09 19:15] LABS: Alanine Aminotransferase 15 U/L (0-40); Albumin Level 2.6 g/dL (3.5-5.0); Alkaline Phosphatase 271 U/L (39-117); Anion Gap 16 (12-20); Aspartate Amino Transferase 15 U/L (5-37); Bilirubin Total 3.8 mg/dL (0.0-1.0); Blood Urea Nitrogen 66 mg/dL (9-16); Calcium 7.2 mg/dL (8.4-10.2); Carbon Dioxide 17 mmol/L (22-29); Chloride 111 mmol/L (96-108); Creatinine Clr Calc Pharmacy 41.2; Estimated Glomerular Filt Rate 38; Glucose Random 187 mg/dL (60-115); Potassium 4.9 mmol/L (3.3-5.1); Sodium 139 mmol/L (135-145); Total Protein 4.6 g/dL (6.5-8.0)
--- NOTE | 2021-12-09 19:15 | PC.NURSE ---
critical bands of 18 reported to [facility].
[2021-12-09 19:20] LABS: Neutrophils Percent Manual 55 % (45-73)
[2021-12-09 19:21] LABS: Band Neutrophils Percent 18 % (3-5); Lymphocytes Absolute Manual 0.2 X10*3/uL (1.2-4.9); Lymphocytes Percent Manual 15 % (20-40); Macrocytosis 2+ (15-30) /OIF; Metamyelocytes Percent 2 %; Microcytosis 2+ (15-30) /OIF; Monocytes Absolute Manual 0.1 X10*3/uL (0.1-1.2); Monocytes Percent Manual 10 % (2-11); Neutrophils Absolute Manual 0.8 X10*3/uL (2.0-8.3); RBC Morphology NOTED; Tear Drop Cells 1+ (0-2) /OIF
[2021-12-09 19:22] LABS: Hypochromasia 1+ (5-14) /OIF; Platelet Estimate DECREASED (NORMAL); Platelet Morphology Comment NOTED; Polychromasia 2+ (3-5) /OIF; Rouleau PRESENT; Toxic Granulation PRESENT
[2021-12-09 19:23] LABS: Large Platelet PRESENT
[2021-12-09 20:07] VITALS: BP 99/54; PULSE 59; RESP 18; O2SAT 99
--- NOTE | 2021-12-09 21:03 | ED_ITS ---
HPI - General Adult General Chief complaint: General Medical Stated complaint: fever/low BP/weakness Time Seen by Provider: 12/09/21 20:41 Source: patient Mode of arrival: ambulatory Limitations: no limitations History of Present Illness HPI narrative: 76-year-old male colon cancer stage IV presents to the ED for weakness and low- grade fever. states patient had 1 episode of blood in urine couple days ago. Patient denies any rectal bleeding or vomiting blood. Patient took neulasta injection for low WBCs. He states it was 2. Related Data Home Medications Medication Instructions Recorded Confirmed eplerenone 25 mg tablet 25 mg PO DAILY 02/23/20 10/03/21 coenzyme Q10 200 mg capsule (Co 200 mg PO DAILY 12/14/20 10/03/21 Q-10) calcium carbonate 600 mg calcium 600 mg PO BID 03/05/21 10/03/21 (1,500 mg) tablet (Calcium) docusate sodium 100 mg capsule 100 mg PO BID 06/04/21 10/03/21 (Stool Softener) amlodipine 5 mg tablet 1 tab PO BEDTIME 09/15/21 10/03/21 bismuth subsalicylate 262 mg 2 tab PO Q1H PRN Indigestion 09/15/21 10/03/21 tablet (Pepto-Bismol) cholecalciferol (vitamin D3) 125 125 mcg PO DAILY 09/15/21 10/03/21 mcg (5,000 unit) tablet (Vitamin D3) loperamide 2 mg capsule 2 mg PO Q4H PRN Diarrhea 09/15/21 10/03/21 magnesium 500 mg tablet 500 mg PO BID 09/15/21 10/03/21 ondansetron HCl 4 mg tablet 1 tab PO Q6H PRN nausea 09/15/21 10/03/21 simvastatin 20 mg tablet 20 mg PO BEDTIME 09/15/21 10/03/21 tramadol 50 mg tablet 50 mg PO BID 09/15/21 10/03/21 sertraline 50 mg tablet (Zoloft) 50 mg PO DAILY 10/03/21 10/03/21 Previous Rx's Medication Instructions Recorded pioglitazone 30 mg tablet 30 mg PO DAILY #90 tabs 03/09/21 famotidine 40 mg tablet 40 mg PO BEDTIME #30 tabs 09/05/21 ciprofloxacin HCl 250 mg tablet 250 mg PO BID #10 tabs 09/28/21 (Cipro) allopurinol 300 mg tablet 300 mg PO DAILY #90 tabs 11/27/21 colchicine 0.6 mg tablet 0.6 mg PO QPM #90 tabs 11/27/21 Allergies Allergy/AdvReac Type Severity Reaction Status Date / Time atenolol Allergy Unknown dizziness Verified 09/28/21 10:50 penicillin V Allergy Unknown Unknown Verified 09/28/21 10:50 onion Allergy Diarrhea Verified 09/28/21 10:50 Peppers, Green Allergy Diarrhea Verified 09/28/21 10:50 Peppers, Jalapeno Allergy Diarrhea Verified 09/28/21 10:50 Peppers, Red Allergy Diarrhea Verified 09/28/21 10:50 Peppers, Yellow Allergy Diarrhea Verified 09/28/21 10:50 Review of Systems Review of Systems: Weakness. Low-grade fever. Yes all other systems are reviewed and are negative [facility] Past Medical History Medical History (Updated 12/10/21 @ 01:25 by SILVIA Fontanez) Abdominal aortic aneurysm Bone metastases CKD (chronic kidney disease), stage IV Colon carcinoma Diabetes mellitus Gout HLD (hyperlipidemia) Hypertension Pancytopenia Pancytopenia Surgical History (Updated 10/03/21 @ 08:31 by Neli Franklin MD) History of colonoscopy History of hernia surgery History of removal of cyst S/P right colectomy Family History Family History Father Past heart attack Mother Past heart attack Social History Social History Household Members: Spouse Housing: House Do you presently have visiting nurse or other home services: No Alcohol intake: never Patient Tobacco Use Status: Former Tobacco user Tobacco use type: Cigarette Years Smoked: 62 e-Cigarette/Vaping Use: Never Used Second Hand Smoke Exposure: Yes Advance Directives: Yes Advance Directives on File: Yes Advance Directives Date on File: 07/11/21 service: No Current occupational status: retired Cognitive needs: No Hearing needs: No Vision needs: No Physical Exam ED Vital Signs: Vital Signs - 24 hr 12/09/21 18:18 12/09/21 20:07 12/10/21 00:16 Temperature 99.0 F 98.1 F Pulse Rate 64 59 65 Respiratory Rate 18 18 Blood Pressure 99/41 L 99/54 L 126/57 L Pulse Oximetry 97 99 97 Oxygen Delivery Method Room Air Room Air Room Air BMI result Body Mass Index 28.9 Const General: cooperative, healthy appearing, comfortable, no acute distress, well developed, alert, awake and Physically active Orientation/consciousness: oriented to place, oriented to time and patient oriented x3 HENMT Head: Yes normal to inspection, Yes No palpable skull fracture present, Yes normocephalic, Yes atraumatic and No abrasion Eyes General: appearance normal, both eyes and all related structures Neck Neck: Yes normal visual inspection, Yes full ROM, Yes no lymphadenopathy, Yes no meningeal signs, Yes trachea midline, Yes supple, No anterior neck swelling and No tender Chest Chest palpation & inspection: normal inspection of the chest and normal palpation of entire chest wall Resp Effort & Inspection: normal respiratory effort and able to speak in complete sentences Cardio Jugular venous distension: no JVD GI Inspection: Yes normal to inspection and No abdominal wall ecchymosis Palpation (GI): Soft to palpation, not firm, nontender, no guarding and not rigid General: No CVA tenderness and Yes no CVA tenderness Back/Spine/Pelvis Back: no CVA tenderness, No CVA tenderness and No back tenderness Skin General skin exam: no rashes or lesions noted and elasticity normal Neuro General: oriented to place, oriented to time, patient oriented x3, gait normal and no meningeal signs Extrem General: Yes normal to inspection and Yes full ROM Psych Appearance: grossly normal, well kempt and not disheveled Course Course Course Narrative: Patient low grade fever and anemia. Will workup as neutropenic fever and also symptomatic anemia. Per medical screen done and labs showed anemia and neutropenia. Spoke with hospitalist cefepime ordered. 2 units of blood ordered. Patient and his gave oral consent for blood. Will be admitted. Reevaluation(s) Reevaluation #1: Patient started on red blood cells. Platelet ordered. Stool guaiac positive but on rectal exam stool was brown and negative for any blood or melena. 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 Not suspecting GI bleed presently. Patient admitted to the hospital for neutropenic fever and symptomatic anemia. Time: 01:24 Medical Decision Making MDM Narrative Medical decision making narrative: Repeating fever. Symptomatic anemia Lab Data Result diagrams: 12/09/21 18:27 12/09/21 18:27 Labs: Lab Results 12/09/21 12/09/21 12/09/21 Range/Units 18:27 18:27 18:27 WBC 1.1 L (4.8-10.8) X10*3/uL RBC 1.71 L D (4.60-5.80) X10*6/uL Hgb 6.3 L* D (14.0-18.0) g/dl Hct 19.0 L* D (42.0-52.0) % MCV 111.1 H (80.0-98.0) fL MCH 36.8 H (27.0-33.0) pg MCHC 33.2 (31.0-36.0) g/dl RDW 20.8 H (11.0-16.0) % Plt Count 30 L D (160-400) X10*3/uL MPV Not Reportable Immature Gran % (Auto) Cancelled Neut % (Auto) Cancelled Lymph % (Auto) Cancelled [place] % (Auto) Cancelled Eos % (Auto) Cancelled Baso % (Auto) Cancelled Lymph # (Auto) Cancelled [place] # (Auto) Cancelled Eos # (Auto) Cancelled Baso # (Auto) Cancelled Abs Immat Gran (auto) Cancelled Absolute Neuts (auto) Cancelled Absolute Nucleated RBC 0.000 (0.0-0.012) X10*3/uL Nucleated RBC % (auto) 0.0 (0.0-0.2) /100WBC Neutrophils % (Manual) 55 (45-73) % Band Neutrophils % 18 H (3-5) % Lymphocytes % (Manual) 15 L (20-40) % Monocytes % (Manual) 10 (2-11) % Metamyelocytes % 2 % Abs Neuts (Manual) 0.8 L (2.0-8.3) X10*3/uL Lymphocytes # (Manual) 0.2 L (1.2-4.9) X10*3/uL Monocytes # (Manual) 0.1 (0.1-1.2) X10*3/uL Toxic Granulation PRESENT Platelet Estimate DECREASED (NORMAL) Large Platelets PRESENT Plt Morphology Comment NOTED RBC Morphology NOTED Polychromasia 2+ (3-5) /OIF Hypochromasia 1+ (5-14) /OIF Microcytosis 2+ (15-30) /OIF Macrocytosis 2+ (15-30) /OIF Tear Drop Cells 1+ (0-2) /OIF Rouleaux PRESENT Sodium 139 (135-145) mmol/L Potassium 4.9 (3.3-5.1) mmol/L Chloride 111 H (96-108) mmol/L Carbon Dioxide 17 L (22-29) mmol/L Anion Gap 16 (12-20) BUN 66 H D (9-16) mg/dL Creatinine 1.76 H (0.5-1.4) mg/dL Estim Creat Clear Calc 41.2 Estimated GFR 38 Random Glucose 187 H (60-115) mg/dL Calcium 7.2 L D (8.4-10.2) mg/dL Total Bilirubin 3.8 H (0.0-1.0) mg/dL AST 15 D (5-37) U/L ALT 15 (0-40) U/L Alkaline Phosphatase 271 H D (39-117) U/L B-Natriuretic Peptide (<100) pg/mL Total Protein 4.6 L (6.5-8.0) g/dL Albumin 2.6 L (3.5-5.0) g/dL Stool Occult Blood (NEGATIVE) COVID-19 (PEDRO) Negative (Negative) COVID-19 Clin Com See Note Blood Type Antibody Screen Crossmatch 12/09/21 12/09/21 12/09/21 Range/Units 18:27 22:27 23:10 WBC (4.8-10.8) X10*3/uL RBC (4.60-5.80) X10*6/uL Hgb (14.0-18.0) g/dl Hct (42.0-52.0) % MCV (80.0-98.0) fL MCH (27.0-33.0) pg MCHC (31.0-36.0) g/dl RDW (11.0-16.0) % Plt Count (160-400) X10*3/uL MPV Immature Gran % (Auto) Neut % (Auto) Lymph % (Auto) [place] % (Auto) Eos % (Auto) Baso % (Auto) Lymph # (Auto) [place] # (Auto) Eos # (Auto) Baso # (Auto) Abs Immat Gran (auto) Absolute Neuts (auto) Absolute Nucleated RBC (0.0-0.012) X10*3/uL Nucleated RBC % (auto) (0.0-0.2) /100WBC Neutrophils % (Manual) (45-73) % Band Neutrophils % (3-5) % Lymphocytes % (Manual) (20-40) % Monocytes % (Manual) (2-11) % Metamyelocytes % % Abs Neuts (Manual) (2.0-8.3) X10*3/uL Lymphocytes # (Manual) (1.2-4.9) X10*3/uL Monocytes # (Manual) (0.1-1.2) X10*3/uL Toxic Granulation Platelet Estimate (NORMAL) Large Platelets Plt Morphology Comment RBC Morphology Polychromasia /OIF Hypochromasia /OIF Microcytosis /OIF Macrocytosis /OIF Tear Drop Cells /OIF Rouleaux Sodium (135-145) mmol/L Potassium (3.3-5.1) mmol/L Chloride (96-108) mmol/L Carbon Dioxide (22-29) mmol/L Anion Gap (12-20) BUN (9-16) mg/dL Creatinine (0.5-1.4) mg/dL Estim Creat Clear Calc Estimated GFR Random Glucose (60-115) mg/dL Calcium (8.4-10.2) mg/dL Total Bilirubin (0.0-1.0) mg/dL AST (5-37) U/L ALT (0-40) U/L Alkaline Phosphatase (39-117) U/L B-Natriuretic Peptide 501 H (<100) pg/mL Total Protein (6.5-8.0) g/dL Albumin (3.5-5.0) g/dL Stool Occult Blood POSITIVE (NEGATIVE) COVID-19 (PEDRO) (Negative) COVID-19 Clin Com Blood Type O Positive Antibody Screen NEGATIVE Crossmatch See Detail Discharge Plan Discharge Clinical Impression: Symptomatic anemia, Neutropenia Patient Disposition: Admitted As Inpatient
[2021-12-09 22:26] LABS: B Type Natriuretic Peptide 501 pg/mL (<100)
[2021-12-09] MEDS: cefEPime HCl 1 GM in 0.9 % Sodium Chloride 50 ML IV (22:38)
[2021-12-09] MEDS: 0.9 % Sodium Chloride 1,000 ML 999 ML IV (22:39)
--- NOTE | 2021-12-09 23:29 | PC.NURSE ---
report given to nurse Andre. pt type and screen complete, blood consent signed, 1st dose of abx given. pt has 22g lyles in right upper port. pt alert oriented. Awaiting hospitalist, NAD, at bedside
[2021-12-09 23:33] LABS: OBS Int Ctl Valid YES; OBS1 POSITIVE (NEGATIVE)
[2021-12-10] VITALS (11 sets, daily range): BP systolic 115–142; BP diastolic 50–66; PULSE 58–69; RESP 14–22; TEMP 36.7–37.2; O2SAT 97–98
[2021-12-10] MEDS: Heparin Sodium,Porcine 5,000 UNIT/ML VIAL 5000 UNIT SUBCUT (03:00)
[2021-12-10] MEDS: Furosemide 40 MG/4 ML VIAL IVPUSH (03:58)
[2021-12-10 05:06] LABS: Hemoglobin 7.7 g/dl (14.0-18.0); Red Cell Distribution Width 20.3 % (11.0-16.0)
[2021-12-10 05:08] LABS: Hematocrit 23.1 % (42.0-52.0); Mean Corpuscular HGB Conc 33.3 g/dl (31.0-36.0); Mean Corpuscular Volume 107.9 fL (80.0-98.0); Red Blood Count 2.14 X10*6/uL (4.60-5.80)
[2021-12-10 05:15] LABS: NRBC Pct Auto 1.2 /100WBC (0.0-0.2); PLT ABN DIST 1; Platelet Count 31 X10*3/uL (160-400); WBC ABN SCTR FOR CBC 1; White Blood Count 1.7 X10*3/uL (4.8-10.8)
[2021-12-10 05:31] LABS: Anion Gap 16 (12-20); Blood Urea Nitrogen 66 mg/dL (9-16); Calcium 7.4 mg/dL (8.4-10.2); Carbon Dioxide 20 mmol/L (22-29); Chloride 109 mmol/L (96-108); Creatinine Clr Calc Pharmacy 44.2; Estimated Glomerular Filt Rate 41; Glucose Random 116 mg/dL (60-115); Potassium 4.7 mmol/L (3.3-5.1); Sodium 140 mmol/L (135-145)
[2021-12-10 05:33] LABS: Lymphocytes Absolute Manual 0.3 X10*3/uL (1.2-4.9); Lymphocytes Percent Manual 18 % (20-40); Metamyelocytes Percent 2 %; Monocytes Absolute Manual 0.1 X10*3/uL (0.1-1.2); Monocytes Percent Manual 8 % (2-11); Neutrophils Absolute Manual 1.2 X10*3/uL (2.0-8.3); Neutrophils Percent Manual 52 % (45-73)
[2021-12-10 05:34] LABS: RBC Morphology NOTED
[2021-12-10 05:35] LABS: Dohle Bodies PRESENT; Macrocytosis 1+ (5-14) /OIF; Microcytosis 1+ (5-14) /OIF; Platelet Estimate DECREASED (NORMAL); Polychromasia 1+ (0-2) /OIF; Toxic Granulation PRESENT
[2021-12-10 05:36] LABS: Large Platelet PRESENT; Platelet Morphology Comment NOTED
[2021-12-10 05:37] LABS: Hypochromasia 1+ (5-14) /OIF; Ovalocytes 1+ (5-14) /OIF
[2021-12-10 05:38] LABS: Burr Cells 1+ (0-2) /OIF
[2021-12-10 05:44] LABS: Band Neutrophils Percent 20 % (3-5)
--- NOTE | 2021-12-10 06:18 | PM.IMHP ---
History of Present Illness Date of Service: 12/10/21 Chief Complaint: fatigue This is a 76-year-old male with past medical history of stage IV colon cancer with Mets to the liver and lungs as well as to the bone, currently undergoing chemotherapy, and sent to be knee a on Lunesta, diabetes, HTN, CKD, history of GI bleed, who presents to the hospital with complaints of chest history TH not feel well. Patient has also been feeling febrile with a fever of 99 at home, also says that he has had decreased appetite, denies any bloody dark tarry stools, no abdominal pain nausea or vomiting, no diarrhea constipation, no cough, no shortness of breath, and no urinary symptoms. Patient's last chemotherapy session was on the peer On arrival to the ED patient was found to have a temperature of 99.0 degrees, BP of 99/41, satting 97% on room air Labs are significant for WBC count of 1.1, hemoglobin of 6.3 8.5 on 11/27, record 19, platelets of 30, 121 on , neutrophils of 0.8, with 20 of bands, BUN of 66, creatinine of 1.76, previously 1.39 on 11/27 Stool occult positive Patient started on IV antibiotics and will be admitted for further management Review of Systems Review of Systems: Yes all other systems are reviewed and are negative [facility] Medical History (Updated 12/10/21 @ 06:27 by Dawna Shelton MD) Abdominal aortic aneurysm Bone metastases CKD (chronic kidney disease), stage IV Colon carcinoma Diabetes mellitus Gout HLD (hyperlipidemia) Hypertension Pancytopenia Pancytopenia Family History Father Past heart attack Mother Past heart attack Surgical History History of colonoscopy History of hernia surgery History of removal of cyst S/P right colectomy Social History Household Members: Spouse Housing: House Do you presently have visiting nurse or other home services: No Alcohol intake: never Patient Tobacco Use Status: Former Tobacco user Tobacco use type: Cigarette Years Smoked: 62 e-Cigarette/Vaping Use: Never Used Second Hand Smoke Exposure: Yes Advance Directives: Yes Advance Directives on File: Yes Advance Directives Date on File: 07/11/21 service: No Current occupational status: retired Cognitive needs: No Hearing needs: No Vision needs: No Meds Allergies Allergy/AdvReac Type Severity Reaction Status Date / Time atenolol Allergy Unknown dizziness Verified 09/28/21 10:50 penicillin V Allergy Unknown Unknown Verified 09/28/21 10:50 onion Allergy Diarrhea Verified 09/28/21 10:50 Peppers, Green Allergy Diarrhea Verified 09/28/21 10:50 Peppers, Jalapeno Allergy Diarrhea Verified 09/28/21 10:50 Peppers, Red Allergy Diarrhea Verified 09/28/21 10:50 Peppers, Yellow Allergy Diarrhea Verified 09/28/21 10:50 Active Medications: Current Medications Acetaminophen (Acetaminophen 325 Mg Tablet) 650 mg PO Q6H PRN PRN Reason: Pain, Mild (Pain Scale 1-3) Heparin Sodium (Porcine) (Heparin Sodium,Porcine 5,000 Unit/Ml Vial) 5,000 unit SUBCUT Q12H [facility] Last Admin: 12/10/21 03:00 Dose: 5,000 unit Lactated Ringer's (Lr) 1,000 mls @ 100 mls/hr IVCONT .Q10H [facility] Cefepime HCl 2 gm/ Sodium (Chloride) 50 mls @ 100 mls/hr IV Q12H [facility] Ondansetron HCl (Ondansetron Hcl 4 Mg/2 Ml Vial) 4 mg IVPUSH Q8H PRN PRN Reason: Nausea and Vomiting Sodium Chloride (0.9 % Sodium Chloride Flush 3 Ml Syringe) 3 ml IVFLUSH QSHIFT [facility] Home Medications Medication Instructions Recorded Confirmed Last Taken Type eplerenone 25 mg tablet 25 mg PO DAILY 02/23/20 10/03/21 09/14/21 History coenzyme Q10 200 mg capsule (Co 200 mg PO DAILY 12/14/20 10/03/21 09/14/21 History Q-10) calcium carbonate 600 mg calcium 600 mg PO BID 03/05/21 10/03/21 09/14/21 History (1,500 mg) tablet (Calcium) docusate sodium 100 mg capsule 100 mg PO BID 06/04/21 10/03/21 09/14/21 History (Stool Softener) amlodipine 5 mg tablet 1 tab PO BEDTIME 09/15/21 10/03/2109/14/22 History bismuth subsalicylate 262 mg 2 tab PO Q1H PRN Indigestion 09/15/21 10/03/21 Unknown History tablet (Pepto-Bismol) cholecalciferol (vitamin D3) 125 125 mcg PO DAILY 09/15/21 10/03/21 09/14/21 History mcg (5,000 unit) tablet (Vitamin D3) loperamide 2 mg capsule 2 mg PO Q4H PRN Diarrhea 09/15/21 10/03/21 Unknown History magnesium 500 mg tablet 500 mg PO BID 09/15/21 10/03/21 09/14/21 History ondansetron HCl 4 mg tablet 1 tab PO Q6H PRN nausea 09/15/21 10/03/21 Unknown History simvastatin 20 mg tablet 20 mg PO BEDTIME 09/15/21 10/03/21 09/14/21 History tramadol 50 mg tablet 50 mg PO BID 09/15/21 10/03/21 09/14/21 History sertraline 50 mg tablet (Zoloft) 50 mg PO DAILY 10/03/21 10/03/21 Unknown History Physical Exam Vital Signs and Narrative: Vital Signs: Last Vital Signs Temp 98.9 F 12/10/21 04:34 Pulse 66 12/10/21 04:34 Resp 18 12/10/21 04:34 BP 125/62 12/10/21 04:34 Pulse Ox 97 12/10/21 00:16 O2 Del Method 12/10/21 00:16 BMI result Body Mass Index 28.9 Const: Other: Ill-appearing General: cooperative and no acute distress Orientation/consciousness: patient oriented x3 Eyes: General: appearance normal, both eyes and all related structures Pupils: Equal, round and reactive pupils present Resp: Effort & Inspection: normal respiratory effort Auscultation: clear to auscultation bilaterally Cardio: Rate: regular rate Rhythm: regular rhythm GI: Palpation (GI): Soft to palpation Auscultation: normal bowel sounds Skin: General skin exam: no rashes or lesions noted Neuro: General: patient oriented x3 Cranial nerves: Yes Equal, round and reactive pupils present Cognition (Neuro): normal cognition Extrem: General: Yes normal to inspection and Yes no pedal edema Results Labs CBC and Chem 7: 12/10/21 05:03 12/10/21 05:03 Labs: Laboratory Results - last 24 hr 12/09/21 12/09/21 12/09/21 18:27 18:27 18:27 MCV 111.1 H MCH 36.8 H MCHC 33.2 RDW 20.8 H Plt Count 30 L D MPV Not Reportable Immature Gran % (Auto) Cancelled Neut % (Auto) Cancelled Lymph % (Auto) Cancelled [place] % (Auto) Cancelled Eos % (Auto) Cancelled Baso % (Auto) Cancelled Lymph # (Auto) Cancelled [place] # (Auto) Cancelled Eos # (Auto) Cancelled Baso # (Auto) Cancelled Abs Immat Gran (auto) Cancelled Absolute Neuts (auto) Cancelled Absolute Nucleated RBC 0.000 Nucleated RBC % (auto) 0.0 Neutrophils % (Manual) 55 Band Neutrophils % 18 H Lymphocytes % (Manual) 15 L Monocytes % (Manual) 10 Metamyelocytes % 2 Abs Neuts (Manual) 0.8 L Lymphocytes # (Manual) 0.2 L Monocytes # (Manual) 0.1 Toxic Granulation PRESENT Dohle Bodies Platelet Estimate DECREASED Large Platelets PRESENT Plt Morphology Comment NOTED RBC Morphology NOTED Polychromasia 2+ (3-5) Hypochromasia 1+ (5-14) Microcytosis 2+ (15-30) Macrocytosis 2+ (15-30) Tear Drop Cells 1+ (0-2) Ovalocytes [place] Cells Rouleaux PRESENT Anion Gap 16 Estim Creat Clear Calc 41.2 Estimated GFR 38 Random Glucose 187 H Calcium 7.2 L D Total Bilirubin 3.8 H AST 15 D ALT 15 Alkaline Phosphatase 271 H D B-Natriuretic Peptide Total Protein 4.6 L Albumin 2.6 L Stool Occult Blood COVID-19 (PEDRO) Negative COVID-19 Clin Com See Note Blood Type Antibody Screen Crossmatch 12/09/21 12/09/21 12/09/21 18:27 22:27 23:10 MCV MCH MCHC RDW Plt Count MPV Immature Gran % (Auto) Neut % (Auto) Lymph % (Auto) [place] % (Auto) Eos % (Auto) Baso % (Auto) Lymph # (Auto) [place] # (Auto) Eos # (Auto) Baso # (Auto) Abs Immat Gran (auto) Absolute Neuts (auto) Absolute Nucleated RBC Nucleated RBC % (auto) Neutrophils % (Manual) Band Neutrophils % Lymphocytes % (Manual) Monocytes % (Manual) Metamyelocytes % Abs Neuts (Manual) Lymphocytes # (Manual) Monocytes # (Manual) Toxic Granulation Dohle Bodies Platelet Estimate Large Platelets Plt Morphology Comment RBC Morphology Polychromasia Hypochromasia Microcytosis Macrocytosis Tear Drop Cells Ovalocytes [place] [address] Cells Rouleaux Anion Gap Estim Creat Clear Calc Estimated GFR Random Glucose Calcium Total Bilirubin AST ALT Alkaline Phosphatase B-Natriuretic Peptide 501 H Total Protein Albumin Stool Occult Blood POSITIVE COVID-19 (PEDRO) COVID-19 Clin Com Blood Type O Positive Antibody Screen NEGATIVE Crossmatch See Detail 12/10/21 12/10/21 05:03 05:03 MCV 107.9 H MCH 36.0 H MCHC 33.3 RDW 20.3 H Plt Count 31 L MPV Not Reportable Immature Gran % (Auto) Cancelled Neut % (Auto) Cancelled Lymph % (Auto) Cancelled [place] % (Auto) Cancelled Eos % (Auto) Cancelled Baso % (Auto) Cancelled Lymph # (Auto) Cancelled [place] # (Auto) Cancelled Eos # (Auto) Cancelled Baso # (Auto) Cancelled Abs Immat Gran (auto) Cancelled Absolute Neuts (auto) Cancelled Absolute Nucleated RBC 0.020 H Nucleated RBC % (auto) 1.2 H Neutrophils % (Manual) 52 Band Neutrophils % 20 H Lymphocytes % (Manual) 18 L Monocytes % (Manual) 8 Metamyelocytes % 2 Abs Neuts (Manual) 1.2 L Lymphocytes # (Manual) 0.3 L Monocytes # (Manual) 0.1 Toxic Granulation PRESENT Dohle Bodies PRESENT Platelet Estimate DECREASED Large Platelets PRESENT Plt Morphology Comment NOTED RBC Morphology NOTED Polychromasia 1+ (0-2) Hypochromasia 1+ (5-14) Microcytosis 1+ (5-14) Macrocytosis 1+ (5-14) Tear Drop Cells Ovalocytes 1+ (5-14) [place] [address] Cells 1+ (0-2) Rouleaux Anion Gap 16 Estim Creat Clear Calc 44.2 Estimated GFR 41 Random Glucose 116 H D Calcium 7.4 L Total Bilirubin AST ALT Alkaline Phosphatase B-Natriuretic Peptide Total Protein Albumin Stool Occult Blood COVID-19 (PEDRO) COVID-19 Clin Com Blood Type Antibody Screen Crossmatch Imaging Radiologist's Impressions: Impressions Chest X-Ray 12/09/21 11:34 IMPRESSION: No acute airspace disease. Assessment and Plan (1) Symptomatic anemia: Status: Acute (2) Neutropenia: Status: Acute (3) Neutropenic fever: Status: Acute (4) Pancytopenia: Status: Acute Plan 76-year-old male with past medical history of metastatic colon cancer presents to the hospital with fatigue found to have neutropenic fever # Neutropenic fever - likely in the setting of chemotherapy use - his neutrophils less than 1000 - no evidence infection on chest x-ray, UA pending- patient has no urinary symptoms - at this time will start him on cefepime - neutropenic precautions - Hematology-Oncology consult to # acute on chronic anemia - hemoglobin dropped to below 7 in less than 2 weeks - patient has history of hemorrhoids with history of GI bleed from hemorrhoids but at this time hemodynamically stable - will transfuse with 2 units - [place] [address] which probably contribute - follow CBC after transfusion - threshold to transfuse 7 # thrombocytopenia - secondary to chemotherapy - patient being transfused given the anemia - follow platelets #TRISTEN - likely secondary to dehydration - will treat with IV fluids - follow BMP # diabetes - low-dose sinus cancer - diabetic diet # hypertension - stable - resume home medications DVT prophylaxis: Heparin subQ Given the neutropenic fever patient will require minimal 2 night hospital stay further management and monitoring Quality Stroke Does the patient have a stroke diagnosis?: No VTE Prior VTE?: No VTE Risk Level:: Medical - moderate - high VTE Device Contraindication: Treatment Not Indicated VTE Drug Contraindication: N/A - Med Ordered
[2021-12-10 07:24] LABS: Glucose, Whole Blood 97 mg/dL (60-115)
--- NOTE | 2021-12-10 07:28 | PHA.MEDREC ---
Pharmacy Consult ? Medication Reconciliation Pharmacy has completed the medication reconciliation. pt no longer on [facility]
--- NOTE | 2021-12-10 08:01 | PC.NURSE ---
patient a/o x4 . heart rate regular at 72 beats . lungs clear with some expiatory wheezes noted upper lobes . pearrla equal , sclera yellow . skin warm dry and yellow hue . patient history of colon cancer current being treated . abdomen soft tender . rebound tenderness noted on lower abdomen . positive bowel sounds throughout . neuropathic pain noted on feet and toes as result of treatment . patient had reported 0/10 pain level . pain on when patient is touched in certain areas . second unit of RBC running with use of pressure bag because of position patients port . patient has eaten breakfast and is aware of plan of care .
--- NOTE | 2021-12-10 08:58 | ECG_ITS ---
Test Reason : ekg changes Blood Pressure : / mmHG Vent. Rate : 067 BPM Atrial Rate : 067 BPM P-R Int : 160 ms QRS Dur : 098 ms QT Int : 394 ms P-R-T Axes : 037 046 015 degrees QTc Int : 416 ms Sinus rhythm with Fusion complexes and Premature atrial complexes with Aberrant conduction Incomplete right bundle branch block Abnormal ECG When compared with ECG of 14-SEP-2021 23:14, Fusion complexes are now Present Aberrant conduction is now Present Nonspecific T wave abnormality now evident in Inferior leads Incomplete right bundle branch block is now Present Referred By: Tyler Hansen Electronically Signed By:STEPHANIE DAMON
[2021-12-10] MEDS: 0.9 % Sodium Chloride Flush 3 ML SYRINGE IVFLUSH (09:37)
--- NOTE | 2021-12-10 10:18 | PM.HEMONCCN ---
Subjective - Subjective Chief complaint: Generalized weakness, anorexia Patient: known to practice within the last 3 years Consult date: 12/10/21 Requesting Physician: Dr. Hansen Primary Care Provider: Armin Zaragoza MD Medical Summary: Diagnosis: Stage IV colorectal cancer diagnosed November 2020 CURRENT THERAPY: Right hemicolectomy on 11/30/2020, pathology invasive adenocarcinoma, moderately to poorly differentiated with neuroendocrine features measuring 14 cm. Tumor invades through muscularis propria into pericolonic soft tissue, LVI present, margins negative, 6 of 23 pericolonic lymph nodes involved by metastatic carcinoma. Staging [id number], AJCC stage IV. Neuroendocrine features are present focally with positive synaptophysin and chromogranin. MMR proficient. PET-CT performed 01/02/2021 revealed extensive intensely FDG avid hypodense liver metastases, Several FDG avid lytic osseous metastases and a few FDG avid lymph node metastases in the abdomen,largest and most intensely FDG avid in the periportal and portacaval regions. Patient started 1st cycle of palliative chemotherapy with modified FOLFOX/Avastin regimen on 01/10/2021. PET scan performed 04/04/2021 after 6 cycles showed marked partial metabolic response to therapy. Very mild FDG activity in liver, FDG avid osseous lesions have completely resolved, periportal and retroperitoneal metastasis have resolved. HPI - Consult Narrative Reason for consult: Pancytopenia/hypotension Narrative: Cade Sanchez is a 76 year old male with metastatic colorectal cancer who presented to emergency department with progressive weakness and inability to eat. He received chemotherapy about 10 days ago. From past friday he has been experiencing loss of appetite and generalized weakness. He has not been eating or drinking much. His recorded a low-grade fever of 99 degrees F. His also reports 1 episode of hematuria. However no hematochezia or melena. Workup in the ED revealed severe pancytopenia with hemoglobin of 6.3 gram/dL, low platelets of 30 K and WBC of 1.1. He did receive Neulasta after his chemotherapy a week ago. He has been admitted for further workup and transfusion support. He was hypertensive when he 1st presented to the ED. his blood pressure has improved with IV hydration and blood transfusions. Review of Systems - Constitutional Reports as per HPI, Reports no additional constitutional complaints, Reports fatigue, Reports malaise, Reports poor appetite, Reports weight loss Oncology Screenings - ECOG Performance Status ECOG Performance Status: 3 [facility] Medical History: Medical History (Last Updated 12/10/21 @ 06:27 by Dawna Shelton MD) Abdominal aortic aneurysm Bone metastases CKD (chronic kidney disease), stage IV Colon carcinoma Diabetes mellitus Gout HLD (hyperlipidemia) Hypertension Pancytopenia Pancytopenia Family History: Family History (Last Reviewed 12/10/21 @ 06:25 by Dawna Shelton MD) Father Past heart attack Mother Past heart attack Surgical History: Surgical History (Last Reviewed 12/10/21 @ 06:25 by Dawna Shelton MD) History of colonoscopy History of hernia surgery History of removal of cyst S/P right colectomy Social History: Social History (Last Reviewed 12/10/21 @ 06:25 by Dawna Shelton MD) Living Situation History: Household Members: Spouse Housing: House Do you presently have visiting nurse or other home services: No Tobacco History: Patient Tobacco Use Status: Former Tobacco user Tobacco use type: Cigarette Years Smoked: 62 e-Cigarette/Vaping Use: Never Used Second Hand Smoke Exposure: Yes Advance Directives: Advance Directives: Yes Advance Directives on File: Yes Advance Directives Date on File: 07/11/21 Occupation Assessmet: service: No Current occupational status: retired Home Medications and Allergies Current Medications: Current Medications Acetaminophen (Acetaminophen 325 Mg Tablet) 650 mg PO Q6H PRN PRN Reason: Pain, Mild (Pain Scale 1-3) Dextrose (Dextrose 50 % 25 Gm/50 Ml Syringe) 25 gm IVPUSH Q15M PRN; Protocol PRN Reason: per Hypoglycemia Standing Ord. Glucose (Glucose Gel 15 Gm Gel..Gram.) 15 gm PO Q15M PRN; Protocol PRN Reason: per Hypoglycemia Standing Ord. Heparin Sodium (Porcine) (Heparin Sodium,Porcine 5,000 Unit/Ml Vial) 5,000 unit SUBCUT Q12H [facility] Last Admin: 12/10/21 03:00 Dose: 5,000 unit Lactated Ringer's (Lr) 1,000 mls @ 100 mls/hr IVCONT .Q10H [facility] Cefepime HCl 2 gm/ Sodium (Chloride) 50 mls @ 100 mls/hr IV Q12H [facility] Insulin Human Lispro (Insulin Lispro 100 Unit/Ml 3 Ml Vial) 0 unit SUBCUT QIDACHS [facility]; Protocol Last Admin: 12/10/21 09:36 Dose: Not Given Ondansetron HCl (Ondansetron Hcl 4 Mg/2 Ml Vial) 4 mg IVPUSH Q8H PRN PRN Reason: Nausea and Vomiting Pharmacy Consult (Consult Rx Perform Med Rec) 1 each MISCELLANE ONCE PRN PRN Reason: Consult order Sodium Chloride (0.9 % Sodium Chloride Flush 3 Ml Syringe) [facility] Last Admin: 12/10/21 09:37 Dose: 3 ml Home Medications Medication Instructions Recorded Confirmed Type eplerenone 25 mg tablet 25 mg PO DAILY 02/23/20 12/10/21 History coenzyme Q10 200 mg capsule (Co 100 mg PO DAILY 12/14/20 12/10/21 History Q-10) calcium carbonate 600 mg calcium 600 mg PO BID 03/05/21 12/10/21 History (1,500 mg) tablet (Calcium) docusate sodium 100 mg capsule 100 mg PO BID 06/04/21 12/10/21 History (Stool Softener) cholecalciferol (vitamin D3) 125 125 mcg PO DAILY 09/15/21 12/10/21 History mcg (5,000 unit) tablet (Vitamin D3) magnesium 500 mg tablet 500 mg PO BID 09/15/21 12/10/21 History ondansetron HCl 4 mg tablet 1 tab PO Q6H PRN nausea 09/15/21 12/10/21 History simvastatin 20 mg tablet 20 mg PO BEDTIME 09/15/21 12/10/21 History sertraline 50 mg tablet (Zoloft) 50 mg PO DAILY 10/03/21 12/10/21 History colchicine 0.6 mg tablet 0.6 mg PO BEDTIME 12/10/21 12/10/21 History tramadol 50 mg tablet 1 tab PO Q6H PRN pain 12/10/21 12/10/21 History Allergies Allergy/AdvReac Type Severity Reaction Status Date / Time atenolol Allergy Unknown dizziness Verified 09/28/21 10:50 penicillin V Allergy Unknown Unknown Verified 09/28/21 10:50 onion Allergy Diarrhea Verified 09/28/21 10:50 Peppers, Green Allergy Diarrhea Verified 09/28/21 10:50 Peppers, Jalapeno Allergy Diarrhea Verified 09/28/21 10:50 Peppers, Red Allergy Diarrhea Verified 09/28/21 10:50 Peppers, Yellow Allergy Diarrhea Verified 09/28/21 10:50 Physical Exam Vital signs: Vital Signs Temp 98.5 F 12/10/21 10:03 Pulse 68 12/10/21 10:03 Resp 22 H 12/10/21 10:03 BP 132/62 12/10/21 10:03 Pulse Ox 97 12/10/21 00:16 O2 Del Method 12/10/21 00:16 Intake & Output 12/09/21 12/10/21 12/10/21 18:59 06:59 18:59 Intake Total 1400 / 1400 350 / 350 Balance 1400 / 1400 350 / 350 Intake: Intake (Blood Product) Amount 350 / 350 350 / 350 Aph Plts Pas Lvds (Ea136) Unit 0 / 0 [id number] Red Blood Cells (E0382) Unit 350 / 350 [id number] Red Blood Cells (E0382) Unit 0 / 0 350 / 350 [id number] Intake, IV Amount 1050 / 1050 0.9 % Sodium Chloride 1,000 ml 1000 / 1000 @ 999 mls/hr IV .Q1H1M STA Rx#: [id number] cefEPime HCl 1 gm In 0.9 % 50 / 50 Sodium Chloride 50 ml @ 100 mls /hr IV ONCE ONE Rx#:[id number] Other: Weight 91.5 kg Weight 91.5 kg - Constitutional Present: no acute distress, chronically ill appearing - Routine HEENT Exam Head: Present: normal inspection Eye: Present: conjunctivae pale - Routine Neck Exam Absent: lymphadenopathy - Routine Respiratory Exam Absent: accessory muscle use - Routine Cardiovascular Exam Cardiovascular: Present: S1, S2 - Routine Abdominal Exam Present: normal bowel sounds. Absent: mass - Routine Extremities Exam Present: pulses intact, pedal edema - Routine Skin Exam Present: ecchymosis - Routine Neurological Exam Present: alert, oriented X3 Hem/Onc Consult Result - Labs CBC & Chem 7: 12/10/21 05:03 12/10/21 05:03 Labs: Short CBC 12/09/21 12/10/21 Range/Units 18:27 05:03 WBC 1.1 L 1.7 L (4.8-10.8) X10*3/uL Hgb 6.3 L* D 7.7 L D (14.0-18.0) g/dl Hct 19.0 L* D 23.1 L D (42.0-52.0) % Plt Count 30 L D 31 L (160-400) X10*3/uL BMP 12/09/21 12/10/21 18:27 05:03 Sodium 139 140 Potassium 4.9 4.7 Chloride 111 H 109 H Carbon Dioxide 17 L 20 L BUN 66 H D 66 H Creatinine 1.76 H 1.64 H Calcium 7.2 L D 7.4 L Liver Function 12/09/21 Range/Units 18:27 Total Bilirubin 3.8 H (0.0-1.0) mg/dL AST 15 D (5-37) U/L ALT 15 (0-40) U/L Alkaline Phosphatase 271 H D (39-117) U/L Albumin 2.6 L (3.5-5.0) g/dL Assessment and Plan Patient Active problem list reviewed?: Yes (1) Pancytopenia Status: Acute Assessment and plan: 1. This is a pleasant 76-year-old man with metastatic colorectal cancer who is on palliative chemotherapy admitted for hypertension and pancytopenia. He started FOLFIRI regimen in August 2021, in the second-line setting. He has had problems with cytopenias and bleeding issues. He is on reduced doses because of toxicity and poor performance status. His last chemotherapy was on 11/30/2021. He received Neulasta but is now admitted for neutropenia and low-grade fever. Blood cultures are pending. I agree with IV cefepime. For his anemia he has received blood transfusion. His pancytopenia has probably worsened because of poor nutrition in the last several days. His kidney functions at this time a stable. I will follow him with you. Thank you. - Time Spent With Patient Time Spent with Patient (in minutes): 20
--- NOTE | 2021-12-10 10:26 | PC.NURSE ---
patient has no signs and symptoms of reaction at this time . lungs remain clear .
--- NOTE | 2021-12-10 10:54 | PM.EVENT ---
Event Note Date of Service: 12/10/21 Event Note: Seen in f/u for pancytopenia, concern for neutropenic fever, presently afebrile, BP within normal. Continue emperic Abx and follow cultures. Oncology following. Otherwise assessment and plan per H/P of today
[2021-12-10] MEDS: Lactated Ringers 1,000 ML 100 ML IVCONT ×3 (11:23→20:58)
--- NOTE | 2021-12-10 11:39 | PC.NURSE ---
rn to rn report given to suyapa pt moved to the overflow unit. pt/family aware of plan of care.
[2021-12-10] MEDS: cefEPime HCl 2 GM in 0.9 % Sodium Chloride 50 ML IV (12:37)
[2021-12-10 19:16] LABS: Glucose, Whole Blood 108 mg/dL (60-115)
[2021-12-11] VITALS: BP 140/65; PULSE 88; RESP 18; TEMP 37.1; O2SAT 97
[2021-12-11] MEDS: cefEPime HCl 2 GM in 0.9 % Sodium Chloride 50 ML IV ×3 (00:58→22:15)
[2021-12-11] MEDS: Heparin Sodium,Porcine 5,000 UNIT/ML VIAL 5000 UNIT SUBCUT (01:55)
[2021-12-11] MEDS: Acetaminophen 325 MG TABLET 650 MG PO (03:53)
[2021-12-11 04:08] LABS: Appearance Urine CLEAR; Color Urine YELLOW; Glucose Urine UA Negative (NEG); Leukocyte Esterase Urine Trace (Negative); Nitrite Urine Negative (NEG); PH 5.5 (5.0-8.0); Specific Gravity - Urine 1.015 (1.005-1.025); Urine Blood Small (1+) (NEG); Urine Ketones Negative (NEG); Urine Protein Trace MG/DL (NEG-TRACE)
[2021-12-11 04:13] VITALS: BP 135/63; PULSE 71; RESP 18; TEMP 37.6; O2SAT 97
[2021-12-11 04:22] LABS: Bacteria Urine 2+ /LPF; Squamous Epithelial Cell Urine 1+ /LPF
[2021-12-11 07:36] LABS: Glucose, Whole Blood 97 mg/dL (60-115)
[2021-12-11] MEDS: Lactated Ringers 1,000 ML 100 ML IVCONT ×2 (08:13→17:20)
[2021-12-11 08:54] VITALS: BP 113/64; PULSE 71; RESP 18; TEMP 36.6; O2SAT 98
[2021-12-11 10:08] LABS: Hemoglobin 7.8 g/dl (14.0-18.0); Mean Corpuscular HGB Conc 33.9 g/dl (31.0-36.0); Mean Corpuscular Volume 103.1 fL (80.0-98.0); Mean Platelet Volume 11.1 fL (9.4-12.4); Red Blood Count 2.23 X10*6/uL (4.60-5.80); Red Cell Distribution Width 19.5 % (11.0-16.0); White Blood Count 3.1 X10*3/uL (4.8-10.8)
[2021-12-11 10:09] LABS: Platelet Count 48 X10*3/uL (160-400)
--- NOTE | 2021-12-11 11:24 | PC.NURSE ---
pt port to R chest only covered with a tegaderm, I removed the tegaderm, cleaned the area and applied a sterile dressing to the port. I also contacted dr eng to continue pts home medications, awaiting new orders.
[2021-12-11] MEDS: Cholecalciferol (Vitamin D3) 25 MCG TABLET 125 MCG PO (12:17)
[2021-12-11] MEDS: Magnesium Oxide 400 MG TABLET PO ×2 (12:17→22:14)
[2021-12-11] MEDS: Pioglitazone HCL 30 MG TABLET PO (12:19)
[2021-12-11] MEDS: Docusate Sodium 100 MG CAPSULE PO ×2 (12:19→22:14)
[2021-12-11 12:31] LABS: Glucose, Whole Blood 125 mg/dL (60-115)
--- NOTE | 2021-12-11 12:53 | MHC.CM.PN ---
NO IMM REQUIRED. CM MET WITH PATIENT'S , ALICIA, IN ED. SHE REPORTS HE LIVES WITH HER IN A HOUSE. HE HAS FAMILY THAT ASSIST THEM WHEN NEEDED. PATIENT HAS A WHEELCHAIR, SEATED WALKER AND CANE AT HOME. DENIES SERVICES AT HOME. SHE REPORTS SHE WILL REACH OUT TO [facility] IF NEEDED. PATIENT IS A DIALYSIS PATIENT WITH [facility]. PCP IS GWEN COSTA, HCP ON FILE, LIZZIE CRUZ X2 PFIZER. [facility]SE WILL TRANSPORT HOME. D/C PLAN HOME SELF-CARE WITH HD RESUMPTION.
[2021-12-11 14:00] VITALS: BP 143/63; PULSE 66; RESP 18; TEMP 36.9; O2SAT 66
--- NOTE | 2021-12-11 15:42 | HO.PM.IMPN ---
Subjective Subjective Date of Service: 12/12/21 Interval History: f/u neutropenia Interval history: he's doing much better today, Review of Systems no fever or chills Physical Exam Vital Signs: Vital Signs: Last Vital Signs Temp 98.5 F 12/11/21 14:00 Pulse 66 12/11/21 14:00 Resp 18 12/11/21 14:00 BP 143/63 H 12/11/21 14:00 Pulse Ox 66 L 12/11/21 14:00 O2 Del Method 12/11/21 14:00 BMI result Body Mass Index 28.9 Const: Other: General: AO X 3, no acute distress Resp: CTA bilateral CVS: S1,S2,RRR GI: +BS, NT, no distention Skin: bruses on arm Neuro: motor grossly intact Psych: appropriate affect Objective Data Active Medications Acetaminophen (Acetaminophen 325 Mg Tablet) 650 mg PO Q6H PRN PRN Reason: Pain, Mild (Pain Scale 1-3) Last Admin: 12/11/21 03:53 Dose: 650 mg Documented By: GERMAN Allopurinol (Allopurinol 300 Mg Tablet) 300 mg PO DAILY [facility] Atorvastatin Calcium (Atorvastatin Calcium 10 Mg Tablet) 10 mg PO BEDTIME [facility] Calcium Carbonate (Calcium Carbonate 500 Mg Tablet) 500 mg PO BID [facility] Colchicine (Colchicine 0.6 Mg Tablet) 0.6 mg PO BEDTIME [facility] Dextrose (Dextrose 50 % 25 Gm/50 Ml Syringe) 25 gm IVPUSH Q15M PRN; Protocol PRN Reason: per Hypoglycemia Standing Ord. Docusate Sodium (Docusate Sodium 100 Mg Capsule) 100 mg PO BID [facility] Last Admin: 12/11/21 12:19 Dose: 100 mg Documented By: JOHN Famotidine (Famotidine 20 Mg Tablet) 40 mg PO BEDTIME [facility] Glucose (Glucose Gel 15 Gm Gel..Gram.) 15 gm PO Q15M PRN; Protocol PRN Reason: per Hypoglycemia Standing Ord. Heparin Sodium (Porcine) (Heparin Sodium,Porcine 5,000 Unit/Ml Vial) 5,000 unit SUBCUT Q12H [facility] Last Admin: 12/11/21 01:55 Dose: 5,000 unit Documented By: KATHRYN Lactated Ringer's (Lr) 1,000 mls @ 100 mls/hr IVCONT .Q10H [facility] Last Admin: 12/11/21 08:13 Dose: 100 mls/hr Documented By: SHARLENE Cefepime HCl 2 gm/ Sodium (Chloride) 50 mls @ 100 mls/hr IV Q12H [facility] Last Admin: 12/11/21 12:16 Dose: 100 mls/hr Documented By: JOHN Insulin Human Lispro (Insulin Lispro 100 Unit/Ml 3 Ml Vial) 0 unit SUBCUT QIDACHS [facility]; Protocol Last Admin: 12/11/21 08:09 Dose: Not Given Documented By: SHARLENE Non-Admin Reason: No Insulin Coverage Magnesium Oxide (Magnesium Oxide 400 Mg Tablet) 400 mg PO BID [facility] Last Admin: 12/11/21 12:17 Dose: 400 mg Documented By: JOHN Non-Formulary Medication (Eplerenone) 25 mg PO DAILY [facility] Ondansetron HCl (Ondansetron Hcl 4 Mg/2 Ml Vial) 4 mg IVPUSH Q8H PRN PRN Reason: Nausea and Vomiting Ondansetron HCl (Ondansetron Odt 4 Mg Tab.Rapdis) 4 mg TRANSLINGU Q6H PRN PRN Reason: nausea Pharmacy Consult (Consult Rx Perform Med Rec) 1 each MISCELLANE ONCE PRN PRN Reason: Consult order Pioglitazone HCl (Pioglitazone Hcl 30 Mg Tablet) 30 mg PO DAILY [facility] Last Admin: 12/11/21 12:19 Dose: 30 mg Documented By: JOHN Sertraline HCl (Sertraline Hcl 50 Mg Tablet) 50 mg PO DAILY [facility] Sodium Chloride (0.9 % Sodium Chloride Flush 3 Ml Syringe) 3 ml IVFLUSH QSHIFT [facility] Last Admin: 12/11/21 08:09 Dose: Not Given Documented By: SHARLENE Non-Admin Reason: IV Running Vitamin D (Cholecalciferol (Vitamin D3) 25 Mcg Tablet) 125 mcg PO DAILY [facility] Last Admin: 12/11/21 12:17 Dose: 125 mcg Documented By: JOHN Labs CBC & Chem 7: 12/11/21 10:02 12/10/21 05:03 Labs: Laboratory Results - last 24 hr 12/10/21 12/11/21 12/11/21 19:05 03:36 07:33 MCV MCH MCHC RDW Plt Count MPV Absolute Nucleated RBC Nucleated RBC % (auto) POC Glucose 108 97 Urine Color YELLOW Urine Appearance CLEAR Urine pH 5.5 Ur Specific [place] 1.015 Urine Protein Trace Urine Glucose (UA) Negative Urine Ketones Negative Urine Blood Small (1+) H Urine Nitrite Negative Ur Leukocyte Esterase Trace H Urine RBC 1-4 Urine WBC 10-14 H Ur Squamous Epith Cells 1+ Urine Bacteria 2+ Granular Casts 1-4 12/11/21 12/11/21 10:02 12:27 MCV 103.1 H MCH 35.0 H MCHC 33.9 RDW 19.5 H Plt Count 48 L D MPV 11.1 Absolute Nucleated RBC 0.000 Nucleated RBC % (auto) 0.0 POC Glucose 125 H Urine Color Urine Appearance Urine pH Ur Specific [place] Urine Protein Urine Glucose (UA) Urine Ketones Urine Blood Urine Nitrite Ur Leukocyte Esterase Urine RBC Urine WBC Ur Squamous Epith Cells Urine Bacteria Granular Casts Microbiology Microbiology Results: Microbiology 12/09/21 22:27 Blood Culture - Preliminary Blood - Venous No growth after 24 hours. 12/09/21 22:27 Blood Culture - Preliminary Blood - Venous No growth after 24 hours. Assessment and Plan (1) Neutropenic fever: Status: Acute (2) Pancytopenia: Status: Acute Plan 76-year-old male with past medical history of metastatic colon cancer presents to the hospital with fatigue found to have neutropenic fever # Neutropenic fever--no fever here, cultures thus far negative , WBC is better, if cultures remains negative by tomorrow will stop Abx # acute on chronic anemia--h/h stable # thrombocytopenia - secondary to chemotherapy - patient being transfused given the anemia - follow platelets #TRISTEN--improving with IVF, repeat tomorrow # Fiabetes - low-dose sinus cancer - diabetic diet # hypertension - stable - resume home medications DVT prophylaxis: Heparin subQ need for inaptient: concern for neutropenia fever and being treated with Iv abx Quality Stroke Does the patient have a stroke diagnosis?: No VTE Prior VTE?: No VTE Risk Level:: Medical - moderate - high VTE Device Contraindication: Treatment Not Indicated VTE Drug Contraindication: N/A - Med Ordered
[2021-12-11 16:00] VITALS: TEMP 36.6
[2021-12-11 18:48] LABS: Glucose, Whole Blood 105 mg/dL (60-115)
[2021-12-11] MEDS: Atorvastatin Calcium 10 MG TABLET PO (22:14)
[2021-12-11] MEDS: Famotidine 20 MG TABLET 40 MG PO (22:15)
[2021-12-11] MEDS: Colchicine 0.6 MG TABLET PO (22:15)
[2021-12-11 23:59] VITALS: BP 126/56; PULSE 69; RESP 18; TEMP 36.7; O2SAT 98
[2021-12-12] MEDS: Heparin Sodium,Porcine 5,000 UNIT/ML VIAL 5000 UNIT SUBCUT (00:44)
[2021-12-12 04:00] VITALS: BP 133/64; PULSE 61; RESP 18; TEMP 37; O2SAT 99
[2021-12-12 07:14] LABS: Glucose, Whole Blood 100 mg/dL (60-115)
[2021-12-12] MEDS: Magnesium Oxide 400 MG TABLET PO (09:35)
[2021-12-12] MEDS: Cholecalciferol (Vitamin D3) 25 MCG TABLET 125 MCG PO (09:35)
[2021-12-12] MEDS: Docusate Sodium 100 MG CAPSULE PO (09:35)
[2021-12-12] MEDS: Sertraline HCL 50 MG TABLET PO (09:35)
[2021-12-12] MEDS: allopurinoL 300 MG TABLET PO (09:35)
[2021-12-12 09:40] VITALS: BP 128/61; PULSE 65; RESP 14; O2SAT 98
--- NOTE | 2021-12-12 09:45 | PM.DS ---
DS: Providers Provider Date of Service: 12/12/21 Date of admission: 12/10/21 00:32 Primary care physician: Armin Zaragoza MD Consults: 12/10/21 00:31 Consult to Hematology / Oncology Routine Consulting Provider: Neli Franklin Reason for consultation: neutropeinic fever Has provider been notified: No DS: Diagnosis Discharge Diagnosis (1) Neutropenic fever: Status: Acute (2) Pancytopenia: Status: Acute DS: Summary Hospital Course Hospital Course: Chief Complaint: fatigue This is a 76-year-old male with past medical history of stage IV colon cancer with Mets to the liver and lungs as well as to the bone, currently undergoing chemotherapy, and sent to be knee a on Lunesta, diabetes, HTN, CKD, history of GI bleed, who presents to the hospital with complaints of chest history TH not feel well.? Patient has also been feeling febrile with a fever of 99 at home, also says that he has had decreased appetite, denies any bloody dark tarry stools, no abdominal pain nausea or vomiting, no diarrhea constipation, no cough, no shortness of breath, and no urinary symptoms. Patient's last chemotherapy session was on the peer On arrival to the ED patient was found to have a temperature of 99.0 degrees, BP of 99/41, satting 97% on room air Labs are significant for WBC count of 1.1, hemoglobin of 6.3 8.5 on 11/27, record 19, platelets of 30, 121 on , neutrophils of 0.8, with 20 of bands, BUN of 66, creatinine of 1.76, previously 1.39 on 11/27 Stool occult positive Patient started on IV antibiotics and will be admitted for further management Hospital course: Patient with metatatic colon cancer and presented with fatigue following recent chemo and there was concern of neutropenia fever with subjective fever reported from home. Patient has been afebrile throughout hospitalization, he has been treated empirically with cefepime, cultures have been negative. Initial WBC was 1.1 now 3.1, platelet has improved from 30 to 48 now, hematocrit has improved from 19 to 23 now and has. He was clinically dehydration and has been hydrated, his apetite has improved signficantly is he feels more energetic now and eager to go home. He has been followed by Dr. Franklin and will follow up in the oncology clinic. The plan of care has been discussed with the patient and his in the a very comfortable going Time Spent with Patient Time attestation: Total time spent providing and/or coordinating discharge services: Discharge coordination time: Greater than 30 minutes Quality: Safe Use of Opioids Does Pt have an Active Cancer Diagnosis on the Problem List?: No Quality: Stroke Does the patient have a stroke diagnosis?: No Physical Exam Vital Signs: Vital Signs: Last Vital Signs Temp 98.6 F 12/12/21 04:00 Pulse 65 12/12/21 09:40 Resp 14 12/12/21 09:40 BP 128/61 12/12/21 09:40 Pulse Ox 98 12/12/21 09:40 O2 Del Method 12/12/21 09:40 BMI result Body Mass Index 28.9 Const: Other: General: AO X 3, no acute distress Resp: CTA bilateral CVS: S1,S2,RRR GI: +BS, NT, no distention Skin: bruses on arm Neuro: motor grossly intact Psych: appropriate affect DS: Data Data Completed and Pending Completed studies during hospitalization [Text1]: Procedures Excision of Rectum, Via Natural or Artificial Opening Endoscopic, Diagnostic (09/15/21) Resection of Right Large Intestine, Open Approach (11/29/20) Labs on day of discharge: Laboratory Results - last 24 hr 12/11/21 12/11/21 12/11/21 10:02 12:27 18:44 WBC 3.1 L RBC 2.23 L Hgb 7.8 L Hct 23.0 L MCV 103.1 H MCH 35.0 H MCHC 33.9 RDW 19.5 H Plt Count 48 L D MPV 11.1 Absolute Nucleated RBC 0.000 Nucleated RBC % (auto) 0.0 POC Glucose 125 H 105 12/12/21 07:10 WBC RBC Hgb Hct MCV MCH MCHC RDW Plt Count MPV Absolute Nucleated RBC Nucleated RBC % (auto) POC Glucose 100 Preliminary micro results at discharge 12/09/21 22:27 Blood Culture - Preliminary Blood - Venous No growth after 48 hours. 12/09/21 22:27 Blood Culture - Preliminary Blood - Venous No growth after 48 hours. Discharge Plan Discharge Anticipated Discharge Date/Time: 12/12/21 09:41 Patient Disposition: Home, Self-Care Discharge Diagnosis: Pancytopenia, neutropenia, Referrals: Armin Zaragoza MD [Primary Care Provider] - 1 Week Discharge Medications: Continued pioglitazone 30 mg tablet 30 mg PO DAILY Qty: 90 8RF famotidine 40 mg tablet 40 mg PO BEDTIME Qty: 30 1RF allopurinol 300 mg tablet 300 mg PO DAILY Qty: 90 8RF coenzyme Q10 [Co Q-10] 200 mg Capsule 100 mg PO DAILY sertraline [Zoloft] 50 mg Tablet 50 mg PO DAILY calcium carbonate [Calcium 600] 600 mg calcium (1,500 mg) Tablet 600 mg PO BID simvastatin 20 mg tablet 20 mg PO BEDTIME magnesium 500 mg Tablet 500 mg PO BID ondansetron HCl 4 mg tablet 1 tab PO Q6H PRN (Reason: nausea) cholecalciferol (vitamin D3) [Vitamin D3] 125 mcg (5,000 unit) Tablet 125 mcg PO DAILY tramadol 50 mg tablet 1 tab PO Q6H PRN (Reason: pain) colchicine 0.6 mg tablet 0.6 mg PO BEDTIME eplerenone 25 mg tablet 25 mg PO DAILY docusate sodium [Stool Softener] 100 mg capsule 100 mg PO BID Discharge Orders: Discharge Order (Routine); Ordered 12/12/21 Ordered By: Tyler Hansen Diet: Advance to usual diet Activity on Discharge: As tolerated Stand Alone Forms: Patient Portal Discharge page Care Plan Goals: Full recovery from neutropenia, Health Concerns: Pancytopenia, underlying cancer Plan of Treatment: To follow-up with Dr. Minaya for resumption of chemotherapy, Assessment: As above
--- NOTE | 2021-12-12 09:56 | MHC.CM.PN ---
Patient has been medically cleared for dc to home today, self care.
[2021-12-12 10:11] LABS: Hematocrit 23.1 % (42.0-52.0); Hemoglobin 7.7 g/dl (14.0-18.0); Mean Corpuscular HGB Conc 33.3 g/dl (31.0-36.0); Mean Platelet Volume 11.9 fL (9.4-12.4); Platelet Count 57 X10*3/uL (160-400); Red Cell Distribution Width 19.9 % (11.0-16.0); White Blood Count 4.2 X10*3/uL (4.8-10.8)
--- NOTE | 2021-12-12 12:34 | PC.NURSE ---
Pt A&Ox3, labs manjit off port this AM by this RN. Pt offers no complaints, plan for DC is CBC is stable, pt and aware and agreeable at this time. Upon return of labs, port flushed with heparin flush, deaccessed and dressed. Pt signed DC paperwork, wheeled out to car by [employer].
== END 2021-12-12 12:39 | disposition home or self-care (01) | DRG 660 ==
LOC: HO.ED 12-10 00:32 → HO.EDOVER 12-10 00:39
PROVIDERS: Internal Medicine; Physician Assistant; Admitting Provider Internal Medicine; Emergency Provider Emergency Medicine Emergency Medical Services; PCP Internal Medicine; Visit Provider Internal Medicine
DX: D61.810 Antineoplastic chemotherapy induced pancytopenia (principal); N17.9 Acute kidney failure, unspecified; C79.51 Secondary malignant neoplasm of bone; C78.01 Secondary malignant neoplasm of right lung; D70.1 Agranulocytosis secondary to cancer chemotherapy; C78.02 Secondary malignant neoplasm of left lung; D63.0 Anemia in neoplastic disease; C19 Malignant neoplasm of rectosigmoid junction; E86.0 Dehydration; C78.7 Secondary malignant neoplasm of liver and intrahepatic bile duct; T45.1X5A Adverse effect of antineoplastic and immunosuppressive drugs, initial encounter; E78.5 Hyperlipidemia, unspecified; Z20.822 Contact with and (suspected) exposure to COVID-19; Z88.0 Allergy status to penicillin; Z88.8 Allergy status to other drugs, medicaments and biological substances; Z79.899 Other long term (current) drug therapy
CPT/HCPCS: 36415; 36430; 71045; 80048; 80053; 81001; 82272; 82947; 83880; 85007; 85025; 85027; 86850; 86900; 86901; 86923; 87040; 87635; 93005; 96361; 96374; 96375; 99285; J0692; J1940; P9016; P9035

== ENCOUNTER 2021-12-20 09:04 | Outpatient (REF) | payer OTHER, SELFPAY ==
--- NOTE | ~2021-12-20 | CT_ITS ---
EXAMINATION: CT CHEST WITHOUT CONTRAST CLINICAL INFORMATION: Colon cancer. Check response to treatment. COMPARISON: Previous chest CT most recent August 2017. TECHNIQUE: Multidetector volumetric CT imaging of the chest was done. Axial MIP volume rendering provided. Sagittal and coronal reformatted images were obtained. This CT examination was performed using dose optimization techniques as appropriate, variously including the following: *Automated exposure control *Adjustment of mA and/or kV according to patient size (this includes techniques or standardized protocols for targeted exams where dose is matched to indication/reason for exam; i.e. extremities or head) *Use of iterative reconstruction technique DLP: 200 mGy-cm FINDINGS: RN CORRECTIONAL: Elevation of the right hemidiaphragm. LUNGS: There are increased peripheral interstitial markings questionable for mild interstitial lung disease. There are several adjacent new slightly heterogeneous left upper lobe nodules, largest measuring 6 mmaxial image 231 series 7. There is a new peripheral or subpleural 6 mm right lower lobe nodule axial image 308 series 7. There is interval increase in size in the peripheral or subpleural right lower lobe nodule measuring 12 mm axial image 352 series 7 compared to 6 mm on previous exam. There is a 5 mm peripheral or subpleural right lower lobe nodule axial image 383 series 7 that does not appear appreciably changed. There is a 4 mm peripheral or subpleural left lower lobe nodule axial image 358 series 7. This may be slightly increased from 3 mm on previous exam. There is a 1.2 cm peripheral or subpleural left lower lobe nodule axial image 440 series 7. This is increased from 0.8 cm on previous exam. There is a more central 8 mm nodular density in the left lower lobe axial image 433 series 7 that appears unchanged and compared with prior exams and may represent a vascular structure/vascular dilatations opposed to true nodule. MEDIASTINUM: There are some small mediastinal lymph nodes. No enlarged mediastinal lymph nodes are seen. Evaluate for hilar adenopathy is limited without contrast. The heart does not appear enlarged. There is severe coronary artery calcification. There is aortic valve calcification. There is a small pericardial effusion or thickening. This is slightly increased from previous exam. There is a right cardiophrenic angle or anterior diaphragmatic lymph node measuring 5 mm in short axis that is not appreciably changed. There is a right jugular port with tip projecting over the SVC. PLEURA: There is no pleural effusion. No pleural mass or thickening. AXILLA: No lymphadenopathy. UPPER ABDOMEN: See abdominal and pelvic CT report. OSSEOUS STRUCTURES: There is a small sclerotic lesion in the sternum measuring 5 x 10 mm. There is a T5 vertebral body compression fracture. This is heterogeneous in attenuation with lucent and sclerotic areas suggestive of a pathologic fracture. Bone findings are unchanged. CT/CT chest wo con IMPRESSION: Interval increase in size and number of pulmonary nodules. Fleischner guidelines were followed.
--- NOTE | ~2021-12-20 | CT_ITS ---
EXAMINATION: CT ABDOMEN AND PELVIS WITHOUT CONTRAST CLINICAL INFORMATION: Colon cancer. Check response to treatment. COMPARISON: Previous CTs of the abdomen and pelvis, most recent August 2021. TECHNIQUE: Multidetector volumetric imaging was performed from the superior aspect of the liver through the pubic symphysis. Sagittal and coronal reformatted images were obtained on the technologist's workstation. This CT examination was performed using dose optimization techniques as appropriate, variously including the following: *Automated exposure control *Adjustment of mA and/or kV according to patient size (this includes techniques or standardized protocols for targeted exams where dose is matched to indication/reason for exam; i.e. extremities or head) *Use of iterative reconstruction technique DLP: 620 mGy-cm. FINDINGS: LUNG BASES: There is elevation of the right hemidiaphragm. LIVER, GALLBLADDER, AND BILIARY TREE: There are increased cirrhotic changes of the liver. There are innumerable low-attenuation liver lesions. Comparison of the size of lesions in the liver is difficult due to increasing cirrhotic changes of the liver. There is mixed appearance of larger liver lesions. Largest lesion or conglomerate lesions measures 12 x 8 cm high in the dome of the liver, axial image 14 series 3 and appears increased compared to 5.5 x 8 cm on previous exam. Largest lesion in the peripheral right lobe of the liver measures 4.7 x 4.7 cm, axial image 25 series 3 and appears decreased in size from 6.3 x 7.3 cm on August 2021 exam. There also appears to be increasing peripheral or capsular scarring or retraction over the lesion. No definite new liver lesions are appreciated. There is increasing ascites around the liver. The gallbladder appears contracted. There is no biliary duct dilatation. PANCREAS: There are small calcifications in the head of the pancreas. Pancreas is otherwise normal. SPLEEN: Unremarkable. ADRENAL GLANDS: Unremarkable. KIDNEYS AND URETERS: There may be a tiny 1 to 2 mm stone in the lower pole of the right kidney. Kidneys are otherwise normal. BLADDER: Unremarkable. GASTROINTESTINAL TRACT: There are postsurgical changes following right colectomy. There is question of mild wall thickening of the colon/mild colitis versus changes due to underdistention. The stomach is normal. ABDOMINAL WALL: No significant hernia is appreciated. LYMPH NODES: Normal. VASCULAR: There is evidence of atherosclerotic disease. There is an aneurysm of the lower abdominal aorta measuring maximum 2.5 x 4.5 cm. This does not appear appreciably changed. PELVIC VISCERA: The prostate gland is enlarged and protrudes into the base of the bladder. OSSEOUS STRUCTURES: There are degenerative changes of the spine and hip joints. CT/CT abdomen pelvis wo con IMPRESSION: Increasing cirrhotic changes of the liver. Comparison of liver lesions is difficult due to cirrhotic changes. There is a mixed response of larger liver lesions. Increasing ascites. Question mild diffuse wall thickening of the colon/colitis versus changes due to underdistention. Atherosclerotic disease and stable lower abdominal aortic aneurysm. Enlarged prostate gland. Question small right renal stone. Fleischner guidelines were followed.
== END 2021-12-20 09:05 | disposition home or self-care (01) ==
LOC: HO.CT 09:04
PROVIDERS: PCP Internal Medicine; Visit Provider Internal Medicine
DX: C79.51 Secondary malignant neoplasm of bone (principal)
CPT/HCPCS: 71250; 74176